=== PATIENT | female | born 1960 | race Caucasian/White ===

== ENCOUNTER → 2016-07-24 | Outpatient (CLI) | payer MEDICARE ==
--- NOTE | 2016-07-27 09:28 | MM ---
Reason for exam: screening (asymptomatic). Last mammogram was performed 1 year ago. History: Patient is postmenopausal. Benign stereotactic core biopsy of the left breast, April 14, 2002. Took estrogen for 6 months. Physical Findings: A clinical breast exam by your physician is recommended on an annual basis and results should be correlated with mammographic findings. MG Screening Mammo w CAD Bilateral CC and MLO view(s) were taken. Prior study comparison: July 23, 2015, bilateral MG screening mammo w CAD. July 20, 2014, bilateral MG screening mammo w CAD. There are scattered fibroglandular densities. Finding: There are typically benign round calcifications in both breasts. Previous mammotome biopsy in the left breast. There is no discrete abnormality. ASSESSMENT: Benign, BI-RAD 2 RECOMMENDATION: Routine screening mammogram of both breasts in 1 year.
== END | disposition home or self-care (01) ==
LOC: RADMAMWWP 14:35
PROVIDERS: ATTEND Family Medicine
DX: Z12.31 Encounter for screening mammogram for malignant neoplasm of breast (principal)

== ENCOUNTER → 2016-09-05 | Outpatient (CLI) | payer MEDICARE ==
--- NOTE | 2016-09-06 08:03 | MR ---
EXAMINATION TYPE: MR lumbar spine wo con DATE OF EXAM: 09/05/2016 1:27 PM COMPARISON: 12/02/2013 HISTORY: 55-year-old female with low back pain TECHNIQUE: Multiplanar, multisequence images of the lumbar spine were acquired. FINDINGS: Vertebral body heights are preserved. No suspicious bone marrow placement. The intervertebral discs are degenerated, desiccated, mildly moderately narrowed, and diffusely bulgi ng especially in the mid to lower lumbar spine. The overall degree of disc desiccation has progressed from 2013. Redemonstrated component of mild congenital spinal canal stenosis with AP canal dimension in the mid to lower lumbar spine of 9 mm. Facet arthropathy mid to lower lumbar spine. New grade 1 anterolisthesis at L5-S1. At T12-L1, redemonstrated small 7 mm perineural cysts on both sides. No spinal canal or neuroforamina l stenosis. At L1-L2, minimal bulging disc. No significant spinal canal or neural foraminal stenosis. At L2-L3, minimal bulging disc. No significant spinal canal or neuroforaminal stenosis. At L3-L4, is disc bulge with ligamentum flavum thickening and facet arthropathy. Changes results in c ontinued moderate spinal canal stenosis with near complete effacement of the CSF signal at this level . Mild left greater than right neuroforaminal stenosis is also stable. At L4-L5, diffuse disc bulge with ligamentum flavum thickening and facet degenerative change. Mild-to -moderate spinal canal stenosis at this level has slightly increased as have the mild bilateral neuro foraminal stenoses. At L5-S1, there is a new grade 1 anterolisthesis with continued diffuse disc bulge and facet degenera tive change. Moderate right neuroforaminal stenosis increased with similar mild left neuroforaminal s tenosis. Mild spinal canal stenosis here is similar. No prevertebral paravertebral soft tissue abnormality. IMPRESSION: 1. Moderate multilevel degenerative disc disease especially in the mid to lower lumbar spine superimp osed on mild congenital spinal canal narrowing. Additional facet arthropathy. Changes are slightly pr ogressed in the interval with new grade 1 anterolisthesis at L5-S1. 2. At L3-L4, there is continued moderate spinal canal stenosis with near complete effacement of the C SF signal at this level. Mild left greater than right neuroforaminal stenosis here is unchanged as we ll. 3. Mild to moderate spinal canal stenosis at L4-L5 is slightly increased as has the mild bilateral ne uroforaminal stenoses. 4. Mild overall spinal canal stenosis at L5-S1 is relatively similar though with increased moderate r ight neuroforaminal stenosis.
== END | disposition home or self-care (01) ==
LOC: RADMRIMAIN 12:45
PROVIDERS: ATTEND Physician Assistant
DX: M48.07 Spinal stenosis, lumbosacral region (principal); M99.73 Connective tissue and disc stenosis of intervertebral foramina of lumbar region; M51.36 Other intervertebral disc degeneration, lumbar region; M43.17 Spondylolisthesis, lumbosacral region; M46.86 Other specified inflammatory spondylopathies, lumbar region
CPT/HCPCS: 72148

== ENCOUNTER → 2017-04-29 | Outpatient (CLI) | payer MEDICARE ==
--- NOTE | 2017-04-29 16:12 | CTL ---
EXAMINATION TYPE: CT Low Dose Lung DATE OF EXAM ORDERED: 04/29/2017 HISTORY: Long-term tobacco use . Lung cancer screening CT DLP: [address] CTDI: 2.68 mGy Automated exposure control for dose reduction was used. SCREENING VISIT: Initial study COMPARISON: None TECHNIQUE: Low dose computed tomography scan was performed through the chest at 1 mm thick sections a nd reconstructed images in the coronal plane at [address] DIAGNOSTIC QUALITY: Satisfactory FINDINGS: LUNG NODULES: None. LUNGS: COPD: Severity: Mild Fibrosis: Severity: Moderate biapical posterior pleural/parenchymal scarring. Mild scarring medially right middle lobe near diaphragm. Minimal linear scarring both bases near diaphragm Lymph nodes: None. A few prominent but subcentimeter prevascular and paratracheal lymph nodes are not ed. Other findings: None BILATERAL PLEURAL SPACE: Effusion: None Calcification: None Thickening: None Pneumothorax: None HEART: Heart Size: Normal Coronary calcification: None Pericardial effusion: None OTHER FINDINGS: Upper abdomen: No significant findings seen Bony thorax: No suspicious findings seen. Supraclavicular region: No suspicious finding seen Other: There is bovine type aortic arch which is normal variant. IMPRESSION: No suspicious nodules identified. FOLLOW UP CT CHEST RECOMMENDATION: Annual low-dose lung screening CT CT LUNG RAD: Lung-Rad 1 Negative
== END | disposition home or self-care (01) ==
LOC: RADCTMAIN 14:51
PROVIDERS: ATTEND Family Medicine
DX: Z12.2 Encounter for screening for malignant neoplasm of respiratory organs (principal); Z87.891 Personal history of nicotine dependence

== ENCOUNTER → 2017-07-26 | Outpatient (CLI) | payer MEDICARE ==
--- NOTE | 2017-07-26 14:26 | US ---
EXAMINATION TYPE: US carotid duplex BILAT DATE OF EXAM: 07/26/2017 COMPARISON: NONE CLINICAL HISTORY: J44.9 COPD. Smoker x 30 years; patient denies TIA/CVA, [place]. EXAM MEASUREMENTS: RIGHT: Peak Systolic Velocity (PSV) cm/sec ----- Right CCA: 122.2 ----- Right ICA: 110.2 ----- Right ECA: 97.8 ICA/CCA ratio: 0.9 RIGHT: End Diastole cm/sec ----- Right CCA: 47.9 ----- Right ICA: 48.1 ----- Right ECA: 23.3 LEFT: Peak Systolic Velocity (PSV) cm/sec ----- Left CCA: 87.0 ----- Left ICA: 104.2 ----- Left ECA: 101.2 ICA/CCA ratio: 1.2 LEFT: End Diastole cm/sec ----- Left CCA: 28.5 ----- Left ICA: 33.7 ----- Left ECA: 16.5 VERTEBRALS (direction of flow): Right Vertebral: Antegrade Left Vertebral: Antegrade Rhythm: Arrhythmia noted on images #23 and 41. Mild intimal wall thickening is noted at bilateral carotid bifurcation, but PSV is wnl bilaterally. IMPRESSION: 1. Mild mendosa scale atheromatous plaquing of the carotid bulbs without hemodynamically significant desirae nosis of either carotid arterial system is visualized. 2. Incidentally noted cardiac arrhythmia. Correlate with EKG.
== END | disposition home or self-care (01) ==
LOC: RADUSWWP 13:39
PROVIDERS: ATTEND Family Medicine
DX: I49.9 Cardiac arrhythmia, unspecified (principal); I65.23 Occlusion and stenosis of bilateral carotid arteries; J44.9 Chronic obstructive pulmonary disease, unspecified
CPT/HCPCS: 93880

== ENCOUNTER → 2017-09-08 | Outpatient (CLI) | payer MEDICARE ==
--- NOTE | 2017-09-10 09:14 | MM ---
Reason for exam: screening (asymptomatic). Last mammogram was performed 1 year and 2 months ago. History: Patient is postmenopausal. Benign stereotactic core biopsy of the left breast, April 14, 2002. Took estrogen for 6 months. Physical Findings: A clinical breast exam by your physician is recommended on an annual basis and results should be correlated with mammographic findings. MG Screening Mammo w CAD Bilateral CC and MLO view(s) were taken. Prior study comparison: July 24, 2016, bilateral MG screening mammo w CAD. July 23, 2015, bilateral MG screening mammo w CAD. The breast tissue is heterogeneously dense. This may lower the sensitivity of mammography. Stable benign calcifications. Previous mammotome biopsy in the left breast. No significant changes when compared with prior studies. ASSESSMENT: Benign, BI-RAD 2 RECOMMENDATION: Routine screening mammogram of both breasts in 1 year.
== END | disposition home or self-care (01) ==
LOC: RADMAMWWP 15:00
PROVIDERS: ATTEND Family Medicine
DX: Z12.31 Encounter for screening mammogram for malignant neoplasm of breast (principal)
CPT/HCPCS: 77067

== ENCOUNTER → 2018-03-01 | Outpatient (CLI) | payer MEDICARE ==
--- NOTE | 2018-03-01 17:25 | CONS ---
CONSULTATION REASON FOR CONSULTATION: Hypersomnia and sleep apnea. This is a 57-year-old female patient, who is coming in for increased daytime sleepiness. The patient tells me that she is falling asleep often during the day. She is very much somnolent and sleepy and this is an ongoing problem for her. She has multiple medical problems and comorbidities. She is diabetic and she has hyperlipidemia and hypothyroidism and carotid artery stenosis and peripheral vascular disease and she also has problems with chronic migraine, peripheral neuropathy, depression and hypertension. She is on a combination of medications for now. In general, the patient carries a very poor sleep hygiene. She surfs the computer all the time and she watches TV throughout the night. She typically watches TV in the living room and she sleeps in her living room. She can fall asleep while doing computer work and while sleeping, computer is on and the TV is on with a lot of light stimulation and noise around her. She sleeps till around 1 or 2:00 am, when she wakes up either because of pain or distractions from electronics. Sometimes she is able to fall back to sleep. Other times, she has a hard time to go back to sleep. She struggles back and forth and ultimately she gets out of bed around 5:00 am in the morning. During the day, she feels drowsy and sleepy. She can easily fall asleep. However she tries not to take any naps. Wadley score is at 19. She has loud snoring. She has no witnessed apneas. No recent weight loss or weight gain. She has no nocturia, no episodes of choking or gasping for air. No evidence of restlessness in lower extremities. During the day, she has been quite somnolent and sleepy and difficulty with memory and concentration and she can fall asleep as mentioned. She does not fall asleep while driving and she has not been involved in a motor vehicle accident. She does not utilize any form of alcohol. She smokes cigarettes. No previous history of sleep apnea. No previous history of narcolepsy. No history of sleep paralysis, subluxations or cataplexy at this point. No history of any seizure activity. No history of head trauma, or traumatic brain injury. PAST MEDICAL HISTORY: Diabetes, hyperlipidemia, hypothyroidism, carotid artery disease, peripheral vascular disease, migraines, peripheral neuropathy, depression, osteoarthritis and hypertension. PAST SURGICAL HISTORY: Tubal ligation. DRUG ALLERGIES: TO DEMEROL AND NEOSPORIN. OUTPATIENT MEDICATION: Include metformin 500 mg once a day. Neurontin 300 mg twice a day. Potassium 20 mEq p.o. daily, Cymbalta 600 mg p.o. daily, Lipitor 4 mg p.o. daily, Percocet 10/325 on an as needed basis. Levothyroxine 25 mcg p.o. daily, lisinopril 10 mg p.o. daily. Lasix 20 mg p.o. daily. Cilostazol 100 mg p.o. daily, 100 mg p.o. twice a day, vitamin D and hydroxyzine. SOCIAL HISTORY: The patient is a smoker. No history of alcohol. No history of IV drugs. FAMILY HISTORY: Negative for sleep apnea. REVIEW OF SYSTEMS: 12-point review of system was done. Positive findings are mentioned above in history of present illness. PHYSICAL EXAMINATION: BP is 98/63, pulse 72, respirations 16, temperature 98.2, saturation 96% on room air. Neck size is 13 and a quarter of an inch. BMI is 25.4, Wadley score 19. Weight is 146, height is 5 feet 4 inches. General appearance: Calm, comfortable in no acute distress. Head is atraumatic, normocephalic. NECK: Supple. No JVD. No goiter or neck masses. Mallampati class IV. LUNGS: Clear to auscultation. HEART: Sounds regular rate and rhythm. Normal S1, S2. No S3, S4. No murmurs. ABDOMEN: Soft, nontender. No organomegaly. EXTREMITIES: No edema. No cyanosis or clubbing. Neurologic: Patient is alert and oriented times three. There is no focal neurological deficits. Psychiatrically she has a history of chronic anxiety and depression. IMPRESSION: 1. Hypersomnia of unclear etiology. This is most likely related to poor sleep hygiene and as mentioned in the consultation note. Other possibilities include insufficient sleep syndrome and drug-induced hypersomnia. Obstructive sleep apnea is within the differential diagnosis. Other considerations include restless leg syndrome. 2. Diabetes mellitus. 3. Hyperlipidemia. 4. Peripheral neuropathy. 5. Depression. 6. Osteoarthritis. 7. Hypertension. 8. Peripheral vascular disease and carotid artery stenosis. 9. Hypothyroidism. PLAN: The patient has multitude of reasons to become hypersomnolent sleepy. First of all, she has poor sleep hygiene. In addition, she has metabolic issues including hypothyroidism that needs to be followed up regularly to make sure she is adequately treated for this problem. She also has peripheral vascular disease and peripheral neuropathy which typically can cause periodic limb movements and sleep fragmentation nocturnal arousals. In addition, the patient has history of chronic depression typically known to cause sleep onset and sleep maintenance insomnia. Other possibilities include obstructive sleep apnea that needs to be ruled out by sleep study. Based on all these factors, sleep study will be done on this patient to rule out any sleep breathing disorder, periodic limb movements. At the same time, this would be a good opportunity to assess her sleep quality in general. We will make further recommendations regarding her sleep hygiene and this has been emphasized on today's evaluation. Medications will be kept on change. I will see the patient in the office after completing of the sleep study. MMODL / IJN: [id number] /
== END | disposition home or self-care (01) ==
LOC: SLEEP 14:57
PROVIDERS: ATTEND Internal Medicine Critical Care Medicine
DX: G47.10 Hypersomnia, unspecified (principal); R06.83 Snoring; E11.40 Type 2 diabetes mellitus with diabetic neuropathy, unspecified; E11.51 Type 2 diabetes mellitus with diabetic peripheral angiopathy without gangrene; E78.5 Hyperlipidemia, unspecified; F32.9 Major depressive disorder, single episode, unspecified; M19.90 Unspecified osteoarthritis, unspecified site; I10 Essential (primary) hypertension; I65.29 Occlusion and stenosis of unspecified carotid artery; E03.9 Hypothyroidism, unspecified; F17.210 Nicotine dependence, cigarettes, uncomplicated; G43.901 Migraine, unspecified, not intractable, with status migrainosus; Z98.51 Tubal ligation status; Z88.1 Allergy status to other antibiotic agents; Z88.5 Allergy status to narcotic agent; Z79.84 Long term (current) use of oral hypoglycemic drugs; Z79.899 Other long term (current) drug therapy; Z79.891 Long term (current) use of opiate analgesic
CPT/HCPCS: 99211

== ENCOUNTER → 2018-05-31 | Outpatient (CLI) | payer MEDICARE ==
--- NOTE | 2018-05-31 12:38 | P.PN ---
Progress Note - Text Progress Note Date: 05/31/18 This is a 57-year-old female patient was being seen in our sleep center because of excessive sleepiness. The patient came to me with concerns of sleep apnea. At the same time she was found to have poor sleep hygiene and insufficient sleep syndrome. She was also taken several drugs and drug induced hypersomnia was suspected. No clinical manifestation of narcolepsy. A polysomnogram was ordered and the patient was found to have mild DIANNE with an H&H of 8.3 worse during REM. The sleep architecture was abnormal and the patient overall presentation of stage III sleep. Sleep efficiency was very high at 95%. No significant REM representation. The patient underwent a CPAP titration and she was titrated to CPAP pressure of 11 cm of water and today she is coming in for a follow-up. She is feeling better. She is admitted less sleepy however she is not fully recovered. She is still suffering from increased tiredness and sleepiness during the day with occasional sleep attacks. The patient is not absolutely compliant with her CPAP machine. I noted that she is using the CPAP machine 19 out of the past 30 days and his CPAP use for more than 4 hours has been less than 50%. She's been averaging around 4.3 hours of CPAP use per night and the AHI while on treatment is less than 5, specifically at 2.3. She is also interested in nose mask. She has a stable weight. She is improving her sleep hygiene measure. She is trying to sleep longer hours as recommended to her. Vitals indicate a blood pressure of 100/65 with a pulse of 70 and respiration of 18 her upper scores at 17 and saturation 95% on room air temperature 97.4 and weight is 145 pounds. The patient appeared well nourished and normally developed. Vital signs as documented. Head exam is unremarkable. No scleral icterus or corneal arcus noted. Neck is without jugular venous distension, thyromegaly, or carotid bruits. Carotid upstrokes are brisk bilaterally. Lungs are clear to auscultation and percussion. Cardiac exam reveals the PMI to be normally sized and situated. Rhythm is regular. First and second heart sounds normal. No murmurs, rubs or gallops. Abdominal exam reveals normal bowel sounds, no masses , no organomegaly and no aortic enlargement. Extremities are nonedematous and both femoral and pedal pulses are normal. Impression #1 obstructive sleep apnea, mild in severity with an H&H of 8.3 worse during REM. The patient is currently on CPAP with some improvement in her chronic hypersomnia and sleepiness although she is not completely recovered 2 chronic hypersomnia , current [place] is 17. Narcolepsy is doubtful. The patient is working on her sleep hygiene measures and she is also working on extending his sleep hours 3 poor sleep hygiene measures 4 insufficient sleep syndrome 5 hypertension 6 hyperlipidemia 7 diabetes mellitus 8 peripheral neuropathy 9 depression 10 osteoarthritis 11 peripheral vascular disease 12 hypothyroidism Plan We will ask the patient to become more compliant with her CPAP unit. I switch her to a Eson small size nose mask and this should improve her comfort and tolerability. We'll need to utilize a CPAP machine more than 4 hours 70% of the nights to meet insurance guidelines the patient is aware of that. She'll be asked to improve her compliance and improve her sleep hygiene measures and see me back in follow-up in 3- 6 months for further advice. May consider stimulant at the later stage if she continues to be excessively sleepy. [place] score is still elevated at 17.
== END | disposition home or self-care (01) ==
LOC: SLEEP 11:44
PROVIDERS: ATTEND Internal Medicine Critical Care Medicine
DX: G47.33 Obstructive sleep apnea (adult) (pediatric) (principal); G47.52 REM sleep behavior disorder; I10 Essential (primary) hypertension; E78.5 Hyperlipidemia, unspecified; E11.42 Type 2 diabetes mellitus with diabetic polyneuropathy; E03.9 Hypothyroidism, unspecified; F32.9 Major depressive disorder, single episode, unspecified; M19.90 Unspecified osteoarthritis, unspecified site; E11.51 Type 2 diabetes mellitus with diabetic peripheral angiopathy without gangrene; Z99.89 Dependence on other enabling machines and devices

== ENCOUNTER → 2018-09-14 | Outpatient (CLI) | payer MEDICARE ==
--- NOTE | 2018-09-15 11:34 | MM ---
Reason for exam: screening (asymptomatic). Last mammogram was performed 1 year ago. History: Patient is postmenopausal. Benign stereotactic core biopsy of the left breast, April 14, 2002. Took estrogen for 6 months. Physical Findings: A clinical breast exam by your physician is recommended on an annual basis and results should be correlated with mammographic findings. MG Screening Mammo w CAD Bilateral CC and MLO view(s) were taken. XCCL view(s) were taken of the left breast. Prior study comparison: September 08, 2017, bilateral MG screening mammo w CAD. July 24, 2016, bilateral MG screening mammo w CAD. The breast tissue is heterogeneously dense. This may lower the sensitivity of mammography. There are benign appearing round, dystrophic calcifications bilaterally. Previous mammotome biopsy in the left breast. There is no discrete abnormality. ASSESSMENT: Benign, BI-RAD 2 RECOMMENDATION: Routine screening mammogram of both breasts in 1 year.
== END | disposition home or self-care (01) ==
LOC: RADMAMWWP 13:32
PROVIDERS: ATTEND Family Medicine
DX: Z12.31 Encounter for screening mammogram for malignant neoplasm of breast (principal)
CPT/HCPCS: 77067

== ENCOUNTER → 2019-09-15 | Outpatient (CLI) | payer MEDICARE | END | disposition home or self-care (01) | LOC: LABWHC1 07:57 | PROVIDERS: ATTEND Surgery | DX: U07.1 COVID-19 (principal) | CPT/HCPCS: 87635 ==

== ENCOUNTER → 2019-10-06 | Outpatient (CLI) | payer MEDICARE | END | disposition home or self-care (01) | LOC: LABWHC1 12:16 | PROVIDERS: ATTEND Surgery | DX: Z11.59 Encounter for screening for other viral diseases (principal) ==

== ENCOUNTER → 2019-10-10 | Outpatient (CLI) | payer MEDICARE | END | disposition home or self-care (01) | LOC: LABWHC1 13:09 | PROVIDERS: ATTEND Surgery | DX: Z11.59 Encounter for screening for other viral diseases (principal) ==

== ENCOUNTER 2019-10-13 07:43 | Day surgery (SDC) | payer MEDICARE ==
[2019-10-11 16:00] VITALS: BMI 24.7
[~2019-10-13 07:43] MED LIST: LACTATED RINGERS 1,000 ML IV SCH
[2019-10-13 08:05] VITALS: TEMP 97.1
[2019-10-13] MEDS ORDERED: LIDOCAINE 1% (10MG/ML) FOR IV START INTRADERMA ONE (08:05)
[2019-10-13 08:07] LABS: Glucose,Whole Blood 95 mg/dL (75-99)
[2019-10-13] MEDS ORDERED: PROPOFOL 10 MG/ML 20 ML VIAL IV ONE (08:09)
--- NOTE | 2019-10-13 08:09 | P.GSHP ---
History of Present Illness H&P Date: 10/13/19 Chief Complaint: Screening colonoscopy This a 5-year-old female referred from Dr. Shea Tenorio. Patient presents today for screening colonoscopy. Patient denies a significant GI Bleeds. Past Medical History Past Medical History: COPD, Deep Vein Thrombosis (DVT), Hyperlipidemia, Hypertension, Thyroid Disorder Additional Past Medical History / Comment(s): DDD History of Any Multi-Drug Resistant Organisms: None Reported Past Surgical History: Tubal Ligation Additional Past Surgical History / Comment(s): colonoscopy Past Anesthesia/Blood Transfusion Reactions: No Reported Reaction Smoking Status: Current every day smoker Medications and Allergies Home Medications Medication Instructions Recorded Confirmed Type Albuterol Nebulized [Ventolin 2.5 mg INHALATION Q6H PRN 09/15/19 10/13/19 History Nebulized] Aspirin [Adult Low Dose Aspirin EC] 81 mg PO DAILY 09/15/19 10/13/19 History Atorvastatin [Lipitor] 40 mg PO DAILY 09/15/19 10/13/19 History Cilostazol [Pletal] 100 mg PO DAILY 09/15/19 10/13/19 History DULoxetine HCL [Cymbalta] 60 mg PO QAM 09/15/19 10/13/19 History Ergocalciferol [Vitamin D2] 50,000 unit PO FR 09/15/19 10/13/19 History Ferrous Sulfate [Feosol] 325 mg PO DAILY 09/15/19 10/13/19 History Furosemide [Lasix] 20 mg PO DAILY 09/15/19 10/13/19 History Gabapentin [Neurontin] 100 mg PO QID PRN 09/15/19 10/13/19 History Levothyroxine Sodium [Synthroid] 25 mcg PO DAILY 09/15/19 10/13/19 History Lisinopril [Zestril] 5 mg PO HS 09/15/19 10/13/19 History Potassium Chloride [Klor-Con 20] 20 meq PO DAILY 09/15/19 10/13/19 History Topiramate [Topamax] 100 mg PO BID 09/15/19 10/13/19 History Umeclidinium Brm/Vilanterol Tr 1 puff INHALATION DAILY 09/15/19 10/13/19 History [Anoro Ellipta 62.5-25 Mcg INH] Vitamin B Complex 1 each PO DAILY 09/15/19 10/13/19 History busPIRone HCL 20 mg PO BID 09/15/19 10/13/19 History metFORMIN HCL [Glucophage] 500 mg PO BID 09/15/19 10/13/19 History oxyCODONE-APAP 10-325MG [Percocet 1 tab PO Q6HR PRN 09/15/19 10/13/19 History 10-325 mg] Allergies Allergy/AdvReac Type Severity Reaction Status Date / Time bacitracin Allergy Rash/Hives Verified 10/11/19 15:41 [From Neosporin ([id number])] meperidine [From Demerol] Allergy Rash/Hives Verified 10/11/19 15:41 neomycin Allergy Rash/Hives Verified 10/11/19 15:41 [From Neosporin ([id number])] polymyxin B Allergy Rash/Hives Verified 10/11/19 15:41 [From Neosporin ([id number])] Surgical - Exam Vital Signs Temp Pulse Resp BP Pulse Ox 97.1 F L 75 16 123/58 98 10/13/19 07:57 10/13/19 07:57 10/13/19 07:57 10/13/19 07:57 10/13/19 07:57 - General well developed, well nourished, no distress - Eyes PERRL - ENT normal pinna - Neck no masses - Respiratory normal expansion - Cardiovascular Rhythm: regular - Abdomen Abdomen: soft, non tender Assessment and Plan Assessment: We'll perform screening colonoscopy.
--- NOTE | 2019-10-13 08:31 | P.OP ---
Date of Procedure: 10/13/19 Preoperative Diagnosis: Screening colonoscopy Postoperative Diagnosis: Tortuous colon Procedure(s) Performed: Colonoscopy Anesthesia: MAC Surgeon: Satish Bae Pathology: none sent Condition: stable Disposition: PACU Description of Procedure: The patient's placed on the operating table in the lateral position. She received IV station. Digital rectal exam was performed which revealed no abnormalities. The flexible colonoscope was then placed throughout the colon. Several times made to to enter the cecum however due to tortuous bowel was impossible. At this point scope was withdrawn. The remainder the ascending colon, transverse colon and descending colon appeared normal. The sigmoid colon and rectum was normal. Scope was withdrawn for patient.
[2019-10-13 08:49] VITALS: BP 115/83; PULSE 80; RESP 16
== END 2019-10-13 09:06 | disposition home or self-care (01) ==
LOC: ORWHC2ENDO 07:43
PROVIDERS: ATTEND Surgery
DX: Z12.11 Encounter for screening for malignant neoplasm of colon (principal); Q43.8 Other specified congenital malformations of intestine; J44.9 Chronic obstructive pulmonary disease, unspecified; E78.5 Hyperlipidemia, unspecified; I10 Essential (primary) hypertension; E07.9 Disorder of thyroid, unspecified; E11.9 Type 2 diabetes mellitus without complications; Z86.718 Personal history of other venous thrombosis and embolism; Z98.51 Tubal ligation status; F17.200 Nicotine dependence, unspecified, uncomplicated; F41.8 Other specified anxiety disorders; Z79.84 Long term (current) use of oral hypoglycemic drugs; Z79.02 Long term (current) use of antithrombotics/antiplatelets; Z79.82 Long term (current) use of aspirin; Z79.899 Other long term (current) drug therapy; Z88.5 Allergy status to narcotic agent; Z88.8 Allergy status to other drugs, medicaments and biological substances
CPT/HCPCS: J2704; G0121

== ENCOUNTER → 2020-02-09 | Outpatient (CLI) | payer MEDICARE ==
--- NOTE | 2020-02-12 09:43 | MM ---
Reason for exam: screening (asymptomatic). Last mammogram was performed 1 year and 5 months ago. History: Patient is postmenopausal. Benign stereotactic core biopsy of the left breast, April 14, 2002. Took estrogen for 6 months. Physical Findings: A clinical breast exam by your physician is recommended on an annual basis and results should be correlated with mammographic findings. MG 3D Screening Mammo W/Cad Bilateral CC and MLO view(s) were taken. Prior study comparison: September 14, 2018, bilateral MG screening mammo w CAD. September 08, 2017, bilateral MG screening mammo w CAD. The breast tissue is heterogeneously dense. This may lower the sensitivity of mammography. Stable benign calcifications. ASSESSMENT: Benign, BI-RAD 2 RECOMMENDATION: Routine screening mammogram of both breasts in 1 year.
== END | disposition home or self-care (01) ==
LOC: RADMAMWWP 13:57
PROVIDERS: ATTEND Family Medicine
DX: Z12.31 Encounter for screening mammogram for malignant neoplasm of breast (principal)
CPT/HCPCS: 77063; 77067

== ENCOUNTER 2020-04-08 14:57 | Inpatient (IN) | payer MEDICARE ==
[2020-04-08] MEDS ORDERED: SODIUM CHLORIDE 0.9% 1,000 ML IV STA ×2 (15:50)
[2020-04-08] MEDS ORDERED: MORPHINE SULFATE 4 MG/ML SYRINGE IV STA (15:50)
--- NOTE | 2020-04-08 15:51 | ED ---
Abdominal Pain HPI - General Chief Complaint: Abdominal Pain Stated Complaint: Hernia Time Seen by Provider: 04/08/20 15:20 Source: patient, RN notes reviewed, old records reviewed Mode of arrival: ambulatory Limitations: no limitations - History of Present Illness Initial Comments: This is a 5-year-old female sent DF for evaluation reevaluation regarding abdominal pain. Patient's abdominal pain is related to bulge that she noticed for the last few days in her pelvic area. Coronary. Seen by family doctor told was hernia with pain is severe sedation a bowel movement yesterday she is able to eat and drink. Symptoms are worse when she moves or sits up MD Complaint: abdominal pain -: days(s) (4) Location: RLQ Radiation: suprapubic Migration to: RLQ Severity: moderate Severity scale (1-10): 6 Quality: sharp Consistency: constant Improves With: nothing Worsens With: nothing Associated Symptoms: denies other symptoms - Related Data Home Medications Medication Instructions Recorded Confirmed Albuterol Nebulized [Ventolin 2.5 mg INHALATION RT-Q6H PRN 09/15/19 04/08/20 Nebulized] Aspirin [Adult Low Dose Aspirin EC] 81 mg PO DAILY 09/15/19 04/08/20 Atorvastatin [Lipitor] 40 mg PO DAILY 09/15/19 04/08/20 DULoxetine HCL [Cymbalta] 60 mg PO QAM 09/15/19 04/08/20 Ergocalciferol [Vitamin D2] 50,000 unit PO FR 09/15/19 04/08/20 Ferrous Sulfate [Feosol] 325 mg PO DAILY 09/15/19 04/08/20 Furosemide [Lasix] 20 mg PO DAILY 09/15/19 04/08/20 Gabapentin [Neurontin] 100 mg PO QID 09/15/19 04/08/20 Levothyroxine Sodium [Synthroid] 25 mcg PO DAILY 09/15/19 04/08/20 Potassium Chloride [Klor-Con 20] 20 meq PO DAILY 09/15/19 04/08/20 Topiramate [Topamax] 100 mg PO BID 09/15/19 04/08/20 Umeclidinium Brm/Vilanterol Tr 1 puff INHALATION RT-DAILY 09/15/19 04/08/20 [Anoro Ellipta 62.5-25 Mcg INH] Vitamin B Complex 1 each PO DAILY 09/15/19 04/08/20 busPIRone HCL 20 mg PO BID 09/15/19 04/08/20 cilostazoL [Pletal] 100 mg PO DAILY 09/15/19 04/08/20 lisinopriL [Zestril] 5 mg PO DAILY 09/15/19 04/08/20 metFORMIN HCL [Glucophage] 500 mg PO BID 09/15/19 04/08/20 oxyCODONE-APAP 10-325MG [Percocet 1 tab PO Q6HR PRN 09/15/19 04/08/20 10-325 mg] hydrOXYzine pamoate [Vistaril] 25 mg PO QID 04/08/20 04/08/20 Allergies Allergy/AdvReac Type Severity Reaction Status Date / Time bacitracin Allergy Rash/Hives Verified 04/08/20 16:45 [From Neosporin ([id number])] meperidine [From Demerol] Allergy Rash/Hives Verified 04/08/20 16:45 neomycin Allergy Rash/Hives Verified 04/08/20 16:45 [From Neosporin ([id number])] polymyxin B Allergy Rash/Hives Verified 04/08/20 16:45 [From Neosporin ([id number])] Review of Systems ROS Statement: Those systems with pertinent positive or pertinent negative responses have been documented in the HPI. ROS Other: All systems not noted in ROS Statement are negative. Past Medical History Past Medical History: Hyperlipidemia, Hypertension Additional Past Medical History / Comment(s): chronic back pain, clotting disorder History of Any Multi-Drug Resistant Organisms: None Reported Past Surgical History: Tubal Ligation Smoking Status: Current every day smoker Past Alcohol Use History: None Reported Past Drug Use History: None Reported General Exam - General Exam Comments Initial Comments: Patient does have significant likely femoral hernia unable to reduce the ER Limitations: no limitations General appearance: alert, in no apparent distress Head exam: Present: atraumatic, normocephalic, normal inspection Eye exam: Present: normal appearance, PERRL, EOMI. Absent: scleral icterus, conjunctival injection, periorbital swelling ENT exam: Present: normal exam, mucous membranes moist Neck exam: Present: normal inspection. Absent: tenderness, meningismus, lymphadenopathy Respiratory exam: Present: normal lung sounds bilaterally. Absent: respiratory distress, wheezes, rales, rhonchi, stridor Cardiovascular Exam: Present: regular rate, normal rhythm, normal heart sounds. Absent: systolic murmur, diastolic murmur, rubs, gallop, clicks GI/Abdominal exam: Present: soft, normal bowel sounds. Absent: distended, tenderness, guarding, rebound, rigid Extremities exam: Present: normal inspection, full ROM, normal capillary refill. Absent: tenderness, pedal edema, joint swelling, calf tenderness Back exam: Present: normal inspection Neurological exam: Present: alert, oriented X3, CN II-XII intact Psychiatric exam: Present: normal affect, normal mood Skin exam: Present: warm, dry, intact, normal color. Absent: rash Course Vital Signs 04/08/20 15:01 Temperature 98.4 F Pulse Rate 88 Respiratory 18 Rate Blood Pressure 107/71 O2 Sat by Pulse 97 Oximetry - Reevaluation(s) Reevaluation #1: 04/08/20 16:38 Medical records reviewed Reevaluation #2: 04/08/20 16:38 Attempted reduction of hernia after placing ice pack on the area, unable to get complete reduction although most of the bowel did retract - Consultations Consultation #1: Spoke with Dr. Bae agrees to admit this patient Medical Decision Making - Medical Decision Making 59 female to the ER for evaluation patient presents today for evaluation regards to abdominal pain with an incarcerated inguinal hernia will admit for evaluation and treatment by Dr. Bae - Lab Data Result diagrams: 04/08/20 16:26 04/08/20 16:26 Lab Results 04/08/20 04/08/20 04/08/20 Range/Units 16:26 16:26 16:26 WBC 9.2 (3.8-10.6) k/uL RBC 4.13 (3.80-5.40) m/uL Hgb 13.0 (11.4-16.0) gm/dL Hct 39.4 (34.0-46.0) % MCV 95.4 (80.0-100.0) fL MCH 31.6 (25.0-35.0) pg MCHC 33.1 (31.0-37.0) g/dL RDW 12.6 (11.5-15.5) % Plt Count 245 (150-450) k/uL MPV 7.4 Neutrophils % 70 % Lymphocytes % 17 % Monocytes % 6 % Eosinophils % 4 % Basophils % 1 % Neutrophils # 6.5 (1.3-7.7) k/uL Lymphocytes # 1.6 (1.0-4.8) k/uL Monocytes # 0.6 (0-1.0) k/uL Eosinophils # 0.4 (0-0.7) k/uL Basophils # 0.1 (0-0.2) k/uL PT 10.0 (9.0-12.0) sec INR 1.0 (<1.2) APTT 27.2 (22.0-30.0) sec Sodium 139 (137-145) mmol/L Potassium 3.5 (3.5-5.1) mmol/L Chloride 106 (98-107) mmol/L Carbon Dioxide 27 (22-30) mmol/L Anion Gap 6 mmol/L BUN 11 (7-17) mg/dL Creatinine 0.80 (0.52-1.04) mg/dL Est GFR (CKD-EPI)AfAm >90 (>60 ml/min/1.73 sqM) Est GFR (CKD-EPI)NonAf 81 (>60 ml/min/1.73 sqM) Glucose 98 (74-99) mg/dL Plasma Lactic Acid Pastor (0.7-2.0) mmol/L Calcium 9.0 (8.4-10.2) mg/dL Total Bilirubin 0.5 (0.2-1.3) mg/dL AST 20 (14-36) U/L ALT 13 (4-34) U/L Alkaline Phosphatase 85 (38-126) U/L Total Protein 6.2 L (6.3-8.2) g/dL Albumin 3.6 (3.5-5.0) g/dL Amylase 50 (30-110) U/L Lipase 61 (23-300) U/L /30/20 Range/Units 16:26 WBC (3.8-10.6) k/uL RBC (3.80-5.40) m/uL Hgb (11.4-16.0) gm/dL Hct (34.0-46.0) % MCV (80.0-100.0) fL MCH (25.0-35.0) pg MCHC (31.0-37.0) g/dL RDW (11.5-15.5) % Plt Count (150-450) k/uL MPV Neutrophils % % Lymphocytes % % Monocytes % % Eosinophils % % Basophils % % Neutrophils # (1.3-7.7) k/uL Lymphocytes # (1.0-4.8) k/uL Monocytes # (0-1.0) k/uL Eosinophils # (0-0.7) k/uL Basophils # (0-0.2) k/uL PT (9.0-12.0) sec INR (<1.2) APTT (22.0-30.0) sec Sodium (137-145) mmol/L Potassium (3.5-5.1) mmol/L Chloride (98-107) mmol/L Carbon Dioxide (22-30) mmol/L Anion Gap mmol/L BUN (7-17) mg/dL Creatinine (0.52-1.04) mg/dL Est GFR (CKD-EPI)AfAm (>60 ml/min/1.73 sqM) Est GFR (CKD-EPI)NonAf (>60 ml/min/1.73 sqM) Glucose (74-99) mg/dL Plasma Lactic Acid Pastor 0.7 (0.7-2.0) mmol/L Calcium (8.4-10.2) mg/dL Total Bilirubin (0.2-1.3) mg/dL AST (14-36) U/L ALT (4-34) U/L Alkaline Phosphatase (38-126) U/L Total Protein (6.3-8.2) g/dL Albumin (3.5-5.0) g/dL Amylase (30-110) U/L Lipase (23-300) U/L - Radiology Data Radiology results: report reviewed (CT abdomen and pelvis positive for incarcerated inguinal hernia), image reviewed Disposition Clinical Impression: Inguinal hernia, Incarcerated inguinal hernia Disposition: ADMITTED IP TO THIS [facility] Condition: Good Is patient prescribed a controlled substance at d/c from ED?: No Referrals: Shea Tenorio DO [Primary Care Provider] - 1-2 days
[2020-04-08 16:40] LABS: Basophils # (A) 0.1 k/uL (0-0.2); Basophils % (A) 1 %; Eosinophils # (A) 0.4 k/uL (0-0.7); Eosinophils % (A) 4 %; HCT 39.4 % (34.0-46.0); Lymphocytes # (A) 1.6 k/uL (1.0-4.8); Lymphocytes % (A) 17 %; MCH 31.6 pg (25.0-35.0); MCHC 33.1 g/dL (31.0-37.0); MCV 95.4 fL (80.0-100.0); Mean Platelet Volume 7.4; Monocytes # (A) 0.6 k/uL (0-1.0); Monocytes % (A) 6 %; Neutrophils # (A) 6.5 k/uL (1.3-7.7); Neutrophils % (A) 70 %; Platelet Count 245 k/uL (150-450); RBC 4.13 m/uL (3.80-5.40); RDW 12.6 % (11.5-15.5); WBC 9.2 k/uL (3.8-10.6)
[2020-04-08 16:48] LABS: Partial Thromboplastin Time 27.2 sec (22.0-30.0)
[2020-04-08 16:50] LABS: ALT 13 U/L (4-34); AST 20 U/L (14-36); African American GFR (CKD) >90 (>60 ml/min/1.73 sqM); Albumin 3.6 g/dL (3.5-5.0); Alkaline Phosphatase 85 U/L (38-126); Amylase 50 U/L (30-110); Anion Gap 6 mmol/L; Blood Urea Nitrogen 11 mg/dL (7-17); Carbon Dioxide 27 mmol/L (22-30); Chloride 106 mmol/L (98-107); Glucose 98 mg/dL (74-99); Lipase 61 U/L (23-300); Non-African American GFR(CKD) 81 (>60 ml/min/1.73 sqM); Potassium 3.5 mmol/L (3.5-5.1); Sodium 139 mmol/L (137-145); Total Bilirubin 0.5 mg/dL (0.2-1.3); Total Protein 6.2 g/dL (6.3-8.2)
--- NOTE | 2020-04-08 17:52 | CT ---
EXAMINATION TYPE: CT abdomen pelvis w con DATE OF EXAM: 04/08/2020 COMPARISON: None HISTORY: ABDOMINAL PAIN CT DLP: 648.4 mGycm Automated exposure control for dose reduction was used. TECHNIQUE: Helical acquisition of images from the lung bases through the pelvis have been completed. CONTRAST: Performed without Oral Contrast and with IV Contrast, patient injected with 100 mL of Isovue 300. FINDINGS: The right inguinal region shows a hernia which contains fat, there is inflammatory change p resent within the inguinal hernia. Subcutaneous fat also shows inflammatory change LUNG BASES: No significant abnormality is appreciated. AORTA: No significant abnormality is appreciated. LIVER/GB: No significant abnormality is appreciated. PANCREAS: No significant abnormality is seen. SPLEEN: No significant abnormality is seen. ADRENALS: No significant abnormality is seen. KIDNEYS: No significant abnormality is seen. REPRODUCTIVE ORGANS: No significant abnormality is seen BOWEL: No significant abnormality is seen. FREE AIR: No Free Air visible. ASCITES: None visible. PELVIC ADENOPATHY: None visualized. RETROPERITONEAL ADENOPATHY: No Retroperitoneal Adenopathy visible. URINARY BLADDER: No significant abnormality is seen. OSSEOUS STRUCTURES: No significant abnormality is seen. IMPRESSION: FINDINGS OF RIGHT INGUINAL HERNIA WITH POSSIBLE OMENTAL FAT WITH FAT NECROSIS, CORRELATE FOR INCARCER ATED HERNIA
[2020-04-08] MEDS ORDERED: AMPICILLIN-SULBACTAM 3 GM in SODIUM CHLORIDE 0.9% 100 ML IVPB STA (18:07)
[2020-04-09] MEDS: MORPHINE SULFATE 4 MG/ML SYRINGE IVP PRN ×3 (00:52→18:36)
[2020-04-09] MEDS: AMPICILLIN-SULBACTAM 3 GM in SODIUM CHLORIDE 0.9% 100 ML IVPB SCH ×3 (03:02→22:05)
[2020-04-09] MEDS: busPIRone HCl 10 MG TAB PO SCH ×2 (10:46→22:13)
[2020-04-09] MEDS: LEVOTHYROXINE 25 MCG TAB PO SCH (10:46)
[2020-04-09] MEDS: GABAPENTIN 100 MG CAP PO SCH ×4 (10:46→22:13)
[2020-04-09] MEDS: TOPIRAMATE 100 MG TAB PO SCH ×2 (10:46→22:13)
[2020-04-09] MEDS: DULoxetine HCL 60 MG CAPSULE.DR PO SCH (10:46)
[2020-04-09] MEDS: ATORVASTATIN 40 MG TAB PO SCH (10:46)
--- NOTE | 2020-04-09 11:02 | P.GSHP ---
History of Present Illness H&P Date: 04/09/20 CHIEF COMPLAINT: Right inguinal pain HISTORY OF PRESENT ILLNESS: This is a 59-year-old female with a known history of hypertension, hyperlipidemia, nicotine dependence, emphysema and patient reports prior history of blockage in the left neck artery now resolved. Patient presents to emergency room with right lower abdominal pain with bulge in the right inguinal area for the last 3 days. The bulge is red, tender and inflamed. She denies any prior abdominal surgeries. She denies any heavy lifting. She had a computed tomography scan of the abdomen and pelvis showing right inguinal hernia with possible omental fat with fat necrosis, correlate for incarcerated hernia. Patient denies any fever, chills or sweats. Denies any nausea or vomiting. PAST MEDICAL HISTORY: See list. PAST SURGICAL HISTORY: See list. MEDICATIONS: See list. ALLERGIES: See list. SOCIAL HISTORY: No illicit drug use. REVIEW OF SYSTEMS: CONSTITUTIONAL: Denies fever or chills. HEENT: Denies blurred vision, vision changes, or eye pain. Denies hemoptysis CARDIOVASCULAR: Denies chest pain or pressure. RESPIRATORY: No shortness of breath. GASTROINTESTINAL: See HPI for pertinent findings HEMATOLOGIC: Denies bleeding disorders. GENITOURINARY: Denies any blood in urine or increased urinary frequency. SKIN: Denies pruitis. Denies rash. PHYSICAL EXAM: VITAL SIGNS: Reviewed GENERAL: Well-developed in no acute distress. HEENT: No sclera icterus. Extraocular movements grossly intact. Moist buccal mucosa. Head is atraumatic, normocephalic. No nasal drainage. ABDOMEN: Soft. Nondistended. Patient has tenderness and swelling with hernia bulge noted in the right inguinal area. It is painful with palpation and red. NEUROLOGIC: Alert and oriented. Cranial nerves II through XII grossly intact. LABORATORY DATA: WBC 9.2 hgb13.0 IMAGING: computed tomography scan of the abdomen and pelvis showing right inguinal hernia with possible omental fat with fat necrosis, correlate for incarcerated hernia ASSESSMENT: 1. Right inguinal hernia with possible omental fat with fat necrosis PLAN: -Patient is scheduled for right inguinal hernia repair tomorrow 04-10-[address] Catalino Moon for regular diet today -Nothing by mouth after midnight -Continue IV Unasyn -Consult medicine for medical management Physician Bleach Mixer note has been reviewed by physician. Signing provider agrees with the documented findings, assessment, and plan of care. Past Medical History Past Medical History: Hyperlipidemia, Hypertension Additional Past Medical History / Comment(s): chronic back pain, clotting disorder History of Any Multi-Drug Resistant Organisms: None Reported Past Surgical History: Tubal Ligation Past Anesthesia/Blood Transfusion Reactions: No Reported Reaction Smoking Status: Current every day smoker Past Alcohol Use History: None Reported Past Drug Use History: None Reported Medications and Allergies Home Medications Medication Instructions Recorded Confirmed Type Albuterol Nebulized [Ventolin 2.5 mg INHALATION RT-Q6H PRN 09/15/19 04/08/20 History Nebulized] Aspirin [Adult Low Dose Aspirin EC] 81 mg PO DAILY 09/15/19 04/08/20 History Atorvastatin [Lipitor] 40 mg PO DAILY 09/15/19 04/08/20 History DULoxetine HCL [Cymbalta] 60 mg PO QAM 09/15/19 04/08/20 History Ergocalciferol [Vitamin D2] 50,000 unit PO FR 09/15/19 04/08/20 History Ferrous Sulfate [Feosol] 325 mg PO DAILY 09/15/19 04/08/20 History Furosemide [Lasix] 20 mg PO DAILY 09/15/19 04/08/20 History Gabapentin [Neurontin] 100 mg PO QID 09/15/19 04/08/20 History Levothyroxine Sodium [Synthroid] 25 mcg PO DAILY 09/15/19 04/08/20 History Potassium Chloride [Klor-Con 20] 20 meq PO DAILY 09/15/19 04/08/20 History Topiramate [Topamax] 100 mg PO BID 09/15/19 04/08/20 History Umeclidinium Brm/Vilanterol Tr 1 puff INHALATION RT-DAILY 09/15/19 04/08/20 History [Anoro Ellipta 62.5-25 Mcg INH] Vitamin B Complex 1 each PO DAILY 09/15/19 04/08/20 History busPIRone HCL 20 mg PO BID 09/15/19 04/08/20 History cilostazoL [Pletal] 100 mg PO DAILY 09/15/19 04/08/20 History lisinopriL [Zestril] 5 mg PO DAILY 09/15/19 04/08/20 History metFORMIN HCL [Glucophage] 500 mg PO BID 09/15/19 04/08/20 History oxyCODONE-APAP 10-325MG [Percocet 1 tab PO Q6HR PRN 09/15/19 04/08/20 History 10-325 mg] hydrOXYzine pamoate [Vistaril] 25 mg PO QID 04/08/20 04/08/20 History Allergies Allergy/AdvReac Type Severity Reaction Status Date / Time bacitracin Allergy Rash/Hives Verified 04/08/20 16:45 [From Neosporin ([id number])] meperidine [From Demerol] Allergy Rash/Hives Verified 04/08/20 16:45 neomycin Allergy Rash/Hives Verified 04/08/20 16:45 [From Neosporin ([id number])] polymyxin B Allergy Rash/Hives Verified 04/08/20 16:45 [From Neosporin ([id number])] Surgical - Exam Vital Signs Temp Pulse Resp BP Pulse Ox 98.4 F 88 18 107/71 97 04/08/20 15:01 04/08/20 15:01 04/08/20 15:01 04/08/20 15:01 04/08/20 15:01 Results - Labs 04/08/20 16:26 04/08/20 16:26 Abnormal Lab Results - Last 24 Hours (Table) 04/08/20 Range/Units 16:26 Total Protein 6.2 L (6.3-8.2) g/dL Diabetes panel 04/08/20 Range/Units 16:26 Sodium 139 (137-145) mmol/L Potassium 3.5 (3.5-5.1) mmol/L Chloride 106 (98-107) mmol/L Carbon Dioxide 27 (22-30) mmol/L BUN 11 (7-17) mg/dL Creatinine 0.80 (0.52-1.04) mg/dL Glucose 98 (74-99) mg/dL Calcium 9.0 (8.4-10.2) mg/dL AST 20 (14-36) U/L ALT 13 (4-34) U/L Alkaline Phosphatase 85 (38-126) U/L Total Protein 6.2 L (6.3-8.2) g/dL Albumin 3.6 (3.5-5.0) g/dL Calcium panel 04/08/20 Range/Units 16:26 Calcium 9.0 (8.4-10.2) mg/dL Albumin 3.6 (3.5-5.0) g/dL Pituitary panel 04/08/20 Range/Units 16:26 Sodium 139 (137-145) mmol/L Potassium 3.5 (3.5-5.1) mmol/L Chloride 106 (98-107) mmol/L Carbon Dioxide 27 (22-30) mmol/L BUN 11 (7-17) mg/dL Creatinine 0.80 (0.52-1.04) mg/dL Glucose 98 (74-99) mg/dL Calcium 9.0 (8.4-10.2) mg/dL Adrenal panel 04/08/20 Range/Units 16:26 Sodium 139 (137-145) mmol/L Potassium 3.5 (3.5-5.1) mmol/L Chloride 106 (98-107) mmol/L Carbon Dioxide 27 (22-30) mmol/L BUN 11 (7-17) mg/dL Creatinine 0.80 (0.52-1.04) mg/dL Glucose 98 (74-99) mg/dL Calcium 9.0 (8.4-10.2) mg/dL Total Bilirubin 0.5 (0.2-1.3) mg/dL AST 20 (14-36) U/L ALT 13 (4-34) U/L Alkaline Phosphatase 85 (38-126) U/L Total Protein 6.2 L (6.3-8.2) g/dL Albumin 3.6 (3.5-5.0) g/dL
[2020-04-09] MEDS: SODIUM CHLORIDE 0.9% 1,000 ML IV SCH (18:28)
--- NOTE | 2020-04-09 22:13 | P.CONS ---
History of Present Illness - Reason for Consult Consult date: 04/09/20 medical eval - Chief Complaint abdominal pain - History of Present Illness Janice Mejia is a 59 yo F with PMH of HTN, chronic pain, hx carotid blockage now resolved who presented to the ED complaining of worsening lower abdominal/inguinal pain over the past 4-5 days. She denies nausea, vomiting, fever, chills or diarrhea. Pain does worsen after eating. She denies any previous history of abdominal surgery. She reports a R inguinal bulge that has enlarged and become red and tender. On presentation vitals and labs stable, CT with incarcerated hernia and fat necrosis. Review of Systems All systems: negative Constitutional: Reports malaise, Reports night sweats, Reports weakness, Denies chills, Denies fever Eyes: denies blurred vision, denies pain Ears, nose, mouth and throat: Denies headache, Denies sore throat Cardiovascular: Denies chest pain, Denies shortness of breath Respiratory: Denies cough Gastrointestinal: Reports abdominal pain, Reports early satiety, Reports loss of appetite, Denies diarrhea, Denies nausea, Denies vomiting Genitourinary: Denies dysuria, Denies hematuria Musculoskeletal: Denies myalgias Integumentary: Denies pruritus, Denies rash Neurological: Denies numbness, Denies weakness Psychiatric: Denies anxiety, Denies depression Endocrine: Denies fatigue, Denies weight change Past Medical History Past Medical History: Hyperlipidemia, Hypertension Additional Past Medical History / Comment(s): chronic back pain, clotting disorder History of Any Multi-Drug Resistant Organisms: None Reported Past Surgical History: Tubal Ligation Past Anesthesia/Blood Transfusion Reactions: No Reported Reaction Smoking Status: Current every day smoker Past Alcohol Use History: None Reported Past Drug Use History: None Reported Medications and Allergies Home Medications Medication Instructions Recorded Confirmed Type Albuterol Nebulized [Ventolin 2.5 mg INHALATION RT-Q6H PRN 09/15/19 04/08/20 History Nebulized] Aspirin [Adult Low Dose Aspirin EC] 81 mg PO DAILY 09/15/19 04/08/20 History Atorvastatin [Lipitor] 40 mg PO DAILY 09/15/19 04/08/20 History DULoxetine HCL [Cymbalta] 60 mg PO QAM 09/15/19 04/08/20 History Ergocalciferol [Vitamin D2] 50,000 unit PO FR 09/15/19 04/08/20 History Ferrous Sulfate [Feosol] 325 mg PO DAILY 09/15/19 04/08/20 History Furosemide [Lasix] 20 mg PO DAILY 09/15/19 04/08/20 History Gabapentin [Neurontin] 100 mg PO QID 09/15/19 04/08/20 History Levothyroxine Sodium [Synthroid] 25 mcg PO DAILY 09/15/19 04/08/20 History Potassium Chloride [Klor-Con 20] 20 meq PO DAILY 09/15/19 04/08/20 History Topiramate [Topamax] 100 mg PO BID 09/15/19 04/08/20 History Umeclidinium Brm/Vilanterol Tr 1 puff INHALATION RT-DAILY 09/15/19 04/08/20 History [Anoro Ellipta 62.5-25 Mcg INH] Vitamin B Complex 1 each PO DAILY 09/15/19 04/08/20 History busPIRone HCL 20 mg PO BID 09/15/19 04/08/20 History cilostazoL [Pletal] 100 mg PO DAILY 09/15/19 04/08/20 History lisinopriL [Zestril] 5 mg PO DAILY 09/15/19 04/08/20 History metFORMIN HCL [Glucophage] 500 mg PO BID 09/15/19 04/08/20 History oxyCODONE-APAP 10-325MG [Percocet 1 tab PO Q6HR PRN 09/15/19 04/08/20 History 10-325 mg] hydrOXYzine pamoate [Vistaril] 25 mg PO QID 04/08/20 04/08/20 History Allergies Allergy/AdvReac Type Severity Reaction Status Date / Time bacitracin Allergy Rash/Hives Verified 04/08/20 16:45 [From Neosporin ([id number])] meperidine [From Demerol] Allergy Rash/Hives Verified 04/08/20 16:45 neomycin Allergy Rash/Hives Verified 04/08/20 16:45 [From Neosporin ([id number])] polymyxin B Allergy Rash/Hives Verified 04/08/20 16:45 [From Neosporin ([id number])] Physical Exam Vitals: Vital Signs Temp Pulse Pulse Resp BP BP Pulse Ox 04/09/20 19:38 97.8 F 74 18 106/63 95 04/09/20 15:37 18 04/09/20 15:10 97.1 F L 92 18 108/71 96 04/09/20 07:41 99.0 F 69 16 92/60 94 L 04/09/20 00:20 99.7 F H 67 15 119/74 96 04/08/20 23:00 98.0 F 78 16 105/69 98 Intake and Output 04/09/20 04/09/20 04/09/20 06:59 14:59 22:59 Intake Total 240 Balance 240 Intake: Oral 240 Other: Voiding Method Toilet # Voids 1 Weight 61.235 kg General: well nourished, well developed, NAD. Vitals reviewed Eyes: PERRL, EOMI, conjunctiva normal HENT: normocephalic, mucus membranes moist Neck: supple, no JVD Lungs: normal respiratory effort, no wheezes or rales CV: Regular rate and rhythm, no murmur. Peripheral pulses 2+ Abdomen: soft, nondistended, no organomegaly. Hypoactive bowel sounds. R inguinal bulge tender to palpation Lymph: no cervical or axillary LAD Skin: warm and dry. Neuro: A&Ox3, normal mood and affect Results CBC & Chem 7: 04/08/20 16:26 04/08/20 16:26 Assessment and Plan (1) Incarcerated inguinal hernia Current Visit: Yes Status: Acute Code(s): K40.30 - UNIL INGUINAL HERNIA, W OBST, W/O GANGR, NOT SPCF RECUR SNOMED Code(s): 024927849 (2) Generalized anxiety disorder Current Visit: Yes Status: Acute Code(s): F41.1 - GENERALIZED ANXIETY DISORDER SNOMED Code(s): 64780829 (3) Chronic pain syndrome Current Visit: Yes Status: Acute Code(s): G89.4 - CHRONIC PAIN SYNDROME SNOMED Code(s): 344681213 (4) Acquired hypothyroidism Current Visit: Yes Status: Acute Code(s): E03.9 - HYPOTHYROIDISM, UNSPECIFIED SNOMED Code(s): 348723388 (5) COPD (chronic obstructive pulmonary disease) Current Visit: Yes Status: Acute Code(s): J44.9 - CHRONIC OBSTRUCTIVE PULMONARY DISEASE, UNSPECIFIED SNOMED Code(s): 27284916 (6) Carotid stenosis Current Visit: Yes Status: Acute Code(s): I65.29 - OCCLUSION AND STENOSIS OF UNSPECIFIED CAROTID ARTERY SNOMED Code(s): 57856610 Plan: 1. Incarcerated hernia. NPO. Start IV abx and management per surgery 2. Chronic pain disorder. Hold percocet. IV morphine and continue gabapentin 3. Carotid occlusion and stenosis. Hold plavix and pletal with upcoming surgery 4. T2DM. Hold metformin 5. HTN. Hold lisinopril
[2020-04-10] MEDS: MORPHINE SULFATE 4 MG/ML SYRINGE IVP PRN ×4 (00:20→20:16)
[2020-04-10] MEDS: AMPICILLIN-SULBACTAM 3 GM in SODIUM CHLORIDE 0.9% 100 ML IVPB SCH ×3 (05:24→20:19)
[2020-04-10] MEDS: LEVOTHYROXINE 25 MCG TAB PO SCH (05:24)
[2020-04-10] MEDS: SODIUM CHLORIDE 0.9% 1,000 ML IV SCH ×2 (05:25→17:50)
[2020-04-10] MEDS: ATORVASTATIN 40 MG TAB PO SCH (08:19)
[2020-04-10] MEDS: busPIRone HCl 10 MG TAB PO SCH ×2 (08:20→20:26)
[2020-04-10] MEDS: DULoxetine HCL 60 MG CAPSULE.DR PO SCH (08:20)
[2020-04-10] MEDS: GABAPENTIN 100 MG CAP PO SCH ×4 (08:20→21:45)
[2020-04-10] MEDS: TOPIRAMATE 100 MG TAB PO SCH ×2 (08:20→20:27)
[2020-04-10] MEDS ORDERED: IV FLUID CONTINUATION 1,000 ML IV ONE (13:36)
[2020-04-10] MEDS ORDERED: ONDANSETRON 4 MG/2 ML VIAL ONE (13:42)
[2020-04-10] MEDS ORDERED: ONDANSETRON 4 MG/2 ML VIAL IVP ONE (14:15)
[2020-04-10] MEDS ORDERED: HEPARIN SODIUM,PORCINE 5,000 UNIT/ML 1 ML VIAL ONE (14:29)
[2020-04-10] MEDS ORDERED: MIDAZOLAM 2 MG/2 ML VIAL ONE (14:31)
[2020-04-10] MEDS ORDERED: ROCURONIUM 10 MG/ML (10 ML VIAL) IV ONE (14:31)
[2020-04-10] MEDS ORDERED: HEPARIN SODIUM,PORCINE 5,000 UNIT/ML 1 ML VIAL SQ ONE (14:31)
[2020-04-10] MEDS ORDERED: LIDOCAINE 1% INJ 10MG/ML (20 ML MDV) ONE (14:31)
[2020-04-10] MEDS ORDERED: PROPOFOL 10 MG/ML 20 ML VIAL IV ONE (14:31)
[2020-04-10] MEDS ORDERED: fentaNYL (PF) 50 MCG/ML 2 ML AMP ONE (14:31)
[2020-04-10] MEDS ORDERED: SUCCINYLCHOLINE CHLORIDE 100 MG/5 ML SYR IV ONE (14:31)
[2020-04-10] MEDS ORDERED: NEOSTIGMINE 1 MG/ML 10 ML VIAL ONE (14:31)
[2020-04-10] MEDS ORDERED: KETAMINE 10 MG/ML 20 ML VIAL ONE (14:31)
[2020-04-10] MEDS ORDERED: KETOROLAC 15 MG/ML 1 ML VIAL ONE (14:31)
[2020-04-10] MEDS ORDERED: GLYCOPYRROLATE 0.2 MG/ML 2 ML VIAL ONE (14:31)
[2020-04-10] MEDS ORDERED: BUPIVACAIN-EPI 0.25%-1:200,000 30 ML VIAL SQ ONE ×3 (14:41→15:12)
--- NOTE | 2020-04-10 14:47 | P.PN ---
Subjective Progress Note Date: 04/10/20 Janice Mejia is a 59 yo F with PMH of HTN, chronic pain, hx carotid blockage now resolved who presented to the ED complaining of worsening lower abdominal/inguinal pain over the past 4-5 days. She denies nausea, vomiting, fever, chills or diarrhea. Pain does worsen after eating. She denies any previous history of abdominal surgery. She reports a R inguinal bulge that has enlarged and become red and tender. On presentation vitals and labs stable, CT with incarcerated hernia and fat necrosis. 04/10/2020 NPO, scheduled for surgery this morning. Maintained on IV fluid hydration and Unasyn. Denies nausea or vomiting. Pain controlled. Denies chest pain, palpitations or shortness of breath. Afebrile, normal WBC. Objective - Vital Signs Vital signs: Vital Signs Temp 98.1 F 04/10/20 13:38 Pulse 79 04/10/20 13:38 Resp 18 04/10/20 13:38 BP 114/56 04/10/20 13:38 Pulse Ox 94 L 04/10/20 13:38 Intake & Output 04/09/20 04/10/20 04/10/20 18:59 06:59 18:59 Intake Total 240 590 Balance 240 590 Weight 61.235 kg Intake: Oral 240 590 Other: # Voids 2 - Exam PHYSICAL EXAM: VITAL SIGNS: [As above] GENERAL: Alert and oriented 3, Sitting up in bed, no acute distress, agitated HEENT: Conjunctivae normal. eyes normal. Oral mucosa dry NECK: No JVD. No thyroid enlargement. CARDIOVASCULAR: S1, S2 regular. No murmur RESPIRATION: Breath sounds diminished in the bases. No rhonchi or crackles. No wheezing. ABDOMEN: soft, nondistended, no organomegaly. Hypoactive bowel sounds. R inguinal bulge tender to palpatation. LEGS: No edema. no swelling NERVOUS SYSTEM: Cranial N 2-12 grossly normal. Moves all 4 limbs. No focal deficits. Strength and sensation grossly intact. Skin: Warm and dry, no rash - Labs CBC & Chem 7: 04/08/20 16:26 04/08/20 16:26 Assessment and Plan Assessment: (1) Incarcerated inguinal hernia Current Visit: Yes Status: Acute Code(s): K40.30 - UNIL INGUINAL HERNIA, W OBST, W/O GANGR, NOT SPCF RECUR SNOMED Code(s): 305140716 (2) Generalized anxiety disorder Current Visit: Yes Status: Acute Code(s): F41.1 - GENERALIZED ANXIETY DISORDER SNOMED Code(s): 93109622 (3) Chronic pain syndrome Current Visit: Yes Status: Acute Code(s): G89.4 - CHRONIC PAIN SYNDROME SNOMED Code(s): 301303601 (4) Acquired hypothyroidism Current Visit: Yes Status: Acute Code(s): E03.9 - HYPOTHYROIDISM, UNSPECIFIED SNOMED Code(s): 429619768 (5) COPD (chronic obstructive pulmonary disease) Current Visit: Yes Status: Acute Code(s): J44.9 - CHRONIC OBSTRUCTIVE PULMONARY DISEASE, UNSPECIFIED SNOMED Code(s): 72330506 (6) Carotid stenosis Current Visit: Yes Status: Acute Code(s): I65.29 - OCCLUSION AND STENOSIS OF UNSPECIFIED CAROTID ARTERY SNOMED Code(s): 93021465 Plan: Continue on current medication regime ,monitoring and antibiotic treatment. Maintain IV fluid hydration and antibiotics. OR pending. Pain inna gement as per surgery. Close monitoring of blood sugars. The impression and plan of care has been dictated as directed. : I performed a history and examination of this patient, discussed the same with the dictator. I agree with the dictator's note ,documented as a scribe. Any additional findings or plans will be noted.
[2020-04-10] MEDS ORDERED: LACTATED RINGERS 1,000 ML IV ONE ×2 (14:51)
[2020-04-10] MEDS ORDERED: INSULIN ASPART (NovoLOG) 100 UNIT/ML VIAL SQ SCH (15:00)
[2020-04-10] MEDS ORDERED: HYDROmorphone 0.5 MG/0.5 ML SYRINGE IVP ONE ×4 (15:44→16:11)
[2020-04-10 15:53] LABS: Glucose,Whole Blood 98 mg/dL (75-99)
[2020-04-10 18:07] LABS: Glucose,Whole Blood 95 mg/dL (75-99)
[2020-04-10] MEDS: INSULIN ASPART (NovoLOG) 100 UNIT/ML VIAL SQ SCH ×2 (18:08→20:32)
[2020-04-10 20:30] LABS: Glucose,Whole Blood 134 mg/dL (75-99)
[2020-04-11] MEDS: MORPHINE SULFATE 4 MG/ML SYRINGE IVP PRN ×2 (00:40→04:03)
[2020-04-11] MEDS: SODIUM CHLORIDE 0.9% 1,000 ML IV SCH (00:42)
[2020-04-11] MEDS: AMPICILLIN-SULBACTAM 3 GM in SODIUM CHLORIDE 0.9% 100 ML IVPB SCH (04:03)
[2020-04-11] MEDS ORDERED: oxyCODONE-APAP 10-325MG 1 EACH TAB PO PRN (05:54)
[2020-04-11] MEDS: LEVOTHYROXINE 25 MCG TAB PO SCH (06:05)
[2020-04-11 07:01] LABS: Glucose,Whole Blood 102 mg/dL (75-99)
[2020-04-11] MEDS: INSULIN ASPART (NovoLOG) 100 UNIT/ML VIAL SQ SCH (07:04)
[2020-04-11 09:02] VITALS: BP 96/61; TEMP 98.4
[2020-04-11] MEDS: GABAPENTIN 100 MG CAP PO SCH (10:18)
[2020-04-11] MEDS: TOPIRAMATE 100 MG TAB PO SCH (10:18)
[2020-04-11] MEDS: ATORVASTATIN 40 MG TAB PO SCH (10:19)
[2020-04-11] MEDS: busPIRone HCl 10 MG TAB PO SCH (10:19)
[2020-04-11] MEDS: DULoxetine HCL 60 MG CAPSULE.DR PO SCH (10:19)
[2020-04-11 10:42] VITALS: PULSE 60; RESP 18
--- NOTE | 2020-04-11 10:42 | P.DS ---
Providers Date of admission: 04/08/20 18:06 Expected date of discharge: 04/11/20 Attending physician: Satish Bae Consults: 04/09/20 08:39 Consult Physician Routine Consulting Provider: Victor M Man Consult Reason/Comments: medical management Do you want consulting provider notified?: Yes Primary care physician: Shea Tenorio [facility] Course: Discharge diagnosis 1. Right inguinal incarcerated hernia status post open right inguinal hernia repair Hospital course This is a 59-year-old female with a known history of hypertension, hyperlipidemia, nicotine dependence, emphysema. Patient presents to emergency room with right lower abdominal pain with bulge in the right inguinal area for 3 days. The bulge is red, tender and inflamed. She denies any prior abdominal surgeries. She denies any heavy lifting. She had a computed tomography scan of the abdomen and pelvis showing right inguinal hernia with possible omental fat with fat necrosis, correlate for incarcerated hernia. Patient was admitted to the hospital for incarcerated inguinal hernia on the right. She is status post open right inguinal hernia repair with Dr. Bae. Patient tolerated surgery well. Pain is controlled. She is afebrile. Tolerating diet. She is ambulating without difficulty. She is stable for discharge home. Please refer to chart for any further details. Physician Cinder Crew Worker note has been reviewed by physician. Signing provider agrees with the documented findings, assessment, and plan of care. Patient Condition at Discharge: Stable Plan - Discharge Summary Discharge Rx Participant: No New Discharge Prescriptions: Continue oxyCODONE-APAP 10-325MG [Percocet 10-325 mg] 1 tab PO Q6HR PRN PRN Reason: Pain No Action Umeclidinium Brm/Vilanterol Tr [Anoro Ellipta 62.5-25 Mcg INH] 1 puff INHALATION RT-DAILY Albuterol Nebulized [Ventolin Nebulized] 2.5 mg INHALATION RT-Q6H PRN PRN Reason: COPD busPIRone HCL 20 mg PO BID Gabapentin [Neurontin] 100 mg PO QID Ferrous Sulfate [Feosol] 325 mg PO DAILY Ergocalciferol [Vitamin D2] 50,000 unit PO FR DULoxetine HCL [Cymbalta] 60 mg PO QAM cilostazoL [Pletal] 100 mg PO DAILY lisinopriL [Zestril] 5 mg PO DAILY metFORMIN HCL [Glucophage] 500 mg PO BID Topiramate [Topamax] 100 mg PO BID Levothyroxine Sodium [Synthroid] 25 mcg PO DAILY Furosemide [Lasix] 20 mg PO DAILY Atorvastatin [Lipitor] 40 mg PO DAILY Potassium Chloride [Klor-Con 20] 20 meq PO DAILY Vitamin B Complex 1 each PO DAILY Aspirin [Adult Low Dose Aspirin EC] 81 mg PO DAILY hydrOXYzine pamoate [Vistaril] 25 mg PO QID Discharge Medication List Albuterol Nebulized [Ventolin Nebulized] 2.5 mg INHALATION RT-Q6H PRN 09/15/19 [History] Aspirin [Adult Low Dose Aspirin EC] 81 mg PO DAILY 09/15/19 [History] Atorvastatin [Lipitor] 40 mg PO DAILY 09/15/19 [History] DULoxetine HCL [Cymbalta] 60 mg PO QAM 09/15/19 [History] Ergocalciferol [Vitamin D2] 50,000 unit PO FR 09/15/19 [History] Ferrous Sulfate [Feosol] 325 mg PO DAILY 09/15/19 [History] Furosemide [Lasix] 20 mg PO DAILY 09/15/19 [History] Gabapentin [Neurontin] 100 mg PO QID 09/15/19 [History] Levothyroxine Sodium [Synthroid] 25 mcg PO DAILY 09/15/19 [History] Potassium Chloride [Klor-Con 20] 20 meq PO DAILY 09/15/19 [History] Topiramate [Topamax] 100 mg PO BID 09/15/19 [History] Umeclidinium Brm/Vilanterol Tr [Anoro Ellipta 62.5-25 Mcg INH] 1 puff INHALATION RT-DAILY 09/15/19 [History] Vitamin B Complex 1 each PO DAILY 09/15/19 [History] busPIRone HCL 20 mg PO BID 09/15/19 [History] cilostazoL [Pletal] 100 mg PO DAILY 09/15/19 [History] lisinopriL [Zestril] 5 mg PO DAILY 09/15/19 [History] metFORMIN HCL [Glucophage] 500 mg PO BID 09/15/19 [History] oxyCODONE-APAP 10-325MG [Percocet 10-325 mg] 1 tab PO Q6HR PRN 09/15/19 [History] hydrOXYzine pamoate [Vistaril] 25 mg PO QID 11/30/20 [History] Follow up Appointment(s)/Referral(s): Shea Tenorio DO [Primary Care Provider] - 1-2 days Satish Bae MD [STAFF PHYSICIAN] - 1 Week Activity/Diet/Wound Care/Special Instructions: Medicine to complete med rec No driving while taking Percocet No lifting over 10 pounds You may shower. No soaking or tub baths for 2 weeks Very light activity until you are reevaluated at your follow up appointment with your surgeon Diet regular Discharge Disposition: HOME SELF-CARE
--- NOTE | 2020-04-11 17:10 | P.PN ---
Subjective Progress Note Date: 04/11/20 Janice Mejia is a 59 yo F with PMH of HTN, chronic pain, hx carotid blockage now resolved who presented to the ED complaining of worsening lower abdominal/inguinal pain over the past 4-5 days. She denies nausea, vomiting, fever, chills or diarrhea. Pain does worsen after eating. She denies any previous history of abdominal surgery. She reports a R inguinal bulge that has enlarged and become red and tender. On presentation vitals and labs stable, CT with incarcerated hernia and fat necrosis. 04/10/2020 NPO, scheduled for surgery this morning. Maintained on IV fluid hydration and Unasyn. Denies nausea or vomiting. Pain controlled. Denies chest pain, palpitations or shortness of breath. Afebrile, normal WBC. 04/11/2020 postop day #1, tolerated procedure well. Good diet intake with no nausea vomiting or diarrhea. Passing flatus. Pain controlled. Denies chest pain, palpitations or shortness of breath. Denies lightheadedness, dizziness or focal deficits. Eager for discharge. Borderline hypotension, home med regimen of antihypertensives remain on hold. Afebrile. Objective - Vital Signs Vital signs: Vital Signs Temp 98.4 F 04/11/20 08:40 Pulse 60 04/11/20 10:41 Resp 18 04/11/20 10:41 BP 96/61 04/11/20 08:40 Pulse Ox 97 04/11/20 10:41 Intake & Output 04/10/20 04/11/20 04/11/20 18:59 06:59 18:59 Intake Total 1750 540 Output Total 5 725 500 Balance 1745 -185 -500 Weight 61.235 kg Intake: IV 1600 Oral 150 540 Output: Urine 725 500 Estimated Blood Loss 5 Other: # Voids 1 1 - Exam PHYSICAL EXAM: VITAL SIGNS: [As above] GENERAL: Alert and oriented 3, Sitting up in bed, no acute distress HEENT: Conjunctivae normal. eyes normal. Oral mucosa dry NECK: No JVD. No thyroid enlargement. CARDIOVASCULAR: S1, S2 regular. No murmur RESPIRATION: Breath sounds diminished in the bases. No rhonchi or crackles. No wheezing. ABDOMEN: soft, nondistended, status post surgery, positive bowel sounds LEGS: No edema. no swelling NERVOUS SYSTEM: Cranial N 2-12 grossly normal. Moves all 4 limbs. No focal deficits. Strength and sensation grossly intact. Skin: Warm and dry, no rash - Labs CBC & Chem 7: 04/08/20 16:26 04/08/20 16:26 Labs: Abnormal Lab Results - Last 24 Hours (Table) 04/10/20 04/11/20 Range/Units 20:29 06:59 POC Glucose (mg/dL) 134 H 102 H (75-99) mg/dL Assessment and Plan Assessment: (1) Incarcerated inguinal hernia status post open right inguinal hernia repair Current Visit: Yes Status: Acute Code(s): K40.30 - UNIL INGUINAL HERNIA, W OBST, W/O GANGR, NOT SPCF RECUR SNOMED Code(s): 682998508 (2) Generalized anxiety disorder Current Visit: Yes Status: Acute Code(s): F41.1 - GENERALIZED ANXIETY DISORDER SNOMED Code(s): 79696050 (3) Chronic pain syndrome Current Visit: Yes Status: Acute Code(s): G89.4 - CHRONIC PAIN SYNDROME SNOMED Code(s): 397482108 (4) Acquired hypothyroidism Current Visit: Yes Status: Acute Code(s): E03.9 - HYPOTHYROIDISM, UNSPECIFIED SNOMED Code(s): 688109835 (5) COPD (chronic obstructive pulmonary disease) Current Visit: Yes Status: Acute Code(s): J44.9 - CHRONIC OBSTRUCTIVE PULMONARY DISEASE, UNSPECIFIED SNOMED Code(s): 66681954 (6) Carotid stenosis Current Visit: Yes Status: Acute Code(s): I65.29 - OCCLUSION AND STENOSIS OF UNSPECIFIED CAROTID ARTERY SNOMED Code(s): 75418580 Plan: Continue on current medication regime ,monitoring and symptomatic treatment. Discharge planning as per primary. Continue holding antihypertensives, Lasix at discharge-reevaluate outpatient at follow-up visit with PCP. Continue with aggressive pulmonary toileting outpatient with dialysis as previously advised. Pain management as per primary. The impression and plan of care has been dictated as directed. : I performed a history and examination of this patient, discussed the same with the dictator. I agree with the dictator's note ,documented as a scribe. Any additional findings or plans will be noted.
--- NOTE | 2020-05-17 13:22 | P.OP ---
Date of Procedure: 05/17/20 Preoperative Diagnosis: Right inguinal hernia Postoperative Diagnosis: Incarcerated right inguinal hernia Procedure(s) Performed: (Incarcerated right inguinal hernia Anesthesia: MICHELLE Surgeon: Satish Bae Estimated Blood Loss (ml): 10 Pathology: other (Hernia sac/omentum) Condition: stable Disposition: PACU Description of Procedure: DESCRIPTION OF PROCEDURE: The patient was placed in the supine position after receiving adequate anesthesia. Patients groin was prepped and draped in the usual sterile fashion. A standard hernia incision was made and the subcutaneous tissues were divided with electrocautery. The fascia of the external oblique was exposed. A radha the fascia was made with #15 blade. The fascia was then opened with pair of Metzenbaum scissors. A Weitlaner retractor was placed in the wound and the hernia sac was dissected free from the inguinal canal. Hernia sac was opened and there was incarcerated omentum. This was transected and sent to pathology with the hernia sac. A Prolene mushroom plug was then placed into the inguinal canal. This was secured with 2-0 Prolene suture. The fascia external oblique was then closed and attached to the on the edge of the inguinal ligament. Rowena's fascia closed with 2-0 Vicryl suture. Skin was closed mary. Patient top she will was sent to recovery room stable condition.
== END 2020-04-11 11:57 | disposition home or self-care (01) | DRG 351 ==
LOC: EC 14:57 → 4SSUR 18:06 → 6PED 04-09 15:01
PROVIDERS: ADMIT Surgery; ATTEND Surgery
PROC: 0YU50JZ Supplement Right Inguinal Region with Synthetic Substitute, Open Approach (ICD-10-PCS; principal; 2020-04-10 13:20)
DX: K40.30 Unilateral inguinal hernia, with obstruction, without gangrene, not specified as recurrent (principal); D68.9 Coagulation defect, unspecified; J43.9 Emphysema, unspecified; I95.9 Hypotension, unspecified; E03.9 Hypothyroidism, unspecified; E78.5 Hyperlipidemia, unspecified; F41.1 Generalized anxiety disorder; I10 Essential (primary) hypertension; I65.22 Occlusion and stenosis of left carotid artery; G89.4 Chronic pain syndrome; M54.9 Dorsalgia, unspecified; F17.210 Nicotine dependence, cigarettes, uncomplicated; Z71.6 Tobacco abuse counseling; Z79.82 Long term (current) use of aspirin; Z79.02 Long term (current) use of antithrombotics/antiplatelets; Z79.84 Long term (current) use of oral hypoglycemic drugs; Z79.890 Hormone replacement therapy; Z79.899 Other long term (current) drug therapy; Z98.51 Tubal ligation status; Z88.3 Allergy status to other anti-infective agents; Z88.5 Allergy status to narcotic agent
CPT/HCPCS: 36415; 74177; 80053; 82150; 83605; 83690; 85025; 85610; 85730; 88302; 96361; 96365; 96375; 99285

== ENCOUNTER → 2020-05-27 | Outpatient (CLI) | payer MEDICARE ==
--- NOTE | 2020-05-28 16:42 | CTL ---
EXAMINATION TYPE: CT Low Dose Lung DATE OF EXAM ORDERED: 05/27/2020 HISTORY: Personal history of nicotine dependence. Lung cancer screening CT DLP: 59.[address] CTDI: 1.7 mGy Automated exposure control for dose reduction was used. SCREENING VISIT: Follow-up COMPARISON: 04/29/2017 TECHNIQUE: Low dose computed tomography scan was performed through the chest at 1 mm thick sections a nd reconstructed images in the coronal plane at [address] DIAGNOSTIC QUALITY: Satisfactory FINDINGS: There appears be some bilaterally scarring present. LUNG NODULES: Present, detailed below: 1. 0.8 cm with irregular borders, series 4 image 50. 2. 0.5 cm nodule posterior right apex, series 4 image 50. 3. 0.5 cm nodule or vascular malformation within the mid lingula. Series 4 image 114. 4. 0.5 cm spiculated nodule periphery of the left lung base. Series 4 image 242. LUNGS: COPD: Severity: Mild Fibrosis: Severity: None Lymph nodes: None Other findings: None RIGHT PLEURAL SPACE: Effusion: None Calcification: None Thickening: Yes, lateral right apex, example image series 4 image 65. Pneumothorax: None LEFT PLEURAL SPACE: Effusion: None Calcification: None Thickening: None Pneumothorax: None HEART: Heart Size: Normal Coronary calcification: None Pericardial effusion: None OTHER FINDINGS: Upper abdomen: Normal Bony thorax: Normal Supraclavicular region: Normal Other: Ascending thoracic aorta at the level the main pulmonary artery is 3.1 cm. The main pulmonary artery at the bifurcation is 2.3 cm. IMPRESSION: 1. Suspicious findings lung apices and left lower lobe. 2. Pleural thickening right lateral apex CT LUNG RAD AND CT CHEST RECOMMENDATION: 4 Recommendations: PET/CT S Modifier (other clinically significant findings): Pleural thickening
== END | disposition home or self-care (01) ==
LOC: RADCTMAIN 16:03
PROVIDERS: ATTEND Family Medicine
DX: Z12.2 Encounter for screening for malignant neoplasm of respiratory organs (principal); J92.9 Pleural plaque without asbestos; F17.210 Nicotine dependence, cigarettes, uncomplicated
CPT/HCPCS: 71271

== ENCOUNTER → 2020-06-22 | Outpatient (CLI) | payer MEDICARE ==
--- NOTE | 2020-06-28 08:45 | PE ---
EXAMINATION TYPE: PET CT fusion skull to thigh DATE OF EXAM: 06/22/2020 COMPARISON: Low-dose CT chest 05/27/2020 Prior PET/CT: None HISTORY: Solitary pulmonary nodule, personal history of nicotine dependence TECHNIQUE: Following the intravenous administration of 11.43 mCi of F-18 FDG, whole body images are performed from the skull base to the midthigh. Images are reviewed on the computer in the coronal, a xial, and sagittal planes. Reconstructed rotating images are created on independent workstation and reviewed on the computer. A localization and attenuation correction CT is performed in conjunction with the PET scan. DLP: 308.35 mGycm SCAN: Initial Blood glucose: 98 mg/dL Average Mediastinum SUV: 1.51 Average Liver SUV: 2.23 FINDINGS: NECK: No abnormal uptake THORAX: No abnormal uptake. In the region of the suspected nodule C uptake measures 0.65 SUV most lik carie benign. Additional suspected scarring at the apices are likewise has no abnormal uptake. ABDOMEN: No abnormal uptake PELVIS: No abnormal uptake OSSEOUS STRUCTURES: No abnormal uptake LOCALIZATION CT: Bilateral lung apex thickening present. The nodularity in the posterior right apex i s less evident on the current exam. COMPARISON: Findings appear more compatible for scarring on the current localization CT the prior exa m IMPRESSION: 1. No suspicious uptake within the lung apices to suggest neoplasm. Monitoring with CT chest is recom mended.
== END | disposition home or self-care (01) ==
LOC: RADPETMAIN 10:01
PROVIDERS: ATTEND Family Medicine
DX: R91.1 Solitary pulmonary nodule (principal)
CPT/HCPCS: 78815; A9552

== ENCOUNTER → 2021-04-04 | Outpatient (CLI) | payer MEDICARE ==
--- NOTE | 2021-04-08 10:16 | MM ---
Reason for exam: screening (asymptomatic). Last mammogram was performed 1 year and 2 months ago. History: Patient is postmenopausal. Benign stereotactic core biopsy of the left breast, April 14, 2002. Took hormonal contraceptives for 11 years beginning at age 14. Took estrogen for 6 months. Physical Findings: A clinical breast exam by your physician is recommended on an annual basis and results should be correlated with mammographic findings. MG 3D Screening Mammo W/Cad Bilateral CC and MLO view(s) were taken. Prior study comparison: February 09, 2020, bilateral MG 3d screening mammo w/cad. September 14, 2018, bilateral MG screening mammo w CAD. There are scattered fibroglandular densities. Previous mammotome biopsy in the left breast. No significant changes when compared with prior studies. ASSESSMENT: Benign, BI-RAD 2 RECOMMENDATION: Routine screening mammogram of both breasts in 1 year.
== END | disposition home or self-care (01) ==
LOC: RADMAMWWP 13:00
PROVIDERS: ATTEND Family Medicine
DX: Z12.31 Encounter for screening mammogram for malignant neoplasm of breast (principal); Z78.0 Asymptomatic menopausal state
CPT/HCPCS: 77063; 77067

== ENCOUNTER → 2021-12-06 | Outpatient (CLI) | payer MEDICARE ==
[2021-12-06 17:10] LABS: Basophils # (A) 0.07 X 10*3/uL (0.00-0.10); Eosinophils # (A) 0.46 X 10*3/uL (0.04-0.35); Eosinophils % (A) 6.6 %; HGB 12.8 g/dL (12.0-15.0); Immature Grans, Automated 0.3 %; Lymphocytes # (A) 1.57 X 10*3/uL (0.90-5.00); Lymphocytes % (A) 22.5 %; MCH 30.3 pg (27.0-32.0); MCHC 31.2 g/dL (32.0-37.0); MCV 97.2 fL (80.0-97.0); Mean Platelet Volume 10.3 fL (9.5-12.2); Monocytes # (A) 0.53 X 10*3/uL (0.20-1.00); Monocytes % (A) 7.6 %; NRBC Per 100 WBC 0 /100 WBCS (0.0-0.0); Neutrophils # (A) 4.33 X 10*3/uL (1.80-7.70); Platelet Count 253 X 10*3/uL (140-440); RBC 4.22 X 10*6/uL (4.10-5.20); RDW 14.4 % (11.5-14.5); WBC 6.98 X 10*3/uL (4.50-10.00)
[2021-12-06 17:17] LABS: African American GFR (CKD) 79.4 (60.0-200.0); Anion Gap 10.8 mmol/L (10.00-18.00); Blood Urea Nitrogen 10.6 mg/dL (9.0-27.0); Carbon Dioxide 27.2 mmol/L (20.0-27.5); Non-African American GFR(CKD) 68.5 (60.0-200.0); Potassium 3.4 mmol/L (3.5-5.5)
== END | disposition home or self-care (01) ==
LOC: LABPAT 11:26
PROVIDERS: ATTEND Obstetrics & Gynecology
DX: Z01.812 Encounter for preprocedural laboratory examination (principal); N81.11 Cystocele, midline
CPT/HCPCS: 80051; 82565; 84520; 85025; 87086

== ENCOUNTER 2021-12-16 07:01 | Observation (INO) | payer MEDICARE ==
[2021-12-12 10:46] VITALS: BMI 23.0
[~2021-12-16 07:01] MED LIST changes: +DEXAMETHASONE SOD PHOSPHATE 4 MG/ML 1 ML VIAL IV ONE; +HYDROmorphone 0.5 MG/0.5 ML SYRINGE IVP PRN; +LIDOCAINE 1% (10MG/ML) FOR IV START INTRADERMA PRN; +ONDANSETRON 4 MG/2 ML VIAL IVP ONE
[2021-12-16 07:48] LABS: Glucose,Whole Blood 112 mg/dL (70-110)
[2021-12-16] MEDS ORDERED: MIDAZOLAM 2 MG/2 ML VIAL ONE (08:55)
[2021-12-16] MEDS ORDERED: LIDOCAINE 4% LTA KIT (4 ML) TOPICAL ONE (08:55)
[2021-12-16] MEDS ORDERED: HYDROmorphone (PF) 1 MG/ML ONE (08:55)
[2021-12-16] MEDS ORDERED: KETOROLAC 15 MG/ML 1 ML VIAL ONE (08:55)
[2021-12-16] MEDS ORDERED: SUCCINYLCHOLINE CHLORIDE 200 MG/10 ML VIAL IV ONE (08:55)
[2021-12-16] MEDS ORDERED: fentaNYL (PF) 50 MCG/ML 2 ML AMP ONE (08:55)
[2021-12-16] MEDS ORDERED: LIDOCAINE 2% INJ 20 MG/ML (2 ML VIAL) ONE (08:55)
[2021-12-16] MEDS ORDERED: PROPOFOL 10 MG/ML 20 ML VIAL IV ONE (08:55)
[2021-12-16] MEDS ORDERED: PHENYLEPHRINE-0.9% NACL SYG 1,000 MCG/10 ML SYRINGE ONE (08:55)
[2021-12-16] MEDS ORDERED: VASOPRESSIN 20 UNIT in SODIUM CHLORIDE 0.9% 60 ML SQ ONE (09:00)
[2021-12-16] MEDS ORDERED: VASOPRESSIN 20 UNIT/ML 1 ML VIAL IM ONE (09:19)
[2021-12-16] MEDS ORDERED: ONDANSETRON 4 MG/2 ML VIAL IVP PRN (10:11)
[2021-12-16] MEDS ORDERED: Acetaminophen-Codeine 300-30mg TAB PO PRN (10:11)
[2021-12-16] MEDS ORDERED: IBUPROFEN 600 MG TAB PO PRN (10:11)
[2021-12-16] MEDS ORDERED: SIMETHICONE 80 MG CHEWABLE PO PRN (10:11)
[2021-12-16] MEDS ORDERED: diphenhydrAMINE 50 MG/ML 1 ML VIAL IVP PRN (10:11)
[2021-12-16] MEDS ORDERED: METOCLOPRAMIDE 5 MG/ML 2 ML VIAL IVP PRN (10:11)
--- NOTE | 2021-12-16 10:21 | P.OP ---
Date of Procedure: 12/16/21 Preoperative Diagnosis: #1. Symptomatic pelvic organ prolapse #2. Grade 3 cystocele #3. Grade 3 uterine prolapse Postoperative Diagnosis: Same Procedure(s) Performed: #1. Vaginal hysterectomy #2. Anterior colporrhaphy Anesthesia: MICHELLE Surgeon: Jeramie Stephens Lithopress Operator #1: Paulette Avila Estimated Blood Loss (ml): 50 IV fluids (ml): 600 Urine output (ml): 400 Pathology: other (Uterus) Condition: stable Disposition: PACU Operative Findings: Under anesthesia, the findings were as noted in the office with a grade 3 cystocele and grade 2+ to 3 cervical prolapse. There was a very small grade 1-2 rectocele present which was left in place as it was not symptomatic. Intraoperatively, the ovaries were small and atrophic to both inspection and palpation. Description of Procedure: The patient was prepped and draped in usual fashion after general endotracheal anesthesia was administered by the anesthesiologist. A weighted speculum was placed and the anterior lip of the cervix grasped with double-tooth tenaculum. The cervicovaginal mucosa was infused with diluted vasopressin solution and then incised circumferentially with a scalpel. Blunt and sharp dissection utilized to sweep the mucosa further distally. Posteriorly, the cul-de-sac was identified and opened sharply with the Ward scissors allowing placement of a stitch of 2-0 Vicryl for later use. The short weighted speculum was traded for the long weighted speculum. Using curved [place] clamps, serial bites were taken from the uterosacral ligament on each side up and through the cardinal ligaments on each side. Approximately 3-4 bites were taken bilaterally. Each was clamped, cut, and suture-ligated with a transfixion stitch of 0 Vicryl. The anterior open peritoneum was identified by inverting the uterus and it was opened sharply allowing isolation of the utero-ovarian pedicle on each side. A curved [place] clamp was placed across each allowing the uterus and cervix to separate from the patient and sent for pathological diagnoses. The utero-ovarian pedicles were suture-ligated with a transfixion stitch of 0 Vicryl followed by a free tie of 0 Vicryl. Careful inspection demonstrated excellent hemostasis. The ovaries were fairly high but appeared and felt the benign and atrophic in nature. The long weighted speculum was replaced with the short weighted speculum and a sponge stick utilized to push the bowel from the field. The previously placed stitch of 2-0 Vicryl was utilized to close the parietal peritoneum in a pursestring fashion. The uterosacral ligaments were then passed through the contralateral ligament and vaginal mucosa with 0 Vicryl in a modified Coleman's culdoplasty and firmly tied down. The intervening open posterior vaginal mucosa was closed with interrupted [id number] stitch of 0 Vicryl. One similar stitch was placed anteriorly. The margins of the remaining open anterior vaginal mucosa were grasped with Allis clamps and the vesicovaginal mucosa was infused along the midline with diluted vasopressin solution. It was then undermined in the midline with the Metzenbaum scissors and divided with Allis clamps placed along the margins evenly. The mucosa was then sharply and bluntly dissected from the underlying tissues. After adequate the dissection had taken place, the bladder was catheterized with clear urine noted. Serial Simin plication stitches were placed using 2-0 PDS from the apex of the repair to the site of the hysterectomy. Each was firmly tied down. The intervening redundant mucosa was trimmed with Metzenbaum scissors and discarded. The vaginal mucosa was then closed with a running locking stitch of 2-0 Vicryl from the urethral apex to the site of the vaginal instructed me. There was no significant ongoing bleeding of any kind. Clear urine was noted at the end of the case as well. The vagina was then packed with one-inch iodophor gauze covered with K-Y jelly has the patient has an ALLERGY to bacitracin. Estimated blood loss for the case was approximately 50 mL or less. There were no complications. All sponge, instrument, and needle counts were correct. The patient tolerated the procedure well and proceeded to the recovery room in stable condition.
[2021-12-16] MEDS: LACTATED RINGERS 1,000 ML IV SCH ×2 (13:02→21:31)
[2021-12-16] MEDS: KETOROLAC 15 MG/ML 1 ML VIAL IVP PRN (16:29)
[2021-12-16] MEDS ORDERED: MORPHINE SULFATE IR 15 MG TABLET PO PRN (19:58)
[2021-12-16] MEDS: SENNOSIDES-DOCUSATE SODIUM 1 EACH TAB PO SCH (21:33)
[2021-12-17] MEDS: KETOROLAC 15 MG/ML 1 ML VIAL IVP PRN ×2 (04:50→11:50)
[2021-12-17 07:18] LABS: Basophils % (A) 0 %; Eosinophils # (A) 0.1 k/uL (0-0.7); Eosinophils % (A) 1 %; HCT 38.9 % (34.0-46.0); HGB 12.6 gm/dL (11.4-16.0); Lymphocytes # (A) 0.8 k/uL (1.0-4.8); Lymphocytes % (A) 5 %; MCH 30.9 pg (25.0-35.0); MCHC 32.5 g/dL (31.0-37.0); MCV 95.2 fL (80.0-100.0); Mean Platelet Volume 7.6; Monocytes # (A) 0.5 k/uL (0-1.0); Monocytes % (A) 3 %; Neutrophils # (A) 13.6 k/uL (1.3-7.7); Neutrophils % (A) 90 %; Platelet Count 206 k/uL (150-450); RBC 4.08 m/uL (3.80-5.40); WBC 15.1 k/uL (3.8-10.6)
[2021-12-17] MEDS: SENNOSIDES-DOCUSATE SODIUM 1 EACH TAB PO SCH (07:58)
[2021-12-17] MEDS: Acetaminophen-Codeine 300-30mg TAB PO PRN ×2 (08:01→15:35)
--- NOTE | 2021-12-17 08:48 | P.DS ---
Providers Date of admission: 12/17/21 07:39 Expected date of discharge: 12/17/21 Attending physician: Jeramie Stephens Primary care physician: Victor M Man MD - Discharge Diagnosis(es) (1) Cystocele Current Visit: Yes Status: Acute (2) Uterine prolapse Current Visit: Yes Status: Acute Hospital Course: the patient is a 61-year-old 4 para 20-2 who presented to the office with complaints of vaginal bulging. Examination demonstrated grade 3 cystocele with grade 2+ to 3 uterine prolapse. She additionally complained of some urinary complaints and incontinence and was referred to urology for evaluation who noted that she did not have urethral hypermobility and would not benefit from a sling procedure. As a result, she returned to my office for definitive treatment of the prolapse. She was taken the operating room where she underwent vaginal hysterectomy with anterior colporrhaphy and uncomplicated fashion. Her postoperative course was unremarkable with vital signs remaining stable and her temperature was afebrile throughout. She was deemed stable for discharge on po stoperative day #1 pending the outcome of a voiding trial. Her Brown catheter has been removed this morning but she has not yet voided nor had a postvoid residual checked. Assuming these are acceptable, she'll be discharged home to follow-up in the office in 2 weeks for recheck in 6 weeks routinely. Discharge instructions included calling for any significantly increased fever, bleeding, pain, GI complaints, urinary complaints, or anything else that concerned her. She was additionally instructed to have nothing in the vagina for at least 6 weeks time and to do no heavy lifting over the same period of time. She was last instructed to do no driving until off of all pain medications or 2 weeks' time, whichever came first. She understood her instructions and agrees follow up as noted above. Discharge medications included only her normal home medications.discharge hemoglobin and hematocrit were 12.6 and 38.9 respectively. Procedures: #1. Vaginal hysterectomy #2. Anterior colporrhaphy Patient Condition at Discharge: Stable Plan - Discharge Summary Discharge Rx Participant: Yes New Discharge Prescriptions: No Action Albuterol Nebulized [Ventolin Nebulized] 2.5 mg INHALATION Q6H PRN PRN Reason: COPD busPIRone HCL 20 mg PO BID Gabapentin [Neurontin] 100 mg PO TID Ferrous Sulfate [Iron (65 MG Elemental)] 325 mg PO DAILY Ergocalciferol [Vitamin D2 (DRISDOL)] 50,000 unit PO FR DULoxetine HCL [Cymbalta] 60 mg PO QAM cilostazoL [Pletal] 100 mg PO DAILY Topiramate [Topamax] 100 mg PO BID Levothyroxine Sodium [Synthroid] 25 mcg PO QAM Vitamin B Complex 1 each PO DAILY Aspirin [Adult Low Dose Aspirin EC] 81 mg PO DAILY hydrOXYzine pamoate [Vistaril] 25 mg PO QID PRN PRN Reason: Migraine Headache Morphine Sulfate 15 mg PO QID Diclofenac Sodium [Voltaren] 50 mg PO DAILY Furosemide [Lasix] 20 mg PO DAILY Discharge Medication List Albuterol Nebulized [Ventolin Nebulized] 2.5 mg INHALATION Q6H PRN 09/15/19 [History] Aspirin [Adult Low Dose Aspirin EC] 81 mg PO DAILY 09/15/19 [History] DULoxetine HCL [Cymbalta] 60 mg PO QAM 09/15/19 [History] Ergocalciferol [Vitamin D2 (DRISDOL)] 50,000 unit PO FR 09/15/19 [History] Ferrous Sulfate [Iron (65 MG Elemental)] 325 mg PO DAILY 09/15/19 [History] Gabapentin [Neurontin] 100 mg PO TID 09/15/19 [History] Levothyroxine Sodium [Synthroid] 25 mcg PO QAM 09/15/19 [History] Topiramate [Topamax] 100 mg PO BID 09/15/19 [History] Vitamin B Complex 1 each PO DAILY 09/15/19 [History] busPIRone HCL 20 mg PO BID 09/15/19 [History] cilostazoL [Pletal] 100 mg PO DAILY 09/15/19 [History] hydrOXYzine pamoate [Vistaril] 25 mg PO QID PRN 04/08/20 [History] Diclofenac Sodium [Voltaren] 50 mg PO DAILY 12/12/21 [History] Furosemide [Lasix] 20 mg PO DAILY 12/12/21 [History] Morphine Sulfate 15 mg PO QID 12/12/21 [History] Follow up Appointment(s)/Referral(s): Jeramie Stephens MD [STAFF PHYSICIAN] - 2 Weeks Discharge Disposition: HOME SELF-CARE
[2021-12-17] MEDS: LACTATED RINGERS 1,000 ML IV SCH ×2 (08:50→11:33)
[2021-12-17] MEDS ORDERED: ACETAMINOPHEN TAB 325 MG TAB PO PRN (10:12)
[2021-12-17 15:53] VITALS: BP 111/51; PULSE 63; RESP 18; TEMP 99.9
== END 2021-12-17 16:58 | disposition home or self-care (01) ==
LOC: OR 07:01 → 4FBP 10:03 → OR 12-17 07:39 → 4FBP 12-17 07:39
PROVIDERS: ADMIT Obstetrics & Gynecology; ATTEND Obstetrics & Gynecology
DX: N81.3 Complete uterovaginal prolapse (principal); N72 Inflammatory disease of cervix uteri; N87.9 Dysplasia of cervix uteri, unspecified; N88.8 Other specified noninflammatory disorders of cervix uteri; R23.4 Changes in skin texture; N73.6 Female pelvic peritoneal adhesions (postinfective); N84.0 Polyp of corpus uteri; D25.9 Leiomyoma of uterus, unspecified
CPT/HCPCS: 96374; 86900; 86901; 84132; 85025; 86850; 88307; 58260; 57240; G0378; J2250; J0330; J1100; J0690; J2405; J3010; J1170; J1885 ×2; J2370; J2704; J2001; 88305

== ENCOUNTER → 2022-04-17 | Outpatient (CLI) | payer MEDICARE ==
--- NOTE | 2022-04-20 08:18 | MM ---
Reason for Exam: Screening (asymptomatic). Last mammogram was performed 1 year(s) and 1 month(s) ago. Patient History: Menarche at age 11. First Full-Term at age 17. Postmenopausal. Estrogen for 6 months. Hormonal Contraceptives, from age 14 until age 20. 04/14/2002, Benign Stereotactic Core Biopsy on the left side. Risk Values: Denisse 5 year model risk: 1.3%. NCI Lifetime model risk: 5.9%. Prior Study Comparison: 09/14/2018 Bilateral Screening Mammogram, [facility]. 02/09/2020 Bilateral Screening Mammogram, [facility]. 04/04/2021 Bilateral Screening Mammogram, [facility]. Tissue Density: The breast tissue is heterogeneously dense. This may lower the sensitivity of mammography. Findings: Analyzed By CAD. There is no suspicious group of microcalcifications or new suspicious mass in either breast. Overall Assessment: Benign, BI-RAD 2 Management: Screening Mammogram of both breasts in 1 year. A clinical breast exam by your physician is recommended on an annual basis and results should be correlated with mammographic findings. Electronically signed and approved by: kIe Tidwell M.D. Radiologis
== END | disposition home or self-care (01) ==
LOC: RADMAMWWP 14:40
PROVIDERS: ATTEND Family Medicine
DX: Z12.31 Encounter for screening mammogram for malignant neoplasm of breast (principal); Z78.0 Asymptomatic menopausal state
CPT/HCPCS: 77063; 77067

== ENCOUNTER → 2022-10-26 | Outpatient (CLI) | payer MEDICARE ==
--- NOTE | 2022-10-26 13:09 | CT ---
EXAMINATION TYPE: CT chest wo con DATE OF EXAM: 10/26/2022 COMPARISON: CT chest 05/27/[address] 06/22/2020. HISTORY: Solitary pulmonary nodules. CT DLP: [address] of the chest was performed with lung and mediastinal window settings submitted. The la ck of contrast limits evaluation of the vascular, mediastinal and parenchymal structures including th e upper abdomen. LUNGS: Again noted is biapical scarring unchanged from prior study. No suspicious pulmonary nodule or mass is present. The lungs are clear and free of infiltrate. No atelectasis. No pulmonary nodule or mass is detected. No pleural effusion. No CT evidence of interstitial lung disease. MEDIASTINUM/JAIR: Thoracic aorta is of normal caliber with limited evaluation given lack of contrast . The heart is not enlarged. No evidence for mediastinal mass. No lymph nodes greater than 1cm. UPPER ABDOMEN: No significant abnormality is seen. Nonobstructing calculus in the left kidney at its upper pole. OTHER: No significant other abnormality. IMPRESSION: 1. Again noted is biapical scarring unchanged from prior study. No suspicious pulmonary nodule or ma ss is present.
== END | disposition home or self-care (01) ==
LOC: RADCTMAIN 12:31
PROVIDERS: ATTEND Family Medicine
DX: N20.0 Calculus of kidney (principal); J98.4 Other disorders of lung; R91.8 Other nonspecific abnormal finding of lung field
CPT/HCPCS: 71250

== ENCOUNTER 2022-10-30 14:15 | Observation (INO) | payer MEDICARE ==
--- NOTE | 2022-10-30 14:50 | ED ---
General Adult HPI - General Chief complaint: Neuro Symptoms/Deficit Stated complaint: Sent over from [facility] stroke Time Seen by Provider: 10/30/22 14:34 Source: patient, RN notes reviewed Mode of arrival: wheelchair Limitations: no limitations - History of Present Illness Initial comments: Patient is a pleasant 62-year-old female presenting to the emergency department with concerns with left leg weakness. Patient did go to her doctor's office prior to arrival and was advised come to the emergency department. A schulte woke up with symptoms 2 days ago. Symptoms have been persistent since that time. No headache. No other areas of weakness. No loss of sensation. No history of similar symptoms recently. Symptoms of been persistent. - Related Data Home Medications Medication Instructions Recorded Confirmed Aspirin [Adult Low Dose Aspirin EC] 81 mg PO DAILY 09/15/19 10/30/22 DULoxetine HCL [Cymbalta] 60 mg PO QAM 09/15/19 10/30/22 Ferrous Sulfate [Iron (65 MG 325 mg PO DAILY 09/15/19 10/30/22 Elemental)] Gabapentin [Neurontin] 100 mg PO TID 09/15/19 10/30/22 Levothyroxine Sodium [Synthroid] 25 mcg PO QAM 09/15/19 10/30/22 Topiramate [Topamax] 100 mg PO BID 09/15/19 10/30/22 Vitamin B Complex 1 cap PO DAILY 09/15/19 10/30/22 busPIRone HCL 20 mg PO BID 09/15/19 10/30/22 cilostazoL [Pletal] 100 mg PO BID 09/15/19 10/30/22 Diclofenac Sodium [Voltaren] 50 mg PO DAILY 12/12/21 10/30/22 Furosemide [Lasix] 20 mg PO DAILY 12/12/21 10/30/22 Morphine Sulfate 15 mg PO QID 12/12/21 10/30/22 ARIPiprazole [Abilify] 5 mg PO DAILY 10/30/22 10/30/22 Atorvastatin Calcium [Lipitor] 80 mg PO HS 10/30/22 10/30/22 Cholecalciferol (Vitamin D3) 1,250 mcg PO FR@1800 10/30/22 10/30/22 [Vitamin D3] Donepezil [Aricept] 5 mg PO HS 10/30/22 10/30/22 Montelukast [Singulair] 10 mg PO HS 10/30/22 10/30/22 Potassium Chloride [Klor-Con M20] 20 meq PO DAILY 10/30/22 10/30/22 Umeclidinium Brm/Vilanterol Tr 1 puff INHALATION RT-DAILY 10/30/22 10/30/22 [Anoro Ellipta 62.5-25 Mcg INH] Allergies Allergy/AdvReac Type Severity Reaction Status Date / Time bacitracin Allergy Rash/Hives Verified 10/30/22 16:32 [From Neosporin ([id number])] meperidine [From Demerol] Allergy Rash/Hives Verified 10/30/22 16:32 neomycin Allergy Rash/Hives Verified 10/30/22 16:32 [From Neosporin ([id number])] polymyxin B Allergy Rash/Hives Verified 10/30/22 16:32 [From Neosporin ([id number])] Review of Systems ROS Statement: Those systems with pertinent positive or pertinent negative responses have been documented in the HPI. ROS Other: All systems not noted in ROS Statement are negative. Constitutional: Denies: fever Eyes: Denies: eye pain ENT: Denies: ear pain Respiratory: Denies: cough Cardiovascular: Denies: chest pain Endocrine: Denies: fatigue Gastrointestinal: Denies: abdominal pain Genitourinary: Denies: dysuria Skin: Denies: rash Neurological: Reports: as per HPI, weakness. Denies: headache, numbness, paresthesias Past Medical History Past Medical History: Diabetes Mellitus, Hyperlipidemia, Hypertension Additional Past Medical History / Comment(s): chronic back pain, clotting disorder History of Any Multi-Drug Resistant Organisms: None Reported Past Surgical History: Tubal Ligation Past Anesthesia/Blood Transfusion Reactions: No Reported Reaction Past Psychological History: Depression Smoking Status: Current every day smoker Past Alcohol Use History: None Reported Past Drug Use History: None Reported - Past Family History Mother Family Medical History: No Reported History General Exam Limitations: no limitations General appearance: alert, in no apparent distress Head exam: Present: atraumatic, normocephalic Eye exam: Present: normal appearance, PERRL, EOMI ENT exam: Present: normal oropharynx Neck exam: Present: normal inspection Respiratory exam: Present: rhonchi Cardiovascular Exam: Present: regular rate, normal rhythm GI/Abdominal exam: Present: soft. Absent: tenderness Extremities exam: Present: normal inspection Neurological exam: Present: alert, oriented X3, CN II-XII intact Expanded Neurological exam: Present: protecting the airway Patient oriented to: Present: person, place, time Speech: Present: fluid speech Cranial nerves: EOM's Intact: Normal Sensory exam: Upper Extremity Light Touch: Normal, Lower Extremity Light Touch: Normal Motor strength exam: RUE: 5, LUE: 5, RLE: 5, LLE: 4 Eye Response: (4) open spontaneously Motor Response: (6) obeys commands Verbal Response: (5) oriented Psychiatric exam: Present: normal affect, normal mood Skin exam: Present: other (Tobacco stained fingers on the left) Course Vital Signs 10/30/22 14:41 Temperature 98.3 F Pulse Rate 101 H Respiratory 16 Rate Blood Pressure 104/57 O2 Sat by Pulse 101 H Oximetry EKG Findings - EKG Results: EKG: interpreted by CARLOS, sinus rhythm, normal axis, normal QRS, normal ST/T Medical Decision Making - Medical Decision Making Was pt. sent in by a medical professional or institution ([facility], [employer], urgent care, hospital, or assisted...) When possible be specific @ -Patient was sent over by her doctor's office Did you speak to anyone other than the patient for history (EMS, parent, family, police, friend...)? What history was obtained from this source @ -No Did you review nursing and triage notes (agree or disagree)? Why? @ -I reviewed and agree with nursing and triage notes Were old charts reviewed (outside hosp., previous admission, EMS record, old EKG, old radiological studies, urgent care reports/EKG's, assisted records)? Report findings @ -No old charts were reviewed Differential Diagnosis (chest pain, altered mental status, abdominal pain women, abdominal pain men, vaginal bleeding, weakness, fever, dyspnea, syncope, headache, dizziness, GI bleed, back pain, seizure, CVA, palpatations, mental health)? @ -Differential Weakness: Hypoglycemia, shock, sepsis, hyponatremia, anemia, infection, AK, ETOH, adverse medicine reaction, overdose, stroke, this is not meant to be an all-inclusive list. EKG interpreted by me (3pts min.). @ -As above X-rays interpreted by me (1pt min.). @ -Chest x-ray shows no acute process CT interpreted by me (1pt min.). @ -Report reviewed U/S interpreted by me (1pt. min.). @ -None done What testing was considered but not performed or refused? (CT, X-rays, U/S, labs)? Why? @ -None What meds were considered but not given or refused? Why? @ -None Did you discuss the management of the patient with other professionals (professionals i.e. DrMelany, PA, [employer], lab, RT, psych nurse, social sciences chair, diesel engine mechanic apprentice, teacher, environmental officer, case management director)? Give summary @ -Case was discussed with Dr. deras, who will admit covering for Dr. Hickey Was smoking cessation discussed for >3mins.? @ -No Was critical care preformed (if so, how long)? @ -No Were there social determinants of health that impacted care today? How? (Homelessness, low income, unemployed, alcoholism, drug addiction, transportation, low edu. Level, literacy, decrease access to med. care, half-way, rehab)? @ -No Was there de-escalation of care discussed even if they declined (Discuss DNR or withdrawal of care, Hospice)? DNR status @ -No What co-morbidities impacted this encounter? (DM, HTN, Smoking, COPD, CAD, Cancer, CVA, ARF, Chemo, Hep., AIDS, mental health diagnosis, sleep apnea, morbid obesity)? @ -None Was patient admitted / discharged? Hospital course, mention meds given and route, prescriptions, significant lab abnormalities, going to OR and other pertinent info. @ -Patient reevaluated and unchanged. Patient is updated on results and plan. Patient will be admitted with further neurology evaluation and treatment Undiagnosed new problem with uncertain prognosis? @ -No Drug Therapy requiring intensive monitoring for toxicity (Heparin, Nitro, Insulin, Cardizem)? @ -No Were any procedures done? @ -No Diagnosis/symptom? @ -CVA Acute, or Chronic, or Acute on Chronic? @ -Acute Uncomplicated (without systemic symptoms) or Complicated (systemic symptoms)? @ -default Side effects of treatment? @ -No Exacerbation, Progression, or Severe Exacerbation? @ -No Poses a threat to life or bodily function? How? (Chest pain, USA, AK, pneumonia, PE, COPD, DKA, ARF, appy, cholecystitis, CVA, Diverticulitis, Homicidal, Suicidal, threat to staff... and all critical care pts) @ -Risk for worsening CVA with threat to function and life - Lab Data Result diagrams: 10/30/22 15:04 10/30/22 15:04 Lab Results 10/30/22 10/30/22 10/30/22 Range/Units 15:04 15:04 15:04 WBC 12.6 H (3.8-10.6) k/uL RBC 4.54 (3.80-5.40) m/uL Hgb 14.4 (11.4-16.0) gm/dL Hct 44.4 (34.0-46.0) % MCV 97.8 (80.0-100.0) fL MCH 31.6 (25.0-35.0) pg MCHC 32.3 (31.0-37.0) g/dL RDW 12.4 (11.5-15.5) % Plt Count 222 (150-450) k/uL MPV 7.7 Neutrophils % 76 % Lymphocytes % 12 % Monocytes % 7 % Eosinophils % 4 % Basophils % 0 % Neutrophils # 9.5 H (1.3-7.7) k/uL Lymphocytes # 1.5 (1.0-4.8) k/uL Monocytes # 0.8 (0-1.0) k/uL Eosinophils # 0.6 (0-0.7) k/uL Basophils # 0.0 (0-0.2) k/uL PT 10.4 (9.0-12.0) sec INR 1.0 (<1.2) APTT 26.0 (22.0-30.0) sec Sodium 138 (137-145) mmol/L Potassium 4.9 (3.5-5.1) mmol/L Chloride 103 (98-107) mmol/L Carbon Dioxide 29 (22-30) mmol/L Anion Gap 6 mmol/L BUN 12 (7-17) mg/dL Creatinine 1.20 H (0.52-1.04) mg/dL Est GFR (CKD-EPI)AfAm 56 (>60 ml/min/1.73 sqM) Est GFR (CKD-EPI)NonAf 48 (>60 ml/min/1.73 sqM) Glucose 102 H (74-99) mg/dL Calcium 9.3 (8.4-10.2) mg/dL Total Bilirubin 1.4 H (0.2-1.3) mg/dL AST 63 H (14-36) U/L ALT 26 (4-34) U/L Alkaline Phosphatase 75 (38-126) U/L Creatine Kinase 247 H (30-135) U/L Total Protein 7.0 (6.3-8.2) g/dL Albumin 4.0 (3.5-5.0) g/dL Disposition Clinical Impression: Cerebrovascular accident (CVA) Disposition: ADMITTED IP TO THIS HOSP Is patient prescribed a controlled substance at d/c from ED?: No Referrals: Victor M Man MD [Primary Care Provider] - 1-2 days Time of Disposition: 16:46
[2022-10-30 15:22] LABS: Basophils % (A) 0 %; Eosinophils # (A) 0.6 k/uL (0-0.7); Eosinophils % (A) 4 %; HCT 44.4 % (34.0-46.0); HGB 14.4 gm/dL (11.4-16.0); Lymphocytes # (A) 1.5 k/uL (1.0-4.8); Lymphocytes % (A) 12 %; MCH 31.6 pg (25.0-35.0); MCHC 32.3 g/dL (31.0-37.0); MCV 97.8 fL (80.0-100.0); Mean Platelet Volume 7.7; Monocytes # (A) 0.8 k/uL (0-1.0); Monocytes % (A) 7 %; Neutrophils # (A) 9.5 k/uL (1.3-7.7); Neutrophils % (A) 76 %; Platelet Count 222 k/uL (150-450); RBC 4.54 m/uL (3.80-5.40); RDW 12.4 % (11.5-15.5); WBC 12.6 k/uL (3.8-10.6)
[2022-10-30 15:44] LABS: Prothrombin Time 10.4 sec (9.0-12.0)
[2022-10-30 15:48] LABS: ALT 26 U/L (4-34); AST 63 U/L (14-36); African American GFR (CKD) 56 (>60 ml/min/1.73 sqM); Alkaline Phosphatase 75 U/L (38-126); Anion Gap 6 mmol/L; Blood Urea Nitrogen 12 mg/dL (7-17); Calcium 9.3 mg/dL (8.4-10.2); Carbon Dioxide 29 mmol/L (22-30); Chloride 103 mmol/L (98-107); Creatine Kinase 247 U/L (30-135); Glucose 102 mg/dL (74-99); Non-African American GFR(CKD) 48 (>60 ml/min/1.73 sqM); Potassium 4.9 mmol/L (3.5-5.1); Sodium 138 mmol/L (137-145); Total Bilirubin 1.4 mg/dL (0.2-1.3)
--- NOTE | 2022-10-30 16:12 | XR ---
EXAMINATION TYPE: XR chest 2V DATE OF EXAM: 10/30/2022 COMPARISON: None HISTORY: 62-year-old female confusion, altered mental status TECHNIQUE: AP and lateral views FINDINGS: Heart normal size. Aorta and pulmonary vasculature within normal limits. Mild right apical pleural-pa renchymal scarring. Mild hyperinflation. No consolidation or pleural effusion. IMPRESSION: COPD. No acute process seen.
--- NOTE | 2022-10-30 16:15 | CT ---
EXAMINATION TYPE: CT brain wo con DATE OF EXAM: 10/30/2022 COMPARISON: None HISTORY: 62-year-old female with neurologic deficit, acute, stroke suspected, left leg numbness x2 da ys TECHNIQUE: Examination was done in axial plane without intravenous contrast. Coronal and sagittal r econstructions performed. CT DLP: 1098.4 mGycm Automated exposure control for dose reduction was used. FINDINGS: There is no evidence of acute intracranial hemorrhage, acute ischemic changes, mass, mass-effect, or extra-axial fluid collection. There is no effacement of cerebral sulci or basal subarachnoid cister ns. There is no hydrocephalus. There is no midline shift. Meyers-white matter distinction is preserv ed. Minimal 2 mm of cerebellar tonsillar ectopia. Moderate to severe mucosal thickening right ethmoid air cells and right frontal sinus. Mild to modera te right maxillary sinus. Mastoid air cells are well pneumatized. Orbits and globes are intact. IMPRESSION: No acute intracranial abnormality seen. Moderate to severe chronic right ethmoid and right frontal si nus disease.
[2022-10-30] MEDS ORDERED: ASPIRIN 325 MG TAB PO STA (16:47)
[2022-10-30] MEDS: SODIUM CHLORIDE 0.9% 1,000 ML IV SCH (17:28)
[2022-10-30] MEDS ORDERED: CHOLECALCIFEROL 125 MCG (5000 IU) TABLET PO SCH (18:00)
--- NOTE | 2022-10-30 18:10 | US ---
EXAMINATION TYPE: US carotid duplex BILAT DATE OF EXAM: 10/30/2022 COMPARISON: NONE CLINICAL INDICATION: Female, 62 years old with history of Stenosis; stroke TECHNIQUE: Carotid duplex ultrasound examination. Indirect Doppler criteria was utilized. FINDINGS: EXAM MEASUREMENTS: RIGHT: Peak Systolic Velocity (PSV) cm/sec ----- Right CCA: 107 ----- Right ICA: 120 ----- Right ECA: 109 ICA/CCA ratio: 1.12 RIGHT: End Diastole cm/sec ----- Right CCA: 28.6 ----- Right ICA: 31.2 ----- Right ECA: 14.9 LEFT: Peak Systolic Velocity (PSV) cm/sec ----- Left CCA: 125 ----- Left ICA: 100 ----- Left ECA: 115 ICA/CCA ratio: 0.80 LEFT: End Diastole cm/sec ----- Left CCA: 23.0 ----- Left ICA: 29.3 ----- Left ECA: 20.5 VERTEBRALS (direction of flow): Right Vertebral: Antegrade Left Vertebral: Antegrade Rhythm: Normal ED TECH NOTES: Mild plaque bilateral bifurcations. No evidence of significant stenosis IMPRESSION: Less than 50% stenosis of the bilateral carotid bifurcations. Criteria for Assigning % of Stenosis / Diameter reduction (Estimation based on the indirect measurements of the internal carotid artery velocities (ICA PSV). 1. Normal (no stenosis)=ICA PSV < 125 cm/s: ratio < 2.0: ICA EDV<40 cm/s. 2. Less than 50% stenosis=ICA PSV < 125 cm/s: ratio < 2.0: ICA EDV<40 cm/s. 3. 50 to 69% stenosis=ICA PSV of 125 to 230 cm/s: ration 2.0 ? 4.0: ICA EDV 40-100 cm/s. 4. Greater than 70% stenosis to near occlusion= ICA PSV > 230 cm/s: ratio > 4.0: ICA EDV > 100 cm/s. 5. Near occlusion= ICA PSV velocities may be low or undetectable: variable ratio and ICA EDV. 6. Total occlusion=unable to detect flow.
[2022-10-30] MEDS: MORPHINE SULFATE IR 15 MG TABLET PO SCH (18:45)
[2022-10-30] MEDS: GABAPENTIN 100 MG CAP PO SCH ×2 (18:45→22:10)
[2022-10-30] MEDS: busPIRone HCl 10 MG TAB PO SCH (18:48)
[2022-10-30] MEDS ORDERED: DONEPEZIL 5 MG TAB PO SCH (21:00)
[2022-10-30] MEDS ORDERED: busPIRone HCl 10 MG TAB PO SCH (21:00)
[2022-10-30] MEDS ORDERED: MONTELUKAST 10 MG TAB PO SCH (21:00)
[2022-10-30] MEDS ORDERED: ATORVASTATIN 40 MG TAB PO SCH (21:00)
[2022-10-30] MEDS ORDERED: cilostazoL 100 MG TAB PO SCH (21:00)
[2022-10-30] MEDS ORDERED: HEPARIN SODIUM,PORCINE/PF 5,000 UNIT/0.5 ML SYRINGE SQ SCH (21:00)
[2022-10-30] MEDS ORDERED: FAMOTIDINE 20 MG/2 ML VIAL IV SCH (21:00)
[2022-10-30] MEDS: TOPIRAMATE 100 MG TAB PO SCH (22:10)
[2022-10-31] MEDS: MORPHINE SULFATE IR 15 MG TABLET PO SCH ×2 (00:01→11:16)
[2022-10-31] MEDS: GABAPENTIN 100 MG CAP PO SCH ×2 (00:01→10:19)
[2022-10-31] MEDS: SODIUM CHLORIDE 0.9% 1,000 ML IV SCH (06:14)
[2022-10-31] MEDS ORDERED: LEVOTHYROXINE 25 MCG TAB PO SCH (06:30)
[2022-10-31] MEDS ORDERED: ALPRAZolam 0.5 MG TAB PO PRN (08:11)
--- NOTE | 2022-10-31 08:12 | P.HPIM ---
History of Present Illness This is a pleasant 62 years old female with past medical history of Diabetes Mellitus, Hyperlipidemia, Hypertension Presents because of left leg Weakness few days duration without specification associated with some numbness With no improvement in her left leg weakness she decided to come to the hospital but she denies any headache dizziness, no slurred speech, no blurred vision or double vision. She denies any chest pain dyspnea or coughing. No GI or urinary symptoms She smokes 2 packs per day and she was counseled to quit, she states eventually she'll quit but she agrees to the nicotine patch currently Vitals are stable she has unremarkable labs including CBC, INR, BMP and liver enzymes except for mildly elevated creatinine 1.2 Chest x-ray: No acute process CT of the brain: No acute process Carotid Doppler stenosis less than 50% bilaterally Patient continued on home dose of aspirin 81 mg and admitted with a neuro consult Review of Systems Review of systems CONSTITUTIONAL: No fever, no malaise, no fatigue. HEENT: No recent visual problems or hearing problems. Denied any sore throat. CARDIOVASCULAR: No orthopnea, PND, no palpitations, no syncope. PULMONARY: No shortness of breath, no cough, no hemoptysis. GASTROINTESTINAL: No diarrhea, no nausea, no vomiting, no abdominal pain. Normoactive bowel sounds. NEUROLOGICAL: No headaches, no dizziness. HEMATOLOGICAL: Denies any bleeding or petechiae. GENITOURINARY: Denies any burning micturition, frequency, or urgency. MUSCULOSKELETAL/RHEUMATOLOGICAL: Denies any joint pain, swelling, or any muscle pain. ENDOCRINE: Denies any polyuria or polydipsia. Past Medical History Past Medical History: Diabetes Mellitus, Hyperlipidemia, Hypertension Additional Past Medical History / Comment(s): chronic back pain, clotting disorder History of Any Multi-Drug Resistant Organisms: None Reported Past Surgical History: Tubal Ligation Past Anesthesia/Blood Transfusion Reactions: No Reported Reaction Past Psychological History: Depression Smoking Status: Current every day smoker Past Alcohol Use History: None Reported Additional Past Alcohol Use History / Comment(s): Has been smoking for 46 yrs, (quit a few times for 6 months or less), 1 1/2 ppd. Past Drug Use History: None Reported - Past Family History Mother Family Medical History: No Reported History Medications and Allergies Home Medications Medication Instructions Recorded Confirmed Type Aspirin [Adult Low Dose Aspirin EC] 81 mg PO DAILY 09/15/19 10/30/22 History DULoxetine HCL [Cymbalta] 60 mg PO QAM 09/15/19 10/30/22 History Ferrous Sulfate [Iron (65 MG 325 mg PO DAILY 09/15/19 10/30/22 History Elemental)] Gabapentin [Neurontin] 100 mg PO TID 09/15/19 10/30/22 History Levothyroxine Sodium [Synthroid] 25 mcg PO QAM 09/15/19 10/30/22 History Topiramate [Topamax] 100 mg PO BID 09/15/19 10/30/22 History Vitamin B Complex 1 cap PO DAILY 09/15/19 10/30/22 History busPIRone HCL 20 mg PO BID 09/15/19 10/30/22 History cilostazoL [Pletal] 100 mg PO BID 09/15/19 10/30/22 History Diclofenac Sodium [Voltaren] 50 mg PO DAILY 12/12/21 10/30/22 History Furosemide [Lasix] 20 mg PO DAILY 12/12/21 10/30/22 History Morphine Sulfate 15 mg PO QID 12/12/21 10/30/22 History ARIPiprazole [Abilify] 5 mg PO DAILY 10/30/22 10/30/22 History Atorvastatin Calcium [Lipitor] 80 mg PO HS 10/30/22 10/30/22 History Cholecalciferol (Vitamin D3) 1,250 mcg PO FR@1800 10/30/22 10/30/22 History [Vitamin D3] Donepezil [Aricept] 5 mg PO HS 10/30/22 10/30/22 History Montelukast [Singulair] 10 mg PO HS 10/30/22 10/30/22 History Potassium Chloride [Klor-Con M20] 20 meq PO DAILY 10/30/22 10/30/22 History Umeclidinium Brm/Vilanterol Tr 1 puff INHALATION RT-DAILY 10/30/22 10/30/22 History [Anoro Ellipta 62.5-25 Mcg INH] Allergies Allergy/AdvReac Type Severity Reaction Status Date / Time bacitracin Allergy Rash/Hives Verified 10/30/22 16:32 [From Neosporin ([id number])] meperidine [From Demerol] Allergy Rash/Hives Verified 10/30/22 16:32 neomycin Allergy Rash/Hives Verified 10/30/22 16:32 [From Neosporin ([id number])] polymyxin B Allergy Rash/Hives Verified 10/30/22 16:32 [From Neosporin ([id number])] Physical Exam Vitals: Vital Signs Temp Pulse Pulse Resp BP BP Pulse Ox 10/31/22 01:41 97.7 F 88 18 120/64 94 L 10/30/22 21:14 97.7 F 70 18 132/81 96 10/30/22 17:48 81 18 118/79 93 L 10/30/22 17:13 74 18 114/78 94 L 10/30/22 17:05 86 18 114/78 93 L 10/30/22 14:41 98.3 F 101 H 16 104/57 101 H Intake and Output 10/30/22 10/30/22 10/31/22 14:59 22:59 06:59 Other: Weight 59.421 kg 59.421 kg GENERAL: The patient is alert and oriented x3, not in any acute distress. Well developed, well nourished. HEENT: Pupils are round and equally reacting to light. EOMI. No scleral icterus. No conjunctival pallor. Normocephalic, atraumatic. No pharyngeal erythema. No thyromegaly. CARDIOVASCULAR: S1 and S2 present. No murmurs, rubs, or gallops. PULMONARY: Chest is clear to auscultation, no wheezing , no crackles. ABDOMEN: Soft, nontender, nondistended, normoactive bowel sounds. No palpable organomegaly. MUSCULOSKELETAL: No joint swelling or deformity. EXTREMITIES: No cyanosis, clubbing, or pedal edema. -NEUROLOGICAL: Gross neurological examination did not reveal any focal deficits. Left leg mildly weak , Patient still able to raise it above bit. Extremities: Motor 5/5 and sensation is intact SKIN: No rashes. no petechiae. Results CBC & Chem 7: 10/30/22 15:04 10/30/22 15:04 Labs: Abnormal Lab Results - Last 24 Hours (Table) 10/30/22 10/30/22 Range/Units 15:04 15:04 WBC 12.6 H (3.8-10.6) k/uL Neutrophils # 9.5 H (1.3-7.7) k/uL Creatinine 1.20 H (0.52-1.04) mg/dL Glucose 102 H (74-99) mg/dL Total Bilirubin 1.4 H (0.2-1.3) mg/dL AST 63 H (14-36) U/L Creatine Kinase 247 H (30-135) U/L Assessment and Plan Assessment: Acute stroke with left leg weakness Hypertension Hyperlipidemia Diabetes mellitus Plan: Continue with aspirin Neurology consult Follow-up MRI of the brain Follow-up echocardiogram Nicotine patch Labs and medication were reviewed.. Continue same treatment. Continue with symptomatic treatment. Resume home medication. Monitor labs and vitals. DVT and GI prophylaxis. Further recommendations as per clinical course of the patient DVT prophylaxis: Subcutaneous heparin GI Prophylaxis: Pepcid PT/OT: Pending Prognosis is guarded
[2022-10-31] MEDS ORDERED: ARIPiprazole 5 MG TAB PO SCH (09:00)
[2022-10-31] MEDS ORDERED: NON FORMULARY DRUG (Vitamin B Complex [Vitamin B Complex] 1 EACH Capsule) PO SCH (09:00)
[2022-10-31] MEDS ORDERED: FERROUS SULFATE 325 MG TAB PO SCH (09:00)
[2022-10-31] MEDS ORDERED: ASPIRIN 325 MG TAB PO SCH (09:00)
[2022-10-31] MEDS ORDERED: FUROSEMIDE 20 MG TAB PO SCH (09:00)
[2022-10-31] MEDS ORDERED: ETODOLAC 200 MG CAPSULE PO SCH (09:00)
[2022-10-31] MEDS ORDERED: NICOTINE 21MG/24HR PATCH TRANSDERM SCH (09:00)
[2022-10-31] MEDS ORDERED: ASPIRIN 81 MG PO SCH (09:00)
[2022-10-31] MEDS ORDERED: POTASSIUM CHLORIDE ER 20 MEQ TAB.ER PO SCH (09:00)
[2022-10-31 10:04] VITALS: TEMP 98.6
[2022-10-31] MEDS: TOPIRAMATE 100 MG TAB PO SCH (10:19)
[2022-10-31] MEDS: busPIRone HCl 10 MG TAB PO SCH (10:19)
[2022-10-31] MEDS: DULoxetine HCL 60 MG CAPSULE.DR PO SCH (11:17)
[2022-10-31 11:48] LABS: Basophils # (A) 0.08 X 10*3/uL (0.00-0.10); Basophils % (A) 0.8 %; Eosinophils # (A) 0.82 X 10*3/uL (0.04-0.35); HCT 40.7 % (37.2-46.3); HGB 12.9 d/dL (12.0-15.0); Lymphocytes # (A) 1.77 X 10*3/uL (0.90-5.00); Lymphocytes % (A) 17.2 %; MCH 31.6 pg (27.0-32.0); MCHC 31.7 d/dL (32.0-37.0); MCV 99.8 FL (80.0-97.0); Mean Platelet Volume 10.5 FL (9.5-12.2); Monocytes # (A) 1.03 X 10*3/uL (0.20-1.00); NRBC Per 100 WBC 0 X 10*3/uL (0.00-0.01); Neutrophils # (A) 6.55 X 10*3/uL (1.80-7.70); Neutrophils % (A) 63.8 %; Platelet Count 237 X 10*3/uL (140-440); RBC 4.08 X 10*6/uL (4.10-5.20); RDW 12.8 % (11.5-14.5); WBC 10.27 X 10*3/uL (4.50-10.00)
--- NOTE | 2022-10-31 12:17 | P.CNNES ---
History of Present Illness Consult date: 10/31/22 Requesting physician: Abdelrahman Shabazz Reason for Consult: cva History of Present Illness: This is a 62-year-old woman with history of prediabetes and according to the patient it's controlled diet, tobacco use who presents because of the left lower gentleman E weakness. Patient stated that her symptoms began about one to 2 d ays ago. Before presented to our facility and happened all of a sudden. Patient denies any history of stroke or TIA in the past. She states she is on aspirin 81 mg daily. She denies of any neck pain. Denies of any difficulty getting her words out as slurring the speech or difficulty swallowing. Denies of any numbness. Upon asking the patient she has any lower back pain and she denies that. Later she states that she wants her pain medication and upon asking her why she needs pain medication she stated that she has chronic lower back but has not progressed. Some other workup during his hospital visit consisted of: Hemoglobin A1c: 5.5 CK: 247 CT of the head is reported as no acute intracranial abnormality seen. Moderate to severe chronic right ethmoid and right frontal sinus disease. I personally reviewed the CT and the there is no acute or subacute ischemia there is no bleed there is no mass effect. Carotid duplex is reported as less than 50% stenosis bilateral carotid bifurca tion. MRI Brain is completed and pending result. I personally reviewed and no acute or subacute stroke. Review of Systems The 10 point system is reviewed and the pertinent positive and negative per HPI. Past Medical History Past Medical History: Diabetes Mellitus, Hyperlipidemia, Hypertension Additional Past Medical History / Comment(s): chronic back pain, clotting disorder History of Any Multi-Drug Resistant Organisms: None Reported Past Surgical History: Tubal Ligation Past Anesthesia/Blood Transfusion Reactions: No Reported Reaction Past Psychological History: Depression Smoking Status: Current every day smoker Past Alcohol Use History: None Reported Additional Past Alcohol Use History / Comment(s): Has been smoking for 46 yrs, (quit a few times for 6 months or less), 1 1/2 ppd. Past Drug Use History: None Reported - Past Family History Mother Family Medical History: No Reported History Medications and Allergies Home Medications Medication Instructions Recorded Confirmed Type Aspirin [Adult Low Dose Aspirin EC] 81 mg PO DAILY 09/15/19 10/30/22 History DULoxetine HCL [Cymbalta] 60 mg PO QAM 09/15/19 10/30/22 History Ferrous Sulfate [Iron (65 MG 325 mg PO DAILY 09/15/19 10/30/22 History Elemental)] Gabapentin [Neurontin] 100 mg PO TID 09/15/19 10/30/22 History Levothyroxine Sodium [Synthroid] 25 mcg PO QAM 09/15/19 10/30/22 History Topiramate [Topamax] 100 mg PO BID 09/15/19 10/30/22 History Vitamin B Complex 1 cap PO DAILY 09/15/19 10/30/22 History busPIRone HCL 20 mg PO BID 09/15/19 10/30/22 History cilostazoL [Pletal] 100 mg PO BID 09/15/19 10/30/22 History Diclofenac Sodium [Voltaren] 50 mg PO DAILY 12/12/21 10/30/22 History Furosemide [Lasix] 20 mg PO DAILY 12/12/21 10/30/22 History Morphine Sulfate 15 mg PO QID 12/12/21 10/30/22 History ARIPiprazole [Abilify] 5 mg PO DAILY 10/30/22 10/30/22 History Atorvastatin Calcium [Lipitor] 80 mg PO HS 10/30/22 10/30/22 History Cholecalciferol (Vitamin D3) 1,250 mcg PO FR@1800 10/30/22 10/30/22 History [Vitamin D3] Donepezil [Aricept] 5 mg PO HS 10/30/22 10/30/22 History Montelukast [Singulair] 10 mg PO HS 10/30/22 10/30/22 History Potassium Chloride [Klor-Con M20] 20 meq PO DAILY 10/30/22 10/30/22 History Umeclidinium Brm/Vilanterol Tr 1 puff INHALATION RT-DAILY 10/30/22 10/30/22 History [Anoro Ellipta 62.5-25 Mcg INH] Allergies Allergy/AdvReac Type Severity Reaction Status Date / Time bacitracin Allergy Rash/Hives Verified 10/30/22 16:32 [From Neosporin ([id number])] meperidine [From Demerol] Allergy Rash/Hives Verified 10/30/22 16:32 neomycin Allergy Rash/Hives Verified 06/23/23 16:32 [From Neosporin ([id number])] polymyxin B Allergy Rash/Hives Verified 10/30/22 16:32 [From Neosporin ([id number])] Physical Examination - Vital Signs Vital Signs: Vital Signs Temp Pulse Pulse Resp BP BP Pulse Ox 10/31/22 11:19 73 15 120/64 94 L 10/31/22 08:22 98 10/31/22 08:00 98.6 F 66 18 120/83 94 L 10/31/22 01:41 97.7 F 88 18 120/64 94 L 10/30/22 21:14 97.7 F 70 18 132/81 96 10/30/22 17:48 81 18 118/79 93 L 10/30/22 17:13 74 18 114/78 94 L 10/30/22 17:05 86 18 114/78 93 L 10/30/22 14:41 98.3 F 101 H 16 104/57 101 H Intake and Output 10/30/22 10/31/22 10/31/22 22:59 06:59 14:59 Intake Total 1000 Balance 1000 Intake: Intake, IV Titration 500 Amount Sodium Chloride 0.9% 1, 500 000 ml @ 100 mls/hr IV . Q10H [facility] Rx#:[id number] Oral 500 Other: # Voids 1 Weight 59.421 kg GENERAL: The patient is lying in bed and is not in acute distress. NEUROLOGICAL: Higher mental function: The patient is awake, alert, oriented to self, place and time. Patient is following commands. No aphasia and no neglect. Cranial nerves: The pupils are round, equal and reactive to light and accommodation. Visual enamorado are full to confrontation throughout. Extraocular movement is intact no nystagmus is noted. Facial sensation is normal to touch throughout. The facial strength is normal throughout. Hearing is normal bilaterally to hand rub. Tongue is midline and moved [id number] without any difficulty. No dysarthria is noted. Shoulder shrug is normal bilaterally. Motor: The strength is left lower extremity is left knee extension/flexion 4+, left ankle plantar flexion is 4 while dorsiflexion is 0. Otherwise 5 over 5 throughout. Normal tone and bulk. Cerebellum: Normal finger to nose bilaterally. Sensation: Sensation is normal to touch throughout. Reflexes (right/left): 2+. Ankles are 1+. Plantars are downgoing bilaterally. Results - Laboratory Findings CBC and BMP: 10/31/22 05:12 10/30/22 15:04 Abnormal Lab Findings: Abnormal Labs 10/30/22 10/30/22 10/31/22 15:04 15:04 05:12 WBC 12.6 H 10.27 H RBC 4.08 L MCV 99.8 H MCHC 31.7 L Neutrophils # 9.5 H Monocytes # 1.03 H Eosinophils # 0.82 H Creatinine 1.20 H Glucose 102 H Total Bilirubin 1.4 H AST 63 H Creatine Kinase 247 H Assessment and Plan Assessment: This is a 62-year-old woman with chronic lower back pain who presents to ED because of left lower extremity weakness for past 1-2 days prior to presenting to our facility. Acute left lower extremity weakness Probably due to her back issues. Her MRI brain is completed and I personally reviewed images and no acute or subacute stroke but pending official report Chronic low back pain Pre-DM and controlled with diet Tobacco use (2 packs per days for years) Plan: I will obtain MRI L-spine. If does have significant changes on MRI then will consult Orthopedic surgery team. Pending official MRI Brain report. She is on ASA 81mg daily and I started her on Lipitor 40mg daily. If negative for stroke will stop Lipitor abut if needed will defer use to Primary team. TSH, Lipid panel and 2D echo is ordered and pending. Continue neuro checks Cardiac monitoring. PT, OT are consulted. Will defer the rest of medical management to primary team. For DVT prophylaxis: On subq heparin 5000U every 12 hours. The plan is discussed with patient, primary attending and her nurse. Thank you for the consultation. Time with Patient: Greater than 30
[2022-10-31 12:33] LABS: BUN/Creat Ratio 8.38 Ratio (12.00-20.00); Blood Urea Nitrogen 10.9 mg/dL (9.0-27.0); Calcium 8.8 mg/dL (8.7-10.3); Carbon Dioxide 26.4 mmol/L (21.6-31.8); Chloride 106 mmol/L (96-109); Glucose 102 mg/dL (70-110); LDL Cholesterol,Calculated 35.2 mg/dL (0.0-131.0); Potassium 3.6 mmol/L (3.5-5.5); Sodium 143 mmol/L (135-145); VLDL Calculation 16.04 mg/dL (5.00-40.00)
--- NOTE | 2022-10-31 13:01 | MR ---
EXAMINATION TYPE: MR brain wo/w con DATE OF EXAM: 10/31/2022 12:08 PM COMPARISON: NONE HISTORY: Left leg weakness. CVA. CONTRAST: Patient received 6 mL intravenous Gadavist gadolinium contrast. Multiplanar and multispin-echo imaging of the brain was performed . Pre and post contrast enhanced i mages are obtained. The ventricles, basal cisterns and sulci overlying the cerebral convexities are mildly enlarged. There is evidence of mild periventricular white matter ischemic demyelination. Remote deep white matter insults are also noted. No acute edema is seen on diffusion weighted imaging. There is no evidence for midline shift or mass effect. Acute intracranial hemorrhage or extra-axial collection is not evident. No enhancing lesions are seen. The mastoid air cells are well-aerated. Mild chronic paranasal sinusitis. IMPRESSION: Age-related atrophic and chronic small vessel ischemic change. No acute intracranial process at this time. No enhancing lesions are seen.
[2022-10-31 15:44] VITALS: BP 100/63; PULSE 63; RESP 16
--- NOTE | 2022-11-01 12:56 | CA ---
Transthoracic Echo Report Name: Janice Mejia Age: 62 Gender: F : 1960 Exam Date: 10/31/2022 13:40 Exam Location: [facility] [facility] Ht (in): 63 Wt (lb): 131 Ordering Physician: Abdelrahman Shabazz DO Attending/Referring Phys: Primary Special Education Teacher Tara Nolasco RDCS Procedure CPT: Indications: Thrombus Cardiac Hx: Technical Quality: Fair Contrast 1: Total Dose (mL): Contrast 2: Total Dose (mL): MEASUREMENTS (Male / Female) Normal Values 2D ECHO LV Diastolic Diameter PLAX 4.4 cm 4.2 - 5.9 / 3.9 - 5.3 cm LV Systolic Diameter PLAX 2.9 cm IVS Diastolic Thickness 1.0 cm 0.6 - 1.0 / 0.6 - 0.9 cm LVPW Diastolic Thickness 0.8 cm 0.6 - 1.0 / 0.6 - 0.9 cm LV Relative Wall Thickness 0.4 RV Internal Dim ED PLAX 3.0 cm LA Volume 44.3 cm??? 18 - 58 / 22 - 52 cm??? M-MODE Aortic Root Diameter MM 2.8 cm LA Systolic Diameter MM 2.5 cm LA Ao Ratio MM 0.9 AV Cusp Separation MM 1.6 cm DOPPLER AV Peak Velocity 195.3 cm/s AV Peak Gradient 15.3 mmHg AV Mean Velocity 124.0 cm/s AV Mean Gradient 7.4 mmHg AV Velocity Time Integral 37.8 cm LVOT Peak Velocity 136.5 cm/s LVOT Peak Gradient 7.4 mmHg LVOT Velocity Time Integral 31.5 cm MV Area PHT 3.8 cm??? Mitral E Point Velocity 69.5 cm/s Mitral A Point Velocity 83.1 cm/s Mitral E to A Ratio 0.8 MV Deceleration Time 197.5 ms MV E' Velocity 7.0 cm/s Mitral E to MV E' Ratio 10.0 TR Peak Velocity 244.3 cm/s TR Peak Gradient 23.9 mmHg Right Ventricular Systolic Press 26.5 mmHg FINDINGS Left Ventricle Mildly increased left ventricular wall thickness. Normal left ventricular systolic function with no obvious regional wall motion abnormalities. Left ventricular cavity size normal. Left ventricular ejection fraction is estimated at 55 %. Right Ventricle Normal right ventricular size and function. Right ventricular systolic pressure within normal limits. Right Atrium Normal right atrial size. Left Atrium Normal left atrial size. No evidence for an atrial septal defect. Mitral Valve Structurally normal mitral valve. Mild mitral annular calcification. Trace mitral regurgitation. Aortic Valve Trileaflet aortic valve. No aortic valve stenosis or regurgitation. Tricuspid Valve Structurally normal tricuspid valve. Mild tricuspid regurgitation. Pulmonic Valve Trace pulmonic regurgitation. Pericardium No pericardial effusion. Aorta Normal size aortic root and proximal ascending aorta. CONCLUSIONS Normal LV size and systolic function Previewed by: Dr. Papo Vásquez MD (Electronically Signed) Final Date: 01 November 2022 12:56
== END 2022-10-31 16:13 | disposition left against medical advice (07) ==
LOC: EC 14:15 → 4SSUR 16:47 → INTOOBSV 16:47 → 3SCARD 10-31 12:29 → UNDODISIN 10-31 16:13
PROVIDERS: ADMIT Internal Medicine; ATTEND Internal Medicine
DX: I63.9 Cerebral infarction, unspecified (principal); G83.14 Monoplegia of lower limb affecting left nondominant side; I10 Essential (primary) hypertension; E78.5 Hyperlipidemia, unspecified; E11.9 Type 2 diabetes mellitus without complications; G89.29 Other chronic pain; M54.50 Low back pain, unspecified; D68.9 Coagulation defect, unspecified; F17.210 Nicotine dependence, cigarettes, uncomplicated; Z71.6 Tobacco abuse counseling; F32.A Depression, unspecified; Z79.82 Long term (current) use of aspirin; Z79.02 Long term (current) use of antithrombotics/antiplatelets; Z79.1 Long term (current) use of non-steroidal anti-inflammatories (NSAID); Z79.890 Hormone replacement therapy; Z88.5 Allergy status to narcotic agent; Z88.1 Allergy status to other antibiotic agents; Z98.51 Tubal ligation status
CPT/HCPCS: 96372; 96374; 99285; 36415; 94760; 93005; 93306; 80061; 80053; 80048; 84443; 82550; 85025 ×2; 85610; 85730; 83036; 71046; 93880; 70450; 70553; G0378 ×3; S4990; A9585; J1644

== ENCOUNTER → 2022-11-19 | Outpatient (CLI) | payer MEDICARE ==
--- NOTE | 2022-11-19 21:14 | MR ---
EXAMINATION TYPE: MR lumbar spine wo/w con DATE OF EXAM: 11/19/2022 COMPARISON: None HISTORY: Low back pain, into both legs CONTRAST: 6 mL intravenous Gadavist. TECHNIQUE: Multiplanar, multisequence images of the lumbar spine were acquired. FINDINGS: L5-S1: There is a grade 1 spondylolisthesis of L5 after S1. Disc desiccation is present. Disc uncover ing has mild anterior thecal sac impression. No AP spinal canal stenosis is present. Marked Facet hyp ertrophy has posterior lateral thecal sac impression, greater impression from the left. Severe bilate ral foraminal stenosis is present. L4-L5: There is a large central disc herniation with moderate anterior thecal sac compression. Facet hypertrophy and ligamentum flavum laxity is present contributing to spinal canal stenosis. Moderate r ight and severe left foraminal stenosis is present. Endplate changes are present. L3-L4: Broad-based disc bulge or central disc herniation is present with moderate anterior thecal sac impression. This may be greater into the left paracentral region. Mild spinal canal narrowing may be present. Facet hypertrophy and ligamentum flavum laxity is present with posterior lateral thecal sac compression, greater on the right. Moderate to severe right and moderate left foraminal stenosis is present. L2-L3: Right paracentral disc herniation is present with mild anterior thecal sac compression. No AP spinal canal stenosis is present. Mild to moderate bilateral foraminal narrowing is present. L1-L2: No significant disc bulge or disc herniation. No spinal canal stenosis. No foraminal stenosi s. Disc hydration level appears normal T12-L1: No significant disc bulge or disc herniation. No spinal canal stenosis. No foraminal stenos is. No abnormal enhancement. IMPRESSION: 1. Spinal canal stenosis L4-5 and to a lesser degree L3-4. 2. Large central broad disc herniation L4-5. 3. Grade 1 spondylolisthesis with disc uncovering L5-S1. 4. Right paracentral small disc herniation at L2-3 without spinal canal stenosis. 5. Multilevel severe foraminal stenosis within the mid and lower cervical spine
== END | disposition home or self-care (01) ==
LOC: RADMRIMAIN 15:55
PROVIDERS: ATTEND Family Medicine
DX: M51.16 Intervertebral disc disorders with radiculopathy, lumbar region (principal); M48.02 Spinal stenosis, cervical region; M48.061 Spinal stenosis, lumbar region without neurogenic claudication; R29.898 Other symptoms and signs involving the musculoskeletal system; M43.17 Spondylolisthesis, lumbosacral region
CPT/HCPCS: 72158; A9585

== ENCOUNTER → 2022-12-17 | Outpatient (CLI) | payer MEDICARE | LOC: PNWHC3 13:06 | PROVIDERS: ATTEND Anesthesiology | DX: Z53.9 Procedure and treatment not carried out, unspecified reason (principal) ==

== ENCOUNTER 2022-12-25 15:26 | Observation (INO) | payer MEDICARE ==
--- NOTE | 2022-12-25 16:54 | ED ---
General Adult HPI - General Source: patient Mode of arrival: ambulatory Limitations: no limitations - History of Present Illness Onset/Timin -: days(s) Severity scale (1-10): 0 Consistency: constant Improves with: none Worsens with: none Associated Symptoms: denies other symptoms Treatments Prior to Arrival: none <Taurus Venegas - Last Filed: 12/25/22 16:52> - General Source: RN notes reviewed, old records reviewed <Cornelio Zafar - Last Filed: 12/27/22 17:52> - General Chief complaint: Neuro Symptoms/Deficit Stated complaint: Weakness-return visit Time Seen by Provider: 12/25/22 16:24 - History of Present Illness Initial comments: This patient is a 62-year-old woman who presents to have evaluation for which she is calling spasms, that have been going on for 2 days. She states that her body gives jerks, and that she doesn't seem to be able to control them. She is denying pain. She has not had loss of consciousness. She states that they seem to be affecting her entire body, not worse in any one limb. She has not had associated fever or chills, cough, chest pain, dyspnea, abdominal pain or other symptoms. (Taurus Venegas) 62 female of recent hospital evaluation coming with muscle spasms body spasms tremor type symptoms and issues. No headache chest pain shortness with abdominal pain no fevers (Cornelio Zafar) - Related Data Home Medications Medication Instructions Recorded Confirmed Aspirin [Adult Low Dose Aspirin EC] 81 mg PO DAILY 09/15/19 12/25/22 Ferrous Sulfate [Iron (65 MG 325 mg PO DAILY 09/15/19 12/25/22 Elemental)] Gabapentin [Neurontin] 100 mg PO TID 09/15/19 12/25/22 Levothyroxine Sodium [Synthroid] 25 mcg PO DAILY 09/15/19 12/25/22 Topiramate [Topamax] 100 mg PO BID 09/15/19 12/25/22 Vitamin B Complex 1 cap PO DAILY 09/15/19 12/25/22 busPIRone HCL 20 mg PO BID 09/15/19 12/25/22 cilostazoL [Pletal] 100 mg PO BID 09/15/19 12/25/22 Diclofenac Sodium [Voltaren] 50 mg PO DAILY 12/12/21 12/25/22 Furosemide [Lasix] 20 mg PO DAILY 12/12/21 12/25/22 Morphine Sulfate 15 mg PO QID 12/12/21 12/25/22 Atorvastatin Calcium [Lipitor] 80 mg PO HS 10/30/22 12/25/22 Cholecalciferol (Vitamin D3) 1,250 mcg PO FR@1800 10/30/22 12/25/22 [Vitamin D3] Donepezil [Aricept] 5 mg PO HS 10/30/22 12/25/22 Montelukast [Singulair] 10 mg PO HS 10/30/22 12/25/22 Potassium Chloride [Klor-Con M20] 20 meq PO DAILY 10/30/22 12/25/22 Umeclidinium Brm/Vilanterol Tr 1 puff INHALATION RT-DAILY 10/30/22 12/25/22 [Anoro Ellipta 62.5-25 Mcg INH] Cetirizine HCl 10 mg PO DAILY 12/22/22 12/25/22 Previous Rx's Medication Instructions Recorded DULoxetine HCL [Cymbalta] 60 mg PO BID 30 Days #60 cap 12/27/22 Allergies Allergy/AdvReac Type Severity Reaction Status Date / Time bacitracin Allergy Rash/Hives Verified 12/25/22 18:02 [From Neosporin ([id number])] meperidine [From Demerol] Allergy Rash/Hives Verified 12/25/22 18:02 neomycin Allergy Rash/Hives Verified 12/25/22 18:02 [From Neosporin ([id number])] polymyxin B Allergy Rash/Hives Verified 12/25/22 18:02 [From Neosporin ([id number])] Review of Systems ROS Other: All systems not noted in ROS Statement are negative. Constitutional: Denies: fever, chills Respiratory: Denies: cough, dyspnea Cardiovascular: Denies: chest pain, palpitations Gastrointestinal: Denies: abdominal pain, nausea, vomiting, diarrhea Genitourinary: Denies: dysuria, hematuria Musculoskeletal: Denies: back pain Skin: Denies: rash Neurological: Denies: headache, weakness, numbness <Taurus Venegas - Last Filed: 12/25/22 16:52> ROS Other: All systems not noted in ROS Statement are negative. <Cornelio Zafar - Last Filed: 12/27/22 17:52> ROS Statement: Those systems with pertinent positive or pertinent negative responses have been documented in the HPI. Past Medical History Past Medical History: Hyperlipidemia, Hypertension Additional Past Medical History / Comment(s): chronic back pain, clotting disorder History of Any Multi-Drug Resistant Organisms: None Reported Past Surgical History: Tubal Ligation Additional Past Surgical History / Comment(s): Partial Hysterectomy Past Anesthesia/Blood Transfusion Reactions: No Reported Reaction Past Psychological History: Depression Smoking Status: Current every day smoker Past Alcohol Use History: None Reported Past Drug Use History: None Reported - Past Family History Mother Family Medical History: No Reported History <Taurus Venegas - Last Filed: 12/25/22 16:52> General Exam Limitations: no limitations General appearance: alert, in no apparent distress Head exam: Present: atraumatic, normocephalic Eye exam: Present: normal appearance. Absent: scleral icterus, conjunctival injection Neck exam: Present: normal inspection Respiratory exam: Present: wheezes. Absent: normal lung sounds bilaterally, respiratory distress, rales, rhonchi, stridor, accessory muscle use Cardiovascular Exam: Present: regular rate, normal rhythm, normal heart sounds. Absent: systolic murmur, diastolic murmur, rubs, gallop GI/Abdominal exam: Present: soft. Absent: distended, tenderness, guarding, rebound, rigid, mass Extremities exam: Present: normal inspection, normal capillary refill. Absent: pedal edema, calf tenderness Back exam: Present: normal inspection. Absent: CVA tenderness (R), CVA tenderness (L) Neurological exam: Present: alert Skin exam: Present: warm, dry, intact, normal color. Absent: rash <DanicaminnieTaurus - Last Filed: 12/25/22 16:52> Limitations: no limitations General appearance: alert, in no apparent distress, anxious, lethargic Head exam: Present: atraumatic, normocephalic, normal inspection Eye exam: Present: normal appearance, PERRL, EOMI. Absent: scleral icterus, conjunctival injection, periorbital swelling ENT exam: Present: normal exam, mucous membranes moist Neck exam: Present: normal inspection. Absent: tenderness, meningismus, lymphadenopathy Respiratory exam: Present: normal lung sounds bilaterally. Absent: respiratory distress, wheezes, rales, rhonchi, stridor Cardiovascular Exam: Present: regular rate, normal rhythm, normal heart sounds. Absent: systolic murmur, diastolic murmur, rubs, gallop, clicks GI/Abdominal exam: Present: soft, normal bowel sounds. Absent: distended, tenderness, guarding, rebound, rigid Extremities exam: Present: normal inspection, full ROM, normal capillary refill. Absent: tenderness, pedal edema, joint swelling, calf tenderness Back exam: Present: normal inspection Neurological exam: Present: alert, oriented X3, CN II-XII intact Psychiatric exam: Present: normal affect, normal mood Skin exam: Present: warm, dry, intact, normal color. Absent: rash <Cornelio Zafar - Last Filed: 12/27/22 17:52> Course <Cornelio Zafar - Last Filed: 12/27/22 17:52> Vital Signs 12/25/22 12/25/22 12/25/22 16:18 18:20 18:34 Temperature 98.1 F Pulse Rate 68 88 90 Respiratory 18 Rate Blood Pressure 108/62 O2 Sat by Pulse 96 Oximetry 12/25/22 12/25/22 12/25/22 21:00 21:12 21:15 Temperature Pulse Rate 66 Respiratory 18 Rate Blood Pressure 116/81 O2 Sat by Pulse 95 88 L 93 L Oximetry 12/25/22 22:45 Temperature Pulse Rate 78 Respiratory 16 Rate Blood Pressure 103/53 O2 Sat by Pulse 95 Oximetry - Reevaluation(s) Reevaluation #1: 12/25/22 20:46 Medical records reviewed (Cornelio Zafar) Reevaluation #2: 12/25/22 20:46 Patient's able to ambulate no active tremor (Cornelio Zafar) Reevaluation #3: 12/25/22 20:46 Patient informed of results and questions answered (Cornelio Zafar) Reevaluation #4: 12/25/22 20:47 Was pt. sent in by a medical professional or institution (, PA, SWITCH CLEANER, urgent care, hospital, or prison...) When possible be specific @ -no Did you speak to anyone other than the patient for history (EMS, parent, family, police, friend...)? What history was obtained from this source @ -no Did you review nursing and triage notes (agree or disagree)? Why? @ -agree Are old charts reviewed (outside hosp., previous admission, EMS record, old EKG, old radiological studies, urgent care reports/EKG's, prison records)? Report findings @ -yes Differential Diagnosis (chest pain, altered mental status, abdominal pain women, abdominal pain men, vaginal bleeding, weakness, fever, dyspnea, syncope, headache, dizziness, GI bleed, back pain, seizure, CVA, palpatations, mental health, musculoskeletal)? @ -prior EKG interpreted by me (3pts min.). @ -yes X-rays interpreted by me (1pt min.). @ -yes CT interpreted by me (1pt min.). @ -yes U/S interpreted by me (1pt. min.). @ -no What testing was considered but not performed or refused? (CT, X-rays, U/S, labs)? Why? @ -none What meds were considered but not given or refused? Why? @ -none Did you discuss the management of the patient with other professionals (professionals i.e. , PA, SWITCH CLEANER, lab, RT, psych nurse, high school social studies tutor, junior software developer, teacher, anti air warfare operations officer, caser in)? Give summary @ -no Was smoking cessation discussed for >3mins.? @ -no Was critical care preformed (if so, how long)? @ -no Were there social determinants of health that impacted care today? How? (Homelessness, low income, unemployed, alcoholism, drug addiction, transportation, low edu. Level, literacy, decrease access to med. care, long term, rehab)? @ -none Was there de-escalation of care discussed even if they declined (Discuss DNR or withdrawal of care, Hospice)? DNR status @ -no What co-morbidities impacted this encounter? (DM, HTN, Smoking, COPD, CAD, Cancer, CVA, ARF, Chemo, Hep., AIDS, mental health diagnosis, sleep apnea, morbid obesity)? @ -none Was patient admitted / discharged? Hospital course, mention meds given and route, prescriptions, significant lab abnormalities, going to OR and other pertinent info. @ - 62 female of weakness and tremors. Symptoms are improving here in the ER patient feels unchanged, significant shaking drinking any purposeful movement. Underlying opinion patient does appear to be overmedicated. Patient does not fill comfortable with discharge with frequent falls Admitted Undiagnosed new problem with uncertain prognosis? @ -no Drug Therapy requiring intensive monitoring for toxicity (Heparin, Nitro, Insulin, Cardizem)? @ -no Were any procedures done? @ -no Diagnosis/symptom? @ -Tremors, shaking, involuntary movement, falls Acute, or Chronic, or Acute on Chronic? @ -Acute Uncomplicated (without systemic symptoms) or Complicated (systemic symptoms)? @ -Complicated Side effects of treatment? @ -no Exacerbation, Progression, or Severe Exacerbation? @ -exacerbation Poses a threat to life or bodily function? How? (Chest pain, USA, MD, pneumonia, PE, COPD, DKA, ARF, appy, cholecystitis, CVA, Diverticulitis, Homicidal, Suicidal, threat to staff... and all critical care pts) @ -no (Cornelio Zafar) Medical Decision Making - Lab Data Result diagrams: 12/27/22 08:35 12/27/22 08:35 - Radiology Data Radiology results: pending (CT brain), report reviewed (CT brain and chest x-ray are negative for acute disease), image reviewed <Cornelio Zafar - Last Filed: 12/27/22 17:52> - Medical Decision Making 62 female of weakness and tremors. Symptoms are improving here in the ER patient feels unchanged, significant shaking and denying that there is any purposeful movement. Underlying opinion patient does appear to be overmedicated. Patient does not fill comfortable with discharge with frequent falls (Cornelio Zafar) - Lab Data Lab Results 12/25/22 12/25/22 12/25/22 Range/Units 17:07 17:07 17:56 WBC 14.6 H (3.8-10.6) k/uL RBC 3.93 (3.80-5.40) m/uL Hgb 12.4 (11.4-16.0) gm/dL Hct 38.8 (34.0-46.0) % MCV 98.7 (80.0-100.0) fL MCH 31.7 (25.0-35.0) pg MCHC 32.1 (31.0-37.0) g/dL RDW 12.6 (11.5-15.5) % Plt Count 168 (150-450) k/uL MPV 7.9 Neutrophils % 78 % Lymphocytes % 14 % Monocytes % 6 % Eosinophils % 2 % Basophils % 0 % Neutrophils # 11.3 H (1.3-7.7) k/uL Lymphocytes # 2.0 (1.0-4.8) k/uL Monocytes # 0.8 (0-1.0) k/uL Eosinophils # 0.2 (0-0.7) k/uL Basophils # 0.0 (0-0.2) k/uL Hypochromasia Slight VBG pH 7.28 L (7.31-7.41) VBG pCO2 56 H (37-51) mmHg VBG HCO3 26 (24-28) mmol/L Sodium (137-145) mmol/L Potassium (3.5-5.1) mmol/L Chloride (98-107) mmol/L Carbon Dioxide (22-30) mmol/L Anion Gap mmol/L BUN (7-17) mg/dL Creatinine (0.52-1.04) mg/dL Est GFR (CKD-EPI)AfAm (>60 ml/min/1.73 sqM) Est GFR (CKD-EPI)NonAf (>60 ml/min/1.73 sqM) Glucose (74-99) mg/dL Plasma Lactic Acid Pastor 0.9 (0.7-2.0) mmol/L Calcium (8.4-10.2) mg/dL Phosphorus (2.5-4.5) mg/dL Magnesium (1.6-2.3) mg/dL Total Bilirubin (0.2-1.3) mg/dL AST (14-36) U/L ALT (4-34) U/L Alkaline Phosphatase (38-126) U/L Ammonia 15 (<30) umol/L Troponin I (0.000-0.034) ng/mL Total Protein (6.3-8.2) g/dL Albumin (3.5-5.0) g/dL TSH (0.465-4.680) mIU/L Salicylates mg/dL Acetaminophen ug/mL Serum Alcohol mg/dL 12/25/22 12/25/22 12/25/22 Range/Units 17:56 17:56 21:45 WBC (3.8-10.6) k/uL RBC (3.80-5.40) m/uL Hgb (11.4-16.0) gm/dL Hct (34.0-46.0) % MCV (80.0-100.0) fL MCH (25.0-35.0) pg MCHC (31.0-37.0) g/dL RDW (11.5-15.5) % Plt Count (150-450) k/uL MPV Neutrophils % % Lymphocytes % % Monocytes % % Eosinophils % % Basophils % % Neutrophils # (1.3-7.7) k/uL Lymphocytes # (1.0-4.8) k/uL Monocytes # (0-1.0) k/uL Eosinophils # (0-0.7) k/uL Basophils # (0-0.2) k/uL Hypochromasia VBG pH (7.31-7.41) VBG pCO2 (37-51) mmHg VBG HCO3 (24-28) mmol/L Sodium 140 (137-145) mmol/L Potassium 4.9 (3.5-5.1) mmol/L Chloride 107 (98-107) mmol/L Carbon Dioxide 26 (22-30) mmol/L Anion Gap 7 mmol/L BUN 21 H (7-17) mg/dL Creatinine 2.06 H (0.52-1.04) mg/dL Est GFR (CKD-EPI)AfAm 29 (>60 ml/min/1.73 sqM) Est GFR (CKD-EPI)NonAf 25 (>60 ml/min/1.73 sqM) Glucose 88 (74-99) mg/dL Plasma Lactic Acid Pastor (0.7-2.0) mmol/L Calcium 9.1 (8.4-10.2) mg/dL Phosphorus 3.2 (2.5-4.5) mg/dL Magnesium 1.9 1.9 (1.6-2.3) mg/dL Total Bilirubin 0.8 (0.2-1.3) mg/dL AST 24 (14-36) U/L ALT 24 (4-34) U/L Alkaline Phosphatase 86 (38-126) U/L Ammonia (<30) umol/L Troponin I <0.012 (0.000-0.034) ng/mL Total Protein 6.1 L (6.3-8.2) g/dL Albumin 3.7 (3.5-5.0) g/dL TSH 1.020 (0.465-4.680) mIU/L Salicylates <1.0 mg/dL Acetaminophen <10.0 ug/mL Serum Alcohol <10 mg/dL Disposition <Taurus Venegas - Last Filed: 12/25/22 16:52> Is patient prescribed a controlled substance at d/c from ED?: No Time of Disposition: 21:35 <Cornelio Zafar - Last Filed: 12/27/22 17:52> Clinical Impression: Weakness, GARY (acute kidney injury), Overdose, Tremor Disposition: ADMITTED IP TO THIS HOSP Condition: Fair
--- NOTE | 2022-12-25 17:41 | CT ---
EXAMINATION TYPE: CT brain wo con CT DLP: 1092.6 mGycm, Automated exposure control for dose reduction was used. DATE OF EXAM: 12/25/2022 5:14 PM COMPARISON: 10/30/2022. CLINICAL INDICATION:Female, 62 years old with history of altered mental status, ams TECHNIQUE: Brain: Axial CT images of the brain were obtained with coronal and sagittal reformats created and rev iewed. Contrast used: None. Oral contrast used: None. FINDINGS: Brain: Extra-axial spaces: No abnormal extra-axial fluid collections. Ventricular system: Within normal limits Cerebral parenchyma: No acute intraparenchymal hemorrhage or mass effect. The mendosa-white junction is well differentiated. Cerebellum: Unremarkable. Mass effect: No evidence of midline shift. Intracranial vasculature: unremarkable Soft tissues: Normal. Calvarium/osseous structures: No depressed skull fracture. Paranasal sinuses and mastoid air cells: Mild scattered paranasal sinus disease. Visualized orbits: Orbital contents are intact. IMPRESSION: No acute intracranial process.
[2022-12-25 17:42] LABS: Basophils % (A) 0 %; Eosinophils # (A) 0.2 k/uL (0-0.7); Eosinophils % (A) 2 %; HCT 38.8 % (34.0-46.0); HGB 12.4 gm/dL (11.4-16.0); Hypochromasia Slight; Lymphocytes % (A) 14 %; MCH 31.7 pg (25.0-35.0); MCHC 32.1 g/dL (31.0-37.0); MCV 98.7 fL (80.0-100.0); Mean Platelet Volume 7.9; Monocytes # (A) 0.8 k/uL (0-1.0); Monocytes % (A) 6 %; Neutrophils # (A) 11.3 k/uL (1.3-7.7); Neutrophils % (A) 78 %; Platelet Count 168 k/uL (150-450); RBC 3.93 m/uL (3.80-5.40); RDW 12.6 % (11.5-15.5); WBC 14.6 k/uL (3.8-10.6)
[2022-12-25 17:43] LABS: VBG PH 7.28 (7.31-7.41)
[2022-12-25] MEDS ORDERED: ALBUTEROL NEBULIZED 2.5 MG/3 ML INHALATION STA (18:11)
[2022-12-25 18:30] LABS: ALT 24 U/L (4-34); AST 24 U/L (14-36); African American GFR (CKD) 29 (>60 ml/min/1.73 sqM); Albumin 3.7 g/dL (3.5-5.0); Alkaline Phosphatase 86 U/L (38-126); Anion Gap 7 mmol/L; Blood Urea Nitrogen 21 mg/dL (7-17); Calcium 9.1 mg/dL (8.4-10.2); Carbon Dioxide 26 mmol/L (22-30); Chloride 107 mmol/L (98-107); Glucose 88 mg/dL (74-99); Magnesium 1.9 mg/dL (1.6-2.3); Non-African American GFR(CKD) 25 (>60 ml/min/1.73 sqM); Sodium 140 mmol/L (137-145); Total Bilirubin 0.8 mg/dL (0.2-1.3); Total Protein 6.1 g/dL (6.3-8.2)
[2022-12-25 18:39] LABS: Potassium 4.9 mmol/L (3.5-5.1)
--- NOTE | 2022-12-25 19:43 | XR ---
EXAMINATION TYPE: XR chest 1V portable DATE OF EXAM: 12/25/2022 7:36 PM COMPARISON: Chest radiographs from 12/22/2022 TECHNIQUE: XR chest 1V portable Frontal view of the chest. CLINICAL INDICATION:Female, 62 years old with history of weak; FINDINGS: Lungs/Pleura: Prominent interstitial lung markings are seen scattered throughout the lungs. No eviden ce of focal consolidation, pneumothorax or pleural effusion. Pulmonary vascularity: Unremarkable. Heart/mediastinum: Cardiomediastinal silhouette is unremarkable. Musculoskeletal: No acute osseous pathology. IMPRESSION: Interstitial interstitial changes correlate with serum BNP for congestive heart failure and pulmonary edema.
[2022-12-25 19:53] LABS: Lactic Acid, Venous 0.9 mmol/L (0.7-2.0)
[2022-12-25] MEDS ORDERED: SODIUM CHLORIDE 0.9% 1,000 ML IV STA (21:12)
[2022-12-25] MEDS ORDERED: ONDANSETRON 4 MG/2 ML VIAL IVP PRN (21:45)
[2022-12-25] MEDS ORDERED: MORPHINE SULFATE 4 MG/ML SYRINGE IV PRN (21:45)
[2022-12-25] MEDS ORDERED: NALOXONE 0.4 MG/ML 1 ML VIAL IV PRN (21:45)
[2022-12-25] MEDS: SODIUM CHLORIDE 0.9% 1,000 ML IV SCH (21:48)
[2022-12-25 22:22] LABS: Acetaminophen <10.0 ug/mL; Alcohol <10 mg/dL; Magnesium 1.9 mg/dL (1.6-2.3); Phosphorus 3.2 mg/dL (2.5-4.5); Salicylate <1.0 mg/dL
--- NOTE | 2022-12-25 23:26 | CT ---
EXAMINATION TYPE: CT brain wo con CT DLP: 1099.4 mGycm, Automated exposure control for dose reduction was used. DATE OF EXAM: 12/25/2022 10:09 PM COMPARISON: 12/25/2022. CLINICAL INDICATION:Female, 62 years old with history of weak, ams TECHNIQUE: Brain: Axial CT images of the brain were obtained with coronal and sagittal reformats created and rev iewed. Contrast used: None. Oral contrast used: None. FINDINGS: Brain: Extra-axial spaces: No abnormal extra-axial fluid collections. Ventricular system: Within normal limits Cerebral parenchyma: No acute intraparenchymal hemorrhage or mass effect. The mendosa-white junction is well differentiated. Cerebellum: Unremarkable. Mass effect: No evidence of midline shift. Intracranial vasculature: Atherosclerotic calcifications of the intracranial vessels. Soft tissues: Normal. Calvarium/osseous structures: No depressed skull fracture. Paranasal sinuses and mastoid air cells: Mild scattered paranasal sinus disease. Visualized orbits: Orbital contents are intact. IMPRESSION: No acute intracranial process.
[2022-12-25 23:48] LABS: Glucose,Whole Blood 112 mg/dL (70-110)
[2022-12-26] MEDS ORDERED: diphenhydrAMINE 50 MG/ML 1 ML VIAL IVP PRN (00:30)
[2022-12-26 00:31] LABS: Appearance,Urine Cloudy (Clear); Bacteria,Urine Occasional /hpf; Bilirubin,Urine Negative (Negative); Blood,Urine Negative (Negative); Color,Urine Yellow; Glucose,Urine (UA) Negative (Negative); Hyaline Casts,Urine 6 /lpf (0-2); Ketones,Urine Negative (Negative); Leukocyte Esterase,Urine Trace (Negative); Mucus,Urine Rare /hpf; Nitrite,Urine Positive (Negative); PH, Urine 5.5 (5.0-8.0); Protein,Urine Negative (Negative); RBC,Urine 2 /hpf (0-5); Specific Gravity,Urine 1.011 (1.001-1.035); Squamous Epithelial Cell,Urine <1 /hpf (0-4); Urobilinogen,Urine <2.0 mg/dL (<2.0); WBC,Urine 8 /hpf (0-5)
[2022-12-26] MEDS ORDERED: diphenhydrAMINE 50 MG/ML 1 ML VIAL IVP STA (00:34)
[2022-12-26 00:39] LABS: Amphetamine Screen,Urine Not Detected (NotDetected); Barbiturate Screen,Urine Not Detected (NotDetected); Benzodiazepines Screen,Urine Not Detected (NotDetected); Cocaine Screen,Urine Not Detected (NotDetected); Methadone Screen, Urine Not Detected (NotDetected); Opiate Screen,Urine Detected (NotDetected); Oxycodone Screen, Urine Not Detected (NotDetected); Phencyclidine Screen,Urine Not Detected (NotDetected); Tricyclic Antidepressant,Urine Not Detected (NotDetected); Urn Cannabinoid Scrn Detected (NotDetected)
[2022-12-26] MEDS ORDERED: MORPHINE SULFATE IR 15 MG TABLET PO ONE (00:44)
[2022-12-26] MEDS: SODIUM CHLORIDE 0.9% 1,000 ML IV SCH ×3 (05:34→20:22)
[2022-12-26 06:22] LABS: Basophils % (A) 0 %; Eosinophils # (A) 0.3 k/uL (0-0.7); Eosinophils % (A) 4 %; HCT 32.4 % (34.0-46.0); HGB 10.5 gm/dL (11.4-16.0); Hypochromasia Slight; Lymphocytes # (A) 1.7 k/uL (1.0-4.8); Lymphocytes % (A) 20 %; MCH 32.2 pg (25.0-35.0); MCHC 32.5 g/dL (31.0-37.0); MCV 99.3 fL (80.0-100.0); Mean Platelet Volume 8.1; Monocytes # (A) 0.6 k/uL (0-1.0); Monocytes % (A) 7 %; Neutrophils # (A) 5.9 k/uL (1.3-7.7); Neutrophils % (A) 68 %; Platelet Count 154 k/uL (150-450); RBC 3.26 m/uL (3.80-5.40); RDW 12.5 % (11.5-15.5); WBC 8.6 k/uL (3.8-10.6)
[2022-12-26 06:31] LABS: ALT 26 U/L (4-34); AST 26 U/L (14-36); African American GFR (CKD) 32 (>60 ml/min/1.73 sqM); Albumin 2.9 g/dL (3.5-5.0); Alcohol <10 mg/dL; Alkaline Phosphatase 91 U/L (38-126); Anion Gap 6 mmol/L; Blood Urea Nitrogen 22 mg/dL (7-17); Calcium 8.1 mg/dL (8.4-10.2); Carbon Dioxide 23 mmol/L (22-30); Chloride 111 mmol/L (98-107); Glucose 94 mg/dL (74-99); Magnesium 1.7 mg/dL (1.6-2.3); Non-African American GFR(CKD) 28 (>60 ml/min/1.73 sqM); Phosphorus 3.6 mg/dL (2.5-4.5); Potassium 4.1 mmol/L (3.5-5.1); Sodium 140 mmol/L (137-145); Total Bilirubin 0.6 mg/dL (0.2-1.3); Total Protein 5.2 g/dL (6.3-8.2)
[2022-12-26] MEDS ORDERED: PANTOPRAZOLE 40 MG/10 ML VIAL IV SCH (09:00)
[2022-12-26] MEDS ORDERED: MORPHINE SULFATE 2 MG/ML SYRINGE IV PRN (10:52)
[2022-12-26] MEDS ORDERED: ARIPiprazole 10 MG TAB PO SCH (11:00)
[2022-12-26] MEDS ORDERED: DULoxetine HCL 60 MG CAPSULE.DR PO SCH (11:00)
[2022-12-26] MEDS: ASPIRIN 81 MG PO SCH (11:22)
[2022-12-26] MEDS: GABAPENTIN 100 MG CAP PO SCH ×3 (11:22→22:20)
[2022-12-26] MEDS: LORATADINE 10 MG TAB PO SCH (11:22)
[2022-12-26] MEDS: FERROUS SULFATE 325 MG TAB PO SCH (11:22)
[2022-12-26] MEDS: LEVOTHYROXINE 25 MCG TAB PO SCH (11:28)
[2022-12-26] MEDS ORDERED: MORPHINE SULFATE 4 MG/ML SYRINGE IV PRN (11:39)
[2022-12-26] MEDS: cilostazoL 100 MG TAB PO SCH ×2 (11:53→20:21)
[2022-12-26] MEDS: IPRATROPIUM 0.5 MG/2.5 ML NEBU INHALATION SCH ×3 (12:32→21:06)
--- NOTE | 2022-12-26 13:49 | P.HPIM ---
History of Present Illness H&P Date: 12/26/22 Chief Complaint: Generalized weakness * 62-year-old lady with past medical history significant for hypertension, hyperlipidemia, chronic back pain, presented to the emergency department with complaints of generalized weakness and generalized body aches * Patient was recently admitted in early summer with low back pain and had workup done with neurology including MRI brain which was negative * At the time of presentation patient had a CT head done which was negative * Workup obtained including CBC which showed leukocytosis white cell count of 14.6. Urinalysis showed bacteriuria however patient asymptomatic * He should resuscitated with IV fluids with improvement in white count cell count * Workup including serum ammonia levels which is within normal limits. TSH within normal limits * Admitted to medical floor with consultation from psychiatry and neurology REVIEW OF SYSTEMS: CONSTITUTIONAL: Positive for generalized weakness, muscle tremors, back pain HEENT: No recent visual problems or hearing problems. Denied any sore throat. CARDIOVASCULAR: No chest pain, orthopnea, PND, no palpitations, no syncope. PULMONARY: No shortness of breath, no cough, no hemoptysis. GASTROINTESTINAL: No diarrhea, no nausea, no vomiting, no abdominal pain. NEUROLOGICAL: No headaches, no weakness, no numbness. HEMATOLOGICAL: Denies any bleeding or petechiae. GENITOURINARY: Denies any burning micturition, frequency, or urgency. MUSCULOSKELETAL/RHEUMATOLOGICAL: Denies any joint pain, swelling, or any muscle pain. ENDOCRINE: Denies any polyuria or polydipsia. The rest of the 14-point review of systems is negative. PHYSICAL EXAMINATION: GENERAL: The patient is alert and oriented x3, not in any acute distress. Well developed, well nourished. HEENT: Pupils are round and equally reacting to light. EOMI. No scleral icterus. No conjunctival pallor. Normocephalic, atraumatic. No pharyngeal erythema. No thyromegaly. CARDIOVASCULAR: S1 and S2 present. No murmurs, rubs, or gallops. PULMONARY: Chest is clear to auscultation, no wheezing or crackles. ABDOMEN: Soft, nontender, nondistended, normoactive bowel sounds. No palpable organomegaly. MUSCULOSKELETAL: No joint swelling or deformity. EXTREMITIES: No cyanosis, clubbing, or pedal edema. NEUROLOGICAL: Gross neurological examination did not reveal any focal deficits. SKIN: No rashes. Past Medical History Past Medical History: Deep Vein Thrombosis (DVT), Hyperlipidemia, Hypertension, Pneumonia Additional Past Medical History / Comment(s): chronic back pain, clotting disorder History of Any Multi-Drug Resistant Organisms: None Reported Past Surgical History: Tubal Ligation Additional Past Surgical History / Comment(s): Partial Hysterectomy Past Anesthesia/Blood Transfusion Reactions: No Reported Reaction Past Psychological History: Anxiety, Depression Smoking Status: Current every day smoker Past Alcohol Use History: None Reported Additional Past Alcohol Use History / Comment(s): Has been smoking for 46 yrs, (quit a few times for 6 months or less), 1 1/2 ppd. Past Drug Use History: None Reported - Past Family History Mother Family Medical History: No Reported History Medications and Allergies Home Medications Medication Instructions Recorded Confirmed Type Aspirin [Adult Low Dose Aspirin EC] 81 mg PO DAILY 09/15/19 12/25/22 History DULoxetine HCL [Cymbalta] 60 mg PO DAILY 09/15/19 12/25/22 History Ferrous Sulfate [Iron (65 MG 325 mg PO DAILY 09/15/19 12/25/22 History Elemental)] Gabapentin [Neurontin] 100 mg PO TID 09/15/19 12/25/22 History Levothyroxine Sodium [Synthroid] 25 mcg PO DAILY 09/15/19 12/25/22 History Topiramate [Topamax] 100 mg PO BID 09/15/19 12/25/22 History Vitamin B Complex 1 cap PO DAILY 09/15/19 12/25/22 History busPIRone HCL 20 mg PO BID 09/15/19 12/25/22 History cilostazoL [Pletal] 100 mg PO BID 09/15/19 12/25/22 History Diclofenac Sodium [Voltaren] 50 mg PO DAILY 12/12/21 12/25/22 History Furosemide [Lasix] 20 mg PO DAILY 12/12/21 12/25/22 History Morphine Sulfate 15 mg PO QID 12/12/21 12/25/22 History Atorvastatin Calcium [Lipitor] 80 mg PO HS 10/30/22 12/25/22 History Cholecalciferol (Vitamin D3) 1,250 mcg PO FR@1800 10/30/22 12/25/22 History [Vitamin D3] Donepezil [Aricept] 5 mg PO HS 10/30/22 12/25/22 History Montelukast [Singulair] 10 mg PO HS 10/30/22 12/25/22 History Potassium Chloride [Klor-Con M20] 20 meq PO DAILY 10/30/22 12/25/22 History Umeclidinium Brm/Vilanterol Tr 1 puff INHALATION RT-DAILY 10/30/22 12/25/22 Hi story [Anoro Ellipta 62.5-25 Mcg INH] ARIPiprazole [Abilify] 10 mg PO DAILY 12/22/22 12/25/22 History Cetirizine HCl 10 mg PO DAILY 12/22/22 12/25/22 History Allergies Allergy/AdvReac Type Severity Reaction Status Date / Time bacitracin Allergy Rash/Hives Verified 12/25/22 18:02 [From Neosporin ([id number])] meperidine [From Demerol] Allergy Rash/Hives Verified 12/25/22 18:02 neomycin Allergy Rash/Hives Verified 12/25/22 18:02 [From Neosporin ([id number])] polymyxin B Allergy Rash/Hives Verified 12/25/22 18:02 [From Neosporin ([id number])] Physical Exam Vitals: Vital Signs Temp Pulse Pulse Resp BP BP Pulse Ox 12/26/22 12:41 82 12/26/22 12:34 86 12/26/22 08:56 96 12/26/22 07:00 98.1 F 76 16 149/81 96 12/26/22 03:54 98.0 F 80 16 106/64 97 12/25/22 23:15 98.1 F 70 16 129/69 100 12/25/22 22:45 78 16 103/53 95 12/25/22 21:15 93 L 12/25/22 21:12 88 L 12/25/22 21:00 66 18 116/81 95 12/25/22 18:34 90 12/25/22 18:20 88 12/25/22 16:18 98.1 F 68 18 108/62 96 Intake and Output 12/25/22 12/26/22 12/26/22 22:59 06:59 14:59 Output Total 600 Balance -600 Output: Urine 600 Other: # Voids 2 Weight 60.781 kg 60.781 kg Results CBC & Chem 7: 12/26/22 06:01 12/26/22 06:01 Labs: Abnormal Lab Results - Last 24 Hours (Table) 12/25/22 12/25/22 12/25/22 Range/Units 17:07 17:07 17:56 WBC 14.6 H (3.8-10.6) k/uL RBC (3.80-5.40) m/uL Hgb (11.4-16.0) gm/dL Hct (34.0-46.0) % Neutrophils # 11.3 H (1.3-7.7) k/uL VBG pH 7.28 L (7.31-7.41) VBG pCO2 56 H (37-51) mmHg Chloride (98-107) mmol/L BUN 21 H (7-17) mg/dL Creatinine 2.06 H (0.52-1.04) mg/dL POC Glucose (mg/dL) (70-110) mg/dL Calcium (8.4-10.2) mg/dL Total Protein 6.1 L (6.3-8.2) g/dL Albumin (3.5-5.0) g/dL Urine Appearance (Clear) Urine Nitrite (Negative) Ur Leukocyte Esterase (Negative) Urine WBC (0-5) /hpf Urine Bacteria (None) /hpf Hyaline Casts (0-2) /lpf Urine Mucus (None) /hpf Urine Opiates Screen (NotDetected) U Marijuana (THC) Screen (NotDetected) 12/25/22 12/25/22 12/25/22 Range/Units 23:43 23:43 23:46 WBC (3.8-10.6) k/uL RBC (3.80-5.40) m/uL Hgb (11.4-16.0) gm/dL Hct (34.0-46.0) % Neutrophils # (1.3-7.7) k/uL VBG pH (7.31-7.41) VBG pCO2 (37-51) mmHg Chloride (98-107) mmol/L BUN (7-17) mg/dL Creatinine (0.52-1.04) mg/dL POC Glucose (mg/dL) 112 H (70-110) mg/dL Calcium (8.4-10.2) mg/dL Total Protein (6.3-8.2) g/dL Albumin (3.5-5.0) g/dL Urine Appearance Cloudy H (Clear) Urine Nitrite Positive H (Negative) Ur Leukocyte Esterase Trace H (Negative) Urine WBC 8 H (0-5) /hpf Urine Bacteria Occasional H (None) /hpf Hyaline Casts 6 H (0-2) /lpf Urine Mucus Rare H (None) /hpf Urine Opiates Screen Detected H (NotDetected) U Marijuana (THC) Screen Detected H (NotDetected) 12/26/22 12/26/22 Range/Units 06:01 06:01 WBC (3.8-10.6) k/uL RBC 3.26 L (3.80-5.40) m/uL Hgb 10.5 L (11.4-16.0) gm/dL Hct 32.4 L (34.0-46.0) % Neutrophils # (1.3-7.7) k/uL VBG pH (7.31-7.41) VBG pCO2 (37-51) mmHg Chloride 111 H (98-107) mmol/L BUN 22 H (7-17) mg/dL Creatinine 1.89 H (0.52-1.04) mg/dL POC Glucose (mg/dL) (70-110) mg/dL Calcium 8.1 L (8.4-10.2) mg/dL Total Protein 5.2 L (6.3-8.2) g/dL Albumin 2.9 L (3.5-5.0) g/dL Urine Appearance (Clear) Urine Nitrite (Negative) Ur Leukocyte Esterase (Negative) Urine WBC (0-5) /hpf Urine Bacteria (None) /hpf Hyaline Casts (0-2) /lpf Urine Mucus (None) /hpf Urine Opiates Screen (NotDetected) U Marijuana (THC) Screen (NotDetected) Thrombosis Risk Factor Assmnt - Choose All That Apply Other Risk Factors: Yes Each Risk Factor Represents 2 Points: Age 61-74 years Each Risk Factor Represents 3 Points: History of DVT/PE Thrombosis Risk Factor Assessment Total Risk Factor Score: 5 Thrombosis Risk Factor Assessment Level: High Risk Assessment and Plan Assessment: Assessment and plan * Generalized debility with chronic low back pain and tremors * Generalized anxiety * Hypothyroid * Hypertension * Chronic pain syndrome * History of COPD * In regards to generalized tremors, unlikely seizure. Requested neurology to evaluate. CT had negative recently had an MRI brain done which was negative for acute stroke * Patient has significant anxiety appreciate psychiatry input * Patient noted to have leukocytosis likely reactive, continue patient on IV fluids * Continue SCDs for DVT prophylaxis * History of chronic pain continue patient on MSIR, as needed morphine ordered for breakthrough pain monitor for oversedation * Continue patient on SCDs for DVT prophylaxis * CODE STATUS full code Time with Patient: Greater than 30
[2022-12-26] MEDS: MORPHINE SULFATE IR 15 MG TABLET PO SCH ×3 (13:59→22:20)
--- NOTE | 2022-12-26 14:24 | P.CN ---
Psychiatric Consult - . Consult date: 12/26/22 Consult:: 12/26/22 14:16 This is a psychiatric assessment on Mag Mejia who is a 62-year-old female and was currently hospitalized for further neurological workup Patient gives a past medical history significant for hypertension, hyperlipidem ia, chronic back pain, presented to the emergency department with complaints of generalized weakness and generalized body aches Patient was recently admitted in early summer with low back pain and had workup done with neurology including MRI brain which was negative At the time of presentation patient had a CT head done which was negative The patient currently reports that she has frequent jerking movements as well as she has been falling more often especially in the last few days Patient also reports that she was also started on Abilify 10 mg daily because of some ongoing issues with depression and to augment the antidepressant effect Patient states that she has chronic history of depression where she has been taking Buspirone 20 mg 3 times a day and Cymbalta 60 mg daily She states that she has issues in life since a young age and that she prefers not to talk about it Patient was also given an opportunity to talk about it and her was not around and still prefer not to do so at this time Patient states that she does not see a therapist or a psychiatrist and that her medications are being managed by her PCP She is open to having more outpatient counseling and supportive care She says that they added the Abilify 2 months ago and has noticed that she's been having more problems with her ambulation also in the recent past She also reports that she's been having some jerking hand movements which are new Past history personal and social history: Patient denies seeing any psychiatrist in the past or being hospitalized for any psychiatric [place] issues She denies any history of psychiatric hospitalization She denies any alcohol or substance use Mental status examination: General Appearance: Patient appears to be older than stated age is alert, directable, and attempts to cooperate. Hygiene appears to be fair Behavior: Calm, cooperative time became tearful Speech: Patient's speech is fluent and nonpressured. Mood/Affect: Patient reports their mood is "ok", affect is congruent and constricted. Suicidality/Homicidality: Patient denies having any homicidal ideation intent or plan. Denies any suicidal ideations intent or plan Perceptions: Patient denies any visual hallucinations and denies any auditory hallucinations Though content/process: Reports delusions of , vague, concrete. Memory and concentration: AOX3, grossly intact for the purposes of this session Judgment and insight: Fair Diagnostic impression: Major depressive disorder chronic recurrent in treatment pervasive persistent depressive disorder/dysthymia Rule out involuntary movement disorder related to Abilify? Plan: The patient presents with a new onset jerking involuntary movements as well as difficulty with ambulation which may be related to the antipsychotic medication Abilify that she was started few months ago Patient also has chronic issues with depression although she is not suicidal or homicidal and could benefit from outpatient counseling and supportive care as well as referral to a psychiatrist for medication management and further treatment Would recommend discontinuing Abilify at this time The Cymbalta could be further increased to 60 mg twice a day Continue supportive care Thank you very much for a kind referral and please feel free to contact me if any further questions Artie Lee M.D. 12/26/2022
[2022-12-26] MEDS: busPIRone HCl 10 MG TAB PO SCH (20:21)
[2022-12-26] MEDS: TOPIRAMATE 100 MG TAB PO SCH (20:21)
[2022-12-26] MEDS: DULoxetine HCL 60 MG CAPSULE.DR PO SCH (20:21)
[2022-12-26] MEDS ORDERED: ATORVASTATIN 80 MG TAB PO SCH (21:00)
[2022-12-26] MEDS ORDERED: DONEPEZIL 5 MG TAB PO SCH (21:00)
[2022-12-26] MEDS ORDERED: MONTELUKAST 10 MG TAB PO SCH (21:00)
[2022-12-27] MEDS: SODIUM CHLORIDE 0.9% 1,000 ML IV SCH (04:04)
[2022-12-27] MEDS: LEVOTHYROXINE 25 MCG TAB PO SCH (05:59)
[2022-12-27 07:50] VITALS: BP 122/70; RESP 18; TEMP 97.6
[2022-12-27] MEDS ORDERED: FORMOTEROL FUMARATE 20 MCG/2 ML NEBU INHALATION SCH (08:00)
[2022-12-27] MEDS: FERROUS SULFATE 325 MG TAB PO SCH (08:38)
[2022-12-27] MEDS: DULoxetine HCL 60 MG CAPSULE.DR PO SCH (08:38)
[2022-12-27] MEDS: MORPHINE SULFATE IR 15 MG TABLET PO SCH ×2 (08:38→13:00)
[2022-12-27] MEDS: ASPIRIN 81 MG PO SCH (08:38)
[2022-12-27] MEDS: cilostazoL 100 MG TAB PO SCH (08:38)
[2022-12-27] MEDS: GABAPENTIN 100 MG CAP PO SCH (08:39)
[2022-12-27] MEDS: TOPIRAMATE 100 MG TAB PO SCH (08:39)
[2022-12-27] MEDS: LORATADINE 10 MG TAB PO SCH (08:39)
[2022-12-27] MEDS: busPIRone HCl 10 MG TAB PO SCH (08:39)
[2022-12-27] MEDS: IPRATROPIUM 0.5 MG/2.5 ML NEBU INHALATION SCH ×2 (08:47→11:52)
[2022-12-27] MEDS ORDERED: PANTOPRAZOLE 40 MG TABLET PO SCH (09:00)
[2022-12-27 09:08] LABS: HCT 34.1 % (34.0-46.0); HGB 10.8 gm/dL (11.4-16.0); Hypochromasia Slight; MCH 31.8 pg (25.0-35.0); MCHC 31.7 g/dL (31.0-37.0); MCV 100.5 fL (80.0-100.0); Mean Platelet Volume 8.3; Platelet Count 177 k/uL (150-450); RDW 12.7 % (11.5-15.5); WBC 9.6 k/uL (3.8-10.6)
--- NOTE | 2022-12-27 09:22 | P.CNNES ---
History of Present Illness Consult date: 12/26/22 Requesting physician: Cornelio Zafar Reason for Consult: Dizziness History of Present Illness: Patient is a 62-year-old female came to the hospital yesterday at 3:26 PM for muscle spasms. Patient states that for the last 3 days, she has been having whole body spasms, pointing to the legs in the arms. Patient states her symptoms started on 12/22/2022 when she presented initially to the ER with spasms. She was sleeping and then she woke up throwing up, and her body started having spasms as she hollered at her son for help. Patient's son called patient's , who helped her get up, couldn't go to the bathroom by herself therefore she was brought to the hospital. Patient says that she was not able to walk by herself. She was kept in the hospital for about 1-1/2 days her spasms improved and she was was able to walk with her cane therefore she was sent home. Patient says that she was relatively fine for a day, but then the spasms happen again and she couldn't get to the bathroom without falling. Patient says it involves the arms and legs. She never passed out. No seizures. She does not lose control of urine, no tongue bite. Patient states that since she came to the hospital, the Abilify was stopped and the spasms have resolved. Patient states that Abilify was started about 6 months ago at 5 mg and the dose was increased to 10 mg a day 2 months ago and she believes it was a side effect of Abilify. She denies any history of seizures. Vital signs on arrival blood pressure 108/62, pulse is 68, temperature 98.1. Patient's white cells were 14.6, hemoglobin 12.4, platelets are normal. VBG with pH of 7.28, pCO2 56 and bicarb 26. Electrolytes are normal, BUN 21, creatinine 2.06. Hepatic panel is normal. UA showed positive nitrite, trace leukocyte esterase, a WBC and occasional bacteria. Urine drug screen positive for opiates, marijuana. Blood alcohol level negative. CT head revealed no acute intracranial process. I personally reviewed CT head, agree with the findings. Very mild congestion of some of the ethmoid air cells. External auditory canals are clear. Patient was seen by Dr. Cole on 10/31/2022 for for left leg weakness, felt to be related to low back issues. Her MRI of the brain was negative for any acute stroke. Patient does have chronic back pain. Patient also is prediabetic and also smoker. Patient had an MRI of the lumbar spine, which revealed spinal canal stenosis L4 5 and to lesser degree L3-L4. Large central broad disc herniation at L4-L5. Grade 1 spondylolisthesis with disc uncovering at L5-S1. Right paracentral small disc herniation at L2-3 without spinal canal stenosis. Multilevel severe foraminal stenosis within the mid and lower cervical spine. I personally reviewed MRI of the brain and lumbar spines and agree with the fi ndings. Patient has smoked 1 pack per day for 30 years, denies any alcohol, marijuana use. Denies diabetes or hypertension. Patient has long-standing history of migraines for which she is on Topamax. Review of Systems Constitutional: Denies chills, Denies fever Eyes: denies blurred vision, denies diplopia, denies pain Ears: deny: decreased hearing, ear discharge Ears, nose, mouth and throat: Reports headache (Migraines), Denies sore throat Cardiovascular: Denies chest pain, Denies shortness of breath Respiratory: Denies cough, Denies excessive sputum Gastrointestinal: Denies abdominal pain, Denies diarrhea, Denies nausea, Denies vomiting Genitourinary: Denies dysuria, Denies hematuria, Denies stress incontinence Musculoskeletal: Reports low back pain, Denies myalgias, Denies neck pain Integumentary: Denies pruritus, Denies rash Neurological: Reports as per HPI Psychiatric: Reports depression, Denies anxiety Endocrine: Reports fatigue, Denies weight change Hematologic/Lymphatic: Reports easy bleeding, Reports easy bruising Past Medical History Past Medical History: Deep Vein Thrombosis (DVT), Hyperlipidemia, Hypertension, Pneumonia Additional Past Medical History / Comment(s): chronic back pain, clotting disorder History of Any Multi-Drug Resistant Organisms: None Reported Past Surgical History: Tubal Ligation Additional Past Surgical History / Comment(s): Partial Hysterectomy Past Anesthesia/Blood Transfusion Reactions: No Reported Reaction Past Psychological History: Anxiety, Depression Smoking Status: Current every day smoker Past Alcohol Use History: None Reported Additional Past Alcohol Use History / Comment(s): Has been smoking for 46 yrs, (quit a few times for 6 months or less), 1 1/2 ppd. Past Drug Use History: None Reported - Past Family History Mother Family Medical History: No Reported History Medications and Allergies Home Medications Medication Instructions Recorded Confirmed Type Aspirin [Adult Low Dose Aspirin EC] 81 mg PO DAILY 09/15/19 12/25/22 History DULoxetine HCL [Cymbalta] 60 mg PO DAILY 09/15/19 12/25/22 History Ferrous Sulfate [Iron (65 MG 325 mg PO DAILY 09/15/19 12/25/22 History Elemental)] Gabapentin [Neurontin] 100 mg PO TID 09/15/19 12/25/22 History Levothyroxine Sodium [Synthroid] 25 mcg PO DAILY 09/15/19 12/25/22 History Topiramate [Topamax] 100 mg PO BID 09/15/19 12/25/22 History Vitamin B Complex 1 cap PO DAILY 09/15/19 12/25/22 History busPIRone HCL 20 mg PO BID 09/15/19 12/25/22 History cilostazoL [Pletal] 100 mg PO BID 09/15/19 12/25/22 History Diclofenac Sodium [Voltaren] 50 mg PO DAILY 12/12/21 12/25/22 History Furosemide [Lasix] 20 mg PO DAILY 12/12/21 12/25/22 History Morphine Sulfate 15 mg PO QID 12/12/21 12/25/22 History Atorvastatin Calcium [Lipitor] 80 mg PO HS 10/30/22 12/25/22 History Cholecalciferol (Vitamin D3) 1,250 mcg PO FR@1800 10/30/22 12/25/22 History [Vitamin D3] Donepezil [Aricept] 5 mg PO HS 10/30/22 12/25/22 History Montelukast [Singulair] 10 mg PO HS 10/30/22 12/25/22 History Potassium Chloride [Klor-Con M20] 20 meq PO DAILY 10/30/22 12/25/22 History Umeclidinium Brm/Vilanterol Tr 1 puff INHALATION RT-DAILY 10/30/22 12/25/22 History [Anoro Ellipta 62.5-25 Mcg INH] ARIPiprazole [Abilify] 10 mg PO DAILY 12/22/22 12/25/22 History Cetirizine HCl 10 mg PO DAILY 12/22/22 12/25/22 History Allergies Allergy/AdvReac Type Severity Reaction Status Date / Time bacitracin Allergy Rash/Hives Verified 12/25/22 18:02 [From Neosporin ([id number])] meperidine [From Demerol] Allergy Rash/Hives Verified 12/25/22 18:02 neomycin Allergy Rash/Hives Verified 12/25/22 18:02 [From Neosporin ([id number])] polymyxin B Allergy Rash/Hives Verified 12/25/22 18:02 [From Neosporin ([id number])] Physical Examination - Vital Signs Vital Signs: Vital Signs Temp Pulse Pulse Resp BP BP Pulse Ox 12/26/22 08:56 96 12/26/22 07:00 98.1 F 76 16 149/81 96 12/26/22 03:54 98.0 F 80 16 106/64 97 12/25/22 23:15 98.1 F 70 16 129/69 100 12/25/22 22:45 78 16 103/53 95 12/25/22 21:15 93 L 12/25/22 21:12 88 L 12/25/22 21:00 66 18 116/81 95 12/25/22 18:34 90 12/25/22 18:20 88 12/25/22 16:18 98.1 F 68 18 108/62 96 Intake and Output 12/25/22 12/26/22 12/26/22 22:59 06:59 14:59 Output Total 600 Balance -600 Output: Urine 600 Other: # Voids 2 Weight 60.781 kg 60.781 kg Patient is an elderly female, in no acute distress. Patient is alert awake oriented to time place and person. Speech and language functions are normal. Patient can name and repeat very well. No aphasia or dysarthria. Attention, concentration and fund of knowledge is adequate. On cranial nerve examination, pupils are equal, round and reacting to light, visual enamorado are full on confrontation, with no neglect on double simultaneous stimulation. Extraocular muscles are intact with no nystagmus. Face is symmetric, tongue protrudes to the midline. Palatal elevation and sensation normal, hearing and shoulder shrug normal, facial sensation normal. On muscle strength testing, there is no pronator drift and the strength is normal in arms distally and proximally. In the lower extremities (right/left) hip flexion 4/4, ankle dorsiflexion 5/2, plantarflexion 5/5. Patient has a left foot drop related to lumbar radiculopathy. Deep tendon reflexes are symmetric 1 in the upper extremities at biceps and brachioradialis, trace at the knees, trace at the right ankle 0 left. Plantars are flat. Sensory to touch is decreased in the left leg as compared to the right related to her lumbar radiculopathy. Sensations are equal in the arms and facial region. Cerebellar function showed no ataxia for [id number] testing. No dysdiadochokinesia. No ataxia for [id number] testing on either side. Tone and bulk of muscles normal. Gait deferred.. On general examination, there is no carotid bruit or murmur, S1-S2 audible. Chest is clear on consultation. Abdomen is soft nontender. No organomegaly, bowel sounds present. Peripheral pulses are present. No edema. Patient has multiple bruises particularly in her arms. Results - Laboratory Findings CBC and BMP: 12/26/22 06:01 12/26/22 06:01 Abnormal Lab Findings: Abnormal Labs 12/25/22 12/25/22 12/25/22 17:07 17:07 17:56 WBC 14.6 H RBC Hgb Hct Neutrophils # 11.3 H VBG pH 7.28 L VBG pCO2 56 H Chloride BUN 21 H Creatinine 2.06 H POC Glucose (mg/dL) Calcium Total Protein 6.1 L Albumin Urine Appearance Urine Nitrite Ur Leukocyte Esterase Urine WBC Urine Bacteria Hyaline Casts Urine Mucus Urine Opiates Screen U Marijuana (THC) Screen 12/25/22 12/25/22 12/25/22 23:43 23:43 23:46 WBC RBC Hgb Hct Neutrophils # VBG pH VBG pCO2 Chloride BUN Creatinine POC Glucose (mg/dL) 112 H Calcium Total Protein Albumin Urine Appearance Cloudy H Urine Nitrite Positive H Ur Leukocyte Esterase Trace H Urine WBC 8 H Urine Bacteria Occasional H Hyaline Casts 6 H Urine Mucus Rare H Urine Opiates Screen Detected H U Marijuana (THC) Screen Detected H 12/26/22 12/26/22 06:01 06:01 WBC RBC 3.26 L Hgb 10.5 L Hct 32.4 L Neutrophils # VBG pH VBG pCO2 Chloride 111 H BUN 22 H Creatinine 1.89 H POC Glucose (mg/dL) Calcium 8.1 L Total Protein 5.2 L Albumin 2.9 L Urine Appearance Urine Nitrite Ur Leukocyte Esterase Urine WBC Urine Bacteria Hyaline Casts Urine Mucus Urine Opiates Screen U Marijuana (THC) Screen Assessment and Plan Assessment: * Recurrent spasms, which patient believes was side effect of Abilify. Since stopping Abilify, these spasms have resolved. * Hypertension * Hyperlipidemia * History of migraine headaches, on Topamax. * Chronic tobacco use * Chronic back pain, with lumbar spinal stenosis, lumbar radiculopathy and left foot drop. Plan: * Patient's spasms have resolved since the Abilify has been discontinued. She will stay off Abilify. * Patient was counseled about tobacco cessation. * Patient has history of lumbar spinal stenosis, lumbar radiculopathy with left foot drop. Patient has declined lumbar surgery. * TSH normal 1.020. Hemoglobin A1c 5.5. * Check B12, folate. * Neurologically no other workup indicated. Neurologically clear. * Thank you for the consult.
[2022-12-27 10:23] LABS: African American GFR (CKD) 35 (>60 ml/min/1.73 sqM); Anion Gap 5 mmol/L; Blood Urea Nitrogen 20 mg/dL (7-17); Calcium 7.7 mg/dL (8.4-10.2); Carbon Dioxide 23 mmol/L (22-30); Chloride 112 mmol/L (98-107); Glucose 97 mg/dL (74-99); Non-African American GFR(CKD) 31 (>60 ml/min/1.73 sqM); Potassium 3.5 mmol/L (3.5-5.1); Sodium 140 mmol/L (137-145)
[2022-12-27 12:01] VITALS: PULSE 78
--- NOTE | 2022-12-27 12:07 | P.DS ---
Providers Date of admission: 12/25/22 21:47 Expected date of discharge: 12/27/22 Attending physician: Augustine Vinson Consults: 12/25/22 21:45 Consult Physician Routine Consulting Provider: Alexx Cole Consult Reason/Comments: dizziness Do you want consulting provider notified?: Yes 12/25/22 22:02 Consult Physician Routine Consulting Provider: Artie Lee Consult Reason/Comments: psych Do you want consulting provider notified?: Yes Primary care physician: Victor M Man MD Hospital Course: 62-year-old lady with past medical history significant for hypertension, hyperlipidemia, chronic back pain, presented to the emergency department with complaints of generalized weakness and generalized body aches * Patient was recently admitted in early summer with low back pain and had workup done with neurology including MRI brain which was negative * At the time of presentation patient had a CT head done which was negative * Workup obtained including CBC which showed leukocytosis white cell count of 14.6. Urinalysis showed bacteriuria however patient asymptomatic * He should resuscitated with IV fluids with improvement in white count cell count * Workup including serum ammonia levels which is within normal limits. TSH within normal limits * Admitted to medical floor with consultation from psychiatry and neurology * Patient was admitted and monitored, she did not have spasms * Urinalysis was reviewed patient denied of any urinary symptoms consistent with urinary tract infection * Patient was resuscitated with fluid and did fairly well. Discharged home in stable condition after discussion with neurology and psychiatry * Abilify discontinued PHYSICAL EXAMINATION: GENERAL: The patient is alert and oriented x3, not in any acute distress. Well developed, well nourished. HEENT: Pupils are round and equally reacting to light. EOMI. No scleral icterus. No conjunctival pallor. Normocephalic, atraumatic. No pharyngeal erythema. No thyromegaly. CARDIOVASCULAR: S1 and S2 present. No murmurs, rubs, or gallops. PULMONARY: Chest is clear to auscultation, no wheezing or crackles. ABDOMEN: Soft, nontender, nondistended, normoactive bowel sounds. No palpable organomegaly. MUSCULOSKELETAL: No joint swelling or deformity. EXTREMITIES: No cyanosis, clubbing, or pedal edema. NEUROLOGICAL: Gross neurological examination did not reveal any focal deficits. SKIN: No rashes. Assessment and plan * Generalized debility with chronic low back pain and tremors * Generalized anxiety * Hypothyroid * Hypertension * Chronic pain syndrome * History of COPD * In regards to generalized tremors, unlikely seizure. CT had negative recently had an MRI brain done which was negative for acute stroke. Abilify discontinued * Patient has significant anxiety appreciate psychiatry input, dose of Cymbalta increase * Patient noted to have leukocytosis likely reactive, continue patient on IV fluids. Denies urinary symptoms Patient Condition at Discharge: Fair Plan - Discharge Summary Discharge Rx Participant: No New Discharge Prescriptions: New DULoxetine HCL [Cymbalta] 60 mg PO BID 30 Days #60 cap Continue busPIRone HCL 20 mg PO BID Gabapentin [Neurontin] 100 mg PO TID Ferrous Sulfate [Iron (65 MG Elemental)] 325 mg PO DAILY cilostazoL [Pletal] 100 mg PO BID Topiramate [Topamax] 100 mg PO BID Levothyroxine Sodium [Synthroid] 25 mcg PO DAILY Vitamin B Complex 1 cap PO DAILY Aspirin [Adult Low Dose Aspirin EC] 81 mg PO DAILY Morphine Sulfate 15 mg PO QID Cetirizine HCl 10 mg PO DAILY Diclofenac Sodium [Voltaren] 50 mg PO DAILY Furosemide [Lasix] 20 mg PO DAILY Atorvastatin Calcium [Lipitor] 80 mg PO HS Cholecalciferol (Vitamin D3) [Vitamin D3] 1,250 mcg PO FR@1800 Donepezil [Aricept] 5 mg PO HS Montelukast [Singulair] 10 mg PO HS Potassium Chloride [Klor-Con M20] 20 meq PO DAILY Umeclidinium Brm/Vilanterol Tr [Anoro Ellipta 62.5-25 Mcg INH] 1 puff INHALATION RT-DAILY Discontinued DULoxetine HCL [Cymbalta] 60 mg PO DAILY ARIPiprazole [Abilify] 10 mg PO DAILY Discharge Medication List Aspirin [Adult Low Dose Aspirin EC] 81 mg PO DAILY 09/15/19 [History] Ferrous Sulfate [Iron (65 MG Elemental)] 325 mg PO DAILY 09/15/19 [History] Gabapentin [Neurontin] 100 mg PO TID 09/15/19 [History] Levothyroxine Sodium [Synthroid] 25 mcg PO DAILY 09/15/19 [History] Topiramate [Topamax] 100 mg PO BID 09/15/19 [History] Vitamin B Complex 1 cap PO DAILY 09/15/19 [History] busPIRone HCL 20 mg PO BID 09/15/19 [History] cilostazoL [Pletal] 100 mg PO BID 09/15/19 [History] Diclofenac Sodium [Voltaren] 50 mg PO DAILY 12/12/21 [History] Furosemide [Lasix] 20 mg PO DAILY 12/12/21 [History] Morphine Sulfate 15 mg PO QID 12/12/21 [History] Atorvastatin Calcium [Lipitor] 80 mg PO HS 10/30/22 [History] Cholecalciferol (Vitamin D3) [Vitamin D3] 1,250 mcg PO FR@1800 10/30/22 [History] Donepezil [Aricept] 5 mg PO HS 10/30/22 [History] Montelukast [Singulair] 10 mg PO HS 10/30/22 [History] Potassium Chloride [Klor-Con M20] 20 meq PO DAILY 10/30/22 [History] Umeclidinium Brm/Vilanterol Tr [Anoro Ellipta 62.5-25 Mcg INH] 1 puff INHALATION RT-DAILY 10/30/22 [History] Cetirizine HCl 10 mg PO DAILY 12/22/22 [History] DULoxetine HCL [Cymbalta] 60 mg PO BID 30 Days #60 cap 12/27/22 [Rx] Follow up Appointment(s)/Referral(s): iVctor M Man MD [Primary Care Provider] - 1-2 days Patient Instructions/Handouts: Weakness (ED) Discharge Disposition: HOME SELF-CARE
--- NOTE | 2022-12-28 10:49 | P.PN ---
Subjective Progress Note Date: 12/27/22 Patient was seen for a follow-up. All symptoms have resolved. No further spasms, or tremors. Patient wants to go home. Objective - Vital Signs Vital signs: Vital Signs Temp 97.6 F 12/27/22 07:14 Pulse 78 12/27/22 12:00 Resp 18 12/27/22 07:14 BP 122/70 12/27/22 07:14 Pulse Ox 92 L 12/27/22 07:14 FiO2 Intake & Output 12/26/22 12/27/22 12/27/22 18:59 06:59 18:59 Intake Total 118 Balance 118 Intake: Oral 118 Other: # Voids 2 3 # Bowel Movements 0 - Exam Mentation normal. No tremors. - Labs CBC & Chem 7: 12/27/22 08:35 12/27/22 08:35 Labs: Abnormal Lab Results - Last 24 Hours (Table) 12/27/22 12/27/22 Range/Units 08:35 08:35 RBC 3.40 L (3.80-5.40) m/uL Hgb 10.8 L (11.4-16.0) gm/dL MCV 100.5 H (80.0-100.0) fL Chloride 112 H (98-107) mmol/L BUN 20 H (7-17) mg/dL Creatinine 1.75 H (0.52-1.04) mg/dL Calcium 7.7 L (8.4-10.2) mg/dL Assessment and Plan Assessment: * Recurrent spasms, which patient believes was side effect of Abilify. Since stopping Abilify, these spasms have resolved. * Abnormal UA * Renal insufficiency * Hypertension * Hyperlipidemia * History of migraine headaches, on Topamax. * Chronic tobacco use * Chronic back pain, with lumbar spinal stenosis, lumbar radiculopathy and left foot drop. Plan: * Patient's spasms have resolved since the Abilify has been discontinued. She will stay off Abilify. * Patient was counseled about tobacco cessation. * Patient has abnormal UA, will defer to IM. * Patient's renal functions are improving. Patient was informed, that when the renal functions worsens, opiates can build up in the body producing tremor/jerking. She should limit amount of opiates, and stay well hydrated. * Patient has history of lumbar spinal stenosis, lumbar radiculopathy with left foot drop. Patient has declined lumbar surgery. * TSH normal 1.020. Hemoglobin A1c 5.5. * B12 722, folate 34.80, both normal. * Neurologically no other workup indicated. Neurologically clear for discharge.
[2023-01-01] MEDS ORDERED: CHOLECALCIFEROL 25 MCG (1000 IU) TABLET PO SCH (18:00)
== END 2022-12-27 13:07 | disposition home or self-care (01) ==
LOC: EC 15:26 → 6NMEDSUR 21:47
PROVIDERS: ADMIT Hospitalist; ATTEND Hospitalist
DX: R53.1 Weakness (principal); R53.81 Other malaise; R25.1 Tremor, unspecified; R42 Dizziness and giddiness; I10 Essential (primary) hypertension; E78.5 Hyperlipidemia, unspecified; M54.9 Dorsalgia, unspecified; G89.4 Chronic pain syndrome; M54.59 Other low back pain; D72.829 Elevated white blood cell count, unspecified; R82.71 Bacteriuria; F41.1 Generalized anxiety disorder; E03.9 Hypothyroidism, unspecified; J44.9 Chronic obstructive pulmonary disease, unspecified; F32.A Depression, unspecified; F17.210 Nicotine dependence, cigarettes, uncomplicated; M51.16 Intervertebral disc disorders with radiculopathy, lumbar region; M21.372 Foot drop, left foot; N28.9 Disorder of kidney and ureter, unspecified; G43.909 Migraine, unspecified, not intractable, without status migrainosus; R73.03 Prediabetes; M48.061 Spinal stenosis, lumbar region without neurogenic claudication; M43.10 Spondylolisthesis, site unspecified; Z87.01 Personal history of pneumonia (recurrent); Z86.718 Personal history of other venous thrombosis and embolism; Z79.82 Long term (current) use of aspirin; Z79.899 Other long term (current) drug therapy; Z79.890 Hormone replacement therapy; Z79.02 Long term (current) use of antithrombotics/antiplatelets; Z88.1 Allergy status to other antibiotic agents; Z88.5 Allergy status to narcotic agent; Z86.711 Personal history of pulmonary embolism
CPT/HCPCS: 96361 ×3; 96374; 99285; 36415; 94640 ×4; 94760; 80053 ×2; 80048; 84443; 82607; 82140; 82746; 82803; 83605; 83735 ×2; 84100 ×2; 84484; 85025 ×2; 85027; 81001; 80306; 80143; 80179; 71045; 70450; G0378 ×3; G0480; J2270; 80320

== ENCOUNTER → 2023-05-26 | Outpatient (CLI) | payer MEDICARE ==
--- NOTE | 2023-05-28 13:04 | MM ---
Reason for Exam: Screening (asymptomatic). Last mammogram was performed 1 year(s) and 1 month(s) ago. Patient History: Menarche at age 11. First Full-Term at age 17. Postmenopausal. Estrogen for 6 months. Hormonal Contraceptives, from age 14 until age 20. 04/14/2002, Benign Stereotactic Core Biopsy on the left side. Risk Values: Denisse 5 year model risk: 1.3%. NCI Lifetime model risk: 5.7%. Prior Study Comparison: 02/09/2020 Bilateral Screening Mammogram, [facility]. 04/04/2021 Bilateral Screening Mammogram, [facility]. 04/17/2022 Bilateral MG 3D screening mammo w/cad, [facility]. Tissue Density: There are scattered fibroglandular densities. Findings: Analyzed By CAD. No dominant mass or architectural distortion. There are small group of new calcifications within the lower inner left breast. Recommend spot magnification view. Benign calcifications noted. Overall Assessment: Incomplete: need additional imaging evaluation, BI-RAD 0 Management: Special View Mammogram of the left breast. . Patient should continue monthly self-breast exams. A clinical breast exam by your physician is recommended on an annual basis. This exam should not preclude additional follow-up of suspicious palpable abnormalities. Note on Denisse scores and lifetime risk: 1. A Denisse score greater than 3% is considered moderate risk. If this is the case, consider specialist referral to assess eligibility for a risk reducing agent. 2. If overall lifetime risk for the development of breast cancer is 20% or higher, the patient may qualify for future screening with alternating mammogram and breast MRI. Electronically signed and approved by: Trav Rodriguez M.D. Radiologis
== END | disposition home or self-care (01) ==
LOC: RADMAMWWP 14:33
PROVIDERS: ATTEND Family Medicine
DX: Z12.31 Encounter for screening mammogram for malignant neoplasm of breast (principal); Z78.0 Asymptomatic menopausal state
CPT/HCPCS: 77063; 77067

== ENCOUNTER → 2023-06-02 | Outpatient (CLI) | payer MEDICARE ==
--- NOTE | 2023-06-02 14:16 | MM ---
Reason for Exam: Additional evaluation requested from abnormal screening. Last screening mammogram was performed less than 1 month ago. Patient History: Menarche at age 11. First Full-Term at age 17. Postmenopausal. Estrogen for 6 months. Hormonal Contraceptives, from age 14 until age 20. 04/14/2002, Benign Stereotactic Core Biopsy on the left side. Risk Values: Denisse 5 year model risk: 1.3%. NCI Lifetime model risk: 5.7%. Prior Study Comparison: 04/04/2021 Bilateral Screening Mammogram, [facility]. 04/17/2022 Bilateral MG 3D screening mammo w/cad, [facility]. 05/26/2023 Bilateral MG 3D screening mammo w/cad, [facility]. Tissue Density: Left: There are scattered fibroglandular densities. Findings: Analyzed By CAD. The faint calcifications located at the 7:00 position middle depth suspected to represent early oil cyst calcification on magnification views. 6 month follow-up to reassess. Other benign oil cysts are also noted. Overall Assessment: Probably benign, BI-RAD 3 Management: Diagnostic Mammogram of the left breast in 6 months. . Results were given to the patient verbally at the time of exam. Patient should continue monthly self-breast exams. A clinical breast exam by your physician is recommended on an annual basis. This exam should not preclude additional follow-up of suspicious palpable abnormalities. Note on Denisse scores and lifetime risk: 1. A Denisse score greater than 3% is considered moderate risk. If this is the case, consider specialist referral to assess eligibility for a risk reducing agent. 2. If overall lifetime risk for the development of breast cancer is 20% or higher, the patient may qualify for future screening with alternating mammogram and breast MRI. Electronically signed and approved by: Courtney Sofia M.D. Radiologist
== END | disposition home or self-care (01) ==
LOC: RADMAMWWP 13:44
PROVIDERS: ATTEND Family Medicine
DX: R92.8 Other abnormal and inconclusive findings on diagnostic imaging of breast (principal); Z78.0 Asymptomatic menopausal state
CPT/HCPCS: 77065; G0279; 77061

== ENCOUNTER 2023-09-11 20:35 | Emergency (ER) | payer MEDICARE ==
[2023-09-11 20:50] VITALS: TEMP 97.7
--- NOTE | 2023-09-11 22:01 | ED ---
Chest Pain HPI - General Chief Complaint: Chest Pain Stated Complaint: Chest pain Time Seen by Provider: 09/11/23 21:41 Source: patient Mode of arrival: ambulatory Limitations: no limitations - History of Present Illness Initial Comments: This patient is a 63-year-old woman who arrives to have evaluation for chest pains that have been going on 3 days now. The patient states she first noticed this while she was at rest. The pains occur in the left chest. They are intermittent lasting about 10 seconds at a time and occurring about 4-6 times per hour. She has not discovered anything that will provoke or relieve the pains. She states she does occasionally have cough that seems to correlate with the pain. Otherwise no associated symptoms. No fever or chills. No sputum. MD Complaint: chest pain Onset/Timin -: days(s) Onset: during rest Pain Location: left chest Pain Radiation: none Severity: moderate Quality: sharp Consistency: intermittent Improves With: nothing Worsens With: nothing Other Symptoms: cough Treatments Prior to Arrival: none - Related Data Home Medications Medication Instructions Recorded Confirmed Aspirin [Adult Low Dose Aspirin EC] 81 mg PO DAILY 09/15/19 12/25/22 Ferrous Sulfate [Iron (65 MG 325 mg PO DAILY 09/15/19 12/25/22 Elemental)] Gabapentin [Neurontin] 100 mg PO TID 09/15/19 12/25/22 Levothyroxine Sodium [Synthroid] 25 mcg PO DAILY 09/15/19 12/25/22 Topiramate [Topamax] 100 mg PO BID 09/15/19 12/25/22 Vitamin B Complex 1 cap PO DAILY 09/15/19 12/25/22 busPIRone HCL 20 mg PO BID 09/15/19 12/25/22 cilostazoL [Pletal] 100 mg PO BID 09/15/19 12/25/22 Diclofenac Sodium [Voltaren] 50 mg PO DAILY 12/12/21 12/25/22 Furosemide [Lasix] 20 mg PO DAILY 12/12/21 12/25/22 Morphine Sulfate 15 mg PO QID 12/12/21 12/25/22 Atorvastatin Calcium [Lipitor] 80 mg PO HS 10/30/22 12/25/22 Cholecalciferol (Vitamin D3) 1,250 mcg PO FR@1800 10/30/22 12/25/22 [Vitamin D3 (1250 Mcg = 50,000 Iu)] Donepezil [Aricept] 5 mg PO HS 10/30/22 12/25/22 Montelukast [Singulair] 10 mg PO HS 10/30/22 12/25/22 Potassium Chloride [Klor-Con M20] 20 meq PO DAILY 10/30/22 12/25/22 Umeclidinium Brm/Vilanterol Tr 1 puff INHALATION RT-DAILY 10/30/22 12/25/22 [Anoro Ellipta 62.5-25 Mcg INH] Cetirizine HCl 10 mg PO DAILY 12/22/22 12/25/22 Previous Rx's Medication Instructions Recorded DULoxetine HCL [Cymbalta] 60 mg PO BID 30 Days #60 cap 12/27/22 Allergies Allergy/AdvReac Type Severity Reaction Status Date / Time bacitracin Allergy Rash/Hives Verified 09/11/23 20:38 [From Neosporin ([id number])] meperidine [From Demerol] Allergy Rash/Hives Verified 09/11/23 20:38 neomycin Allergy Rash/Hives Verified 09/11/23 20:38 [From Neosporin ([id number])] polymyxin B Allergy Rash/Hives Verified 09/11/23 20:38 [From Neosporin ([id number])] Review of Systems ROS Statement: Those systems with pertinent positive or pertinent negative responses have been documented in the HPI. ROS Other: All systems not noted in ROS Statement are negative. Constitutional: Denies: fever, chills Respiratory: Reports: cough. Denies: dyspnea, wheezes Cardiovascular: Reports: chest pain. Denies: palpitations, orthopnea, edema, syncope Gastrointestinal: Denies: abdominal pain, nausea, vomiting Genitourinary: Denies: dysuria, hematuria Musculoskeletal: Denies: back pain Skin: Denies: rash Neurological: Denies: headache, weakness, numbness EKG Findings - EKG Results: EKG: interpreted by CARLOS, sinus rhythm (With sinus arrhythmia rate 86 bpm), normal axis - Blocks, [place], Hypertrophy, ST Abn: AV and intraventricular conduction: right bundle branch block (fixed/intermittent, complete/incomplete) (Incomplete) Repolarization changes or abnormalities: nonspecific abnormality, ST segment, and/or T wave Past Medical History Past Medical History: Deep Vein Thrombosis (DVT), Hyperlipidemia, Hypertension, Pneumonia Additional Past Medical History / Comment(s): chronic back pain, clotting disorder History of Any Multi-Drug Resistant Organisms: None Reported Past Surgical History: Tubal Ligation Additional Past Surgical History / Comment(s): Partial Hysterectomy Past Anesthesia/Blood Transfusion Reactions: No Reported Reaction Past Psychological History: Anxiety, Depression Smoking Status: Current every day smoker Past Alcohol Use History: None Reported Past Drug Use History: None Reported - Past Family History Mother Family Medical History: No Reported History General Exam Limitations: no limitations General appearance: alert, in no apparent distress, cachectic Head exam: Present: atraumatic, normocephalic Eye exam: Present: normal appearance. Absent: scleral icterus, conjunctival injection ENT exam: Present: normal oropharynx Neck exam: Present: normal inspection Respiratory exam: Present: normal lung sounds bilaterally. Absent: respiratory distress, wheezes, rales, rhonchi, stridor, chest wall tenderness, accessory muscle use Cardiovascular Exam: Present: regular rate, normal rhythm, normal heart sounds. Absent: systolic murmur, diastolic murmur, rubs, gallop GI/Abdominal exam: Present: soft. Absent: distended, tenderness, guarding, rebound, rigid, mass Extremities exam: Present: normal inspection, normal capillary refill. Absent: pedal edema, calf tenderness Back exam: Present: normal inspection. Absent: CVA tenderness (R), CVA tenderness (L) Neurological exam: Present: alert, oriented X3, CN II-XII intact. Absent: motor sensory deficit Skin exam: Present: warm, dry, intact, normal color. Absent: rash Course Vital Signs 09/11/23 09/11/23 09/11/23 20:37 22:31 22:32 Temperature 97.7 F Pulse Rate 99 75 Pulse Rate [ 71 Telephone Recorder ] Respiratory 18 16 Rate Blood Pressure 125/68 109/66 O2 Sat by Pulse 95 95 Oximetry 09/11/23 09/12/23 09/12/23 23:49 01:12 01:28 Temperature Pulse Rate 71 77 76 Pulse Rate [ Telephone Recorder ] Respiratory 16 16 16 Rate Blood Pressure 115/79 111/62 123/78 O2 Sat by Pulse 98 97 95 Oximetry Chest Pain [facility] - MDM The patient had chest x-ray that I interpreted as negative for acute infiltrate, pneumothorax, congestive heart failure Was pt. sent in by a medical professional or institution (, ALISA, INTELLIGENCE ANALYST, urgent care, hospital, or jail...) When possible be specific @ -[No] Did you speak to anyone other than the patient for history (EMS, parent, family, police, friend...)? What history was obtained from this source @ -[No] Did you review nursing and triage notes (agree or disagree)? Why? @ -[I reviewed and agree with nursing and triage notes] Were old charts reviewed (outside hosp., previous admission, EMS record, old EKG, old radiological studies, urgent care reports/EKG's, jail records)? Report findings @ -[No old charts were reviewed] Differential Diagnosis (chest pain, altered mental status, abdominal pain women, abdominal pain men, vaginal bleeding, weakness, fever, dyspnea, syncope, headache, dizziness, GI bleed, back pain, seizure, CVA, palpatations, mental health, musculoskeletal)? @ -[Differential Chest Pain: Stable Angina, Unstable Angina, STEMI, NSTEMI Aortic Dissection, Pneumothorax, Musculoskeletal, Esophageal Spasm GERD, Cholecystitis, Pancreatitis, Zoster, this is not meant to be an all-inclusive list. EKG interpreted by me (3pts min.). @ -[I interpreted as above] X-rays interpreted by me (1pt min.). @ -[I interpreted as above CT interpreted by me (1pt min.). @ -[None done] U/S interpreted by me (1pt. min.). @ -[None done] What testing was considered but not performed or refused? (CT, X-rays, U/S, labs)? Why? @ -[None] What meds were considered but not given or refused? Why? @ -[None] Did you discuss the management of the patient with other professionals (professionals i.e. , ALISA, INTELLIGENCE ANALYST, lab, RT, psych nurse, social service manager, watch and clock maker and repairer, teacher, commissioned police officer, case worker)? Give summary @ -[No] Was smoking cessation discussed for >3mins.? @ -[No] Was critical care preformed (if so, how long)? @ -[No] Were there social determinants of health that impacted care today? How? (Homelessness, low income, unemployed, alcoholism, drug addiction, transportation, low edu. Level, literacy, decrease access to med. care, mcc, rehab)? @ -[No] Was there de-escalation of care discussed even if they declined (Discuss DNR or withdrawal of care, Hospice)? DNR status @ -[No] What co-morbidities impacted this encounter? (DM, HTN, Smoking, COPD, CAD, Cancer, CVA, ARF, Chemo, Hep., AIDS, mental health diagnosis, sleep apnea, morbid obesity)? @ -[None] Was patient admitted / discharged? Hospital course, mention meds given and route, prescriptions, significant lab abnormalities, going to OR and other pertinent info. @ -[Patient is a 63-year-old woman with atypical chest pain. The workup here is unremarkable. We discussed appropriate follow-up as well as return parameters. Undiagnosed new problem with uncertain prognosis? @ -[No] Drug Therapy requiring intensive monitoring for toxicity (Heparin, Nitro, Insulin, Cardizem)? @ -[No] Were any procedures done? @ -[No] Diagnosis/symptom? @ -[Acute atypical chest pain Acute, or Chronic, or Acute on Chronic? @ -Acute Uncomplicated (without systemic symptoms) or Complicated (systemic symptoms)? @ -Uncomplicated Side effects of treatment? @ -[No] Exacerbation, Progression, or Severe Exacerbation? @ -[No] Poses a threat to life or bodily function? How? (Chest pain, [place], [place], pneumonia, PE, COPD, DKA, ARF, appy, cholecystitis, CVA, Diverticulitis, Homicidal, Suicidal, threat to staff... and all critical care pts) @ -[No] Disposition Clinical Impression: Chest pain Disposition: HOME SELF-CARE Condition: Good Instructions (If sedation given, give patient instructions): Chest Pain (ED) Is patient prescribed a controlled substance at d/c from ED?: No Referrals: Shea Tenorio DO [Primary Care Provider] - 1-2 days
[2023-09-11 22:52] VITALS: RESP 16
[2023-09-11 23:17] LABS: Basophils # (A) 0.1 k/uL (0-0.2); Basophils % (A) 1 %; Eosinophils # (A) 0.3 k/uL (0-0.7); Eosinophils % (A) 2 %; HCT 42.8 % (34.0-46.0); HGB 13.4 gm/dL (11.4-16.0); Lymphocytes # (A) 1.8 k/uL (1.0-4.8); Lymphocytes % (A) 14 %; MCH 31.4 pg (25.0-35.0); MCHC 31.4 g/dL (31.0-37.0); MCV 100.1 fL (80.0-100.0); Mean Platelet Volume 7.9; Monocytes # (A) 0.6 k/uL (0-1.0); Monocytes % (A) 4 %; Neutrophils # (A) 10.4 k/uL (1.3-7.7); Neutrophils % (A) 78 %; Platelet Count 280 k/uL (150-450); RBC 4.28 m/uL (3.80-5.40); RDW 12.9 % (11.5-15.5); WBC 13.2 k/uL (3.8-10.6)
[2023-09-11 23:33] LABS: ALT 9 U/L (4-34); AST 18 U/L (14-36); African American GFR (CKD) 74 (>60 ml/min/1.73 sqM); Albumin 3.7 g/dL (3.5-5.0); Alkaline Phosphatase 81 U/L (38-126); Anion Gap 7 mmol/L; Blood Urea Nitrogen 9 mg/dL (7-17); Calcium 9.3 mg/dL (8.4-10.2); Carbon Dioxide 25 mmol/L (22-30); Chloride 107 mmol/L (98-107); Glucose 101 mg/dL (74-99); INR 1.1 (<1.2); Magnesium 1.6 mg/dL (1.6-2.3); Non-African American GFR(CKD) 64 (>60 ml/min/1.73 sqM); Partial Thromboplastin Time 27.3 sec (22.0-30.0); Potassium 3.4 mmol/L (3.5-5.1); Prothrombin Time 11.8 sec (10.0-12.5); Sodium 139 mmol/L (137-145); Total Bilirubin 0.4 mg/dL (0.2-1.3); Total Protein 6.2 g/dL (6.3-8.2)
--- NOTE | 2023-09-12 00:04 | XR ---
EXAM: XR Chest, 2 Views CLINICAL HISTORY: ITS.REASON XR Reason: Chest Pain TECHNIQUE: Frontal and lateral views of the chest. COMPARISON: No relevant prior studies available. FINDINGS: Lungs: Flattening of the diaphragms. Emphysema. Hyperinflation. COPD. No consolidation. Pleural space: Unremarkable. No pneumothorax. Heart: Cardiomegaly. Mediastinum: Unremarkable. Normal mediastinal contour. Bones/joints: Unremarkable. No acute fracture. IMPRESSION: COPD. No pneumonia.
[2023-09-12 01:58] VITALS: BP 123/78; PULSE 76
== END 2023-09-12 01:29 | disposition home or self-care (01) ==
LOC: EC 20:35
DX: I45.10 Unspecified right bundle-branch block (principal); F17.200 Nicotine dependence, unspecified, uncomplicated; Z88.8 Allergy status to other drugs, medicaments and biological substances; Z88.5 Allergy status to narcotic agent
CPT/HCPCS: 36415; 71046; 80053; 83735; 84484; 85025; 85610; 85730; 93005; 99285

== ENCOUNTER → 2023-09-17 | Outpatient (CLI) | payer MEDICARE ==
--- NOTE | 2023-09-17 15:32 | NM ---
EXAMINATION TYPE: NM hepatobiliary w EF DATE OF EXAM: 09/17/2023 COMPARISON: NONE CLINICAL INDICATION: Female, 63 years old with history of R10.11 RUQ PAIN; TECHNIQUE: After the intravenous administration of 5.1 mCi Tc 99m Mebrofenin hepatobiliary scintigrap hy is performed. Immediate images post injection. FINDINGS: There is satisfactory initial accumulation of tracer by the liver. The gallbladder is visualized wit hin 18 minutes. The small bowel activity is noted within 14 minutes. At one hour 8 ounces of oral e nsure plus is given to mimic CCK and gallbladder ejection fraction is calculated at 91 %, elevated ab ove the expected range IMPRESSION: 1. No scintigraphic evidence for acute/chronic cholecystitis or biliary dyskinesia. 2. Elevated gallbladder ejection fraction which may be seen in the setting of gallbladder hyperkinesi s.
== END | disposition home or self-care (01) ==
LOC: RADNMMAIN 12:49
PROVIDERS: ATTEND Family Medicine
DX: R10.11 Right upper quadrant pain (principal)
CPT/HCPCS: 78226; A9537

== ENCOUNTER → 2023-12-03 | Outpatient (CLI) | payer MEDICARE ==
--- NOTE | 2024-01-04 12:04 | MM ---
Reason for Exam: Follow-up at short interval from prior study. Last screening mammogram was performed 6 month(s) ago. Patient History: Menarche at age 11. First Full-Term at age 17. Postmenopausal. Estrogen for 6 months. Hormonal Contraceptives, from age 14 until age 20. 04/14/2002, Benign Stereotactic Core Biopsy on the left side. Risk Values: Denisse 5 year model risk: 1.4%. NCI Lifetime model risk: 5.6%. Prior Study Comparison: 04/17/2022 Bilateral MG 3D screening mammo w/cad, [facility]. 05/26/2023 Bilateral MG 3D screening mammo w/cad, [facility]. 06/02/2023 Left MG 3D work up w/cad , [facility]. Tissue Density: Left: There are scattered areas of fibroglandular density. Findings: Analyzed By CAD. Microclip marker is present. No evidence for suspicious cluster of microcalcifications. No mass or distortion seen. Overall Assessment: Benign, BI-RAD 2 Management: Screening Mammogram of both breasts in 6 months. Results were given to the patient verbally at the time of exam. Patient should continue monthly self-breast exams. A clinical breast exam by your physician is recommended on an annual basis. This exam should not preclude additional follow-up of suspicious palpable abnormalities. Please note this dictation was completed during downtime. Note on Denisse scores and lifetime risk: 1. A Denisse score greater than 3% is considered moderate risk. If this is the case, consider specialist referral to assess eligibility for a risk reducing agent. 2. If overall lifetime risk for the development of breast cancer is 20% or higher, the patient may qualify for future screening with alternating mammogram and breast MRI. Electronically signed and approved by: Ike Tidwell M.D. Radiologis
== END | disposition home or self-care (01) ==
LOC: RADMAMWWP 10:33
PROVIDERS: ATTEND Family Medicine
DX: R92.323 Mammographic fibroglandular density, bilateral breasts (principal); R92.8 Other abnormal and inconclusive findings on diagnostic imaging of breast; Z78.0 Asymptomatic menopausal state
CPT/HCPCS: 77065; G0279; 77061

== ENCOUNTER 2024-02-28 15:04 | Inpatient (IN) | payer MEDICARE ==
[2024-02-28 15:34] LABS: Glucose,Whole Blood 118 mg/dL (70-110)
[2024-02-28] MEDS: NALOXONE 0.4 MG/ML 1 ML VIAL IVP STA (15:39)
[2024-02-28] MEDS: ONDANSETRON 4 MG/2 ML VIAL IVP STA ×2 (15:46→16:43)
--- NOTE | 2024-02-28 16:04 | ED ---
Altered Mental Status HPI - General Chief Complaint: Altered Mental Status Stated Complaint: Fall/Head/AMS Time Seen by Provider: 02/28/24 15:21 Source: patient Mode of arrival: ambulatory Limitations: no limitations - History of Present Illness Initial Comments: Patient is a 63 y/o female with PMH COPD, chronic pain on morphine 15 mg TID here for AMS. Hx provided by patient's . States patient was last seen normal at 11PM last night. He woke up to their son knocking on the bathroom door at 8 AM this morning where patient was using the bathroom. They heard a thud. Patient's used a screwdriver to get into the bathroom and found patient shakily standing at the bathroom sink. Patient appeared confused and patient's asked if she hit her head, and she said that she did. He palpated her scalpe and was unable to find any signs of injury. Patient was too weak to walk back to the couch so the patient has not carried her to the couch. Patient fell asleep and throughout the day today has been sleeping intermittently. She has h ad intermittent slurred speech. Patient's told the patient that he was taken her to the emergency department and she sat up and stated "No Hospital!", however due to patient's persistent confusion pt's brought her in. Denies patient having history prior CVA or heart attacks. States she does not take blood thinners. Patient did initially state to triage tech that she took 3 tablets of her home morphine this morning however then denied taking morphine today to me. Patient oriented to self only not time or place. Unable to provide further history. Of note, states patient has had one similar episode to this where she had a medication changed that caused confusion however states confusion was not this bad. No recent medication changes. - Related Data Home Medications Medication Instructions Recorded Confirmed Aspirin [Adult Low Dose Aspirin EC] 81 mg PO DAILY 09/15/19 02/28/24 Gabapentin [Neurontin] 100 mg PO TID 09/15/19 02/28/24 Levothyroxine Sodium [Synthroid] 25 mcg PO DAILY 09/15/19 02/28/24 Topiramate [Topamax] 100 mg PO BID 09/15/19 02/28/24 busPIRone HCL 10 mg PO QID 09/15/19 02/28/24 cilostazoL [Pletal] 100 mg PO BID 09/15/19 02/28/24 Furosemide [Lasix] 20 mg PO DAILY 12/12/21 02/28/24 Morphine Sulfate 15 mg PO TID PRN 12/12/21 02/28/24 Atorvastatin Calcium [Lipitor] 80 mg PO W/SUPPER 10/30/22 02/28/24 Cholecalciferol (Vitamin D3) 1,250 mcg PO Q7D 10/30/22 02/28/24 [Vitamin D3 (1250 Mcg = 50,000 Iu)] Donepezil [Aricept] 5 mg PO DAILY 10/30/22 02/28/24 Montelukast [Singulair] 10 mg PO HS 10/30/22 02/28/24 Potassium Chloride [Klor-Con M20] 20 meq PO DAILY 10/30/22 02/28/24 Umeclidinium Brm/Vilanterol Tr 1 puff INHALATION RT-DAILY 10/30/22 02/28/24 [Anoro Ellipta 62.5-25 Mcg INH] Cetirizine HCl 10 mg PO DAILY 12/22/22 02/28/24 Albuterol Nebulized [Ventolin 2.5 mg INHALATION RT-TID 02/28/24 02/28/24 Nebulized] Alendronate Sodium [Fosamax] 70 mg PO Q7D 02/28/24 02/28/24 Cholestyramine (with Sugar) 4 gm PO Q12H PRN 02/28/24 02/28/24 [Cholestyramine Packet] Diclofenac Potassium [Cataflam] 50 mg PO DAILY 02/28/24 02/28/24 Promethazine HCl 12.5 mg PO BID PRN 02/28/24 02/28/24 QUEtiapine [SEROquel] 50 mg PO HS 02/28/24 02/28/24 Venlafaxine HCl [Effexor XR] 150 mg PO DAILY 02/28/24 02/28/24 hydrOXYzine pamoate [Vistaril] 25 mg PO QID 02/28/24 02/28/24 Allergies Allergy/AdvReac Type Severity Reaction Status Date / Time bacitracin Allergy Rash/Hives Verified 02/28/24 16:29 [From Neosporin ([id number])] meperidine [From Demerol] Allergy Rash/Hives Verified 02/28/24 16:29 neomycin Allergy Rash/Hives Verified 02/28/24 16:29 [From Neosporin ([id number])] polymyxin B Allergy Rash/Hives Verified 02/28/24 16:29 [From Neosporin ([id number])] Review of Systems ROS Statement: Those systems with pertinent positive or pertinent negative responses have been documented in the HPI. Limitations: ROS unobtainable due to patients medical condition Past Medical History Past Medical History: Deep Vein Thrombosis (DVT), Hyperlipidemia, Hypertension, Pneumonia Additional Past Medical History / Comment(s): chronic back pain, clotting disorder History of Any Multi-Drug Resistant Organisms: None Reported Past Surgical History: Tubal Ligation Additional Past Surgical History / Comment(s): Partial Hysterectomy Past Anesthesia/Blood Transfusion Reactions: No Reported Reaction Past Psychological History: Anxiety, Depression Smoking Status: Current every day smoker Past Alcohol Use History: None Reported Past Drug Use History: None Reported - Past Family History Mother Family Medical History: No Reported History General Exam - General Exam Comments Initial Comments: PE: CONSTITUTIONAL:In mild distress, ill appearing, somnolent, responsive to sternal rub SKIN: Warm, dry, no jaundice, hives or petechiae EYES: Pupils are equally round, pinpoint, No nystagmus, clear conjunctiva, non- icteric sclera HENT: Normocephalic, atraumatic, moist mucus membranes, oropharynx clear without exudates NECK: , Full range of motion, normal appearance PULMONARY: Clear to auscultation without wheezes, rhonchi, or rales, normal excursion, no accessory muscle use and no stridor CARDIOVASCULAR: Regular rate, rhythm, normal S1 and S2. No appreciated murmurs, rubs or gallops. Strong radial pulses with intact distal perfusion. No lower extremity edema GASTROINTESTINAL: Soft, active bowel sounds throughout, non-tender, non- distended, no palpable masses, no rebound or guarding. No hepatosplenomegaly MUSCULOSKELETAL: Extremities have no gross deformity, no edema, redness, or swelling. No calf swelling NEUROLOGIC:_a/o x 1, GCS 11, opens eyes to pain, confused verbal response, localized to pain, confused mentation, somnolent, slurred speech, no facial droop, does not follow commands, unable to assess strength/sensation due to patient's AMS PSYCHIATRIC: Unable to assess Limitations: no limitations Course Vital Signs 02/28/24 02/28/24 02/28/24 15:06 15:39 16:45 Temperature 98.4 F Pulse Rate 78 75 Pulse Rate [ Process Analyst ] Respiratory 16 12 15 Rate Blood Pressure 136/78 101/35 Blood Pressure [Left Arm] O2 Sat by Pulse 89 L 100 Oximetry Fraction of Inspired Oxygen (FIO2) 02/28/24 02/28/24 02/28/24 16:50 16:54 17:15 Temperature Pulse Rate 81 84 Pulse Rate [ Process Analyst ] Respiratory 14 Rate Blood Pressure 91/42 105/52 Blood Pressure [Left Arm] O2 Sat by Pulse 100 100 Oximetry Fraction of 100 Inspired Oxygen (FIO2) 02/28/24 02/28/24 02/28/24 17:20 17:24 17:25 Temperature Pulse Rate 78 112 H 102 H Pulse Rate [ Process Analyst ] Respiratory 16 18 Rate Blood Pressure 92/53 100/49 123/67 Blood Pressure [Left Arm] O2 Sat by Pulse 100 100 100 Oximetry Fraction of 100 Inspired Oxygen (FIO2) 02/28/24 02/28/24 02/28/24 17:30 17:40 17:50 Temperature Pulse Rate 99 91 80 Pulse Rate [ Process Analyst ] Respiratory Rate Blood Pressure 123/67 155/82 146/75 Blood Pressure [Left Arm] O2 Sat by Pulse 100 100 100 Oximetry Fraction of Inspired Oxygen (FIO2) 02/28/24 02/28/24 02/28/24 18:00 18:10 18:20 Temperature Pulse Rate 75 89 73 Pulse Rate [ Process Analyst ] Respiratory Rate Blood Pressure 145/66 149/68 141/70 Blood Pressure [Left Arm] O2 Sat by Pulse 100 100 100 Oximetry Fraction of Inspired Oxygen (FIO2) 02/28/24 02/28/24 02/28/24 18:27 18:30 18:33 Temperature 99.9 F H Pulse Rate 74 Pulse Rate [ 80 Process Analyst ] Respiratory 20 Rate Blood Pressure 130/75 Blood Pressure 144/66 [Left Arm] O2 Sat by Pulse 100 100 Oximetry Fraction of 50 50 Inspired Oxygen (FIO2) 02/28/24 18:40 Temperature Pulse Rate Pulse Rate [ Process Analyst ] Respiratory Rate Blood Pressure 145/66 Blood Pressure [Left Arm] O2 Sat by Pulse 99 Oximetry Fraction of Inspired Oxygen (FIO2) Procedures - Intubation Sedative: Etomidate Paralytic: Rocuronium Laryngoscope: Danis Size: 3 ET Tube Size: 7.5 ET Tube Uncuffed: No Tube Secured Depth (cm): 23 Tube Secured Location: lips Tube Placement Confirmation: visualized tube passing through cords, equal breath sounds bilaterally, no breath sounds over epigastrium, confirmation by capnometry Patient Tolerated Procedure: well Intubation Complications: none Medical Decision Making - Medical Decision Making Was pt. sent in by a medical professional or institution (, PA, SHOE SINGER, urgent care, hospital, or custodial...) When possible be specific @ -No Did you speak to anyone other than the patient for history (EMS, parent, family, police, friend...)? What history was obtained from this source @ Spoke with patient's who assisted in providing hx Did you review nursing and triage notes (agree or disagree)? Why? @ Reviewed nursing and triage notes, states that patient said "they said I fell" patient denied falling to them, could barely stay awake and triage note injury from fall, denied drug or alcohol use stating she just used "her normal pills" and has morphine at home Were old charts reviewed (outside hosp., previous admission, EMS record, old EKG, old radiological studies, urgent care reports/EKG's, custodial records)? Report findings @ -Medical records reviewed Differential Diagnosis (chest pain, altered mental status, abdominal pain women, abdominal pain men, vaginal bleeding, weakness, fever, dyspnea, syncope, headache, dizziness, GI bleed, back pain, seizure, CVA, palpatations, mental health, musculoskeletal)? Differential diagnose remains broad over top considerations include hypoglycemia, hypercapnia, EtOH, overdose, DKA, CVA, trauma, myxedema coma, infection, psychosis, hepatic encephalopathy this is not meant to be an all-i nclusive list EKG interpreted by me (3pts min.). @Sinus rhythm, rate 76 bpm, MO interval 141 ms, QRS duration 101 ms, QT/QTc 404/434 ms, normal axis, no ST elevations or depressions, no arrhythmia X-rays interpreted by me (1pt min.). @ -Chest x-ray shows no cardiomegaly or consolidations, no pneumothorax, ET tube appears appropriately placed with tip of ET tube 4 cm above the maciej CT interpreted by me (1pt min.). @I see no evidence of hemorrhage on CT brain, no large vessel occlusion on CTA U/S interpreted by me (1pt. min.). @ -None done What testing was considered but not performed or refused? (CT, X-rays, U/S, labs)? Why? @ -None What meds were considered but not given or refused? Why? @ -Considered fentanyl infusion for sedation however patient just given Narcan so this unlikely to be effective Did you discuss the management of the patient with other professionals (professionals i.e. DrMelany, PA, SHOE SINGER, lab, RT, psych nurse, dialysis social worker, novelty twister operator, teacher, desk officer, director case)? Give summary @Patient discussed with critical care, Dr. Zuluaga, recs sedation on propofol, will consult for ICU care. Discussed case with Dr. Andrea, neurointerventionalist supervisor [employer] for stroke alert, rec'd CT/CTA. LKN 11:00 PM last night so not tNK candidate. Will follow with CTA. Did receive call back from Dr. Andrea, states possible distal small vessel occlusion on CTA, however unclear 2/2 patient positioning, rec's brilinta 90 mg, ASA 325 mg today, 81 daily after, lipitor. Was smoking cessation discussed for >3mins.? @ -No Was critical care preformed (if so, how long)? @ Yes 75 minutes Were there social determinants of health that impacted care today? How? (Homelessness, low income, unemployed, alcoholism, drug addiction, transportation, low edu. Level, literacy, decrease access to med. care, custodial, rehab)? @ -No Was there de-escalation of care discussed even if they declined (Discuss DNR or withdrawal of care, Hospice)? @ -No What co-morbidities impacted this encounter? (DM, HTN, Smoking, COPD, CAD, Cancer, CVA, ARF, Chemo, Hep., AIDS, mental health diagnosis, sleep apnea, morb id obesity)? @ -COPD, chronic pain Was patient admitted / discharged? Hospital course, mention meds given and route, prescriptions, significant lab abnormalities, going to OR and other pertinent info. @ -Hospital course admission to ICU- Patient is a 63-year-old female history of COPD, chronic pain on oral morphine presenting today for altered mental status. Last known normal 11:00 PM last nig ht. Patient states that he woke up to their son banging on the door of the bathroom where the patient was using the toilet. They then heard a noise and used a screwdriver to open the bathroom door. Patient was standing at the bathroom sink shakily. She did states she hit her head. Her palpated her scalp and did not find any signs of trauma. He carried her to the couch because she was too weak to walk and she went to sleep. Throughout the day today she has had intermittent slurred speech and persistent confusion. He told her she was taking him he was taking her to the hospital and she got set up and said " no hospital". She continued to be confused therefor patient's brought her to the ED. On my assessment patient is somnolent, pinpoint pupils, awakens to sternal rub. No signs of head trauma. GCS 11. BG 118. Patient not following commands. Differential diagnosis remained broad however top considerations included accident opioid overdose vs hypercaneic encephalopathy. Out of concern for morphine overdose, 0.4 of Narcan was given. Patient did become more alert but began having episodes of emesis, diarrhea, sneezing and yawning consistent with opiate withdrawal, however remained altered AO x1, and began becoming agitated. She was noted to be leaning off to the left side of the bed and was able to lean forward to bring her emesis basis towards her. Zofran given. She began crying and stating "I did something wrong didn't I". She continued to remain altered. She had no facial droop and she was able to intermittently follow commands, moves all 4 extremities though left upper extremity was held in extension, though not rigid, no seizure like activity noted. With episodes of emesis and leaning to side of bed and AMS, there was concern for possible intracranial hemorrhage vs CVA so stroke alert was called. Patient taken to CT, required Ativan to tolerate CT due to agitation. Patient given 1 mg, CT brain was able to be obtained but not CTA. Additional 1 mg Ativan was given. ABG was obtained and showed pH 7.185, CO2 61.9. On my reassessment patient again became somnolent, I did consider re-adminsitering additional narcan however given patient's initial response to narcan with agitation and emesis and elevated CO2 with likely need for biPAP, I did not think additional narcan would be beneficial at this point. I am concerned that she would not be able to tolerate BiPAP with current mental status/ somnolence and hypercarbia present contributing to her presentation. I discussed with patient's plan for intubation. He is agreeable plan. Discussed case with Dr. Andrea, who reviewed patient's CTA he states that there is potentially a distal occlusion on CTA however due to patient's positioning it is unclear. Recommends 90mg of Brilinta twice daily, full dose aspirin today and then 81 mg daily as well as Lipitor. Patient intubated without complication. I reviewed chest x-ray ET tube appears appropriate position. Patient did briefly require Levophed prior to intubation due to MAP between 60 and 65 despite 2 L IV fluid. Patient on 0.02 Levophed postintubation. Labs reviewed, Tylenol level and blood alcohol level less than 10, CBC shows mild leukocytosis white blood cell 11.8, remaining grossly within normal limits. Abnormal values not concerning for acute pathology related to presenting complaint. Alerted by RN the MAP is 101 with 0.01 Levophed running. Will turn off Levophed. Patient has [address] in bilateral antecubital fossas. Patient currently sedated on propofol. Plan for admission to ICU. Discussed with Dr. Zuluaga who kindly accept patient for admission. Discussed case with Dr. Man, hospitalist, who kindly accepted patient for admission. Neurology consult placed. Patient admitted in stable but guarded condition. Of note CTA ultimately would read as no large vessel intracranial arterial occlusion, significant stenosis or aneurysmal changes. CT brain showed no acute bleeds or mass effect. Undiagnosed new problem with uncertain prognosis? @ -Yes Drug Therapy requiring intensive monitoring for toxicity (Heparin, Nitro, Insulin, Cardizem)? @ -No Were any procedures done? @ -Intubation Diagnosis/symptom? @ -Acute encephalopathy, hypercapnic encephalopathy, CVA Acute, or Chronic, or Acute on Chronic? @ -Acute Uncomplicated (without systemic symptoms) or Complicated (systemic symptoms)? @ Complicated Side effects of treatment? @ -No Exacerbation, Progression, or Severe Exacerbation? @ -No Poses a threat to life or bodily function? How? (Chest pain, [place], VA, pneumonia, PE, COPD, DKA, ARF, appy, cholecystitis, CVA, Diverticulitis, Homicidal, Kay icidal, threat to staff... and all critical care pts) @ -Yes - Lab Data Result diagrams: 02/28/24 15:58 02/28/24 15:58 Lab Results 02/28/24 02/28/24 02/28/24 Range/Units 15:32 15:58 15:58 WBC 11.8 H (3.8-10.6) k/uL RBC 4.45 (3.80-5.40) m/uL Hgb 14.1 (11.4-16.0) gm/dL Hct 44.6 (34.0-46.0) % MCV 100.2 H (80.0-100.0) fL MCH 31.8 (25.0-35.0) pg MCHC 31.7 (31.0-37.0) g/dL RDW 12.5 (11.5-15.5) % Plt Count 256 (150-450) k/uL MPV 7.4 Neutrophils % 83 % Lymphocytes % 11 % Monocytes % 4 % Eosinophils % 0 % Basophils % 0 % Neutrophils # 9.7 H (1.3-7.7) k/uL Lymphocytes # 1.3 (1.0-4.8) k/uL Monocytes # 0.5 (0-1.0) k/uL Eosinophils # 0.0 (0-0.7) k/uL Basophils # 0.0 (0-0.2) k/uL Hypochromasia Moderate PT 11.2 (10.0-12.5) sec INR 1.0 (<1.2) APTT 25.6 (22.0-30.0) sec Sample Site ABG pH (7.35-7.45) ABG pCO2 (35-45) mmHg ABG pO2 (83-108) mmHg ABG HCO3 (21-25) mmol/L ABG Total CO2 (19-24) mmol/L ABG O2 Saturation (94-97) % ABG Base Excess mmol/L Saúl Test Hemoglobin (11.4-16.0) gm/dL FiO2 % Sodium (137-145) mmol/L Potassium (3.5-5.1) mmol/L Chloride (98-107) mmol/L Carbon Dioxide (22-30) mmol/L Anion Gap mmol/L BUN (7-17) mg/dL Creatinine (0.52-1.04) mg/dL Est GFR (CKD-EPI)AfAm (>60 ml/min/1.73 sqM) Est GFR (CKD-EPI)NonAf (>60 ml/min/1.73 sqM) Glucose (74-99) mg/dL POC Glucose (mg/dL) 118 H (70-110) mg/dL POC Glu Animal Science Instructor ID Radha Price Calcium (8.4-10.2) mg/dL Total Bilirubin (0.2-1.3) mg/dL AST (14-36) U/L ALT (4-34) U/L Alkaline Phosphatase (38-126) U/L Ammonia (<30) umol/L Troponin I (0.000-0.034) ng/mL Total Protein (6.3-8.2) g/dL Albumin (3.5-5.0) g/dL Urine Color Urine Appearance (Clear) Urine pH (5.0-8.0) Ur Specific [place] (1.001-1.035) Urine Protein (Negative) Urine Glucose (UA) (Negative) Urine Ketones (Negative) Urine Blood (Negative) Urine Nitrite (Negative) Urine Bilirubin (Negative) Urine Urobilinogen (<2.0) mg/dL Ur Leukocyte Esterase (Negative) Urine Opiates Screen (NotDetected) Ur Oxycodone Screen (NotDetected) Urine Methadone Screen (NotDetected) Acetaminophen ug/mL Ur Barbiturates Screen (NotDetected) U Tricyclic Antidepress (NotDetected) Ur Phencyclidine Scrn (NotDetected) Ur Amphetamines Screen (NotDetected) U Methamphetamines Scrn (NotDetected) U Benzodiazepines Scrn (NotDetected) Urine Cocaine Screen (NotDetected) U Marijuana (THC) Screen (NotDetected) Serum Alcohol mg/dL 02/28/24 02/28/24 02/28/24 Range/Units 15:58 15:58 16:30 WBC (3.8-10.6) k/uL RBC (3.80-5.40) m/uL Hgb (11.4-16.0) gm/dL Hct (34.0-46.0) % MCV (80.0-100.0) fL MCH (25.0-35.0) pg MCHC (31.0-37.0) g/dL RDW (11.5-15.5) % Plt Count (150-450) k/uL MPV Neutrophils % % Lymphocytes % % Monocytes % % Eosinophils % % Basophils % % Neutrophils # (1.3-7.7) k/uL Lymphocytes # (1.0-4.8) k/uL Monocytes # (0-1.0) k/uL Eosinophils # (0-0.7) k/uL Basophils # (0-0.2) k/uL Hypochromasia PT (10.0-12.5) sec INR (<1.2) APTT (22.0-30.0) sec Sample Site ABG pH (7.35-7.45) ABG pCO2 (35-45) mmHg ABG pO2 (83-108) mmHg ABG HCO3 (21-25) mmol/L ABG Total CO2 (19-24) mmol/L ABG O2 Saturation (94-97) % ABG Base Excess mmol/L Saúl Test Hemoglobin (11.4-16.0) gm/dL FiO2 % Sodium 141 (137-145) mmol/L Potassium 4.5 (3.5-5.1) mmol/L Chloride 110 H (98-107) mmol/L Carbon Dioxide 21 L (22-30) mmol/L Anion Gap 10 mmol/L BUN 27 H (7-17) mg/dL Creatinine 2.49 H (0.52-1.04) mg/dL Est GFR (CKD-EPI)AfAm 23 (>60 ml/min/1.73 sqM) Est GFR (CKD-EPI)NonAf 20 (>60 ml/min/1.73 sqM) Glucose 111 H (74-99) mg/dL POC Glucose (mg/dL) (70-110) mg/dL POC Glu Animal Science Instructor ID Calcium 9.8 (8.4-10.2) mg/dL Total Bilirubin 0.4 (0.2-1.3) mg/dL AST 32 (14-36) U/L ALT 15 (4-34) U/L Alkaline Phosphatase 97 (38-126) U/L Ammonia <9 (<30) umol/L Troponin I <0.012 (0.000-0.034) ng/mL Total Protein 6.5 (6.3-8.2) g/dL Albumin 3.9 (3.5-5.0) g/dL Urine Color Urine Appearance (Clear) Urine pH (5.0-8.0) Ur Specific [place] (1.001-1.035) Urine Protein (Negative) Urine Glucose (UA) (Negative) Urine Ketones (Negative) Urine Blood (Negative) Urine Nitrite (Negative) Urine Bilirubin (Negative) Urine Urobilinogen (<2.0) mg/dL Ur Leukocyte Esterase (Negative) Urine Opiates Screen (NotDetected) Ur Oxycodone Screen (NotDetected) Urine Methadone Screen (NotDetected) Acetaminophen <10.0 ug/mL Ur Barbiturates Screen (NotDetected) U Tricyclic Antidepress (NotDetected) Ur Phencyclidine Scrn (NotDetected) Ur Amphetamines Screen (NotDetected) U Methamphetamines Scrn (NotDetected) U Benzodiazepines Scrn (NotDetected) Urine Cocaine Screen (NotDetected) U Marijuana (THC) Screen (NotDetected) Serum Alcohol <10 mg/dL 02/28/24 02/28/24 02/28/24 Range/Units 16:33 17:44 17:44 WBC (3.8-10.6) k/uL RBC (3.80-5.40) m/uL Hgb (11.4-16.0) gm/dL Hct (34.0-46.0) % MCV (80.0-100.0) fL MCH (25.0-35.0) pg MCHC (31.0-37.0) g/dL RDW (11.5-15.5) % Plt Count (150-450) k/uL MPV Neutrophils % % Lymphocytes % % Monocytes % % Eosinophils % % Basophils % % Neutrophils # (1.3-7.7) k/uL Lymphocytes # (1.0-4.8) k/uL Monocytes # (0-1.0) k/uL Eosinophils # (0-0.7) k/uL Basophils # (0-0.2) k/uL Hypochromasia PT (10.0-12.5) sec INR (<1.2) APTT (22.0-30.0) sec Sample Site RBRACH ABG pH 7.19 L* (7.35-7.45) ABG pCO2 62 H (35-45) mmHg ABG pO2 124 H (83-108) mmHg ABG HCO3 23 (21-25) mmol/L ABG Total CO2 25 H (19-24) mmol/L ABG O2 Saturation 98.5 H (94-97) % ABG Base Excess -5.6 mmol/L Saúl Test Yes Hemoglobin 11.7 (11.4-16.0) gm/dL FiO2 44 % Sodium (137-145) mmol/L Potassium (3.5-5.1) mmol/L Chloride (98-107) mmol/L Carbon Dioxide (22-30) mmol/L Anion Gap mmol/L BUN (7-17) mg/dL Creatinine (0.52-1.04) mg/dL Est GFR (CKD-EPI)AfAm (>60 ml/min/1.73 sqM) Est GFR (CKD-EPI)NonAf (>60 ml/min/1.73 sqM) Glucose (74-99) mg/dL POC Glucose (mg/dL) (70-110) mg/dL POC Glu Animal Science Instructor ID Calcium (8.4-10.2) mg/dL Total Bilirubin (0.2-1.3) mg/dL AST (14-36) U/L ALT (4-34) U/L Alkaline Phosphatase (38-126) U/L Ammonia (<30) umol/L Troponin I (0.000-0.034) ng/mL Total Protein (6.3-8.2) g/dL Albumin (3.5-5.0) g/dL Urine Color Colorless Urine Appearance Clear (Clear) Urine pH 5.5 (5.0-8.0) Ur Specific [place] 1.021 (1.001-1.035) Urine Protein Negative (Negative) Urine Glucose (UA) Negative (Negative) Urine Ketones Negative (Negative) Urine Blood Negative (Negative) Urine Nitrite Negative (Negative) Urine Bilirubin Negative (Negative) Urine Urobilinogen <2.0 (<2.0) mg/dL Ur Leukocyte Esterase Negative (Negative) Urine Opiates Screen Detected H (NotDetected) Ur Oxycodone Screen Not Detected (NotDetected) Urine Methadone Screen Not Detected (NotDetected) Acetaminophen ug/mL Ur Barbiturates Screen Not Detected (NotDetected) U Tricyclic Antidepress Not Detected (NotDetected) Ur Phencyclidine Scrn Not Detected (NotDetected) Ur Amphetamines Screen Not Detected (NotDetected) U Methamphetamines Scrn Not Detected (NotDetected) U Benzodiazepines Scrn Not Detected (NotDetected) Urine Cocaine Screen Not Detected (NotDetected) U Marijuana (THC) Screen Not Detected (NotDetected) Serum Alcohol mg/dL 02/28/24 Range/Units 18:14 WBC (3.8-10.6) k/uL RBC (3.80-5.40) m/uL Hgb (11.4-16.0) gm/dL Hct (34.0-46.0) % MCV (80.0-100.0) fL MCH (25.0-35.0) pg MCHC (31.0-37.0) g/dL RDW (11.5-15.5) % Plt Count (150-450) k/uL MPV Neutrophils % % Lymphocytes % % Monocytes % % Eosinophils % % Basophils % % Neutrophils # (1.3-7.7) k/uL Lymphocytes # (1.0-4.8) k/uL Monocytes # (0-1.0) k/uL Eosinophils # (0-0.7) k/uL Basophils # (0-0.2) k/uL Hypochromasia PT (10.0-12.5) sec INR (<1.2) APTT (22.0-30.0) sec Sample Site RBRACH ABG pH 7.18 L* (7.35-7.45) ABG pCO2 52 H (35-45) mmHg ABG pO2 >420 H (83-108) mmHg ABG HCO3 19 L (21-25) mmol/L ABG Total CO2 21 (19-24) mmol/L ABG O2 Saturation 99.9 H (94-97) % ABG Base Excess -9.2 mmol/L Saúl Test Yes Hemoglobin 13.0 (11.4-16.0) gm/dL FiO2 100 % Sodium (137-145) mmol/L Potassium (3.5-5.1) mmol/L Chloride (98-107) mmol/L Carbon Dioxide (22-30) mmol/L Anion Gap mmol/L BUN (7-17) mg/dL Creatinine (0.52-1.04) mg/dL Est GFR (CKD-EPI)AfAm (>60 ml/min/1.73 sqM) Est GFR (CKD-EPI)NonAf (>60 ml/min/1.73 sqM) Glucose (74-99) mg/dL POC Glucose (mg/dL) (70-110) mg/dL POC Glu Animal Science Instructor ID Calcium (8.4-10.2) mg/dL Total Bilirubin (0.2-1.3) mg/dL AST (14-36) U/L ALT (4-34) U/L Alkaline Phosphatase (38-126) U/L Ammonia (<30) umol/L Troponin I (0.000-0.034) ng/mL Total Protein (6.3-8.2) g/dL Albumin (3.5-5.0) g/dL Urine Color Urine Appearance (Clear) Urine pH (5.0-8.0) Ur Specific [place] (1.001-1.035) Urine Protein (Negative) Urine Glucose (UA) (Negative) Urine Ketones (Negative) Urine Blood (Negative) Urine Nitrite (Negative) Urine Bilirubin (Negative) Urine Urobilinogen (<2.0) mg/dL Ur Leukocyte Esterase (Negative) Urine Opiates Screen (NotDetected) Ur Oxycodone Screen (NotDetected) Urine Methadone Screen (NotDetected) Acetaminophen ug/mL Ur Barbiturates Screen (NotDetected) U Tricyclic Antidepress (NotDetected) Ur Phencyclidine Scrn (NotDetected) Ur Amphetamines Screen (NotDetected) U Methamphetamines Scrn (NotDetected) U Benzodiazepines Scrn (NotDetected) Urine Cocaine Screen (NotDetected) U Marijuana (THC) Screen (NotDetected) Serum Alcohol mg/dL Disposition Clinical Impression: Acute encephalopathy, Hypercarbia Disposition: ADMITTED IP TO THIS [facility] Condition: Stable
[2024-02-28 16:07] LABS: Basophils % (A) 0 %; Eosinophils % (A) 0 %; HCT 44.6 % (34.0-46.0); HGB 14.1 gm/dL (11.4-16.0); Hypochromasia Moderate; Lymphocytes # (A) 1.3 k/uL (1.0-4.8); Lymphocytes % (A) 11 %; MCH 31.8 pg (25.0-35.0); MCHC 31.7 g/dL (31.0-37.0); MCV 100.2 fL (80.0-100.0); Mean Platelet Volume 7.4; Monocytes # (A) 0.5 k/uL (0-1.0); Monocytes % (A) 4 %; Neutrophils # (A) 9.7 k/uL (1.3-7.7); Neutrophils % (A) 83 %; Platelet Count 256 k/uL (150-450); RBC 4.45 m/uL (3.80-5.40); RDW 12.5 % (11.5-15.5); WBC 11.8 k/uL (3.8-10.6)
[2024-02-28 16:17] LABS: Partial Thromboplastin Time 25.6 sec (22.0-30.0); Prothrombin Time 11.2 sec (10.0-12.5)
[2024-02-28 16:23] LABS: ALT 15 U/L (4-34); AST 32 U/L (14-36); African American GFR (CKD) 23 (>60 ml/min/1.73 sqM); Albumin 3.9 g/dL (3.5-5.0); Alkaline Phosphatase 97 U/L (38-126); Anion Gap 10 mmol/L; Blood Urea Nitrogen 27 mg/dL (7-17); Calcium 9.8 mg/dL (8.4-10.2); Carbon Dioxide 21 mmol/L (22-30); Chloride 110 mmol/L (98-107); Glucose 111 mg/dL (74-99); Non-African American GFR(CKD) 20 (>60 ml/min/1.73 sqM); Potassium 4.5 mmol/L (3.5-5.1); Sodium 141 mmol/L (137-145); Total Bilirubin 0.4 mg/dL (0.2-1.3); Total Protein 6.5 g/dL (6.3-8.2)
[2024-02-28] MEDS: LORazepam 2 MG/ML INJ IV STA ×3 (16:35→16:41)
[2024-02-28 16:37] LABS: ABG Base Excess -5.6 mmol/L; ABG HCO3 23 mmol/L (21-25); ABG Oxygen Saturation 98.5 % (94-97); ABG PCO2 62 mmHg (35-45); ABG PO2 124 mmHg (83-108); ABG TCO2 25 mmol/L (19-24); Allen Test Performed? Yes
[2024-02-28] MEDS: SODIUM CHLORIDE 0.9% 1,000 ML IV STA (16:37)
--- NOTE | 2024-02-28 16:38 | CT ---
EXAMINATION TYPE: CT brain wo con DATE OF EXAM: 02/28/2024 COMPARISON: 12/25/2022 HISTORY: AMS code stroke CT DLP: 1100.6 mGycm Automated exposure control for dose reduction was used. Findings: The ventricles, basal cisterns and sulci over convexities are within normal limits and there is no ma ss effect or shift of the midline structures. No abnormal density is seen throughout the brain parenc hyma. There is no mass effect or shift of midline structures. There is no acute intra or extra-axial hemorrhage. The posterior fossa including the brainstem, fourth ventricle and cerebellopontine angles appear nichol sly normal. The intraorbital contents appear normal symmetric Visualized paranasal sinuses and mastoid air cells are well aerated. Calvarium is intact. IMPRESSION: No acute bleed or mass effect. No significant abnormality [facility], , 02/28/2024 4:36 PM
[2024-02-28 16:43] LABS: ABG PH 7.19 (7.35-7.45)
[2024-02-28 16:59] LABS: Acetaminophen <10.0 ug/mL; Alcohol <10 mg/dL
[2024-02-28] MEDS: NOREPINEPHRINE 8 MG in SODIUM CHLORIDE 0.9% 250 ML IV SCH (17:19)
[2024-02-28] MEDS: ROCURONIUM 10 MG/ML (5 ML VIAL) IV STA (17:20)
[2024-02-28] MEDS: ETOMIDATE 2 MG/ML 10 ML VIAL IVP STA (17:21)
[2024-02-28] MEDS: SODIUM CHLORIDE 0.9% 2,000 ML IV ONE (17:21)
--- NOTE | 2024-02-28 17:54 | CT ---
EXAMINATION TYPE: CT angio head neck DATE OF EXAM: 02/28/2024 COMPARISON: CT brain same day HISTORY: 63-year-old female logic deficit, acute, stroke suspected cva TECHNIQUE: Contiguous axial scanning of the head and neck performed with IV Contrast, patient injecte d with 65 mL of Isovue 370. Coronal/sagittal reconstructions performed. 3-D reconstructions generated on a dedicated workstation. CT DLP: 308.1 mGycm Automated exposure control for dose reduction was used. FINDINGS: Neck: Biapical pleural-parenchymal scarring with minimal emphysematous change. Bovine configuration to the aortic arch. Vertebral arteries are codominant and patent throughout the course. The bilateral common and bilateral internal carotid arteries are widely patent without significant ac tive sclerotic narrowing. NASCET criteria was utilized. Head: The vertebral and basilar arteries are patent. There is persistent origin left posterior cerebr al artery. Otherwise, posterior circulation remains patent. Dural venous sinuses are patent. The bilateral internal carotid arteries and remainder of the anterior circulation is patent. IMPRESSION: 1. NECK: WIDELY PATENT VERTEBRAL AND CAROTID ARTERIES OF THE NECK. 2. HEAD: ANATOMIC VARIATION WITH PERSISTENT ORIGIN LEFT DRILLER'S OFFSIDER. NO LARGE VESSEL INTRACRANIAL ARTER IAL OCCLUSION, SIGNIFICANT STENOSIS, OR ANEURYSMAL CHANGE IS SEEN. [facility], , 02/28/2024 5:52 PM
[2024-02-28 18:00] LABS: Appearance,Urine Clear (Clear); Bilirubin,Urine Negative (Negative); Blood,Urine Negative (Negative); Color,Urine Colorless; Glucose,Urine (UA) Negative (Negative); Ketones,Urine Negative (Negative); Leukocyte Esterase,Urine Negative (Negative); Nitrite,Urine Negative (Negative); PH, Urine 5.5 (5.0-8.0); Protein,Urine Negative (Negative); Specific Gravity,Urine 1.021 (1.001-1.035); Urobilinogen,Urine <2.0 mg/dL (<2.0)
[2024-02-28 18:09] LABS: Amphetamine Screen,Urine Not Detected (NotDetected); Barbiturate Screen,Urine Not Detected (NotDetected); Benzodiazepines Screen,Urine Not Detected (NotDetected); Cocaine Screen,Urine Not Detected (NotDetected); Methadone Screen, Urine Not Detected (NotDetected); Opiate Screen,Urine Detected (NotDetected); Oxycodone Screen, Urine Not Detected (NotDetected); Phencyclidine Screen,Urine Not Detected (NotDetected); Tricyclic Antidepressant,Urine Not Detected (NotDetected); Urn Cannabinoid Scrn Not Detected (NotDetected)
[2024-02-28] MEDS ORDERED: ARTIFICIAL TEARS OINTMENT 3.5 GM TUBE BOTH EYES PRN (18:14)
[2024-02-28] MEDS ORDERED: Phosphorus Replacement Protoco 1 EACH MISC MISCELLANE PRN (18:14)
[2024-02-28] MEDS ORDERED: NALOXONE 0.4 MG/ML 1 ML VIAL IV PRN (18:14)
[2024-02-28] MEDS ORDERED: Magnesium Replacement Protocol 1 EACH MISC MISCELLANE PRN (18:14)
[2024-02-28] MEDS ORDERED: Potassium Replacement Protocol 1 EACH MISC MISCELLANE PRN (18:14)
[2024-02-28] MEDS ORDERED: bisacodyL 10 MG SUPP RECTAL PRN (18:14)
[2024-02-28] MEDS ORDERED: NA PHOS,M-B/NA PHOS,DI-BA 133 ML ENEMA RECTAL PRN (18:14)
[2024-02-28] MEDS ORDERED: IPRATROPIUM-ALBUTEROL 3 ML NEB INHALATION PRN (18:14)
[2024-02-28 18:17] LABS: ABG Base Excess -9.2 mmol/L; ABG HCO3 19 mmol/L (21-25); ABG Oxygen Saturation 99.9 % (94-97); ABG PCO2 52 mmHg (35-45); ABG TCO2 21 mmol/L (19-24); Allen Test Performed? Yes
[2024-02-28] MEDS: ASPIRIN 325 MG TAB PO STA (18:19)
[2024-02-28] MEDS: TICAGRELOR 90 MG TAB PO SCH (18:19)
[2024-02-28] MEDS: ATORVASTATIN 80 MG TAB PO STA (18:19)
[2024-02-28] MEDS: SODIUM CHLORIDE 0.9% 1,000 ML IV SCH (18:21)
--- NOTE | 2024-02-28 18:24 | XR ---
EXAMINATION TYPE: XR chest 1V portable DATE OF EXAM: 02/28/2024 Comparison: 09/11/2023 Clinical History: 63-year-old female Tube placement Findings: The heart is upper limits of normal in size. ET and NG tubes satisfactory. Hyperinflation. Diffuse in terstitial and patchy opacities. Impression: 1. COPD. Superimposed interstitial densities could reflect mild interstitial pulmonary edema or atypi alyson pneumonias. 2. Satisfactory ET and NG tubes. [facility], , 02/28/2024 6:22 PM
[2024-02-28 18:32] LABS: ABG PH 7.18 (7.35-7.45); ABG PO2 >420 mmHg (83-108)
[2024-02-28] MEDS: ALBUTEROL NEBULIZED 2.5 MG/3 ML INHALATION SCH (20:32)
[2024-02-28 20:46] LABS: T4, Free (Free Thyroxine) 1.96 ng/dL (0.78-2.19)
[2024-02-28] MEDS: CHLORHEXIDINE GLUCONATE 15 ML CUP MUCOUS MEM SCH (23:49)
[2024-02-28] MEDS: QUEtiapine 50 MG TAB PO SCH (23:49)
[2024-02-28] MEDS: busPIRone HCl 10 MG TAB PO SCH (23:49)
[2024-02-28] MEDS: GABAPENTIN 100 MG CAP PO SCH (23:49)
[2024-02-28] MEDS: TOPIRAMATE 100 MG TAB PO SCH (23:49)
[2024-02-29] MEDS ORDERED: PIPERACILLIN-TAZOBACTAM 2.25 GM in SODIUM CHLORIDE 0.9% 100 ML IVPB SCH
--- NOTE | 2024-02-29 00:24 | P.PCN ---
Date of Procedure: 02/29/24 Preoperative Diagnosis: Acute hypoxemic and hypercapnic respiratory failure Postoperative Diagnosis: Acute hypoxemic and hypercapnic respiratory failure Procedure(s) Performed: Insertion of a left radial arterial line Indications for Procedure: Hemodynamic monitoring and frequent blood draws Description of Procedure: Informed consent was obtained, and a procedural timeout was performed . The patient was placed in supine position. The left radial region was prepared in a sterile fashion, and a sterile drape was applied. The left radial artery was palpated, easily cannulated, and a guidewire was placed. A Cook catheter was inserted over the guidewire, and the guidewire was removed. There was good arterial blood flow, good arterial waveform, and no complications. The line was secured with using a 3-0 silk suture.
[2024-02-29] MEDS: PIPERACILLIN-TAZOBACTAM 3.375 GM in SODIUM CHLORIDE 0.9% 100 ML IVPB SCH ×2 (00:38→09:29)
[2024-02-29] MEDS: IPRATROPIUM-ALBUTEROL 3 ML NEB INHALATION SCH (00:44)
[2024-02-29 00:53] LABS: ABG Base Excess -8.1 mmol/L; ABG HCO3 20 mmol/L (21-25); ABG Oxygen Saturation 98.7 % (94-97); ABG PCO2 51 mmHg (35-45); ABG PO2 129 mmHg (83-108); ABG TCO2 22 mmol/L (19-24); Allen Test Performed? Yes
[2024-02-29] MEDS: methylPREDNISolone SOD SUCCI 125 MG/2 ML VIAL IV SCH (01:02)
[2024-02-29 01:04] LABS: Glucose,Whole Blood 55 mg/dL (70-110)
[2024-02-29 01:05] LABS: Glucose,Whole Blood 106 mg/dL (70-110)
--- NOTE | 2024-02-29 02:48 | P.CNPUL ---
History of Present Illness Consult date: 02/29/24 Requesting physician: Naomi Romeo Reason for consult: other (ICU management; respiratory failure) Chief complaint: Altered mental status History of present illness: Patient is a 63-year-old white female with past medical history significant for COPD, chronic ongoing tobacco dependence, hypertension, hyperlipidemia, hypothyroidism, and chronic lower back pain. Her primary care provider is Dr. Man. Her pain specialist is Dr. Duckworth. Patient has chronic lower back pain maintained on PO morphine TID. She present to the emergency department yesterday afternoon altered and obtunded. Unable to provide information for HPI. This information was obtained from and ER note. Apparently, there was some noise in the bathroom early in the morning yesterday. Patient was found standing at the sink, shaky, and confused. She may have had some slurred speech. Noted to be progressively more lethargic and confused throughout the day. Last known well 11 PM the night prior. On presentation to the emergency department, code stroke was initiated. No fibrinolytics were given, as the risk were felt to outweigh the benefits. Patient was started on Brilinta twice daily. Neurologist was consulted.. While being worked up, patient became unresponsive. There was concern for possible morphine overdose. A dose of Narcan x 2 were given. Subsequently, patient had episode of nausea and vomiting. ABG was consistent with severe hypercapnic respiratory failure. ABG done on 100% FiO2; PaO2 greater than 420, pCO2 52, pH of 7.18. Patient was intubated by the ER provider for airway protection. Brain CT without contrast did not show any acute bleed or mass effect. No significant abnormality. Brain CT angio showed widely patent carotid and vertebral arteries of the neck. Anatomic variation with persistent origin left PRIVACY ANALYST. No large vessel intracranial arterial occlusion or significant stenosis or aneurysm. On my evaluation, patient is intubated and has been transferred to the intensive care unit. She is synchronous on mechanical ventilator, sedated on propofol at 25 mcg/kg/min. Current ventilator settings include assist-control, respiratory rate 20, tidal volume 360, FiO2 50%, PEEP of 5. Peak pressures are 22. Postintubation chest x-ray shows endotracheal tube and orogastric tube in appropriate positions. COPD like changes with hyperinflation. Superimposed interstitial densities could reflect mild interstitial pulmonary edema or is atypical pneumonias, greatest on the right lower lobe. I did speak to the patient's , patient was reportedly feeling well prior to this event. Denies any sick contacts. Denies any fevers at home. Denies any cough. She does smoke approximately 1 pack/day. She is a heavy smoker. She does have history of COPD. CBC: WBC count 11.8, hemoglobin 14.1, hematocrit 44.6, platelets 256. CMP: Sodium 141, potassium 4.5, chloride 110, serum bicarb 21, BUN 27, creatinine 2.49, glucose 111. Lactic 2. Troponin less than 0.012. EKG: Sinus rhythm, rate 76 bpm, no obvious acute ischemic changes. Urine toxicology screen positive for opiates. Serum alcohol less than 10. Urinalysis unremarkable for infection. Normal saline currently infusing at 75 mg/h. Not on any vasopressors at the moment. She did have a low-grade temperature in the emergency department of 99.9 F. Negative for influenza, RSV, COVID. I will cover the patient with antibiotics for possible aspiration. Review of Systems ROS unobtainable: due to mental status Past Medical History Past Medical History: Deep Vein Thrombosis (DVT), Hyperlipidemia, Hypertension, Pneumonia Additional Past Medical History / Comment(s): chronic back pain, clotting disorder History of Any Multi-Drug Resistant Organisms: None Reported Past Surgical History: Tubal Ligation Additional Past Surgical History / Comment(s): Partial Hysterectomy Past Anesthesia/Blood Transfusion Reactions: No Reported Reaction Past Psychological History: Anxiety, Depression Smoking Status: Current every day smoker Past Alcohol Use History: None Reported Past Drug Use History: None Reported - Past Family History Mother Family Medical History: No Reported History Medications and Allergies Home Medications Medication Instructions Recorded Confirmed Type Aspirin [Adult Low Dose Aspirin EC] 81 mg PO DAILY 09/15/19 02/28/24 History Gabapentin [Neurontin] 100 mg PO TID 09/15/19 02/28/24 History Levothyroxine Sodium [Synthroid] 25 mcg PO DAILY 09/15/19 02/28/24 History Topiramate [Topamax] 100 mg PO BID 09/15/19 02/28/24 History busPIRone HCL 10 mg PO QID 09/15/19 02/28/24 History cilostazoL [Pletal] 100 mg PO BID 09/15/19 02/28/24 History Furosemide [Lasix] 20 mg PO DAILY 12/12/21 02/28/24 History Morphine Sulfate 15 mg PO TID PRN 12/12/21 02/28/24 History Atorvastatin Calcium [Lipitor] 80 mg PO W/SUPPER 10/30/22 02/28/24 History Cholecalciferol (Vitamin D3) 1,250 mcg PO Q7D 10/30/22 02/28/24 History [Vitamin D3 (1250 Mcg = 50,000 Iu)] Donepezil [Aricept] 5 mg PO DAILY 10/30/22 02/28/24 History Montelukast [Singulair] 10 mg PO HS 10/30/22 02/28/24 History Potassium Chloride [Klor-Con M20] 20 meq PO DAILY 10/30/22 02/28/24 History Umeclidinium Brm/Vilanterol Tr 1 puff INHALATION RT-DAILY 10/30/22 02/28/24 History [Anoro Ellipta 62.5-25 Mcg INH] Cetirizine HCl 10 mg PO DAILY 12/22/22 02/28/24 History Albuterol Nebulized [Ventolin 2.5 mg INHALATION RT-TID 02/28/24 02/28/24 History Nebulized] Alendronate Sodium [Fosamax] 70 mg PO Q7D 02/28/24 02/28/24 History Cholestyramine (with Sugar) 4 gm PO Q12H PRN 02/28/24 02/28/24 History [Cholestyramine Packet] Diclofenac Potassium [Cataflam] 50 mg PO DAILY 02/28/24 02/28/24 History Promethazine HCl 12.5 mg PO BID PRN 02/28/24 02/28/24 History QUEtiapine [SEROquel] 50 mg PO HS 02/28/24 02/28/24 History Venlafaxine HCl [Effexor XR] 150 mg PO DAILY 02/28/24 02/28/24 History hydrOXYzine pamoate [Vistaril] 25 mg PO QID 02/28/24 02/28/24 History Allergies Allergy/AdvReac Type Severity Reaction Status Date / Time bacitracin Allergy Rash/Hives Verified 02/28/24 16:29 [From Neosporin ([id number])] meperidine [From Demerol] Allergy Rash/Hives Verified 02/28/24 16:29 neomycin Allergy Rash/Hives Verified 02/28/24 16:29 [From Neosporin ([id number])] polymyxin B Allergy Rash/Hives Verified 02/28/24 16:29 [From Neosporin ([id number])] Physical Exam Vitals: Vital Signs Temp Pulse Pulse Resp BP BP Pulse Ox 02/28/24 22:30 79 20 126/47 100 02/28/24 22:00 76 20 127/57 100 02/28/24 21:30 71 20 142/71 99 02/28/24 21:00 99 F 68 20 142/71 100 02/28/24 20:56 73 02/28/24 20:53 02/28/24 20:32 73 02/28/24 20:31 65 20 144/66 100 02/28/24 20:00 02/28/24 18:40 145/66 99 02/28/24 18:33 02/28/24 18:30 74 130/75 100 02/28/24 18:27 99.9 F H 80 20 144/66 100 02/28/24 18:20 73 141/70 100 02/28/24 18:10 89 149/68 100 02/28/24 18:00 75 145/66 100 02/28/24 17:50 80 146/75 100 02/28/24 17:40 91 155/82 100 02/28/24 17:30 99 123/67 100 02/28/24 17:25 102 H 18 123/67 100 02/28/24 17:24 112 H 16 100/49 100 02/28/24 17:20 78 92/53 100 02/28/24 17:15 84 105/52 100 02/28/24 16:54 02/28/24 16:50 81 14 91/42 100 02/28/24 16:45 75 15 101/35 100 02/28/24 15:39 12 02/28/24 15:06 98.4 F 78 16 136/78 89 L FiO2 02/28/24 22:30 02/28/24 22:00 02/28/24 21:30 02/28/24 21:00 50 02/28/24 20:56 02/28/24 20:53 50 02/28/24 20:32 02/28/24 20:31 10/21/24 20:00 50 02/28/24 18:40 02/28/24 18:33 50 02/28/24 18:30 02/28/24 18:27 50 02/28/24 18:20 02/28/24 18:10 02/28/24 18:00 02/28/24 17:50 02/28/24 17:40 02/28/24 17:30 02/28/24 17:25 100 02/28/24 17:24 02/28/24 17:20 02/28/24 17:15 02/28/24 16:54 100 02/28/24 16:50 02/28/24 16:45 02/28/24 15:39 02/28/24 15:06 Intake and Output 02/28/24 02/28/24 02/29/24 14:59 22:59 06:59 Intake Total 3328.410 Output Total 760 Balance 2568.410 Intake: IV 300 Sodium Chloride 0.9% 1, 300 000 ml @ 75 mls/hr IV . [id number] AMISH Rx#:[id number] Intake, IV Titration 3028.410 Amount Norepinephrine 8 mg In 2.005 Sodium Chloride 0.9% 250 ml @ 0.03 MCG/KG/MIN 4. 055 mls/hr IV .Q24H AMISH Rx#:[id number] Sodium Chloride 0.9% 1, 1000 000 ml @ 999 mls/hr IV . Q1H1M STA Rx#:[id number] Sodium Chloride 0.9% 2, 2000 000 ml @ 999 mls/hr IV . Q2H1M ONE Rx#:[id number] propofoL 1,000 mg In 26.405 Empty Bag 1 bag @ 15 MCG/ KG/MIN 6.287 mls/hr IV . [id number] AMISH Rx#:[id number] Output: Urine 760 Other: Voiding Method Indwelling Catheter Weight 69.853 kg GENERAL EXAM: Patient currently sedated on propofol, withdraws to pain in all 4 extremities, otherwise unresponsive. Synchronous with current ventilator settings. HEAD: Normocephalic and atraumatic EYES: Normal reaction of pupils, equal size. NOSE: Clear with pink turbinates. THROAT: No erythema or exudates. NECK: No masses, no JVD. CHEST: No chest wall deformity. LUNGS: Equal air entry with no crackles, wheeze, rhonchi or dullness. Intubated to mechanical ventilator. Peak pressure 22. CVS: S1 and S2 normal with no audible murmur, regular rhythm. No extra heart sounds ABDOMEN: No hepatosplenomegaly, active bowel sounds, no guarding or rigidity. SPINE: No scoliosis or deformity SKIN: No rashes CENTRAL NERVOUS SYSTEM: No focal deficits, tone is normal in all 4 extremities. EXTREMITIES: There is no peripheral edema, clubbing, or cyanosis. Peripheral pulses are intact. Results - Laboratory Findings CBC and BMP: 02/28/24 15:58 02/28/24 15:58 ABG ABG pH 7.18 (7.35-7.45) L* 02/28/24 18:14 ABG pCO2 52 mmHg (35-45) H 02/28/24 18:14 ABG pO2 >420 mmHg (83-108) H 02/28/24 18:14 ABG O2 Saturation 99.9 % (94-97) H 02/28/24 18:14 PT/INR, D-dimer PT 11.2 sec (10.0-12.5) 02/28/24 15:58 INR 1.0 (<1.2) 02/28/24 15:58 Abnormal lab findings: Abnormal Labs 02/28/24 02/28/24 02/28/24 15:32 15:58 15:58 WBC 11.8 H MCV 100.2 H Neutrophils # 9.7 H ABG pH ABG pCO2 ABG pO2 ABG HCO3 ABG Total CO2 ABG O2 Saturation Chloride 110 H Carbon Dioxide 21 L BUN 27 H Creatinine 2.49 H Glucose 111 H POC Glucose (mg/dL) 118 H TSH Urine Opiates Screen 02/28/24 02/28/24 02/28/24 16:33 17:44 18:14 WBC MCV Neutrophils # ABG pH 7.19 L* 7.18 L* ABG pCO2 62 H 52 H ABG pO2 124 H >420 H ABG HCO3 19 L ABG Total CO2 25 H ABG O2 Saturation 98.5 H 99.9 H Chloride Carbon Dioxide BUN Creatinine Glucose POC Glucose (mg/dL) TSH Urine Opiates Screen Detected H 02/28/24 18:20 WBC MCV Neutrophils # ABG pH ABG pCO2 ABG pO2 ABG HCO3 ABG Total CO2 ABG O2 Saturation Chloride Carbon Dioxide BUN Creatinine Glucose POC Glucose (mg/dL) TSH 0.133 L Urine Opiates Screen - Diagnostic Findings Chest x-ray: image reviewed Assessment and Plan Assessment: Acute hypoxemic and hypercapnic respiratory failure, intubated to the mechanical ventilator, Postintubation chest x-ray shows endotracheal tube and orogastric tube in appropriate positions. COPD like changes with hyperinflation. Superimposed interstitial densities could reflect mild interstitial pulmonary edema or is atypical pneumonias, greater right lower lobe Acute COPD exacerbation Hypercapnic encephalopathy, secondary to above Altered mental status Code stroke, evaluated by neuro-interventionalist, last known well at 11 PM the night prior. Reportedly, felt risks outweigh benefits for tPA. Patient was started on Brilinta twice daily. Neurologist was consulted. CVA felt to be less likely. Acute leukocytosis Acute on chronic kidney disease Chronic obstructive pulmonary disease Chronic ongoing tobacco dependence History of hypertension History of hyperlipidemia History of hypothyroidism Chronic lumbar back pain, Lumbar MRI done 2022 showing spinal canal stenosis of L3-L5. Also a large central body disc herniation of L4-L5. Chronic pain, currently takes morphine 15 mg strength tablets 3 times a day. History of anxiety/depression Plan: Patient's medications, labs, imaging reviewed Patient remains intubated to the mechanical ventilator with current settings Endotracheal and orogastric tubes in satisfactory positions Repeat ABG Cover the patient with Zosyn. Questionable aspiration in the emergency department Appropriate cultures are pending Cepheid 4 Plex negative for influenza, RSV, COVID. Start patient on combination of bronchodilators [id number], budesonide and elation, formoterol inhalation, and IV Solu-Medrol. Prognosis is guarded. Will continue to follow patient while in the intensive care unit I have personally seen and examined the patient, performed the documentation and the assessment and plan as written. Number of minutes spent on the visit:20 Time with Patient: Greater than 30
[2024-02-29] MEDS: MORPHINE SULFATE 2 MG/ML SYRINGE IV PRN (02:54)
[2024-02-29] MEDS: FUROSEMIDE 10 MG/ML 2 ML VIAL IV SCH (03:04)
[2024-02-29] MEDS: ACETAMINOPHEN SUPPOSITORY 650 MG SUPP RECTAL PRN (04:39)
[2024-02-29 05:05] LABS: Basophils % (A) 0 %; Eosinophils % (A) 0 %; HCT 41.3 % (34.0-46.0); HGB 13.5 gm/dL (11.4-16.0); Lymphocytes # (A) 0.6 k/uL (1.0-4.8); Lymphocytes % (A) 2 %; MCH 32.5 pg (25.0-35.0); MCHC 32.7 g/dL (31.0-37.0); MCV 99.4 fL (80.0-100.0); Mean Platelet Volume 8.1; Monocytes # (A) 0.3 k/uL (0-1.0); Monocytes % (A) 1 %; Neutrophils # (A) 22.3 k/uL (1.3-7.7); Neutrophils % (A) 96 %; Platelet Count 228 k/uL (150-450); RBC 4.15 m/uL (3.80-5.40); WBC 23.3 k/uL (3.8-10.6)
[2024-02-29 05:31] LABS: African American GFR (CKD) 28 (>60 ml/min/1.73 sqM); Anion Gap 10 mmol/L; Blood Urea Nitrogen 23 mg/dL (7-17); Calcium 8.7 mg/dL (8.4-10.2); Carbon Dioxide 21 mmol/L (22-30); Chloride 114 mmol/L (98-107); Glucose 147 mg/dL (74-99); Magnesium 1.5 mg/dL (1.6-2.3); Non-African American GFR(CKD) 24 (>60 ml/min/1.73 sqM); Potassium 3.8 mmol/L (3.5-5.1); Sodium 145 mmol/L (137-145)
[2024-02-29 05:53] LABS: ABG Base Excess -5.9 mmol/L; ABG HCO3 21 mmol/L (21-25); ABG PCO2 46 mmHg (35-45); ABG PH 7.27 (7.35-7.45); ABG PO2 134 mmHg (83-108); ABG TCO2 23 mmol/L (19-24); Allen Test Performed? Yes
[2024-02-29 06:23] LABS: Glucose,Whole Blood 131 mg/dL (70-110)
[2024-02-29] MEDS: MAGNESIUM SULFATE-D5W PMX 1 GM in DEXTROSE/WATER 1 100ML.BAG IVPB SCH (06:43)
[2024-02-29] MEDS: LEVOTHYROXINE 25 MCG TAB PO SCH (06:43)
--- NOTE | 2024-02-29 07:49 | XR ---
EXAMINATION TYPE: XR chest 1V DATE OF EXAM: 02/29/2024 COMPARISON: 02/28/2024 HISTORY: SOB, Follow Up FINDINGS: Indwelling tubes and catheters are unchanged. Endotracheal tube is 1.5 cm from the maciej. Hyperinflation with scattered infiltrates redemonstrated with slight improvement suggested. Stable appearance of the cardio-mediastinal structures at this time. IMPRESSION: 1. Hyperinflation with scattered infiltrates redemonstrated with slight improvement suggested. [facility], , 02/29/2024 7:47 AM
[2024-02-29] MEDS: FORMOTEROL FUMARATE 20 MCG/2 ML NEBU INHALATION SCH (08:30)
[2024-02-29] MEDS: BUDESONIDE 1 MG/2 ML NEBU INHALATION SCH (08:30)
[2024-02-29] MEDS: IPRATROPIUM 0.5 MG/2.5 ML NEBU INHALATION SCH (08:30)
[2024-02-29] MEDS ORDERED: ENOXAPARIN 40 MG/0.4 ML SYRINGE SQ SCH (09:00)
[2024-02-29] MEDS ORDERED: FUROSEMIDE 20 MG TAB PO SCH (09:00)
[2024-02-29] MEDS: PANTOPRAZOLE 40 MG/10 ML VIAL IV SCH (09:23)
[2024-02-29] MEDS: VENLAFAXINE HCL ER 150 MG CAP PO SCH (09:29)
[2024-02-29] MEDS: ASPIRIN 81 MG PO SCH (09:31)
[2024-02-29] MEDS: ENOXAPARIN 30 MG/0.3 ML SYRINGE SQ SCH (10:13)
[2024-02-29] MEDS: DEXMEDETOMIDINE/0.9% NACL(PMX) 400 MCG in EMPTY BAG 1 BAG IV SCH (10:40)
[2024-02-29] MEDS: DONEPEZIL 5 MG TAB PO SCH (10:47)
[2024-02-29 11:36] LABS: ABG Base Excess -5.5 mmol/L; ABG HCO3 20 mmol/L (21-25); ABG Oxygen Saturation 98.5 % (94-97); ABG PCO2 39 mmHg (35-45); ABG PH 7.32 (7.35-7.45); ABG PO2 108 mmHg (83-108); ABG TCO2 21 mmol/L (19-24); Allen Test Performed? Yes
[2024-02-29 11:42] LABS: Glucose,Whole Blood 191 mg/dL (70-110)
[2024-02-29] MEDS ORDERED: VANCOMYCIN IV PER PHARMACY 1 EACH MISC MISCELLANE PRN (12:09)
[2024-02-29] MEDS: VANCOMYCIN 1,250 MG in SODIUM CHLORIDE 0.9% 250 ML IVPB ONE (13:03)
[2024-02-29 13:25] LABS: Glucose,Whole Blood 178 mg/dL (70-110)
[2024-02-29] MEDS: ACYCLOVIR SODIUM 700 MG in SODIUM CHLORIDE 0.9% 100 ML IVPB SCH (13:44)
[2024-02-29] MEDS ORDERED: DEXTROSE 50% SYRINGE 50 ML IVP PRN ×2 (13:48)
[2024-02-29] MEDS: SODIUM CHLORIDE 0.9% 1,000 ML IV ONE (14:33)
[2024-02-29] MEDS: POTASSIUM BICARBONATE/CIT AC 20 MEQ TABLET.EFF NG-TUBE SCH (14:41)
--- NOTE | 2024-02-29 15:07 | P.CNNES ---
History of Present Illness Consult date: 02/29/24 Requesting physician: Frnacis Ramires Reason for Consult: ams History of Present Illness: At this 63-year-old woman with history of chronic back pain on morphine who presented to the emergency department on 02/28/2024 because of altered mental status and patient was obtunded. History is obtained from medical record. It seems there is some noise in the bathroom early in the morning yesterday and patient was found standing on the sink shaky and confused. She was having some slurred speech. She was noted to be progressively more lethargic confused throughout the day and last normal normal state was 11 PM the night before coming to our facility. Seems that the patient follows up with Dr. Duckworth, her pain specialist. While in the ED a code stroke was initiated CT of the head was unremarkable for any acute process. CT angiography was negative for any large vessel occlusion. And no IV thrombolytic since the risk felt to outweigh the benefit. The ED the patient was given Brilinta 90 mg. Seems while being worked up the patient became unresponsive and there was concern for possible morphine overdose. A dose of Narcan x 2 was given. Subsequently the patient was nauseous and vomiting. ABG was consistent with severe hypercapnic respiratory failure. Patient is intubated on a ventilator. She is on IV Precedex. Some of the workup during this hospital visit consisted of: Temperature on presentation was 98.4 and the Tmax was 102.1 Fahrenheit. Initial presentation white blood cell is 11.8 and repeat it was 23.3 thousand. Creatinine is 2.49. Initial serum glucose is 111. TSH is 0.133 Free T4 is 1.96. Ammonia level is less than 9. Sodium is 149, calcium is 9.8. AST ALT is within normal limits CT of the head is reported as no acute bleed or mass effect. No significant abnormality. Patient reviewed the CT and I agree there is no acute or subacute stroke. CT angiography of the neck is reported as widely patent vertebral and carotid artery of the neck. CT angiography of the head is reported as anatomic variation with persistent origin left [employer]. No large vessel intracranial arterial occlusion, significant stenosis or aneurysm changes seen. The ED the patient was given Ativan. Review of Systems Limited. Past Medical History Past Medical History: Deep Vein Thrombosis (DVT), Hyperlipidemia, Hypertension, Pneumonia Additional Past Medical History / Comment(s): chronic back pain, clotting disor yoan History of Any Multi-Drug Resistant Organisms: None Reported Past Surgical History: Tubal Ligation Additional Past Surgical History / Comment(s): Partial Hysterectomy Past Anesthesia/Blood Transfusion Reactions: No Reported Reaction Past Psychological History: Anxiety, Depression Smoking Status: Current every day smoker Past Alcohol Use History: None Reported Past Drug Use History: None Reported - Past Family History Mother Family Medical History: No Reported History Medications and Allergies Home Medications Medication Instructions Recorded Confirmed Type Aspirin [Adult Low Dose Aspirin EC] 81 mg PO DAILY 09/15/19 02/28/24 History Gabapentin [Neurontin] 100 mg PO TID 09/15/19 02/28/24 History Levothyroxine Sodium [Synthroid] 25 mcg PO DAILY 09/15/19 02/28/24 History Topiramate [Topamax] 100 mg PO BID 09/15/19 02/28/24 History busPIRone HCL 10 mg PO QID 09/15/19 02/28/24 History cilostazoL [Pletal] 100 mg PO BID 09/15/19 02/28/24 History Furosemide [Lasix] 20 mg PO DAILY 12/12/21 02/28/24 History Morphine Sulfate 15 mg PO TID PRN 12/12/21 02/28/24 History Atorvastatin Calcium [Lipitor] 80 mg PO W/SUPPER 10/30/22 02/28/24 History Cholecalciferol (Vitamin D3) 1,250 mcg PO Q7D 10/30/22 02/28/24 History [Vitamin D3 (1250 Mcg = 50,000 Iu)] Donepezil [Aricept] 5 mg PO DAILY 10/30/22 02/28/24 History Montelukast [Singulair] 10 mg PO HS 10/30/22 02/28/24 History Potassium Chloride [Klor-Con M20] 20 meq PO DAILY 10/30/22 02/28/24 History Umeclidinium Brm/Vilanterol Tr 1 puff INHALATION RT-DAILY 10/30/22 02/28/24 History [Anoro Ellipta 62.5-25 Mcg INH] Cetirizine HCl 10 mg PO DAILY 12/22/22 02/28/24 History Albuterol Nebulized [Ventolin 2.5 mg INHALATION RT-TID 02/28/24 02/28/24 History Nebulized] Alendronate Sodium [Fosamax] 70 mg PO Q7D 02/28/24 02/28/24 History Cholestyramine (with Sugar) 4 gm PO Q12H PRN 02/28/24 02/28/24 History [Cholestyramine Packet] Diclofenac Potassium [Cataflam] 50 mg PO DAILY 02/28/24 02/28/24 History Promethazine HCl 12.5 mg PO BID PRN 02/28/24 02/28/24 History QUEtiapine [SEROquel] 50 mg PO HS 02/28/24 02/28/24 History Venlafaxine HCl [Effexor XR] 150 mg PO DAILY 02/28/24 02/28/24 History hydrOXYzine pamoate [Vistaril] 25 mg PO QID 02/28/24 02/28/24 History Allergies Allergy/AdvReac Type Severity Reaction Status Date / Time bacitracin Allergy Rash/Hives Verified 02/28/24 16:29 [From Neosporin ([id number])] meperidine [From Demerol] Allergy Rash/Hives Verified 02/28/24 16:29 neomycin Allergy Rash/Hives Verified 02/28/24 16:29 [From Neosporin ([id number])] polymyxin B Allergy Rash/Hives Verified 02/28/24 16:29 [From Neosporin ([id number])] Physical Examination - Vital Signs Vital Signs: Vital Signs Temp Pulse Pulse Resp BP BP Pulse Ox 02/29/24 14:00 76 24 105/66 99 02/29/24 13:30 84 24 105/66 98 02/29/24 13:00 99.0 F 87 24 104/64 99 02/29/24 12:30 92 24 128/84 99 02/29/24 12:16 98 02/29/24 12:03 02/29/24 12:00 89 19 139/80 99 02/29/24 11:30 93 19 139/80 99 02/29/24 11:06 02/29/24 11:00 89 24 99 02/29/24 10:30 97 26 H 99 02/29/24 10:00 93 26 H 99 02/29/24 09:53 02/29/24 09:30 90 20 135/73 99 02/29/24 09:06 92 02/29/24 09:00 84 21 120/69 99 02/29/24 08:54 92 02/29/24 08:52 92 02/29/24 08:37 02/29/24 08:31 85 02/29/24 08:30 91 24 120/69 98 02/29/24 08:00 100.3 F H 90 25 H 99 02/29/24 07:30 98 24 100 02/29/24 07:00 93 26 H 99 02/29/24 06:30 101.5 F H 94 24 99 02/29/24 06:00 88 24 140/74 100 02/29/24 05:55 02/29/24 05:30 97 24 140/74 100 02/29/24 05:00 95 24 146/76 100 02/29/24 04:30 96 24 100 02/29/24 04:00 102.1 F H 88 24 135/73 100 02/29/24 03:58 88 02/29/24 03:48 87 02/29/24 03:30 83 24 100 02/29/24 03:00 84 24 154/80 100 02/29/24 02:30 81 24 128/62 100 02/29/24 02:00 85 24 100 02/29/24 01:30 83 24 99 02/29/24 01:00 84 24 127/58 100 02/29/24 00:56 86 02/29/24 00:44 86 02/29/24 00:43 02/29/24 00:30 100.1 F H 87 20 125/50 98 02/29/24 00:00 81 20 123/55 100 02/28/24 23:30 81 20 100 02/28/24 23:00 89 19 128/59 100 02/28/24 22:30 79 20 126/47 100 02/28/24 22:00 76 20 127/57 100 02/28/24 21:30 71 20 142/71 99 02/28/24 21:00 99 F 68 20 142/71 100 02/28/24 20:56 73 02/28/24 20:53 02/28/24 20:32 73 02/28/24 20:31 65 20 144/66 100 02/28/24 20:00 02/28/24 18:40 145/66 99 02/28/24 18:33 02/28/24 18:30 74 130/75 100 02/28/24 18:27 99.9 F H 80 20 144/66 100 02/28/24 18:20 73 141/70 100 02/28/24 18:10 89 149/68 100 02/28/24 18:00 75 145/66 100 02/28/24 17:50 80 146/75 100 02/28/24 17:40 91 155/82 100 02/28/24 17:30 99 123/67 100 02/28/24 17:25 102 H 18 123/67 100 02/28/24 17:24 112 H 16 100/49 100 02/28/24 17:20 78 92/53 100 02/28/24 17:15 84 105/52 100 02/28/24 16:54 02/28/24 16:50 81 14 91/42 100 02/28/24 16:45 75 15 101/35 100 02/28/24 15:39 12 02/28/24 15:06 98.4 F 78 16 136/78 89 L FiO2 02/29/24 14:00 02/29/24 13:30 02/29/24 13:00 02/29/24 12:30 35 02/29/24 12:16 02/29/24 12:03 35 02/29/24 12:00 02/29/24 11:30 02/29/24 11:06 35 02/29/24 11:00 02/29/24 10:30 02/29/24 10:00 35 02/29/24 09:53 35 02/29/24 09:30 02/29/24 09:06 02/29/24 09:00 02/29/24 08:54 02/29/24 08:52 02/29/24 08:37 40 02/29/24 08:31 02/29/24 08:30 02/29/24 08:00 40 02/29/24 07:30 02/29/24 07:00 02/29/24 06:30 02/29/24 06:00 02/29/24 05:55 40 02/29/24 05:30 02/29/24 05:00 02/29/24 04:30 02/29/24 04:00 50 02/29/24 03:58 02/29/24 03:48 50 02/29/24 03:30 02/29/24 03:00 02/29/24 02:30 02/29/24 02:00 02/29/24 01:30 02/29/24 01:00 02/29/24 00:56 02/29/24 00:44 02/29/24 00:43 50 02/29/24 00:30 02/29/24 00:00 50 02/28/24 23:30 02/28/24 23:00 02/28/24 22:30 02/28/24 22:00 02/28/24 21:30 02/28/24 21:00 50 02/28/24 20:56 02/28/24 20:53 50 02/28/24 20:32 02/28/24 20:31 02/28/24 20:00 50 02/28/24 18:40 02/28/24 18:33 50 02/28/24 18:30 02/28/24 18:27 50 02/28/24 18:20 02/28/24 18:10 02/28/24 18:00 02/28/24 17:50 02/28/24 17:40 02/28/24 17:30 02/28/24 17:25 100 02/28/24 17:24 02/28/24 17:20 02/28/24 17:15 02/28/24 16:54 100 02/28/24 16:50 02/28/24 16:45 02/28/24 15:39 02/28/24 15:06 Intake and Output 02/28/24 02/29/24 02/29/24 22:59 06:59 14:59 Intake Total 3328.410 878.454 888.318 Output Total 760 1265 640 Balance 2568.410 -386.546 248.318 Intake: IV 300 821 771 Magnesium Sulfate-D5w Pmx 100 100 1 gm In Dextrose/Water 1 100ml.bag @ 100 mls/hr IVPB Q1H [facility] Rx#: [id number] Piperacillin-Tazobactam 3 100 75 .375 gm In Sodium Chloride 0.9% 100 ml @ 25 mls/hr IVPB Q12H [facility] Rx# :[id number] Pressure Bag 21 21 Sodium Chloride 0.9% 1, 300 600 525 000 ml @ 75 mls/hr IV . [id number] [facility] Rx#:[id number] cefTRIAXone 2 gm In 50 Sodium Chloride 0.9% 50 ml @ 100 mls/hr IVPB Q12HR [facility] Rx#:[id number] Intake, IV Titration 3028.410 57.454 117.318 Amount Acyclovir Sodium 700 mg 100 In Sodium Chloride 0.9% 100 ml @ 100 mls/hr IVPB Q8HR@0400,1200,2000 [facility] Rx#:[id number] Dexmedetomidine/0.9% NaCl 14.873 (Pmx) 400 mcg In Empty Bag 1 bag @ 0.2 MCG/KG/HR 3.493 mls/hr IV .Q24H [facility] Rx#:[id number] Norepinephrine 8 mg In 2.005 Sodium Chloride 0.9% 250 ml @ 0.03 MCG/KG/MIN 4. 055 mls/hr IV .Q24H [facility] Rx#:[id number] Sodium Chloride 0.9% 1, 1000 000 ml @ 999 mls/hr IV . Q1H1M [facility] Rx#:[id number] Sodium Chloride 0.9% 2, 2000 000 ml @ 999 mls/hr IV . Q2H1M [facility] Rx#:[id number] propofoL 1,000 mg In 26.405 57.454 Empty Bag 1 bag @ 15 MCG/ KG/MIN 6.287 mls/hr IV . [id number] [facility] Rx#:[id number] propofoL 1,000 mg In 2.445 Empty Bag 1 bag @ 15 MCG/ KG/MIN 6.287 mls/hr IV . [id number] [facility] Rx#:[id number] Output: Urine 760 1265 640 Other: Voiding Method Indwelling Catheter Indwelling Catheter Weight 69.853 kg ABP, PAP, CO, CI - Last 8 Hours Arterial Blood Pressure 95/44 Arterial Blood Pressure 123/54 Arterial Blood Pressure 147/63 Arterial Blood Pressure 145/62 Arterial Blood Pressure 155/63 Arterial Blood Pressure 167/68 Arterial Blood Pressure 148/65 Arterial Blood Pressure 119/53 Arterial Blood Pressure 135/59 Arterial Blood Pressure 132/52 Arterial Blood Pressure 149/59 Arterial Blood Pressure 126/50 General: Lying in bed and does not appear in acute distress. Lung: Is intubated on a ventilator. Neuro: Limited. Is on IV Precedex. The patient is severely encephalopathic. Pupils are 1-2mm, round bilaterally and hard to appreciate pupillary reflex. Primary gaze is midline. Is breathing over the vent. Has very weak cough. Motor: Hard to assess. Has bilateral leg jerks that is intermittent. Plantars: Mute bilaterally. Results - Laboratory Findings CBC and BMP: 02/29/24 04:45 02/29/24 04:45 Abnormal Lab Findings: Abnormal Labs 02/28/24 02/28/24 02/28/24 15:32 15:58 15:58 WBC 11.8 H MCV 100.2 H Neutrophils # 9.7 H Lymphocytes # ABG pH ABG pCO2 ABG pO2 ABG HCO3 ABG Total CO2 ABG O2 Saturation Chloride 110 H Carbon Dioxide 21 L BUN 27 H Creatinine 2.49 H Glucose 111 H POC Glucose (mg/dL) 118 H Magnesium TSH Urine Opiates Screen 02/28/24 02/28/24 02/28/24 16:33 17:44 18:14 WBC MCV Neutrophils # Lymphocytes # ABG pH 7.19 L* 7.18 L* ABG pCO2 62 H 52 H ABG pO2 124 H >420 H ABG HCO3 19 L ABG Total CO2 25 H ABG O2 Saturation 98.5 H 99.9 H Chloride Carbon Dioxide BUN Creatinine Glucose POC Glucose (mg/dL) Magnesium TSH Urine Opiates Screen Detected H 02/28/24 02/29/24 02/29/24 18:20 00:51 01:01 WBC MCV Neutrophils # Lymphocytes # ABG pH 7.20 L ABG pCO2 51 H ABG pO2 129 H ABG HCO3 20 L ABG Total CO2 ABG O2 Saturation 98.7 H Chloride Carbon Dioxide BUN Creatinine Glucose POC Glucose (mg/dL) 55 L Magnesium TSH 0.133 L Urine Opiates Screen 02/29/24 02/29/24 02/29/24 04:45 04:45 05:50 WBC 23.3 H MCV Neutrophils # 22.3 H Lymphocytes # 0.6 L ABG pH 7.27 L ABG pCO2 46 H ABG pO2 134 H ABG HCO3 ABG Total CO2 ABG O2 Saturation 99.0 H Chloride 114 H Carbon Dioxide 21 L BUN 23 H Creatinine 2.11 H Glucose 147 H POC Glucose (mg/dL) Magnesium 1.5 L TSH Urine Opiates Screen 02/29/24 02/29/2424 06:21 11:31 11:40 WBC MCV Neutrophils # Lymphocytes # ABG pH 7.32 L ABG pCO2 ABG pO2 ABG HCO3 20 L ABG Total CO2 ABG O2 Saturation 98.5 H Chloride Carbon Dioxide BUN Creatinine Glucose POC Glucose (mg/dL) 131 H 191 H Magnesium TSH Urine Opiates Screen 02/29/24 13:14 WBC MCV Neutrophils # Lymphocytes # ABG pH ABG pCO2 ABG pO2 ABG HCO3 ABG Total CO2 ABG O2 Saturation Chloride Carbon Dioxide BUN Creatinine Glucose POC Glucose (mg/dL) 178 H Magnesium TSH Urine Opiates Screen Assessment and Plan Assessment: This is a 63-year-old woman with a history of chronic low back pain, on morphine who presented emergency department because of altered mental status. It seems that. There is some noise in the bathroom the day prior to present to the hospital and the patient was found standing on the sink shaky and confused. She also had some slurred speech speech. She was very lethargic and confused throughout the day prior to present to the hospital. A code stroke was activated in the ED and no IV thrombolytic was given. While being worked up patient became unresponsive and there is a concern of morphine overdose. She had elevated leukocytosis as well as fever. Acute encephalopathy of unknown etiology. On examination has leg jerks that is intermittent. Rule out seizure and underlying aspiration pneumonia. This does not seem like a stroke or TIA. Leukocytosis with fever aspiration pneumonia Respiratory distress and patient is intubated on the ventilator Chronic kidney insufficiency Chronic low back pain and the patient is on morphine Chronic history of COPD Hypertension Hyperlipidemia Hypothyroidism Plan: I ordered a routine EEG I empirically started the patient on Keppra 500 mg twice a day In the ED the patient was given Brilinta on 02/28/2024 for concern for stroke. Will avoid any Brilinta or anticoagulation for lumbar puncture. Will have to hold lumbar puncture for 5 days to pursue with lumbar puncture per anesthesiologist. Empirically started the patient on acyclovir, vancomycin, ceftriaxone for possible meningeal encephalitis which I feel is unlikely but I think probable aspiration pneumonia. I consulted ID Ordered vitamin B12 Patient is on aspirin 81 mg daily. Patient is on Lipitor 80 mg nightly. Will defer the rest of the medical management to primary and other specialist Plan discussed with the ICU attending and his nurse. Thank you for the consultation Time with Patient: Greater than 30
[2024-02-29] MEDS: levETIRAcetam IV 500 MG/5 ML VIAL IVP SCH (15:51)
[2024-02-29] MEDS: NOREPINEPHRINE 4 MG in SODIUM CHLORIDE 0.9% 250 ML IV SCH (16:10)
[2024-02-29 17:27] LABS: Glucose,Whole Blood 156 mg/dL (70-110)
[2024-02-29] MEDS: ATORVASTATIN 80 MG TAB PO SCH (18:17)
[2024-02-29] MEDS: INSULIN ASPART (NovoLOG) 100 UNIT/ML VIAL SQ SCH (18:17)
--- NOTE | 2024-02-29 21:31 | P.CONS ---
History of Present Illness - Reason for Consult Consult date: 02/29/24 Mental status changes, elevated WBC Requesting physician: Alexx Cole - Chief Complaint Mental status changes and fever x 1 day - History of Present Illness Patient is a 63-year-old female past medical history significant for COPD chronic and ongoing tobacco use hypertension hyperlipidemia hypothyroidism chronic back pain and this patient was currently on p.o. morphine 3 times daily by her pain specialist patient has been brought into the hospital yesterday for evaluation of weakness confusion apparently initially found yesterday morning by the in the bathroom standing at the sink shaky and confused and subsequently slept most of the day however as the patient was getting more lethargic and confused has been brought the patient to the ER for further evaluation there was initial concern for possible stroke and the patient was started on Brilinta initial CT was negative for any bleed or mass defect patient also received Narcan x 2 concerning for possible morphine opiate overdose subsequently patient did have episodes of vomiting worsening respiratory distress ended up getting intubated patient on presentation to the hospital was afebrile subsequently she spiked a fever of 102.1 degrees following hide at 4 AM and when the fever of 101.5 at 6:30 AM patient did have a white count of 11.8 on admission with left shift subsequent white count is up to 23.3 she did have elevated BUN and creatinine liver enzymes are normal procalcitonin was normal urine has been negative urine dressing was positive for opiates influenza RSV COVID testing was negative chest x-ray did not show any evidence of consolidation patient was initially treated with vancomycin and Zosyn subsequently antibiotic has been adjusted to vancomycin Rocephin and acyclovir concerning for possible [employer] infection and infectious was consulted for further management most information has been obtained from review the chart talking nursing staff as the patient is currently intubated on the vent no family at the bedside unfortunately LP could not be done as the patient has received Brilinta. Review of Systems Positive points has been mentioned in HPI complete review could not be obtained because patient intubated on the vent Past Medical History Past Medical History: Deep Vein Thrombosis (DVT), Hyperlipidemia, Hypertension, Pneumonia Additional Past Medical History / Comment(s): chronic back pain, clotting disorder History of Any Multi-Drug Resistant Organisms: None Reported Past Surgical History: Tubal Ligation Additional Past Surgical History / Comment(s): Partial Hysterectomy Past Anesthesia/Blood Transfusion Reactions: No Reported Reaction Past Psychological History: Anxiety, Depression Smoking Status: Current every day smoker Past Alcohol Use History: None Reported Past Drug Use History: None Reported - Past Family History Mother Family Medical History: No Reported History Medications and Allergies Home Medications Medication Instructions Recorded Confirmed Type Aspirin [Adult Low Dose Aspirin EC] 81 mg PO DAILY 09/15/19 02/28/24 History Gabapentin [Neurontin] 100 mg PO TID 09/15/19 02/28/24 History Levothyroxine Sodium [Synthroid] 25 mcg PO DAILY 09/15/19 02/28/24 History Topiramate [Topamax] 100 mg PO BID 09/15/19 02/28/24 History busPIRone HCL 10 mg PO QID 09/15/19 02/28/24 History cilostazoL [Pletal] 100 mg PO BID 09/15/19 02/28/24 History Furosemide [Lasix] 20 mg PO DAILY 12/12/21 02/28/24 History Morphine Sulfate 15 mg PO TID PRN 12/12/21 02/28/24 History Atorvastatin Calcium [Lipitor] 80 mg PO W/SUPPER 10/30/22 02/28/24 History Cholecalciferol (Vitamin D3) 1,250 mcg PO Q7D 10/30/22 02/28/24 History [Vitamin D3 (1250 Mcg = 50,000 Iu)] Donepezil [Aricept] 5 mg PO DAILY 10/30/22 02/28/24 History Montelukast [Singulair] 10 mg PO HS 10/30/22 02/28/24 History Potassium Chloride [Klor-Con M20] 20 meq PO DAILY 10/30/22 02/28/24 History Umeclidinium Brm/Vilanterol Tr 1 puff INHALATION RT-DAILY 10/30/22 02/28/24 History [Anoro Ellipta 62.5-25 Mcg INH] Cetirizine HCl 10 mg PO DAILY 12/22/22 02/28/24 History Albuterol Nebulized [Ventolin 2.5 mg INHALATION RT-TID 02/28/24 02/28/24 History Nebulized] Alendronate Sodium [Fosamax] 70 mg PO Q7D 02/28/24 02/28/24 History Cholestyramine (with Sugar) 4 gm PO Q12H PRN 02/28/24 02/28/24 History [Cholestyramine Packet] Diclofenac Potassium [Cataflam] 50 mg PO DAILY 02/28/24 02/28/24 History Promethazine HCl 12.5 mg PO BID PRN 02/28/24 02/28/24 History QUEtiapine [SEROquel] 50 mg PO HS 02/28/24 02/28/24 History Venlafaxine HCl [Effexor XR] 150 mg PO DAILY 02/28/24 02/28/24 History hydrOXYzine pamoate [Vistaril] 25 mg PO QID 02/28/24 02/28/24 History Allergies Allergy/AdvReac Type Severity Reaction Status Date / Time bacitracin Allergy Rash/Hives Verified 02/28/24 16:29 [From Neosporin (cpy-dox-cloba)] meperidine [From Demerol] Allergy Rash/Hives Verified 02/28/24 16:29 neomycin Allergy Rash/Hives Verified 02/28/24 16:29 [From Neosporin ([id number]-zroji)] polymyxin B Allergy Rash/Hives Verified 02/28/24 16:29 [From Neosporin (bam-pss-euhug)] Physical Exam Vitals: Vital Signs Temp Pulse Pulse Resp BP BP Pulse Ox 02/29/24 11:06 02/29/24 11:00 89 24 99 02/29/24 10:30 97 26 H 99 02/29/24 10:00 93 26 H 99 02/29/24 09:53 02/29/24 09:30 90 20 135/73 99 02/29/24 09:06 92 02/29/24 09:00 84 21 120/69 99 02/29/24 08:54 92 02/29/24 08:52 92 02/29/24 08:37 02/29/24 08:31 85 02/29/24 08:30 91 24 120/69 98 02/29/24 08:00 100.3 F H 90 25 H 99 02/29/24 07:30 98 24 100 02/29/24 07:00 93 26 H 99 02/29/24 06:30 101.5 F H 94 24 99 02/29/24 06:00 88 24 140/74 100 02/29/24 05:55 10/22/24 05:30 97 24 140/74 100 02/29/24 05:00 95 24 146/76 100 02/29/24 04:30 96 24 100 02/29/24 04:00 102.1 F H 88 24 135/73 100 02/29/24 03:58 88 02/29/24 03:48 87 02/29/24 03:30 83 24 100 02/29/24 03:00 84 24 154/80 100 02/29/24 02:30 81 24 128/62 100 02/29/24 02:00 85 24 100 02/29/24 01:30 83 24 99 02/29/24 01:00 84 24 127/58 100 02/29/24 00:56 86 02/29/24 00:44 86 02/29/24 00:43 02/29/24 00:30 100.1 F H 87 20 125/50 98 02/29/24 00:00 81 20 123/55 100 02/28/24 23:30 81 20 100 02/28/24 23:00 89 19 128/59 100 02/28/24 22:30 79 20 126/47 100 02/28/24 22:00 76 20 127/57 100 02/28/24 21:30 71 20 142/71 99 02/28/24 21:00 99 F 68 20 142/71 100 02/28/24 20:56 73 02/28/24 20:53 02/28/24 20:32 73 02/28/24 20:31 65 20 144/66 100 02/28/24 20:00 02/28/24 18:40 145/66 99 02/28/24 18:33 02/28/24 18:30 74 130/75 100 02/28/24 18:27 99.9 F H 80 20 144/66 100 02/28/24 18:20 73 141/70 100 02/28/24 18:10 89 149/68 100 02/28/24 18:00 75 145/66 100 02/28/24 17:50 80 146/75 100 02/28/24 17:40 91 155/82 100 02/28/24 17:30 99 123/67 100 02/28/24 17:25 102 H 18 123/67 100 02/28/24 17:24 112 H 16 100/49 100 02/28/24 17:20 78 92/53 100 02/28/24 17:15 84 105/52 100 02/28/24 16:54 02/28/24 16:50 81 14 91/42 100 02/28/24 16:45 75 15 101/35 100 02/28/24 15:39 12 02/28/24 15:06 98.4 F 78 16 136/78 89 L FiO2 02/29/24 11:06 35 02/29/24 11:00 02/29/24 10:30 02/29/24 10:00 35 02/29/24 09:53 35 02/29/24 09:30 02/29/24 09:06 02/29/24 09:00 02/29/24 08:54 02/29/24 08:52 02/29/24 08:37 40 02/29/24 08:31 02/29/24 08:30 02/29/24 08:00 40 02/29/24 07:30 02/29/24 07:00 02/29/24 06:30 02/29/24 06:00 02/29/24 05:55 40 02/29/24 05:30 02/29/24 05:00 02/29/24 04:30 02/29/24 04:00 50 02/29/24 03:58 02/29/24 03:48 50 02/29/24 03:30 02/29/24 03:00 02/29/24 02:30 02/29/24 02:00 02/29/24 01:30 02/29/24 01:00 02/29/24 00:56 02/29/24 00:44 02/29/24 00:43 50 02/29/24 00:30 02/29/24 00:00 50 02/28/24 23:30 02/28/24 23:00 02/28/24 22:30 02/28/24 22:00 02/28/24 21:30 02/28/24 21:00 50 02/28/24 20:56 02/28/24 20:53 50 02/28/24 20:32 02/28/24 20:31 02/28/24 20:00 50 02/28/24 18:40 02/28/24 18:33 50 02/28/24 18:30 02/28/24 18:27 50 02/28/24 18:20 02/28/24 18:10 02/28/24 18:00 02/28/24 17:50 02/28/24 17:40 02/28/24 17:30 02/28/24 17:25 100 02/28/24 17:24 02/28/24 17:20 02/28/24 17:15 02/28/24 16:54 100 02/28/24 16:50 02/28/24 16:45 02/28/24 15:39 02/28/24 15:06 Intake and Output 02/28/24 02/29/24 02/29/24 22:59 06:59 14:59 Intake Total 3328.410 878.454 464.445 Output Total 760 1265 450 Balance 2568.410 -386.546 14.445 Intake: IV 300 821 462 Magnesium Sulfate-D5w Pmx 100 100 1 gm In Dextrose/Water 1 100ml.bag @ 100 mls/hr IVPB Q1H [facility] Rx#: [id number] Piperacillin-Tazobactam 3 100 50 .375 gm In Sodium Chloride 0.9% 100 ml @ 25 mls/hr IVPB Q12H [facility] Rx# :[id number] Pressure Bag 21 12 Sodium Chloride 0.9% 1, 300 600 300 000 ml @ 75 mls/hr IV . [id number] [facility] Rx#:[id number] Intake, IV Titration 3028.410 57.454 2.445 Amount Norepinephrine 8 mg In 2.005 Sodium Chloride 0.9% 250 ml @ 0.03 MCG/KG/MIN 4. 055 mls/hr IV .Q24H [facility] Rx#:[id number] Sodium Chloride 0.9% 1, 1000 000 ml @ 999 mls/hr IV . Q1H1M [facility] Rx#:[id number] Sodium Chloride 0.9% 2, 2000 000 ml @ 999 mls/hr IV . Q2H1M [facility] Rx#:[id number] propofoL 1,000 mg In 26.405 57.454 Empty Bag 1 bag @ 15 MCG/ KG/MIN 6.287 mls/hr IV . [id number] [facility] Rx#:[id number] propofoL 1,000 mg In 2.445 Empty Bag 1 bag @ 15 MCG/ KG/MIN 6.287 mls/hr IV . [id number] [facility] Rx#:[id number] Output: Urine 760 1265 450 Other: Voiding Method Indwelling Catheter Indwelling Catheter Weight 69.853 kg ABP, PAP, CO, CI - Last 8 Hours Arterial Blood Pressure 155/63 Arterial Blood Pressure 167/68 Arterial Blood Pressure 148/65 Arterial Blood Pressure 119/53 Arterial Blood Pressure 135/59 Arterial Blood Pressure 132/52 Arterial Blood Pressure 149/59 Arterial Blood Pressure 126/50 Arterial Blood Pressure 125/49 Arterial Blood Pressure 159/61 Arterial Blood Pressure 128/55 Arterial Blood Pressure 147/61 Arterial Blood Pressure 162/68 Arterial Blood Pressure 160/68 GENERAL DESCRIPTION: Elderly female intubated on the vent HEENT: Shows Pallor , no scleral icterus. Oral mucous membrane is dry. NECK: Trachea central, no thyromegaly. LUNGS: Unlabored breathing. Decreased breath sounds at the base HEART: S1, S2, regular rate and rhythm. No loud murmur ABDOMEN: Soft, no tenderness , guarding or rigidity, no organomegaly EXTREMITIES: No edema of feet. SKIN: No rash, no masses palpable. NEUROLOGICAL: The patient is sedated on the vent Results CBC & Chem 7: 02/29/24 04:45 02/29/24 04:45 Labs: Abnormal Lab Results - Last 24 Hours (Table) 02/28/24 02/28/24 02/28/24 Range/Units 15:32 15:58 15:58 WBC 11.8 H (3.8-10.6) k/uL MCV 100.2 H (80.0-100.0) fL Neutrophils # 9.7 H (1.3-7.7) k/uL Lymphocytes # (1.0-4.8) k/uL ABG pH (7.35-7.45) ABG pCO2 (35-45) mmHg ABG pO2 (83-108) mmHg ABG HCO3 (21-25) mmol/L ABG Total CO2 (19-24) mmol/L ABG O2 Saturation (94-97) % Chloride 110 H (98-107) mmol/L Carbon Dioxide 21 L (22-30) mmol/L BUN 27 H (7-17) mg/dL Creatinine 2.49 H (0.52-1.04) mg/dL Glucose 111 H (74-99) mg/dL POC Glucose (mg/dL) 118 H (70-110) mg/dL Magnesium (1.6-2.3) mg/dL TSH (0.465-4.680) mIU/L Urine Opiates Screen (NotDetected) 02/28/24 02/28/24 02/28/24 Range/Units 16:33 17:44 18:14 WBC (3.8-10.6) k/uL MCV (80.0-100.0) fL Neutrophils # (1.3-7.7) k/uL Lymphocytes # (1.0-4.8) k/uL ABG pH 7.19 L* 7.18 L* (7.35-7.45) ABG pCO2 62 H 52 H (35-45) mmHg ABG pO2 124 H >420 H (83-108) mmHg ABG HCO3 19 L (21-25) mmol/L ABG Total CO2 25 H (19-24) mmol/L ABG O2 Saturation 98.5 H 99.9 H (94-97) % Chloride (98-107) mmol/L Carbon Dioxide (22-30) mmol/L BUN (7-17) mg/dL Creatinine (0.52-1.04) mg/dL Glucose (74-99) mg/dL POC Glucose (mg/dL) (70-110) mg/dL Magnesium (1.6-2.3) mg/dL TSH (0.465-4.680) mIU/L Urine Opiates Screen Detected H (NotDetected) 02/28/24 02/29/24 02/29/24 Range/Units 18:20 00:51 01:01 WBC (3.8-10.6) k/uL MCV (80.0-100.0) fL Neutrophils # (1.3-7.7) k/uL Lymphocytes # (1.0-4.8) k/uL ABG pH 7.20 L (7.35-7.45) ABG pCO2 51 H (35-45) mmHg ABG pO2 129 H (83-108) mmHg ABG HCO3 20 L (21-25) mmol/L ABG Total CO2 (19-24) mmol/L ABG O2 Saturation 98.7 H (94-97) % Chloride (98-107) mmol/L Carbon Dioxide (22-30) mmol/L BUN (7-17) mg/dL Creatinine (0.52-1.04) mg/dL Glucose (74-99) mg/dL POC Glucose (mg/dL) 55 L (70-110) mg/dL Magnesium (1.6-2.3) mg/dL TSH 0.133 L (0.465-4.680) mIU/L Urine Opiates Screen (NotDetected) 02/29/24 02/29/24 02/29/24 Range/Units 04:45 04:45 05:50 WBC 23.3 H (3.8-10.6) k/uL MCV (80.0-100.0) fL Neutrophils # 22.3 H (1.3-7.7) k/uL Lymphocytes # 0.6 L (1.0-4.8) k/uL ABG pH 7.27 L (7.35-7.45) ABG pCO2 46 H (35-45) mmHg ABG pO2 134 H (83-108) mmHg ABG HCO3 (21-25) mmol/L ABG Total CO2 (19-24) mmol/L ABG O2 Saturation 99.0 H (94-97) % Chloride 114 H (98-107) mmol/L Carbon Dioxide 21 L (22-30) mmol/L BUN 23 H (7-17) mg/dL Creatinine 2.11 H (0.52-1.04) mg/dL Glucose 147 H (74-99) mg/dL POC Glucose (mg/dL) (70-110) mg/dL Magnesium 1.5 L (1.6-2.3) mg/dL TSH (0.465-4.680) mIU/L Urine Opiates Screen (NotDetected) 02/29/24 Range/Units 06:21 WBC (3.8-10.6) k/uL MCV (80.0-100.0) fL Neutrophils # (1.3-7.7) k/uL Lymphocytes # (1.0-4.8) k/uL ABG pH (7.35-7.45) ABG pCO2 (35-45) mmHg ABG pO2 (83-108) mmHg ABG HCO3 (21-25) mmol/L ABG Total CO2 (19-24) mmol/L ABG O2 Saturation (94-97) % Chloride (98-107) mmol/L Carbon Dioxide (22-30) mmol/L BUN (7-17) mg/dL Creatinine (0.52-1.04) mg/dL Glucose (74-99) mg/dL POC Glucose (mg/dL) 131 H (70-110) mg/dL Magnesium (1.6-2.3) mg/dL TSH (0.465-4.680) mIU/L Urine Opiates Screen (NotDetected) Microbiology - Last 24 Hours (Table) 02/28/24 20:52 Gram Stain - Preliminary Sputum Assessment and Plan (1) Sepsis Current Visit: Yes Status: Acute Code(s): A41.9 - SEPSIS, UNSPECIFIED ORGANISM SNOMED Code(s): 16609278 Plan: 1patient with sepsis in this patient who did have fever tachycardia elevated white count in this patient with significant mental status changes with concern for possible [employer] infection meningitis versus encephalitis as currently no other obvious focus chest x-ray with no evidence of any consolidation her abdomen was soft on clinical examination urine was negative and evidence of any cellulitis or joint swelling 2we will wait for the LP to be completed 3check HSV serology 4patient is broadly covered with the vancomycin Rocephin and acyclovir however kidney function need to monitor closely with this combination We will follow on clinical condition and cultures to further adjust medication if needed Thank you for this consultation we will follow the patient along with you Dictation was produced using [email or web address] dictation software. please excuse any grammatical, word or spelling errors. Time with Patient: Greater than 30
--- NOTE | 2024-02-29 22:26 | EEG ---
ELECTROENCEPHALOGRAM REPORT CLINICAL HISTORY: This is a 63-year-old woman with altered mental status. The EEG is obtained to evaluate for seizure epileptiform discharges. RELEVANT MEDICATIONS: 1. IV Precedex. 2. Topamax. EEG TYPE: This is a routine 21-channel EEG with video using the 10/20 electrode placement system. DESCRIPTION: The patient is intubated on a ventilator. The background consists of [id number] voltage of 7 to 7.5 hertz activity alternating with diffuse nonrhythmic delta/theta activity. There is no physiological stage 2 sleep architecture. There is no focal slowing. There is anteroposterior lag with triphasic morphology over bilateral hemisphere. Interictal and ictal is, there appears to be sharply controlled activity over the right parietal region. No clear epileptiform discharge, or seizure. ACTIVATION PROCEDURE: Photic stimulation did not evoke a posterior driving response. There is no abnormality during the photic stimulation. Hyperventilation is not performed. CLINICAL INTERPRETATION: This is an abnormal routine EEG. The background slowing is suggestive of moderate encephalopathy. There is a sharply controlled activity over the right parietal region which can increase cortical irritability. No clear discharges or seizure on the EEG. The triphasic wave is likely due to toxic metabolic derangement. Clinical correlation is recommended. MMODL / IJN: [id number] / [id number]
[2024-03-01 00:23] LABS: Glucose,Whole Blood 158 mg/dL (70-110)
[2024-03-01 05:17] LABS: Glucose,Whole Blood 162 mg/dL (70-110)
[2024-03-01 05:25] LABS: Basophils % (A) 0 %; Eosinophils % (A) 0 %; HCT 36.8 % (34.0-46.0); Lymphocytes # (A) 0.6 k/uL (1.0-4.8); Lymphocytes % (A) 4 %; MCH 31.6 pg (25.0-35.0); MCHC 32.7 g/dL (31.0-37.0); MCV 96.7 fL (80.0-100.0); Mean Platelet Volume 8.2; Monocytes # (A) 0.3 k/uL (0-1.0); Monocytes % (A) 2 %; Neutrophils # (A) 15.6 k/uL (1.3-7.7); Neutrophils % (A) 94 %; Platelet Count 227 k/uL (150-450); RDW 13.1 % (11.5-15.5); WBC 16.6 k/uL (3.8-10.6)
[2024-03-01 05:32] LABS: ABG Base Excess -5.8 mmol/L; ABG HCO3 19 mmol/L (21-25); ABG PCO2 37 mmHg (35-45); ABG PH 7.33 (7.35-7.45); ABG PO2 103 mmHg (83-108); ABG TCO2 21 mmol/L (19-24)
[2024-03-01 05:37] LABS: African American GFR (CKD) 39 (>60 ml/min/1.73 sqM); Anion Gap 6 mmol/L; Blood Urea Nitrogen 26 mg/dL (7-17); Calcium 8.1 mg/dL (8.4-10.2); Carbon Dioxide 19 mmol/L (22-30); Chloride 120 mmol/L (98-107); Glucose 154 mg/dL (74-99); Non-African American GFR(CKD) 34 (>60 ml/min/1.73 sqM); Potassium 3.4 mmol/L (3.5-5.1); Sodium 145 mmol/L (137-145)
[2024-03-01 06:02] LABS: Allen Test Performed? no
[2024-03-01] MEDS ORDERED: Potassium Replacement Protocol 1 EACH MISC MISCELLANE PRN (06:07)
[2024-03-01] MEDS: hydrALAZINE HCL 20 MG/ML 1 ML VIAL IVP PRN (06:23)
[2024-03-01] MEDS: POTASSIUM BICARBONATE/CIT AC 20 MEQ TABLET.EFF NG-TUBE SCH (06:25)
[2024-03-01] MEDS: fentaNYL (PF) 50 MCG/ML 2 ML AMP IVP PRN (06:35)
--- NOTE | 2024-03-01 08:02 | XR ---
EXAMINATION TYPE: XR chest 1V portable DATE OF EXAM: 03/01/2024 COMPARISON: 02/29/2024 HISTORY: SOB, Follow Up FINDINGS: Indwelling tubes and catheters are unchanged. Patchy infiltrate left medial lung base. COPD with pulmonary vascular congestion. Stable appearance of the cardio-mediastinal structures at this time. Pleural effusion unchanged. IMPRESSION: 1. Stable portable chest. Clinical correlation and follow up until resolution is recommended. [facility], , 03/01/2024 8:00 AM
[2024-03-01] MEDS: ACETAMINOPHEN TAB 325 MG TAB PO PRN (08:32)
--- NOTE | 2024-03-01 08:47 | P.HPIM ---
History of Present Illness H&P Date: 02/29/24 Janice Mejia is a 63-year-old white female with past medical history significant for COPD, chronic ongoing tobacco dependence, hypertension, hyperlipidemia, hypothyroidism, and chronic lower back pain maintained on PO morphine TID. She presented to the emergency department yesterday afternoon altered and obtunded. Pt intubated and sedated and history obtained via chart review. Patient was found standing at the sink in her bathroom yesterday, shaky, and confused. She may have had some slurred speech. Noted to be progressively more lethargic and confused throughout the day. On presentation to the emergency department, code stroke was initiated. No fibrinolytics were given, as the risk were felt to outweigh the benefits. Patient was started on Brilinta twice daily. Neurologist was consulted. While being worked up, patient became unresponsive. There was concern for possible morphine overdose. A dose of Narcan x 2 were given. Subsequently, patient had episode of nausea and vomiting. ABG was consistent with severe hypercapnic respiratory failure. ABG done on 100% FiO2; PaO2 greater than 420, pCO2 52, pH of 7.18. Patient was intubated by the ER provider for airway protection. Brain CT without contrast did not show any acute bleed or mass effect. Pt currently in the ICU sedated on propofol at 25 mcg/kg/min. Current ventilator settings respiratory rate 20, tidal volume 360, FiO2 50%, PEEP of 5. Peak pressures are 22. Postintubation chest x-ray shows endotracheal tube and orogastric tube in appropriate positions. WBC count 11.8, hemoglobin 14.1, hematocrit 44.6, platelets 256. Sodium 141, potassium 4.5, chloride 110, serum bicarb 21, BUN 27, creatinine 2.49, glucose 111. Lactic 2. Troponin less than 0.012. EKG: Sinus rhythm, rate 76 bpm, no obvious acute ischemic changes. Urine toxicology screen positive for opiates. Serum alcohol less than 10. Urinalysis unremarkable for infection. Normal saline currently infusing at 75 mg/h. Review of Systems ROS unobtainable: due to endotracheal tube Past Medical History Past Medical History: Deep Vein Thrombosis (DVT), Hyperlipidemia, Hypertension, Pneumonia Additional Past Medical History / Comment(s): chronic back pain, clotting disorder History of Any Multi-Drug Resistant Organisms: None Reported Past Surgical History: Tubal Ligation Additional Past Surgical History / Comment(s): Partial Hysterectomy Past Anesthesia/Blood Transfusion Reactions: No Reported Reaction Past Psychological History: Anxiety, Depression Smoking Status: Current every day smoker Past Alcohol Use History: None Reported Past Drug Use History: None Reported - Past Family History Mother Family Medical History: No Reported History Medications and Allergies Home Medications Medication Instructions Recorded Confirmed Type Aspirin [Adult Low Dose Aspirin EC] 81 mg PO DAILY 09/15/19 02/28/24 History Gabapentin [Neurontin] 100 mg PO TID 09/15/19 02/28/24 History Levothyroxine Sodium [Synthroid] 25 mcg PO DAILY 09/15/19 02/28/24 History Topiramate [Topamax] 100 mg PO BID 09/15/19 02/28/24 History busPIRone HCL 10 mg PO QID 09/15/19 02/28/24 History cilostazoL [Pletal] 100 mg PO BID 09/15/19 02/28/24 History Furosemide [Lasix] 20 mg PO DAILY 12/12/21 02/28/24 History Morphine Sulfate 15 mg PO TID PRN 12/12/21 02/28/24 History Atorvastatin Calcium [Lipitor] 80 mg PO W/SUPPER 10/30/22 02/28/24 History Cholecalciferol (Vitamin D3) 1,250 mcg PO Q7D 10/30/22 02/28/24 History [Vitamin D3 (1250 Mcg = 50,000 Iu)] Donepezil [Aricept] 5 mg PO DAILY 10/30/22 02/28/24 History Montelukast [Singulair] 10 mg PO HS 10/30/22 02/28/24 History Potassium Chloride [Klor-Con M20] 20 meq PO DAILY 10/30/22 02/28/24 History Umeclidinium Brm/Vilanterol Tr 1 puff INHALATION RT-DAILY 10/30/22 02/28/24 H istory [Anoro Ellipta 62.5-25 Mcg INH] Cetirizine HCl 10 mg PO DAILY 12/22/22 02/28/24 History Albuterol Nebulized [Ventolin 2.5 mg INHALATION RT-TID 02/28/24 02/28/24 History Nebulized] Alendronate Sodium [Fosamax] 70 mg PO Q7D 02/28/24 02/28/24 History Cholestyramine (with Sugar) 4 gm PO Q12H PRN 02/28/24 02/28/24 History [Cholestyramine Packet] Diclofenac Potassium [Cataflam] 50 mg PO DAILY 02/28/24 02/28/24 History Promethazine HCl 12.5 mg PO BID PRN 02/28/24 02/28/24 History QUEtiapine [SEROquel] 50 mg PO HS 02/28/24 02/28/24 History Venlafaxine HCl [Effexor XR] 150 mg PO DAILY 02/28/24 02/28/24 History hydrOXYzine pamoate [Vistaril] 25 mg PO QID 02/28/24 02/28/24 History Allergies Allergy/AdvReac Type Severity Reaction Status Date / Time bacitracin Allergy Rash/Hives Verified 02/28/24 16:29 [From Neosporin ([id number])] meperidine [From Demerol] Allergy Rash/Hives Verified 02/28/24 16:29 neomycin Allergy Rash/Hives Verified 02/28/24 16:29 [From Neosporin ([id number])] polymyxin B Allergy Rash/Hives Verified 02/28/24 16:29 [From Neosporin ([id number])] Physical Exam Vitals: Vital Signs Temp Pulse Resp BP Pulse Ox FiO2 03/01/24 07:45 102.6 F H 99 24 144/87 100 03/01/24 07:00 105 H 27 H 141/81 100 03/01/24 06:00 75 24 99 03/01/24 05:00 87 24 100 03/01/24 04:00 99.6 F 81 33 H 99 35 03/01/24 03:36 99 03/01/24 03:19 96 35 03/01/24 03:00 96 24 137/88 99 03/01/24 02:00 82 24 99 03/01/24 01:00 96 24 99 03/01/24 00:30 94 24 99 03/01/24 00:15 80 24 100 03/01/24 00:00 98.4 F 81 24 99 35 02/29/24 23:45 86 24 98 02/29/24 23:43 94 02/29/24 23:30 89 24 99 02/29/24 23:15 94 24 98 35 02/29/24 23:14 90 02/29/24 23:11 93 24 98 02/29/24 23:00 108 H 24 98 02/29/24 22:45 86 24 99 02/29/24 22:30 87 24 100 02/29/24 22:15 79 24 100 02/29/24 22:00 85 24 99 02/29/24 21:45 84 24 99 02/29/24 21:30 82 24 99 02/29/24 21:15 79 24 98 02/29/24 21:00 96 24 99 02/29/24 20:45 91 24 100 02/29/24 20:30 66 24 98 02/29/24 20:29 67 02/29/24 20:21 66 02/29/24 20:18 64 02/29/24 20:15 62 24 99 02/29/24 20:14 63 35 02/29/24 20:00 98.5 F 68 24 98 35 02/29/24 19:45 67 24 98 02/29/24 19:30 71 24 98 02/29/24 19:15 64 24 98 02/29/24 19:00 73 24 122/71 98 02/29/24 18:35 51 L 24 114/71 99 02/29/24 18:20 67 24 119/71 99 02/29/24 18:15 68 24 119/71 99 02/29/24 18:10 64 24 119/71 99 02/29/24 18:00 68 24 110/69 99 02/29/24 17:45 65 24 98 02/29/24 17:30 69 24 99 02/29/24 17:15 68 24 111/67 99 02/29/24 17:00 73 24 110/69 99 02/29/24 16:30 68 24 101/62 99 02/29/24 16:06 73 02/29/24 16:00 75 24 91/55 98 35 02/29/24 15:44 35 02/29/24 15:36 71 02/29/24 15:30 99.0 F 74 24 101/65 98 35 02/29/24 15:00 73 24 97/61 100 02/29/24 14:30 77 24 95/60 98 02/29/24 14:00 76 24 105/66 99 02/29/24 13:30 84 24 105/66 98 35 02/29/24 13:00 99.0 F 87 24 104/64 99 02/29/24 12:30 92 24 128/84 99 35 02/29/24 12:28 96 02/29/24 12:16 98 02/29/24 12:03 35 02/29/24 12:00 89 19 139/80 99 35 02/29/24 11:30 93 19 139/80 99 02/29/24 11:06 35 02/29/24 11:00 89 24 99 02/29/24 10:30 97 26 H 99 02/29/24 10:00 93 26 H 99 35 02/29/24 09:53 35 02/29/24 09:30 90 20 135/73 99 02/29/24 09:06 92 02/29/24 09:00 84 21 120/69 99 02/29/24 08:54 92 02/29/24 08:52 92 Intake and Output 02/29/24 03/01/24 03/01/24 22:59 06:59 14:59 Intake Total 3132.140 1029.778 386 Output Total 405 437 140 Balance 2727.140 592.778 246 Intake: IV 774 649 156 Acyclovir Sodium 700 mg 100 100 In Sodium Chloride 0.9% 100 ml @ 100 mls/hr IVPB Q8HR@0400,1200,2000 [facility] Rx#:[id number] Pressure Bag 24 24 6 Sodium Chloride 0.9% 1, 600 525 150 000 ml @ 75 mls/hr IV . [id number] [facility] Rx#:[id number] cefTRIAXone 2 gm In 50 Sodium Chloride 0.9% 50 ml @ 100 mls/hr IVPB Q12HR [facility] Rx#:[id number] Intake, IV Titration 2259.140 180.778 Amount Acyclovir Sodium 700 mg 200 In Sodium Chloride 0.9% 100 ml @ 100 mls/hr IVPB Q8HR@0400,1200,2000 [facility] Rx#:[id number] Dexmedetomidine/0.9% NaCl 15.719 (Pmx) 400 mcg In Empty Bag 1 bag @ 0.2 MCG/KG/HR 3.493 mls/hr IV .Q24H [facility] Rx#:[id number] Norepinephrine 4 mg In 24.351 33.668 Sodium Chloride 0.9% 250 ml @ 0.03 MCG/KG/MIN 7. 984 mls/hr IV .Q24H [facility] Rx#:[id number] Sodium Chloride 0.9% 1, 2000 000 ml @ 999 mls/hr IV . Q1H1M [facility] Rx#:[id number] propofoL 1,000 mg In 19.070 147.110 Empty Bag 1 bag @ 15 MCG/ KG/MIN 6.287 mls/hr IV . [id number] [facility] Rx#:[id number] Oral 150 Tube Feeding 69 140 50 Other 30 60 30 Output: Urine 405 437 140 Other: Voiding Method Indwelling Catheter Indwelling Catheter Weight 59.9 kg ABP, PAP, CO, CI - Last 8 Hours Arterial Blood Pressure 170/62 Arterial Blood Pressure 173/66 Arterial Blood Pressure 164/64 Arterial Blood Pressure 166/66 Arterial Blood Pressure 153/65 Arterial Blood Pressure 155/63 Arterial Blood Pressure 168/70 Gen: elderly female appears older than age, intubated and sedated HEENT: ET tube in place Neck: no JVD CV: RRR, no murmur Lungs: Wheezing, no rales Abd: soft, nontender Neuro: sedated Skin: warm and dry Results CBC & Chem 7: 03/01/24 05:13 03/01/24 05:13 Labs: Abnormal Lab Results - Last 24 Hours (Table) 02/29/24 02/29/24 02/29/24 Range/Units 04:45 11:31 11:40 WBC (3.8-10.6) k/uL Neutrophils # (1.3-7.7) k/uL Lymphocytes # (1.0-4.8) k/uL ABG pH 7.32 L (7.35-7.45) ABG HCO3 20 L (21-25) mmol/L ABG O2 Saturation 98.5 H (94-97) % Potassium (3.5-5.1) mmol/L Chloride (98-107) mmol/L Carbon Dioxide (22-30) mmol/L BUN (7-17) mg/dL Creatinine (0.52-1.04) mg/dL Glucose (74-99) mg/dL POC Glucose (mg/dL) 191 H (70-110) mg/dL Calcium (8.4-10.2) mg/dL Vitamin B12 3103.0 H (200.0-944.0) pg/mL 02/29/24 02/29/24 03/01/24 Range/Units 13:14 17:25 00:21 WBC (3.8-10.6) k/uL Neutrophils # (1.3-7.7) k/uL Lymphocytes # (1.0-4.8) k/uL ABG pH (7.35-7.45) ABG HCO3 (21-25) mmol/L ABG O2 Saturation (94-97) % Potassium (3.5-5.1) mmol/L Chloride (98-107) mmol/L Carbon Dioxide (22-30) mmol/L BUN (7-17) mg/dL Creatinine (0.52-1.04) mg/dL Glucose (74-99) mg/dL POC Glucose (mg/dL) 178 H 156 H 158 H (70-110) mg/dL Calcium (8.4-10.2) mg/dL Vitamin B12 (200.0-944.0) pg/mL 03/01/24 03/01/24 03/01/24 Range/Units 05:13 05:13 05:16 WBC 16.6 H (3.8-10.6) k/uL Neutrophils # 15.6 H (1.3-7.7) k/uL Lymphocytes # 0.6 L (1.0-4.8) k/uL ABG pH (7.35-7.45) ABG HCO3 (21-25) mmol/L ABG O2 Saturation (94-97) % Potassium 3.4 L (3.5-5.1) mmol/L Chloride 120 H (98-107) mmol/L Carbon Dioxide 19 L (22-30) mmol/L BUN 26 H (7-17) mg/dL Creatinine 1.61 H (0.52-1.04) mg/dL Glucose 154 H (74-99) mg/dL POC Glucose (mg/dL) 162 H (70-110) mg/dL Calcium 8.1 L (8.4-10.2) mg/dL Vitamin B12 (200.0-944.0) pg/mL 03/01/24 Range/Units 05:28 WBC (3.8-10.6) k/uL Neutrophils # (1.3-7.7) k/uL Lymphocytes # (1.0-4.8) k/uL ABG pH 7.33 L (7.35-7.45) ABG HCO3 19 L (21-25) mmol/L ABG O2 Saturation 98.0 H (94-97) % Potassium (3.5-5.1) mmol/L Chloride (98-107) mmol/L Carbon Dioxide (22-30) mmol/L BUN (7-17) mg/dL Creatinine (0.52-1.04) mg/dL Glucose (74-99) mg/dL POC Glucose (mg/dL) (70-110) mg/dL Calcium (8.4-10.2) mg/dL Vitamin B12 (200.0-944.0) pg/mL Microbiology - Last 24 Hours (Table) 02/28/24 20:52 Gram Stain - Preliminary Sputum Thrombosis Risk Factor Assmnt - Choose All That Apply Any of the Below Risk Factors Present?: Yes Each Factor Represents 1 point: Abnormal pulmonary function (COPD) Each Risk Factor Represents 2 Points: Age 61-74 years Each Risk Factor Represents 3 Points: History of DVT/PE Thrombosis Risk Factor Assessment Total Risk Factor Score: 6 Thrombosis Risk Factor Assessment Level: High Risk Assessment and Plan Plan: Acute respiratory failure with hypercapnia COPD with exacerbation Acute toxic and metabolic encephalopathy Opiate dependance with overdose GARY with ATN CKD stage 3a Continue with current ICU care, pulmonology, ID and Neurology following. Attempt to wean ventillator. IV fluids and empiric abx
[2024-03-01] MEDS: VANCOMYCIN 1,250 MG in SODIUM CHLORIDE 0.9% 250 ML IVPB ONE (10:10)
[2024-03-01] MEDS: CLEVIDIPINE BUTYRATE 25 MG in EMPTY BAG 1 BAG IV SCH (10:32)
[2024-03-01 12:27] LABS: Glucose,Whole Blood 127 mg/dL (70-110)
--- NOTE | 2024-03-01 13:51 | P.PN ---
Subjective Progress Note Date: 03/01/24 Principal diagnosis: Acute hypoxic and hypercapnic respiratory failure requiring intubation mechanical ventilation with acute COPD exacerbation and sepsis. Patient is a 63-year-old female past medical history significant for COPD chronic and ongoing tobacco use hypertension hyperlipidemia hypothyroidism chronic back pain and this patient was currently on p.o. morphine 3 times daily by her pain specialist patient has been brought into the hospital yesterday for evaluation of weakness confusion apparently initially found yesterday morning by the in the bathroom standing at the sink shaky and confused and subsequently slept most of the day however as the patient was getting more lethargic and confused has been brought the patient to the ER for further e valuation there was initial concern for possible stroke and the patient was started on Brilinta initial CT was negative for any bleed or mass defect patient also received Narcan x 2 concerning for possible morphine opiate overdose subsequently patient did have episodes of vomiting worsening respiratory distress ended up getting intubated patient on presentation to the hospital was afebrile subsequently she spiked a fever of 102.1 degrees following hide at 4 AM and when the fever of 101.5 at 6:30 AM patient did have a white count of 11.8 on admission with left shift subsequent white count is up to 23.3 she did have elevated BUN and creatinine liver enzymes are normal procalcitonin was normal urine has been negative urine dressing was positive for opiates influenza RSV COVID testing was negative chest x-ray did not show any evidence of consolidation patient was initially treated with vancomycin and Zosyn subsequently antibiotic has been adjusted to vancomycin Rocephin and acyclovir concerning for possible [employer]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 Patient seen today on 03/01/2024, remains in the ICU, intubated and mechanically ventilated. Patient is on assist-control mode of mechanical ventilation, rate 24 tidal volume 400 FiO2 35% PEEP of 5 ABG showed a pO2 of 103 pCO2 37 pH of 7.33 patient spiked a temp as high as 102.6 yesterday, she remains on antibiotics in the form of vancomycin, Rocephin, she is also on acyclovir. Sheila ent is not requiring any pressors, her IV fluids at 75 cc/h. On propofol at 30 mcg/kg/min. Urine output is about 50 cc/h. Had an episode of vomiting earlier today in spite of having and orogastric tube, she may have developed a bit of aspiration, hence no more feeding and oral gastric tube is now on low intermittent suction. Blood pressure seems to be quite high today, patient seems to be agitated, restless, I believe the blood pressure will go down with higher dose of sedation/propofol chest x-ray showed patchy infiltrate left lung base, and COPD findings. WBC count is 16.6 hemoglobin is 12 sodium is 145 potassium 3.4 chloride 120, BUN is 26 creatinine 1.61, improved compared to admission. Sputum cultures and blood cultures are pending urology is considering lumbar puncture but it is not possible since the patient received Brilinta on admission Objective - Vital Signs Vital signs: Vital Signs Temp 100.5 F H 03/01/24 12:30 Pulse 116 H 03/01/24 13:04 Resp 29 H 03/01/24 13:00 BP 133/77 03/01/24 10:00 Pulse Ox 99 03/01/24 13:00 FiO2 35 03/01/24 12:45 Intake & Output 02/29/24 03/01/24 03/01/24 18:59 06:59 18:59 Intake Total 3445.037 3286.459 1554.903 Output Total 815 667 615 Balance 2630.037 938.199 534.903 Weight 69.853 kg 59.9 kg Intake: IV 1083 1111 596 Acyclovir Sodium 700 mg 200 In Sodium Chloride 0.9% 100 ml @ 100 mls/hr IVPB Q8HR@0400,1200,2000 [facility] Rx#:[id number] Magnesium Sulfate-D5w Pmx 100 1 gm In Dextrose/Water 1 100ml.bag @ 100 mls/hr IVPB Q1H [facility] Rx#: [id number] Piperacillin-Tazobactam 3 75 .375 gm In Sodium Chloride 0.9% 100 ml @ 25 mls/hr IVPB Q12H [facility] Rx# :[id number] Pressure Bag 33 36 21 Sodium Chloride 0.9% 1, 825 825 525 000 ml @ 75 mls/hr IV . [id number] [facility] Rx#:[id number] cefTRIAXone 2 gm In 50 50 50 Sodium Chloride 0.9% 50 ml @ 100 mls/hr IVPB Q12HR [facility] Rx#:[id number] Intake, IV Titration 2333.037 224.199 293.903 Amount Acyclovir Sodium 700 mg 300 In Sodium Chloride 0.9% 100 ml @ 100 mls/hr IVPB Q8HR@0400,1200,2000 [facility] Rx#:[id number] Clevidipine Butyrate 25 1.467 mg In Empty Bag 1 bag @ 1 MG/HR 2 mls/hr IV .Q24H [facility] Rx#:[id number] Dexmedetomidine/0.9% NaCl 30.592 (Pmx) 400 mcg In Empty Bag 1 bag @ 0.2 MCG/KG/HR 3.493 mls/hr IV .Q24H [facility] Rx#:[id number] Norepinephrine 4 mg In 58.019 Sodium Chloride 0.9% 250 ml @ 0.03 MCG/KG/MIN 7. 984 mls/hr IV .Q24H [facility] Rx#:[id number] Sodium Chloride 0.9% 1, 2000 000 ml @ 999 mls/hr IV . Q1H1M [facility] Rx#:[id number] Vancomycin 1,250 mg In 250 Sodium Chloride 0.9% 250 ml @ 125 mls/hr IVPB [facility]CE [facility] Rx#:[id number] propofoL 1,000 mg In 2.445 166.180 42.436 Empty Bag 1 bag @ 15 MCG/ KG/MIN 6.287 mls/hr IV . [id number] [facility] Rx#:[id number] Oral 150 Tube Feeding 29 180 80 Other 90 30 Output: Urine 815 667 615 Other: Voiding Method Indwelling Catheter Indwelling Catheter ABP, PAP, CO, CI - Last Documented Arterial Blood Pressure 150/65 - Exam GENERAL DESCRIPTION: Elderly female intubated on the vent HEENT: Shows Pallor , no scleral icterus. Oral mucous membrane is dry. Endotracheal tube and orogastric tube are intact NECK: Trachea central, no thyromegaly. LUNGS: Unlabored breathing. Decreased breath sounds at the bases HEART: S1, S2, regular rate and rhythm. No loud murmur ABDOMEN: Soft, no tenderness , guarding or rigidity, no organomegaly EXTREMITIES: No edema of feet. SKIN: No rash, no masses palpable. NEUROLOGICAL: Could not assess, patient is sedated but on lower dose of propofol does not seem to be comprehensive, does not follow any instructions, seems to be restless and agitated. Psychiatric: Could not assess - Labs CBC & Chem 7: 03/01/24 05:13 03/01/24 05:13 Labs: Abnormal Lab Results - Last 24 Hours (Table) 02/29/24 02/29/24 03/01/24 Range/Units 04:45 17:25 00:21 WBC (3.8-10.6) k/uL Neutrophils # (1.3-7.7) k/uL Lymphocytes # (1.0-4.8) k/uL ABG pH (7.35-7.45) ABG HCO3 (21-25) mmol/L ABG O2 Saturation (94-97) % Potassium (3.5-5.1) mmol/L Chloride (98-107) mmol/L Carbon Dioxide (22-30) mmol/L BUN (7-17) mg/dL Creatinine (0.52-1.04) mg/dL Glucose (74-99) mg/dL POC Glucose (mg/dL) 156 H 158 H (70-110) mg/dL Calcium (8.4-10.2) mg/dL Vitamin B12 3103.0 H (200.0-944.0) pg/mL 03/01/24 03/01/24 03/01/24 Range/Units 05:13 05:13 05:16 WBC 16.6 H (3.8-10.6) k/uL Neutrophils # 15.6 H (1.3-7.7) k/uL Lymphocytes # 0.6 L (1.0-4.8) k/uL ABG pH (7.35-7.45) ABG HCO3 (21-25) mmol/L ABG O2 Saturation (94-97) % Potassium 3.4 L (3.5-5.1) mmol/L Chloride 120 H (98-107) mmol/L Carbon Dioxide 19 L (22-30) mmol/L BUN 26 H (7-17) mg/dL Creatinine 1.61 H (0.52-1.04) mg/dL Glucose 154 H (74-99) mg/dL POC Glucose (mg/dL) 162 H (70-110) mg/dL Calcium 8.1 L (8.4-10.2) mg/dL Vitamin B12 (200.0-944.0) pg/mL 03/01/24 03/01/24 Range/Units 05:28 12:25 WBC (3.8-10.6) k/uL Neutrophils # (1.3-7.7) k/uL Lymphocytes # (1.0-4.8) k/uL ABG pH 7.33 L (7.35-7.45) ABG HCO3 19 L (21-25) mmol/L ABG O2 Saturation 98.0 H (94-97) % Potassium (3.5-5.1) mmol/L Chloride (98-107) mmol/L Carbon Dioxide (22-30) mmol/L BUN (7-17) mg/dL Creatinine (0.52-1.04) mg/dL Glucose (74-99) mg/dL POC Glucose (mg/dL) 127 H (70-110) mg/dL Calcium (8.4-10.2) mg/dL Vitamin B12 (200.0-944.0) pg/mL Microbiology - Last 24 Hours (Table) 02/29/24 04:45 Blood Culture - Preliminary Blood 02/28/24 20:52 Gram Stain - Preliminary Sputum Sputum Culture - Preliminary Assessment and Plan Assessment: Impression: Acute hypoxemic and hypercapnic respiratory failure, intubated to the mechanical ventilator Acute encephalopathy exact etiology is not clear, could be metabolic or could be 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 Acute COPD exacerbation Acute leukocytosis Acute on chronic kidney disease, most likely related to acute tubular necrosis related to hypotension on initial presentation Chronic obstructive pulmonary disease Chronic ongoing tobacco dependence History of hypertension History of hyperlipidemia History of hypothyroidism Chronic lumbar back pain, Lumbar MRI done 2022 showing spinal canal stenosis of L3-L5. Also a large central body disc herniation of L4-L5. Chronic pain, currently takes morphine 15 mg strength tablets 3 times a day. History of anxiety/depression Recommendation: Continue ventilatory support Continue sedation Continue nutritional support however since the patient an episode of vomiting earlier today, will hold tube feeding and orogastric tube was placed on low intermittent suction Continue GI and DVT prophylaxis Continue antibiotics and antiviral patient is receiving vancomycin, Rocephin, and acyclovir Continue bronchodilators for underlying COPD Continue IV Solu-Medrol, however we will cut down the dose to 60 mg IV push every 8 hours Continue Cleviprex for elevated blood pressure if needed Cultures of blood and sputum are pending Will continue to follow. During her mental status, patient is not ready for weaning or extubation at this point. Critically ill, critical care time is over 30-minute Time with Patient: Greater than 30
--- NOTE | 2024-03-01 14:14 | P.PN ---
Subjective Progress Note Date: 03/01/24 I am following up with the patient and her is at bedside. Her states that the patient has daily migraines and she is on Topamax 100 mg twice daily. He states that she follows up with Dr. Duckworth who is managing her pain and she has chronic low back pain and she has been on morphine for at least 1 year and he denies that the patient overdosed on morphine. He stated that patient was very sleepy and was on the toilet for prolonged period of time and after knocking on her door multiple times after a while she was standing by the sink and her leg with jerking and twitches wobbly walking. She refused to come to the hospital. stated that she kept on being sleepy and as a result cooper rubalcava brought her to the hospital. denies that the patient had any recent fever that she complained of or any new or worsening of headache. He denies any recent travels or any sick contacts. He states that she had a jerking of extremities in December 2023 and initially was thought was due to medication side effects. She smokes 1 pack a day. No official history of seizures. She continues to be intubated on the ventilator and per the nurse when the sedation is weaned off she becomes restless. She was stopped of IV Precedex and she is on IV propofol since she was restless. Objective - Vital Signs Vital signs: Vital Signs Temp 100.5 F H 03/01/24 12:30 Pulse 116 H 03/01/24 13:04 Resp 29 H 03/01/24 13:00 BP 133/77 03/01/24 10:00 Pulse Ox 99 03/01/24 13:00 FiO2 35 03/01/24 12:45 Intake & Output 02/29/24 03/01/24 03/01/24 18:59 06:59 18:59 Intake Total 3445.037 8998.659 3929.903 Output Total 815 667 615 Balance 2630.037 938.199 534.903 Weight 69.853 kg 59.9 kg Intake: IV 1083 1111 596 Acyclovir Sodium 700 mg 200 In Sodium Chloride 0.9% 100 ml @ 100 mls/hr IVPB Q8HR@0400,1200,2000 [facility] Rx#:[id number] Magnesium Sulfate-D5w Pmx 100 1 gm In Dextrose/Water 1 100ml.bag @ 100 mls/hr IVPB Q1H [facility] Rx#: [id number] Piperacillin-Tazobactam 3 75 .375 gm In Sodium Chloride 0.9% 100 ml @ 25 mls/hr IVPB Q12H [facility] Rx# :[id number] Pressure Bag 33 36 21 Sodium Chloride 0.9% 1, 825 825 525 000 ml @ 75 mls/hr IV . [id number] [facility] Rx#:[id number] cefTRIAXone 2 gm In 50 50 50 Sodium Chloride 0.9% 50 ml @ 100 mls/hr IVPB Q12HR [facility] Rx#:[id number] Intake, IV Titration 2333.037 224.199 293.903 Amount Acyclovir Sodium 700 mg 300 In Sodium Chloride 0.9% 100 ml @ 100 mls/hr IVPB Q8HR@0400,1200,2000 [facility] Rx#:[id number] Clevidipine Butyrate 25 1.467 mg In Empty Bag 1 bag @ 1 MG/HR 2 mls/hr IV .Q24H [facility] Rx#:[id number] Dexmedetomidine/0.9% NaCl 30.592 (Pmx) 400 mcg In Empty Bag 1 bag @ 0.2 MCG/KG/HR 3.493 mls/hr IV .Q24H [facility] Rx#:[id number] Norepinephrine 4 mg In 58.019 Sodium Chloride 0.9% 250 ml @ 0.03 MCG/KG/MIN 7. 984 mls/hr IV .Q24H [facility] Rx#:[id number] Sodium Chloride 0.9% 1, 2000 000 ml @ 999 mls/hr IV . Q1H1M [facility] Rx#:[id number] Vancomycin 1,250 mg In 250 Sodium Chloride 0.9% 250 ml @ 125 mls/hr IVPB ONCE [facility] Rx#:[id number] propofoL 1,000 mg In 2.445 166.180 42.436 Empty Bag 1 bag @ 15 MCG/ KG/MIN 6.287 mls/hr IV . [id number] [facility] Rx#:[id number] Oral 150 Tube Feeding 29 180 80 Other 90 30 Output: Urine 815 667 615 Other: Voiding Method Indwelling Catheter Indwelling Catheter ABP, PAP, CO, CI - Last Documented Arterial Blood Pressure 150/65 - Exam General: Lying in bed and does not appear in acute distress. HENT: Supple neck. Lung: Intubated on a ventilator. Neuro: Limited. Is on IV Propofol 50mcg/kg/min. Is comatose. Pupils are 1-2mm bilaterally. Primary gaze is midline. Decrease tone throughout uppers and lowers. No jerking of extremities. Tmax: 102.6F Initial presentation white blood cell is 11.8 and repeat it was 23.3 thousand-->16.6K Creatinine is 2.49. Initial serum glucose is 111. TSH is 0.133 Free T4 is 1.96. Ammonia level is less than 9. Vitamin B12: 3103. Sodium is 149, calcium is 9.8. AST ALT is within normal limits U/a is negative. UDS is positive for opiates but otherwise rest is not detected. CT of the head is reported as no acute bleed or mass effect. No significant abnormality. Patient reviewed the CT and I agree there is no acute or subacute stroke. CT angiography of the neck is reported as widely patent vertebral and carotid artery of the neck. 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 No large vessel intracranial arterial occlusion, significant stenosis or aneurysm changes seen. EEG: Is an abnormal routine EEG. The background slowing suggestive of moderate encephalopathy. There are sharply contoured activity over the right parietal region which can increase cortical irritability. No clear discharges or seizure on the EEG. The triphasic wave is likely due to toxic metabolic derangement. - Labs CBC & Chem 7: 03/01/24 05:13 03/01/24 05:13 Labs: Abnormal Lab Results - Last 24 Hours (Table) 02/29/24 02/29/24 03/01/24 Range/Units 04:45 17:25 00:21 WBC (3.8-10.6) k/uL Neutrophils # (1.3-7.7) k/uL Lymphocytes # (1.0-4.8) k/uL ABG pH (7.35-7.45) ABG HCO3 (21-25) mmol/L ABG O2 Saturation (94-97) % Potassium (3.5-5.1) mmol/L Chloride (98-107) mmol/L Carbon Dioxide (22-30) mmol/L BUN (7-17) mg/dL Creatinine (0.52-1.04) mg/dL Glucose (74-99) mg/dL POC Glucose (mg/dL) 156 H 158 H (70-110) mg/dL Calcium (8.4-10.2) mg/dL Vitamin B12 3103.0 H (200.0-944.0) pg/mL 03/01/24 03/01/24 03/01/24 Range/Units 05:13 05:13 05:16 WBC 16.6 H (3.8-10.6) k/uL Neutrophils # 15.6 H (1.3-7.7) k/uL Lymphocytes # 0.6 L (1.0-4.8) k/uL ABG pH (7.35-7.45) ABG HCO3 (21-25) mmol/L ABG O2 Saturation (94-97) % Potassium 3.4 L (3.5-5.1) mmol/L Chloride 120 H (98-107) mmol/L Carbon Dioxide 19 L (22-30) mmol/L BUN 26 H (7-17) mg/dL Creatinine 1.61 H (0.52-1.04) mg/dL Glucose 154 H (74-99) mg/dL POC Glucose (mg/dL) 162 H (70-110) mg/dL Calcium 8.1 L (8.4-10.2) mg/dL Vitamin B12 (200.0-944.0) pg/mL 03/01/24 03/01/24 Range/Units 05:28 12:25 WBC (3.8-10.6) k/uL Neutrophils # (1.3-7.7) k/uL Lymphocytes # (1.0-4.8) k/uL ABG pH 7.33 L (7.35-7.45) ABG HCO3 19 L (21-25) mmol/L ABG O2 Saturation 98.0 H (94-97) % Potassium (3.5-5.1) mmol/L Chloride (98-107) mmol/L Carbon Dioxide (22-30) mmol/L BUN (7-17) mg/dL Creatinine (0.52-1.04) mg/dL Glucose (74-99) mg/dL POC Glucose (mg/dL) 127 H (70-110) mg/dL Calcium (8.4-10.2) mg/dL Vitamin B12 (200.0-944.0) pg/mL Microbiology - Last 24 Hours (Table) 02/29/24 04:45 Blood Culture - Preliminary Blood 02/28/24 20:52 Gram Stain - Preliminary Sputum Sputum Culture - Preliminary Assessment and Plan Assessment: This is a 63-year-old woman with a history of chronic low back pain, on morphine who presented emergency department because of altered mental status. It seems that. There is some noise in the bathroom the day prior to present to the hospital and the patient was found standing on the sink shaky and confused. She also had some slurred speech speech. She was very lethargic and confused throughout the day prior to present to the hospital. She had elevated leukocytosis as well as fever. Acute encephalopathy with fever and leukocytosis of unknown etiology. On examination had leg jerks that was intermittent. Possible her leg jerking could be clinical seizures especially since in the past had episode of jerking of extremities in December 2023. EEG is moderate encephalopathy and had shraply contoured activity over the right parietal region but no clear discharges or s eizure on EEG. 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 This does not seem like a stroke or TIA. Respiratory distress and patient is intubated on the ventilator Episode of jerking of extremities in 12/2023 and per was felt medication side-effects (but unsure name of medication). I personally feel cannot rule out seizure. Chronic kidney insufficiency Chronic low back pain and the patient is on morphine Daily migraine on Topamax Chronic history of COPD Hypertension Hyperlipidemia Hypothyroidism Tobacco use Plan: I empirically started the patient on Keppra 500 mg twice a day. She is on Topamax 100mg bid for migraine and that also has antiseizure benefit. In the ED the patient was given Brilinta on 02/28/2024 for concern for stroke. Will avoid any Brilinta or anticoagulation for lumbar puncture. Will have to hold lumbar puncture for 5 days to pursue with lumbar puncture per anesthesiologist. Empirically started the patient on acyclovir, vancomycin, ceftriaxone for possible meningeal encephalitis which I feel is unlikely. ID is consulted. Patient is on aspirin 81 mg daily. Patient is on Lipitor 80 mg nightly. Will defer the rest of the medical management to primary and other specialist Plan discussed with patient's who is at bedside and ICU nurse. Time with Patient: Less than 30
[2024-03-01] MEDS: methylPREDNISolone SOD SUCCI 125 MG/2 ML VIAL IV SCH (16:34)
[2024-03-01] MEDS: ACYCLOVIR SODIUM 600 MG in SODIUM CHLORIDE 0.9% 100 ML IVPB SCH (16:54)
[2024-03-01 17:20] LABS: Magnesium 1.9 mg/dL (1.6-2.3); Potassium 3.5 mmol/L (3.5-5.1)
[2024-03-01 17:56] LABS: Glucose,Whole Blood 143 mg/dL (70-110)
[2024-03-01] MEDS: POTASSIUM CHLORIDE 10 MEQ in SODIUM CHLORIDE 0.9% 100 ML IVPB SCH (19:01)
[2024-03-01] MEDS: MAGNESIUM SULFATE-D5W PMX 1 GM in DEXTROSE/WATER 1 100ML.BAG IVPB ONE (20:45)
[2024-03-01] MEDS: MORPHINE SULFATE 4 MG/ML SYRINGE IV PRN (21:40)
[2024-03-01 23:50] LABS: Glucose,Whole Blood 124 mg/dL (70-110)
[2024-03-02] MEDS ORDERED: Potassium Replacement Protocol 1 EACH MISC MISCELLANE PRN (03:16)
[2024-03-02] MEDS: POTASSIUM CHLORIDE 10 MEQ in SODIUM CHLORIDE 0.9% 100 ML IVPB SCH (03:59)
[2024-03-02 05:18] LABS: ABG Base Excess -5.4 mmol/L; ABG HCO3 19 mmol/L (21-25); ABG Oxygen Saturation 99.2 % (94-97); ABG PCO2 30 mmHg (35-45); ABG PO2 128 mmHg (83-108); ABG TCO2 19 mmol/L (19-24); Allen Test Performed? Yes
[2024-03-02 06:03] LABS: Glucose,Whole Blood 119 mg/dL (70-110)
[2024-03-02 06:18] LABS: Basophils % (A) 0 %; Eosinophils % (A) 0 %; HCT 33.5 % (34.0-46.0); Lymphocytes # (A) 0.8 k/uL (1.0-4.8); Lymphocytes % (A) 6 %; MCH 31.8 pg (25.0-35.0); MCHC 32.7 g/dL (31.0-37.0); MCV 97.4 fL (80.0-100.0); Mean Platelet Volume 8.1; Monocytes # (A) 0.4 k/uL (0-1.0); Monocytes % (A) 3 %; Neutrophils # (A) 11.3 k/uL (1.3-7.7); Neutrophils % (A) 90 %; Platelet Count 215 k/uL (150-450); RBC 3.44 m/uL (3.80-5.40); RDW 13.4 % (11.5-15.5); WBC 12.5 k/uL (3.8-10.6)
[2024-03-02 06:51] LABS: African American GFR (CKD) 55 (>60 ml/min/1.73 sqM); Anion Gap 5 mmol/L; Blood Urea Nitrogen 24 mg/dL (7-17); Calcium 7.6 mg/dL (8.4-10.2); Carbon Dioxide 17 mmol/L (22-30); Chloride 121 mmol/L (98-107); Glucose 124 mg/dL (74-99); Non-African American GFR(CKD) 48 (>60 ml/min/1.73 sqM); Potassium 3.6 mmol/L (3.5-5.1); Sodium 143 mmol/L (137-145)
[2024-03-02 06:56] LABS: Vancomycin,Random 11.9 ug/mL
--- NOTE | 2024-03-02 07:55 | XR ---
EXAMINATION TYPE: XR chest 1V portable DATE OF EXAM: 03/02/2024 COMPARISON: 03/01/2024 HISTORY: SOB, Follow Up FINDINGS: Indwelling tubes and catheters are unchanged. Scattered infiltrates appear somewhat improved. Hyperinflation compatible COPD. Stable appearance of the cardio-mediastinal structures at this time. Pleural effusion unchanged. IMPRESSION: 1. Scattered infiltrates appear somewhat improved. Hyperinflation compatible COPD. [facility], , 03/02/2024 7:52 AM
[2024-03-02] MEDS: PANTOPRAZOLE 40 MG/10 ML VIAL IVP SCH (08:42)
--- NOTE | 2024-03-02 08:51 | P.PN ---
Subjective Progress Note Date: 03/01/24 Principal diagnosis: Reason for follow-up is fever Patient is a 63-year-old female past medical history significant for COPD chronic and ongoing tobacco use hypertension hyperlipidemia hypothyroidism chronic back pain and this patient was currently on p.o. morphine 3 times daily by her pain specialist patient has been brought into the hospital for evaluation of weakness confusion subsequently had worsening of her respiratory status requiring intubation and spiked a fever probably this consultation. On today's evaluation that is 03/01/2024, Patient did spike a low-grade fever of 102.6 F this morning, patient remains to be on the ventilator FiO2 is down to 35% no significant purulent secretions through the ET requiring pressor support podiatry has been reported. Patient white count is down to 16.6 creatinine is 1.61 cultures are currently pending chest x-ray this morning patient will eat left medial lung base Objective - Vital Signs Vital signs: Vital Signs Temp 102.6 F H 03/01/24 07:45 Pulse 101 H 03/01/24 10:00 Resp 22 03/01/24 10:00 BP 133/77 03/01/24 10:00 Pulse Ox 100 03/01/24 10:00 FiO2 35 03/01/24 09:30 Intake & Output 02/29/24 03/01/24 03/01/24 18:59 06:59 18:59 Intake Total 3445.037 1605.199 658.324 Output Total 815 667 340 Balance 2630.037 938.199 318.324 Weight 69.853 kg 59.9 kg Intake: IV 1083 1111 362 Acyclovir Sodium 700 mg 200 In Sodium Chloride 0.9% 100 ml @ 100 mls/hr IVPB Q8HR@0400,1200,2000 [facility] Rx#:[id number] Magnesium Sulfate-D5w Pmx 100 1 gm In Dextrose/Water 1 100ml.bag @ 100 mls/hr IVPB Q1H [facility] Rx#: [id number] Piperacillin-Tazobactam 3 75 .375 gm In Sodium Chloride 0.9% 100 ml @ 25 mls/hr IVPB Q12H [facility] Rx# :[id number] Pressure Bag 33 36 12 Sodium Chloride 0.9% 1, 825 825 300 000 ml @ 75 mls/hr IV . [id number] [facility] Rx#:[id number] cefTRIAXone 2 gm In 50 50 50 Sodium Chloride 0.9% 50 ml @ 100 mls/hr IVPB Q12HR [facility] Rx#:[id number] Intake, IV Titration 2333.037 224.199 36.324 Amount Acyclovir Sodium 700 mg 300 In Sodium Chloride 0.9% 100 ml @ 100 mls/hr IVPB Q8HR@0400,1200,2000 [facility] Rx#:[id number] Dexmedetomidine/0.9% NaCl 30.592 (Pmx) 400 mcg In Empty Bag 1 bag @ 0.2 MCG/KG/HR 3.493 mls/hr IV .Q24H [facility] Rx#:[id number] Norepinephrine 4 mg In 58.019 Sodium Chloride 0.9% 250 ml @ 0.03 MCG/KG/MIN 7. 984 mls/hr IV .Q24H [facility] Rx#:[id number] Sodium Chloride 0.9% 1, 2000 000 ml @ 999 mls/hr IV . Q1H1M [facility] Rx#:[id number] propofoL 1,000 mg In 2.445 166.180 36.324 Empty Bag 1 bag @ 15 MCG/ KG/MIN 6.287 mls/hr IV . [id number] [facility] Rx#:[id number] Oral 150 Tube Feeding 29 180 80 Other 90 30 Output: Urine 815 667 340 Other: Voiding Method Indwelling Catheter Indwelling Catheter ABP, PAP, CO, CI - Last Documented Arterial Blood Pressure 180/60 - Exam GENERAL DESCRIPTION: An elderly female intubated on the vent RESPIRATORY SYSTEM: Unlabored breathing , decreased breath sounds at bases HEART: S1 S2 regular rate and rhythm , ABDOMEN: Soft , no tenderness EXTREMITIES: No edema feet - Labs CBC & Chem 7: 03/02/24 05:00 03/02/24 05:00 Labs: Abnormal Lab Results - Last 24 Hours (Table) 02/29/24 02/29/24 02/29/24 Range/Units 04:45 11:31 11:40 WBC (3.8-10.6) k/uL Neutrophils # (1.3-7.7) k/uL Lymphocytes # (1.0-4.8) k/uL ABG pH 7.32 L (7.35-7.45) ABG HCO3 20 L (21-25) mmol/L ABG O2 Saturation 98.5 H (94-97) % Potassium (3.5-5.1) mmol/L Chloride (98-107) mmol/L Carbon Dioxide (22-30) mmol/L BUN (7-17) mg/dL Creatinine (0.52-1.04) mg/dL Glucose (74-99) mg/dL POC Glucose (mg/dL) 191 H (70-110) mg/dL Calcium (8.4-10.2) mg/dL Vitamin B12 3103.0 H (200.0-944.0) pg/mL 02/29/24 02/29/24 03/01/24 Range/Units 13:14 17:25 00:21 WBC (3.8-10.6) k/uL Neutrophils # (1.3-7.7) k/uL Lymphocytes # (1.0-4.8) k/uL ABG pH (7.35-7.45) ABG HCO3 (21-25) mmol/L ABG O2 Saturation (94-97) % Potassium (3.5-5.1) mmol/L Chloride (98-107) mmol/L Carbon Dioxide (22-30) mmol/L BUN (7-17) mg/dL Creatinine (0.52-1.04) mg/dL Glucose (74-99) mg/dL POC Glucose (mg/dL) 178 H 156 H 158 H (70-110) mg/dL Calcium (8.4-10.2) mg/dL Vitamin B12 (200.0-944.0) pg/mL 03/01/24 03/01/24 03/01/24 Range/Units 05:13 05:13 05:16 WBC 16.6 H (3.8-10.6) k/uL Neutrophils # 15.6 H (1.3-7.7) k/uL Lymphocytes # 0.6 L (1.0-4.8) k/uL ABG pH (7.35-7.45) ABG HCO3 (21-25) mmol/L ABG O2 Saturation (94-97) % Potassium 3.4 L (3.5-5.1) mmol/L Chloride 120 H (98-107) mmol/L Carbon Dioxide 19 L (22-30) mmol/L BUN 26 H (7-17) mg/dL Creatinine 1.61 H (0.52-1.04) mg/dL Glucose 154 H (74-99) mg/dL POC Glucose (mg/dL) 162 H (70-110) mg/dL Calcium 8.1 L (8.4-10.2) mg/dL Vitamin B12 (200.0-944.0) pg/mL 03/01/24 Range/Units 05:28 WBC (3.8-10.6) k/uL Neutrophils # (1.3-7.7) k/uL Lymphocytes # (1.0-4.8) k/uL ABG pH 7.33 L (7.35-7.45) ABG HCO3 19 L (21-25) mmol/L ABG O2 Saturation 98.0 H (94-97) % Potassium (3.5-5.1) mmol/L Chloride (98-107) mmol/L Carbon Dioxide (22-30) mmol/L BUN (7-17) mg/dL Creatinine (0.52-1.04) mg/dL Glucose (74-99) mg/dL POC Glucose (mg/dL) (70-110) mg/dL Calcium (8.4-10.2) mg/dL Vitamin B12 (200.0-944.0) pg/mL Microbiology - Last 24 Hours (Table) 02/28/24 20:52 Gram Stain - Preliminary Sputum Assessment and Plan (1) Sepsis Current Visit: Yes Status: Acute Code(s): A41.9 - SEPSIS, UNSPECIFIED ORGANISM SNOMED Code(s): 85527353 Plan: 1patient with sepsis in this patient who did have fever tachycardia elevated white count in this patient with significant mental status changes with concern for possible SCRIP CLERK infection meningitis versus encephalitis as currently no other obvious focus chest x-ray with no evidence of any consolidation her abdomen was soft on clinical examination urine was negative and evidence of any cellulitis or joint swelling 2we will wait for the LP to be completed 3patient white count is trending down culture is still pending, patient to continue with vancomycin Rocephin while waiting for the workup to be completed Dictation was produced using [employer] software. please excuse any grammatical, word or spelling errors. Time with Patient: Less than 30
[2024-03-02] MEDS: DEXMEDETOMIDINE/0.9% NACL(PMX) 400 MCG in EMPTY BAG 1 BAG IV SCH (09:46)
[2024-03-02] MEDS: VANCOMYCIN 1,250 MG in SODIUM CHLORIDE 0.9% 250 ML IVPB ONE (12:20)
--- NOTE | 2024-03-02 12:22 | P.PN ---
Subjective Progress Note Date: 03/02/24 Principal diagnosis: Acute hypoxic and hypercapnic respiratory failure requiring intubation mechanical ventilation with acute COPD exacerbation and sepsis. Patient is a 63-year-old female past medical history significant for COPD chronic and ongoing tobacco use hypertension hyperlipidemia hypothyroidism chronic back pain and this patient was currently on p.o. morphine 3 times daily by her pain specialist patient has been brought into the hospital yesterday for evaluation of weakness confusion apparently initially found yesterday morning by the in the bathroom standing at the sink shaky and confused and subsequently slept most of the day however as the patient was getting more lethargic and confused has been brought the patient to the ER for further e valuation there was initial concern for possible stroke and the patient was started on Brilinta initial CT was negative for any bleed or mass defect patient also received Narcan x 2 concerning for possible morphine opiate overdose subsequently patient did have episodes of vomiting worsening respiratory distress ended up getting intubated patient on presentation to the hospital was afebrile subsequently she spiked a fever of 102.1 degrees following hide at 4 AM and when the fever of 101.5 at 6:30 AM patient did have a white count of 11.8 on admission with left shift subsequent white count is up to 23.3 she did have elevated BUN and creatinine liver enzymes are normal procalcitonin was normal urine has been negative urine dressing was positive for opiates influenza RSV COVID testing was negative chest x-ray did not show any evidence of consolidation patient was initially treated with vancomycin and Zosyn subsequently antibiotic has been adjusted to vancomycin Rocephin and acyclovir concerning for possible DOG BREEDER infection and infectious was consulted for further management most information has been obtained from review the chart talking nursing staff as the patient is currently intubated on the vent no family at the bedside unfortunately LP could not be done as the patient has received Brilinta. Patient seen today on 03/01/2024, remains in the ICU, intubated and mechanically ventilated. Patient is on assist-control mode of mechanical ventilation, rate 24 tidal volume 400 FiO2 35% PEEP of 5 ABG showed a pO2 of 103 pCO2 37 pH of 7.33 patient spiked a temp as high as 102.6 yesterday, she remains on antibiotics in the form of vancomycin, Rocephin, she is also on acyclovir. Sheila ent is not requiring any pressors, her IV fluids at 75 cc/h. On propofol at 30 mcg/kg/min. Urine output is about 50 cc/h. Had an episode of vomiting earlier today in spite of having and orogastric tube, she may have developed a bit of aspiration, hence no more feeding and oral gastric tube is now on low intermittent suction. Blood pressure seems to be quite high today, patient seems to be agitated, restless, I believe the blood pressure will go down with higher dose of sedation/propofol chest x-ray showed patchy infiltrate left lung base, and COPD findings. WBC count is 16.6 hemoglobin is 12 sodium is 145 potassium 3.4 chloride 120, BUN is 26 creatinine 1.61, improved compared to admission. Sputum cultures and blood cultures are pending urology is considering lumbar puncture but it is not possible since the patient received Brilinta on admission Was seen today on 03/02/2024, remains in the ICU, intubated and mechanically ventilated. On assist-control rate 24 tidal volume 400 FiO2 35% and PEEP of 5 ABG showed a pO2 of 128 pCO2 30 pH of 7.40 hence FiO2 was cut down to 30%. Pat ient remains on acyclovir, and remains on antibiotics for presumptive DOG BREEDER infection. Remains on Cleviprex at 2 mg/h she is also on propofol at 20 mg/kg/min IV fluid is 0.9 normal saline at 75 cc/h. On a lower dose of propofol, patient was arousable, she was following simple instructions, hence I will likely transition the propofol to Precedex, and may give the patient a trial of weaning if possible and if her mentation seems to be quite appropriate. Chest x-ray showed scattered infiltrate, improved compared to admission chest x-ray. Patient may have aspirated on admission WBC count is 12.5 hemoglobin is 11 basic metabolic profile is normal. Renal profile showed a BUN of 24 creatinine 1.21, down from 2.49 on admission. Objective - Vital Signs Vital signs: Vital Signs Temp 99.0 F 03/02/24 08:00 Pulse 76 03/02/24 11:45 Resp 20 03/02/24 11:00 BP 133/77 03/01/24 10:00 Pulse Ox 98 03/02/24 11:00 FiO2 30 03/02/24 11:30 Intake & Output 03/01/24 03/02/24 03/02/24 18:59 06:59 18:59 Intake Total 3949.556 5174.536 646.517 Output Total 9246 217 6896 Balance 271.400 347.536 -398.483 Weight 62.7 kg Intake: IV 1064 952 565 Magnesium Sulfate-D5w Pmx 100 1 gm In Dextrose/Water 1 100ml.bag @ 100 mls/hr IVPB ONCE ONE Rx#: [id number] Potassium Chloride 10 meq 500 200 In Sodium Chloride 0.9% 100 ml @ 100 mls/hr IVPB Q1HR [facility] Rx#:[id number] Pressure Bag 39 27 15 Sodium Chloride 0.9% 1, 975 225 300 000 ml @ 75 mls/hr IV . [id number] [facility] Rx#:[id number] cefTRIAXone 2 gm In 50 100 50 Sodium Chloride 0.9% 50 ml @ 100 mls/hr IVPB Q12HR [facility] Rx#:[id number] Intake, IV Titration 512.400 255.536 81.517 Amount Acyclovir Sodium 600 mg 100 In Sodium Chloride 0.9% 100 ml @ 100 mls/hr IVPB Q12H [facility] Rx#:[id number] Clevidipine Butyrate 25 62.400 29.8 7.800 mg In Empty Bag 1 bag @ 1 MG/HR 2 mls/hr IV .Q24H [facility] Rx#:[id number] Dexmedetomidine/0.9% NaCl 8.335 (Pmx) 400 mcg In Empty Bag 1 bag @ 0.2 MCG/KG/HR 3.135 mls/hr IV .Q24H [facility] Rx#:[id number] Vancomycin 1,250 mg In 250 Sodium Chloride 0.9% 250 ml @ 125 mls/hr IVPB ONCE ONE Rx#:[id number] propofoL 1,000 mg In 100.000 225.736 65.382 Empty Bag 1 bag @ 15 MCG/ KG/MIN 6.287 mls/hr IV . [id number] [facility] Rx#:[id number] Oral 150 Tube Feeding 80 Other 30 60 Output: Gastric Drainage 600 Urine 1565 920 445 Other: Voiding Method Indwelling Catheter Indwelling Catheter ABP, PAP, CO, CI - Last Documented Arterial Blood Pressure 146/66 - Exam GENERAL DESCRIPTION: 63-year-old female intubated mechanically ventilated, in no distress HEENT: Shows Pallor , no scleral icterus. Oral mucous membrane is dry. Endotracheal tube and orogastric tube are intact NECK: Trachea central, no thyromegaly. LUNGS: Good breath sound bilaterally no crackles rhonchi or wheezes HEART: S1, S2, regular rate and rhythm. No loud murmur ABDOMEN: Soft, no tenderness , guarding or rigidity, no organomegaly EXTREMITIES: No edema of feet. SKIN: No rash, no masses palpable. NEUROLOGICAL: On the lower dose of propofol, patient seems to be appropriate, follows simple instructions like wiggling toes squeezing hands, but she tends to get drowsy easily hence I plan to discontinue propofol and awaken the patient.. Psychiatric: Could not fully assess - Labs CBC & Chem 7: 03/02/24 05:00 03/02/24 05:00 Labs: Abnormal Lab Results - Last 24 Hours (Table) 03/01/24 03/01/24 03/01/24 Range/Units 12:25 17:55 23:49 WBC (3.8-10.6) k/uL RBC (3.80-5.40) m/uL Hgb (11.4-16.0) gm/dL Hct (34.0-46.0) % Neutrophils # (1.3-7.7) k/uL Lymphocytes # (1.0-4.8) k/uL ABG pCO2 (35-45) mmHg ABG pO2 (83-108) mmHg ABG HCO3 (21-25) mmol/L ABG O2 Saturation (94-97) % Hemoglobin (11.4-16.0) gm/dL Potassium (3.5-5.1) mmol/L Chloride (98-107) mmol/L Carbon Dioxide (22-30) mmol/L BUN (7-17) mg/dL Creatinine (0.52-1.04) mg/dL Glucose (74-99) mg/dL POC Glucose (mg/dL) 127 H 143 H 124 H (70-110) mg/dL Calcium (8.4-10.2) mg/dL 03/02/24 03/02/24 03/02/24 Range/Units 02:30 05:00 05:00 WBC 12.5 H (3.8-10.6) k/uL RBC 3.44 L (3.80-5.40) m/uL Hgb 11.0 L (11.4-16.0) gm/dL Hct 33.5 L (34.0-46.0) % Neutrophils # 11.3 H (1.3-7.7) k/uL Lymphocytes # 0.8 L (1.0-4.8) k/uL ABG pCO2 (35-45) mmHg ABG pO2 (83-108) mmHg ABG HCO3 (21-25) mmol/L ABG O2 Saturation (94-97) % Hemoglobin (11.4-16.0) gm/dL Potassium 3.4 L (3.5-5.1) mmol/L Chloride 121 H (98-107) mmol/L Carbon Dioxide 17 L (22-30) mmol/L BUN 24 H (7-17) mg/dL Creatinine 1.21 H (0.52-1.04) mg/dL Glucose 124 H (74-99) mg/dL POC Glucose (mg/dL) (70-110) mg/dL Calcium 7.6 L (8.4-10.2) mg/dL 03/02/24 03/02/24 Range/Units 05:13 06:02 WBC (3.8-10.6) k/uL RBC (3.80-5.40) m/uL Hgb (11.4-16.0) gm/dL Hct (34.0-46.0) % Neutrophils # (1.3-7.7) k/uL Lymphocytes # (1.0-4.8) k/uL ABG pCO2 30 L (35-45) mmHg ABG pO2 128 H (83-108) mmHg ABG HCO3 19 L (21-25) mmol/L ABG O2 Saturation 99.2 H (94-97) % Hemoglobin 11.0 L (11.4-16.0) gm/dL Potassium (3.5-5.1) mmol/L Chloride (98-107) mmol/L Carbon Dioxide (22-30) mmol/L BUN (7-17) mg/dL Creatinine (0.52-1.04) mg/dL Glucose (74-99) mg/dL POC Glucose (mg/dL) 119 H (70-110) mg/dL Calcium (8.4-10.2) mg/dL Microbiology - Last 24 Hours (Table) 02/28/24 20:52 Gram Stain - Final Sputum Sputum Culture - Final 03/01/24 09:25 Gram Stain - Preliminary Sputum 02/29/24 04:45 Blood Culture - Preliminary Blood Assessment and Plan Assessment: Impression: Acute hypoxemic and hypercapnic respiratory failure, intubation mechanical ventilation Acute encephalopathy exact etiology is not clear, could be metabolic or could be related to DOG BREEDER infection Acute sepsis, primary source is presently unknown being investigated. Neurology seems to be quite concerned about possible DOG BREEDER infection/viral or bacterial encephalitis Acute COPD exacerbation Acute leukocytosis Acute on chronic kidney disease, most likely related to acute tubular necrosis related to hypotension on initial presentation, improving Chronic obstructive pulmonary disease Chronic ongoing tobacco dependence History of hypertension History of hyperlipidemia History of hypothyroidism Chronic lumbar back pain, Lumbar MRI done 2022 showing spinal canal stenosis of L3-L5. Also a large central body disc herniation of L4-L5. Chronic pain, currently takes morphine 15 mg strength tablets 3 times a day. History of anxiety/depression Recommendation: Continue ventilatory support however may consider a trial of weaning today. Change propofol to Precedex to assess for possible weaning trial today. Restart enteral feedings slowly if the patient does not get extubated today. Continue GI and DVT prophylaxis Continue antibiotics and antiviral patient is receiving vancomycin, Rocephin, and acyclovir Continue bronchodilators for underlying COPD Cut down on Solu-Medrol to 60 mg IV push every 12 hours Continue Cleviprex for elevated blood pressure Cultures of blood and sputum are negative, nondiagnostic Will continue to follow. Critically ill, critical care time is over 30-minute Time with Patient: Greater than 30
[2024-03-02 12:33] LABS: ABG HCO3 18 mmol/L (21-25); ABG Oxygen Saturation 98.6 % (94-97); ABG PCO2 30 mmHg (35-45); ABG PH 7.39 (7.35-7.45); ABG PO2 112 mmHg (83-108); ABG TCO2 19 mmol/L (19-24); Allen Test Performed? Yes
[2024-03-02 13:34] LABS: Glucose,Whole Blood 134 mg/dL (70-110)
--- NOTE | 2024-03-02 13:43 | P.PN ---
Subjective Progress Note Date: 03/01/24 H&P Date: 02/29/24 Janice Mejia is a 63-year-old white female with past medical history significant for COPD, chronic ongoing tobacco dependence, hypertension, hyperlipidemia, hypothyroidism, and chronic lower back pain maintained on PO morphine TID. She presented to the emergency department yesterday afternoon altered and obtunded. Pt intubated and sedated and history obtained via chart review. Patient was found standing at the sink in her bathroom yesterday, shaky, and confused. She may have had some slurred speech. Noted to be progressively more lethargic and confused throughout the day. On presentation to the emergency department, code stroke was initiated. No fibrinolytics were given, as the risk were felt to outweigh the benefits. Patient was started on Brilinta twice daily. Neurologist was consulted. While being worked up, patient became unresponsive. There was concern for possible morphine overdose. A dose of Narcan x 2 were given. Subsequently, patient had episode of nausea and vomiting. ABG was consistent with severe hypercapnic respiratory failure. ABG done on 100% FiO2; PaO2 greater than 420, pCO2 52, pH of 7.18. Patient was intubated by the ER provider for airway protection. Brain CT without contrast did not show any acute bleed or mass effect. Pt currently in the ICU sedated on propofol at 25 mcg/kg/min. Current ventilator settings respiratory rate 20, tidal volume 360, FiO2 50%, PEEP of 5. Peak pressures are 22. Postintubation chest x-ray shows endotracheal tube and orogastric tube in appropriate positions. WBC count 11.8, hemoglobin 14.1, hematocrit 44.6, platelets 256. Sodium 141, potassium 4.5, chloride 110, serum bicarb 21, BUN 27, creatinine 2.49, glucose 111. Lactic 2. Troponin less than 0.012. EKG: Sinus rhythm, rate 76 bpm, no obvious acute ischemic changes. Urine toxicology screen positive for opiates. Serum alcohol less than 10. Urinalysis unremarkable for infection. Normal saline currently infusing at 75 mg/h. 03/01/2025 vent dependent, FiO2 35%/+5 of PEEP. Sedated on diprovan. no pressors. Tmax 102.6, WBC decreased to 16.6. Sputum and blood cultures pending. maintained on vancomycin, Rocephin and Aciclovir. BUN 26, creatinine 1.61. hypertensive. Chest x-ray reported patchy infiltrate left medial lung base. COPD with pulmonary vascular congestion. EEG reported abnormal routine EEG, ba ckground slowing suggestive of moderate encephalopathy, sharply controlled activity over the right parietal region which can increase cortical irritability. No clear discharges or seizure on EEG. Triphasic wave likely due to toxic metabolite derangement. Objective - Vital Signs Vital signs: Vital Signs Temp 100.5 F H 03/01/24 12:30 Pulse 95 03/01/24 15:30 Resp 25 H 03/01/24 15:30 BP 133/77 03/01/24 10:00 Pulse Ox 99 03/01/24 15:30 FiO2 35 03/01/24 12:45 Intake & Output 02/29/24 03/01/24 03/01/24 18:59 06:59 18:59 Intake Total 3445.037 6981.044 4616.703 Output Total 815 667 790 Balance 2630.037 938.199 466.703 Weight 69.853 kg 59.9 kg Intake: IV 1083 1111 674 Acyclovir Sodium 700 mg 200 In Sodium Chloride 0.9% 100 ml @ 100 mls/hr IVPB Q8HR@0400,1200,2000 [facility] Rx#:[id number] Magnesium Sulfate-D5w Pmx 100 1 gm In Dextrose/Water 1 100ml.bag @ 100 mls/hr IVPB Q1H [facility] Rx#: [id number] Piperacillin-Tazobactam 3 75 .375 gm In Sodium Chloride 0.9% 100 ml @ 25 mls/hr IVPB Q12H [facility] Rx# :[id number] Pressure Bag 33 36 24 Sodium Chloride 0.9% 1, 825 825 600 000 ml @ 75 mls/hr IV . [id number] [facility] Rx#:[id number] cefTRIAXone 2 gm In 50 50 50 Sodium Chloride 0.9% 50 ml @ 100 mls/hr IVPB Q12HR [facility] Rx#:[id number] Intake, IV Titration 2333.037 224.199 322.703 Amount Acyclovir Sodium 700 mg 300 In Sodium Chloride 0.9% 100 ml @ 100 mls/hr IVPB Q8HR@0400,1200,2000 [facility] Rx#:[id number] Clevidipine Butyrate 25 30.267 mg In Empty Bag 1 bag @ 1 MG/HR 2 mls/hr IV .Q24H [facility] Rx#:[id number] Dexmedetomidine/0.9% NaCl 30.592 (Pmx) 400 mcg In Empty Bag 1 bag @ 0.2 MCG/KG/HR 3.493 mls/hr IV .Q24H [facility] Rx#:[id number] Norepinephrine 4 mg In 58.019 Sodium Chloride 0.9% 250 ml @ 0.03 MCG/KG/MIN 7. 984 mls/hr IV .Q24H [facility] Rx#:[id number] Sodium Chloride 0.9% 1, 2000 000 ml @ 999 mls/hr IV . Q1H1M [facility] Rx#:[id number] Vancomycin 1,250 mg In 250 Sodium Chloride 0.9% 250 ml @ 125 mls/hr IVPB ONCE ONE Rx#:[id number] propofoL 1,000 mg In 2.445 166.180 42.436 Empty Bag 1 bag @ 15 MCG/ KG/MIN 6.287 mls/hr IV . [id number] ON LICENSE OF [facility] Rx#:[id number] Oral 150 Tube Feeding 29 180 80 Other 90 30 Output: Urine 815 667 790 Other: Voiding Method Indwelling Catheter Indwelling Catheter ABP, PAP, CO, CI - Last Documented Arterial Blood Pressure 132/60 - Exam Gen: intubated and sedated HEENT: ETT present Neck: Supple CV: RRR, no murmur, no edema Lungs: Unlabored, equal air entry, diminished bases Abd: soft, nontender Neuro: sedated Skin: warm and dry - Labs CBC & Chem 7: 03/02/24 05:00 03/02/24 05:00 Labs: Abnormal Lab Results - Last 24 Hours (Table) 02/29/24 02/29/24 03/01/24 Range/Units 04:45 17:25 00:21 WBC (3.8-10.6) k/uL Neutrophils # (1.3-7.7) k/uL Lymphocytes # (1.0-4.8) k/uL ABG pH (7.35-7.45) ABG HCO3 (21-25) mmol/L ABG O2 Saturation (94-97) % Potassium (3.5-5.1) mmol/L Chloride (98-107) mmol/L Carbon Dioxide (22-30) mmol/L BUN (7-17) mg/dL Creatinine (0.52-1.04) mg/dL Glucose (74-99) mg/dL POC Glucose (mg/dL) 156 H 158 H (70-110) mg/dL Calcium (8.4-10.2) mg/dL Vitamin B12 3103.0 H (200.0-944.0) pg/mL 03/01/24 03/01/24 03/01/24 Range/Units 05:13 05:13 05:16 WBC 16.6 H (3.8-10.6) k/uL Neutrophils # 15.6 H (1.3-7.7) k/uL Lymphocytes # 0.6 L (1.0-4.8) k/uL ABG pH (7.35-7.45) ABG HCO3 (21-25) mmol/L ABG O2 Saturation (94-97) % Potassium 3.4 L (3.5-5.1) mmol/L Chloride 120 H (98-107) mmol/L Carbon Dioxide 19 L (22-30) mmol/L BUN 26 H (7-17) mg/dL Creatinine 1.61 H (0.52-1.04) mg/dL Glucose 154 H (74-99) mg/dL POC Glucose (mg/dL) 162 H (70-110) mg/dL Calcium 8.1 L (8.4-10.2) mg/dL Vitamin B12 (200.0-944.0) pg/mL 03/01/24 03/01/24 Range/Units 05:28 12:25 WBC (3.8-10.6) k/uL Neutrophils # (1.3-7.7) k/uL Lymphocytes # (1.0-4.8) k/uL ABG pH 7.33 L (7.35-7.45) ABG HCO3 19 L (21-25) mmol/L ABG O2 Saturation 98.0 H (94-97) % Potassium (3.5-5.1) mmol/L Chloride (98-107) mmol/L Carbon Dioxide (22-30) mmol/L BUN (7-17) mg/dL Creatinine (0.52-1.04) mg/dL Glucose (74-99) mg/dL POC Glucose (mg/dL) 127 H (70-110) mg/dL Calcium (8.4-10.2) mg/dL Vitamin B12 (200.0-944.0) pg/mL Microbiology - Last 24 Hours (Table) 02/29/24 04:45 Blood Culture - Preliminary Blood 02/28/24 20:52 Gram Stain - Preliminary Sputum Sputum Culture - Preliminary Assessment and Plan Assessment: Acute sepsis, etiology unclear Acute respiratory failure with hypoxia and hypercapnia, intubated Acute COPD with exacerbation Acute toxic and metabolic encephalopathy Leukocytosis Opiate dependance with overdose GARY with ATN CKD stage 3a Chronic pain follows with pain specialist Dr. Duckworth, on morphine. Plan: Continue on current medication regimen ,monitoring and symptomatic treatment. ICU management as per crayon sawyer. No vent weaning today, patient hypertensive, agitated, not following commands. antibiotics as per infectious disease. Neurology following. The impression and plan of care has been dictated as directed. : I performed a history and examination of this patient, discussed the same with the dictator. I agree with the dictator's note ,documented as a scribe. Any additional findings or plans will be noted.
[2024-03-02] MEDS: methylPREDNISolone SOD SUCCI 40 MG/ML 1 ML VIAL IV SCH (13:45)
--- NOTE | 2024-03-02 13:53 | P.PN ---
Subjective Progress Note Date: 03/02/24 H&P Date: 02/29/24 Janice Mejia is a 63-year-old white female with past medical history significant for COPD, chronic ongoing tobacco dependence, hypertension, hyperlipidemia, hypothyroidism, and chronic lower back pain maintained on PO morphine TID. She presented to the emergency department yesterday afternoon altered and obtunded. Pt intubated and sedated and history obtained via chart review. Patient was found standing at the sink in her bathroom yesterday, shaky, and confused. She may have had some slurred speech. Noted to be progressively more lethargic and confused throughout the day. On presentation to the emergency department, code stroke was initiated. No fibrinolytics were given, as the risk were felt to outweigh the benefits. Patient was started on Brilinta twice daily. Neurologist was consulted. While being worked up, patient became unresponsive. There was concern for possible morphine overdose. A dose of Narcan x 2 were given. Subsequently, patient had episode of nausea and vomiting. ABG was consistent with severe hypercapnic respiratory failure. ABG done on 100% FiO2; PaO2 greater than 420, pCO2 52, pH of 7.18. Patient was intubated by the ER provider for airway protection. Brain CT without contrast did not show any acute bleed or mass effect. Pt currently in the ICU sedated on propofol at 25 mcg/kg/min. Current ventilator settings respiratory rate 20, tidal volume 360, FiO2 50%, PEEP of 5. Peak pressures are 22. Postintubation chest x-ray shows endotracheal tube and orogastric tube in appropriate positions. WBC count 11.8, hemoglobin 14.1, hematocrit 44.6, platelets 256. Sodium 141, potassium 4.5, chloride 110, serum bicarb 21, BUN 27, creatinine 2.49, glucose 111. Lactic 2. Troponin less than 0.012. EKG: Sinus rhythm, rate 76 bpm, no obvious acute ischemic changes. Urine toxicology screen positive for opiates. Serum alcohol less than 10. Urinalysis unremarkable for infection. Normal saline currently infusing at 75 mg/h. 03/01/2024 vent dependent, FiO2 35%/+5 of PEEP. Sedated on diprovan. no pressors. Tmax 102.6, WBC decreased to 16.6. Sputum and blood cultures pending. maintained on vancomycin, Rocephin and Aciclovir. BUN 26, creatinine 1.61. hypertensive. Chest x-ray reported patchy infiltrate left medial lung base. COPD with pulmonary vascular congestion. EEG reported abnormal routine EEG, ba ckground slowing suggestive of moderate encephalopathy, sharply controlled activity over the right parietal region which can increase cortical irritability. No clear discharges or seizure on EEG. Triphasic wave likely due to toxic metabolite derangement. 03/02/2024 FiO2 30%/+5 of PEEP. Currently maintained on diprovan and Precedex, following simple commands, alert. Weaning trials pending Chest x-ray reporting scattered infiltrates appear somewhat improved, hyperinflation compatible COPD.Continues on acyclovir, empiric antibiotics for possible FUNCTIONAL TESTER TYPEWRITERS infection. Afebrile, Tmax 101.1, WBC decreased to 12.5. BUN 24, creatinine 1.21. Objective - Vital Signs Vital signs: Vital Signs Temp 99.0 F 03/02/24 08:00 Pulse 72 03/02/24 12:15 Resp 21 03/02/24 12:15 BP 133/77 03/01/24 10:00 Pulse Ox 98 03/02/24 12:44 FiO2 30 03/02/24 11:30 Intake & Output 03/01/24 03/02/24 03/02/24 18:59 06:59 18:59 Intake Total 8046.078 5852.536 652.517 Output Total 7191 432 1282 Balance 271.400 347.536 -532.483 Weight 62.7 kg Intake: IV 1064 952 571 Magnesium Sulfate-D5w Pmx 100 1 gm In Dextrose/Water 1 100ml.bag @ 100 mls/hr IVPB ONCE ONE Rx#: [id number] Potassium Chloride 10 meq 500 200 In Sodium Chloride 0.9% 100 ml @ 100 mls/hr IVPB Q1HR [facility] Rx#:[id number] Pressure Bag 39 27 21 Sodium Chloride 0.9% 1, 975 225 300 000 ml @ 75 mls/hr IV . [id number] [facility] Rx#:[id number] cefTRIAXone 2 gm In 50 100 50 Sodium Chloride 0.9% 50 ml @ 100 mls/hr IVPB Q12HR [facility] Rx#:[id number] Intake, IV Titration 512.400 255.536 81.517 Amount Acyclovir Sodium 600 mg 100 In Sodium Chloride 0.9% 100 ml @ 100 mls/hr IVPB Q12H [facility] Rx#:[id number] Clevidipine Butyrate 25 62.400 29.8 7.800 mg In Empty Bag 1 bag @ 1 MG/HR 2 mls/hr IV .Q24H [facility] Rx#:[id number] Dexmedetomidine/0.9% NaCl 8.335 (Pmx) 400 mcg In Empty Bag 1 bag @ 0.2 MCG/KG/HR 3.135 mls/hr IV .Q24H [facility] Rx#:[id number] Vancomycin 1,250 mg In 250 Sodium Chloride 0.9% 250 ml @ 125 mls/hr IVPB ONCE ONE Rx#:[id number] propofoL 1,000 mg In 100.000 225.736 65.382 Empty Bag 1 bag @ 15 MCG/ KG/MIN 6.287 mls/hr IV . [id number] [facility] Rx#:[id number] Oral 150 Tube Feeding 80 Other 30 60 Output: Gastric Drainage 600 Urine 1565 920 585 Other: Voiding Method Indwelling Catheter Indwelling Catheter ABP, PAP, CO, CI - Last Documented Arterial Blood Pressure 148/67 - Exam Gen: intubated, lightly sedated HEENT: ETT present Neck: Supple CV: RRR, no murmur, no edema Lungs: Unlabored, equal air entry, diminished bases Abd: soft, nontender Neuro: Lightly sedated, following simple commands Skin: warm and dry - Labs CBC & Chem 7: 03/02/24 05:00 03/02/24 05:00 Labs: Abnormal Lab Results - Last 24 Hours (Table) 03/01/24 03/01/24 03/02/24 Range/Units 17:55 23:49 02:30 WBC (3.8-10.6) k/uL RBC (3.80-5.40) m/uL Hgb (11.4-16.0) gm/dL Hct (34.0-46.0) % Neutrophils # (1.3-7.7) k/uL Lymphocytes # (1.0-4.8) k/uL ABG pCO2 (35-45) mmHg ABG pO2 (83-108) mmHg ABG HCO3 (21-25) mmol/L ABG O2 Saturation (94-97) % Hemoglobin (11.4-16.0) gm/dL Potassium 3.4 L (3.5-5.1) mmol/L Chloride (98-107) mmol/L Carbon Dioxide (22-30) mmol/L BUN (7-17) mg/dL Creatinine (0.52-1.04) mg/dL Glucose (74-99) mg/dL POC Glucose (mg/dL) 143 H 124 H (70-110) mg/dL Calcium (8.4-10.2) mg/dL 03/02/24 03/02/24 03/02/24 Range/Units 05:00 05:00 05:13 WBC 12.5 H (3.8-10.6) k/uL RBC 3.44 L (3.80-5.40) m/uL Hgb 11.0 L (11.4-16.0) gm/dL Hct 33.5 L (34.0-46.0) % Neutrophils # 11.3 H (1.3-7.7) k/uL Lymphocytes # 0.8 L (1.0-4.8) k/uL ABG pCO2 30 L (35-45) mmHg ABG pO2 128 H (83-108) mmHg ABG HCO3 19 L (21-25) mmol/L ABG O2 Saturation 99.2 H (94-97) % Hemoglobin 11.0 L (11.4-16.0) gm/dL Potassium (3.5-5.1) mmol/L Chloride 121 H (98-107) mmol/L Carbon Dioxide 17 L (22-30) mmol/L BUN 24 H (7-17) mg/dL Creatinine 1.21 H (0.52-1.04) mg/dL Glucose 124 H (74-99) mg/dL POC Glucose (mg/dL) (70-110) mg/dL Calcium 7.6 L (8.4-10.2) mg/dL 03/02/24 03/02/24 03/02/24 Range/Units 06:02 12:26 13:32 WBC (3.8-10.6) k/uL RBC (3.80-5.40) m/uL Hgb (11.4-16.0) gm/dL Hct (34.0-46.0) % Neutrophils # (1.3-7.7) k/uL Lymphocytes # (1.0-4.8) k/uL ABG pCO2 30 L (35-45) mmHg ABG pO2 112 H (83-108) mmHg ABG HCO3 18 L (21-25) mmol/L ABG O2 Saturation 98.6 H (94-97) % Hemoglobin 11.3 L (11.4-16.0) gm/dL Potassium (3.5-5.1) mmol/L Chloride (98-107) mmol/L Carbon Dioxide (22-30) mmol/L BUN (7-17) mg/dL Creatinine (0.52-1.04) mg/dL Glucose (74-99) mg/dL POC Glucose (mg/dL) 119 H 134 H (70-110) mg/dL Calcium (8.4-10.2) mg/dL Microbiology - Last 24 Hours (Table) 02/29/24 04:45 Blood Culture - Preliminary Blood 03/01/24 09:25 Gram Stain - Preliminary Sputum Sputum Culture - Preliminary 02/28/24 20:52 Gram Stain - Final Sputum Sputum Culture - Final Assessment and Plan Assessment: Acute sepsis, etiology unclear Acute respiratory failure with hypoxia and hypercapnia, intubated Acute COPD with exacerbation Acute toxic and metabolic encephalopathy Leukocytosis Opiate dependance with overdose GARY with ATN CKD stage 3a Chronic pain follows with pain specialist Dr. Duckworth, on morphine. Plan: Continue on current medication regimen ,monitoring and symptomatic treatment. Vent weaning trials pending. ICU management as per women's health care nurse practitioner. antibiotics as per infectious disease. Neurology following. The impression and plan of care has been dictated as directed. : I performed a history and examination of this patient, discussed the same with the dictator. I agree with the dictator's note ,documented as a scribe. Any additional findings or plans will be noted.
--- NOTE | 2024-03-02 14:30 | P.PN ---
Subjective Progress Note Date: 03/02/24 I am following-up with patient and per the nurse he mentation is improving. She is being likely extubated today. Objective - Vital Signs Vital signs: Vital Signs Temp 99.0 F 03/02/24 08:00 Pulse 78 03/02/24 14:00 Resp 36 H 03/02/24 14:00 BP 133/77 03/01/24 10:00 Pulse Ox 98 03/02/24 14:00 FiO2 35 03/02/24 12:00 Intake & Output 03/01/24 03/02/24 03/02/24 18:59 06:59 18:59 Intake Total 3645.474 6416.536 656.017 Output Total 9569 327 0838 Balance 271.400 347.536 -618.983 Weight 62.7 kg Intake: IV 1064 952 574 Magnesium Sulfate-D5w Pmx 100 1 gm In Dextrose/Water 1 100ml.bag @ 100 mls/hr IVPB ONCE ONE Rx#: [id number] Potassium Chloride 10 meq 500 200 In Sodium Chloride 0.9% 100 ml @ 100 mls/hr IVPB Q1HR [facility] Rx#:[id number] Pressure Bag 39 27 24 Sodium Chloride 0.9% 1, 975 225 300 000 ml @ 75 mls/hr IV . [id number] [facility] Rx#:[id number] cefTRIAXone 2 gm In 50 100 50 Sodium Chloride 0.9% 50 ml @ 100 mls/hr IVPB Q12HR [facility] Rx#:[id number] Intake, IV Titration 512.400 255.536 82.017 Amount Acyclovir Sodium 600 mg 100 In Sodium Chloride 0.9% 100 ml @ 100 mls/hr IVPB Q12H [facility] Rx#:[id number] Clevidipine Butyrate 25 62.400 29.8 8.300 mg In Empty Bag 1 bag @ 1 MG/HR 2 mls/hr IV .Q24H [facility] Rx#:[id number] Dexmedetomidine/0.9% NaCl 8.335 (Pmx) 400 mcg In Empty Bag 1 bag @ 0.2 MCG/KG/HR 3.135 mls/hr IV .Q24H [facility] Rx#:[id number] Vancomycin 1,250 mg In 250 Sodium Chloride 0.9% 250 ml @ 125 mls/hr IVPB ONCE ONE Rx#:[id number] propofoL 1,000 mg In 100.000 225.736 65.382 Empty Bag 1 bag @ 15 MCG/ KG/MIN 6.287 mls/hr IV . [id number] [facility] Rx#:[id number] Oral 150 Tube Feeding 80 Other 30 60 Output: Gastric Drainage 600 Urine 1565 920 675 Other: Voiding Method Indwelling Catheter Indwelling Catheter # Bowel Movements 1 ABP, PAP, CO, CI - Last Documented Arterial Blood Pressure 133/51 - Exam General: Lying in bed and not in acute distress. HENT: Supple neck. Lung: Intubated on a ventilator. Neuro: Somewhat limited. Is mildly drowsy but is awakeable to voice. Is following simple commands. Is able to move bilateral hands and ankles antigravity. Tmax: 101.1F in last 24 hours. Initial presentation white blood cell is 11.8 and repeat it was 23.3 thousand-->16.6K Creatinine is 2.49. Initial serum glucose is 111. TSH is 0.133 Free T4 is 1.96. Ammonia level is less than 9. Vitamin B12: 3103. Sodium is 149, calcium is 9.8. AST ALT is within normal limits U/a is negative. UDS is positive for opiates but otherwise rest is not detected. CT of the head is reported as no acute bleed or mass effect. No significant abnormality. Patient reviewed the CT and I agree there is no acute or subacute stroke. CT angiography of the neck is reported as widely patent vertebral and carotid artery of the neck. 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 No large vessel intracranial arterial occlusion, significant stenosis or aneurysm changes seen. EEG: Is an abnormal routine EEG. The background slowing suggestive of moderate encephalopathy. There are sharply contoured activity over the right parietal region which can increase cortical irritability. No clear discharges or seizure on the EEG. The triphasic wave is likely due to toxic metabolic derangement. - Labs CBC & Chem 7: 03/02/24 05:00 03/02/24 05:00 Labs: Abnormal Lab Results - Last 24 Hours (Table) 03/01/24 03/01/24 03/02/24 Range/Units 17:55 23:49 02:30 WBC (3.8-10.6) k/uL RBC (3.80-5.40) m/uL Hgb (11.4-16.0) gm/dL Hct (34.0-46.0) % Neutrophils # (1.3-7.7) k/uL Lymphocytes # (1.0-4.8) k/uL ABG pCO2 (35-45) mmHg ABG pO2 (83-108) mmHg ABG HCO3 (21-25) mmol/L ABG O2 Saturation (94-97) % Hemoglobin (11.4-16.0) gm/dL Potassium 3.4 L (3.5-5.1) mmol/L Chloride (98-107) mmol/L Carbon Dioxide (22-30) mmol/L BUN (7-17) mg/dL Creatinine (0.52-1.04) mg/dL Glucose (74-99) mg/dL POC Glucose (mg/dL) 143 H 124 H (70-110) mg/dL Calcium (8.4-10.2) mg/dL 03/02/24 03/02/24 03/02/24 Range/Units 05:00 05:00 05:13 WBC 12.5 H (3.8-10.6) k/uL RBC 3.44 L (3.80-5.40) m/uL Hgb 11.0 L (11.4-16.0) gm/dL Hct 33.5 L (34.0-46.0) % Neutrophils # 11.3 H (1.3-7.7) k/uL Lymphocytes # 0.8 L (1.0-4.8) k/uL ABG pCO2 30 L (35-45) mmHg ABG pO2 128 H (83-108) mmHg ABG HCO3 19 L (21-25) mmol/L ABG O2 Saturation 99.2 H (94-97) % Hemoglobin 11.0 L (11.4-16.0) gm/dL Potassium (3.5-5.1) mmol/L Chloride 121 H (98-107) mmol/L Carbon Dioxide 17 L (22-30) mmol/L BUN 24 H (7-17) mg/dL Creatinine 1.21 H (0.52-1.04) mg/dL Glucose 124 H (74-99) mg/dL POC Glucose (mg/dL) (70-110) mg/dL Calcium 7.6 L (8.4-10.2) mg/dL 10/24/24 10/24/24 10/24/24 Range/Units 06:02 12:26 13:32 WBC (3.8-10.6) k/uL RBC (3.80-5.40) m/uL Hgb (11.4-16.0) gm/dL Hct (34.0-46.0) % Neutrophils # (1.3-7.7) k/uL Lymphocytes # (1.0-4.8) k/uL ABG pCO2 30 L (35-45) mmHg ABG pO2 112 H (83-108) mmHg ABG HCO3 18 L (21-25) mmol/L ABG O2 Saturation 98.6 H (94-97) % Hemoglobin 11.3 L (11.4-16.0) gm/dL Potassium (3.5-5.1) mmol/L Chloride (98-107) mmol/L Carbon Dioxide (22-30) mmol/L BUN (7-17) mg/dL Creatinine (0.52-1.04) mg/dL Glucose (74-99) mg/dL POC Glucose (mg/dL) 119 H 134 H (70-110) mg/dL Calcium (8.4-10.2) mg/dL Microbiology - Last 24 Hours (Table) 02/29/24 04:45 Blood Culture - Preliminary Blood 03/01/24 09:25 Gram Stain - Preliminary Sputum Sputum Culture - Preliminary 02/28/24 20:52 Gram Stain - Final Sputum Sputum Culture - Final Assessment and Plan Assessment: This is a 63-year-old woman with a history of chronic low back pain, on morphine who presented emergency department because of altered mental status. It seems that. There is some noise in the bathroom the day prior to present to the hospital and the patient was found standing on the sink shaky and confused. She also had some slurred speech speech. She was very lethargic and confused throughout the day prior to present to the hospital. She had elevated leukocytosis as well as fever. Acute encephalopathy with fever and leukocytosis of unknown etiology. On examination had leg jerks that was intermittent. Possible her leg jerking could be clinical seizures especially since in the past had episode of jerking of extremities in December 2023. EEG is moderate encephalopathy and had shraply contoured activity over the right parietal region but no clear discharges or seizure on EEG. 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 This does not seem like a stroke or TIA--mentation is improving Respiratory distress and patient is intubated on the ventilator Episode of jerking of extremities in 12/2023 and per was felt medication side-effects (but unsure name of medication). I personally feel cannot rule out seizure. Chronic kidney insufficiency Chronic low back pain and the patient is on morphine Daily migraine on Topamax Chronic history of COPD Hypertension Hyperlipidemia Hypothyroidism Tobacco use Plan: Patient will likely be extubated today but mentation is improving. I empirically started the patient on Keppra 500 mg twice a day. She is on To pamax 100mg bid for migraine and that also has antiseizure benefit. In the ED the patient was given Brilinta on 02/28/2024 for concern for stroke. Will avoid any Brilinta or anticoagulation for lumbar puncture. Will have to hold lumbar puncture for 5 days to pursue with lumbar puncture per anesthe siologist. Empirically started the patient on acyclovir, vancomycin, ceftriaxone for possible meningeal encephalitis which I feel is unlikely. ID is consulted. Patient is on aspirin 81 mg daily. Patient is on Lipitor 80 mg nightly. Will defer the rest of the medical management to primary and other specialist Plan discussed with patient's ICU nurse. Time with Patient: Less than 30
[2024-03-02 16:44] LABS: Glucose,Whole Blood 99 mg/dL (70-110)
[2024-03-02] MEDS ORDERED: LORazepam 2 MG/ML INJ IV PRN (17:40)
[2024-03-02 20:23] LABS: Glucose,Whole Blood 92 mg/dL (70-110)
[2024-03-02] MEDS: LACTOBACILLUS ACIDOPHILUS/PECT 1 EACH CAPSULE PO SCH (20:25)
[2024-03-02] MEDS: POTASSIUM CHLORIDE ER 20 MEQ TAB.ER PO SCH (20:25)
[2024-03-02] MEDS: INSULIN ASPART (NovoLOG) 100 UNIT/ML VIAL SQ SCH (20:28)
[2024-03-03 03:17] LABS: African American GFR (CKD) 61 (>60 ml/min/1.73 sqM); Non-African American GFR(CKD) 53 (>60 ml/min/1.73 sqM)
[2024-03-03 03:56] LABS: Basophils % (A) 0 %; Eosinophils % (A) 0 %; HCT 33.8 % (34.0-46.0); HGB 10.4 gm/dL (11.4-16.0); Hypochromasia Moderate; Lymphocytes # (A) 1.2 k/uL (1.0-4.8); Lymphocytes % (A) 8 %; MCH 30.8 pg (25.0-35.0); MCHC 30.9 g/dL (31.0-37.0); MCV 99.9 fL (80.0-100.0); Mean Platelet Volume 7.7; Monocytes # (A) 0.5 k/uL (0-1.0); Monocytes % (A) 3 %; Neutrophils # (A) 12.7 k/uL (1.3-7.7); Neutrophils % (A) 88 %; Platelet Count 193 k/uL (150-450); RBC 3.39 m/uL (3.80-5.40); RDW 12.9 % (11.5-15.5); WBC 14.5 k/uL (3.8-10.6)
[2024-03-03 04:02] LABS: African American GFR (CKD) 55 (>60 ml/min/1.73 sqM); Anion Gap 5 mmol/L; Blood Urea Nitrogen 26 mg/dL (7-17); Calcium 7.8 mg/dL (8.4-10.2); Carbon Dioxide 18 mmol/L (22-30); Chloride 123 mmol/L (98-107); Glucose 98 mg/dL (74-99); Non-African American GFR(CKD) 48 (>60 ml/min/1.73 sqM); Potassium 3.9 mmol/L (3.5-5.1); Sodium 146 mmol/L (137-145)
[2024-03-03] MEDS ORDERED: Potassium Replacement Protocol 1 EACH MISC MISCELLANE PRN (04:22)
[2024-03-03 04:39] LABS: HSV I IgG Interp Positive (Negative); HSV II IgG Interp Negative (Negative)
[2024-03-03 05:38] LABS: Glucose,Whole Blood 79 mg/dL (70-110)
[2024-03-03] MEDS: POTASSIUM CHLORIDE ER 20 MEQ TAB.ER PO SCH (06:14)
[2024-03-03] MEDS: IPRATROPIUM-ALBUTEROL 3 ML NEB INHALATION SCH (09:25)
--- NOTE | 2024-03-03 09:27 | XR ---
EXAMINATION TYPE: XR chest 1V portable DATE OF EXAM: 03/03/2024 HISTORY: Shortness of breath. COMPARISON: 03/02/2024 TECHNIQUE: Single view of the chest is submitted. FINDINGS: Demonstrated are scattered senescent parenchymal change. Endotracheal and NG tubes have been removed . Perihilar infiltrates persist although may be slightly improved. The heart is stable. Hilar and mediastinal structures are within normal limits. Degenerative changes are seen of the dorsal spine. IMPRESSION: 1. Perihilar infiltrates persist although may be slightly improved. [facility], , 03/03/2024 8:04 AM
[2024-03-03] MEDS: VANCOMYCIN 1,250 MG in SODIUM CHLORIDE 0.9% 250 ML IVPB SCH (09:49)
[2024-03-03 11:41] VITALS: BMI 24.4
[2024-03-03 12:21] LABS: Glucose,Whole Blood 100 mg/dL (70-110)
--- NOTE | 2024-03-03 12:35 | P.PN ---
Subjective Progress Note Date: 03/03/24 Patient seen at bedside and she was extubated. According to the nurse she is drastically better today compared to yesterday. Patient states she had a headache that is 5 out of 10 that is also cephalic. Denies any nausea vomiting, focal weakness, visual disturbance or speech difficulty. She denies any history of seizures in the past. She stated that she passed out when she over drank alcohol. Upon tell her if she had any further episodes as per she stated that she might have 1 episode that was not related to alcohol in the past. Objective - Vital Signs Vital signs: Vital Signs Temp 97.7 F 03/03/24 08:00 Pulse 64 03/03/24 11:00 Resp 22 03/03/24 11:00 BP 136/78 03/03/24 11:00 Pulse Ox 95 03/03/24 11:00 FiO2 35 03/02/24 12:00 Intake & Output 03/02/24 03/03/24 03/03/24 18:59 06:59 18:59 Intake Total 953.203 5961 120 Output Total 1700 975 450 Balance -773.783 774 -330 Weight 64.6 kg 64.6 kg Intake: IV 736 899 Potassium Chloride 10 meq 200 In Sodium Chloride 0.9% 100 ml @ 100 mls/hr IVPB Q1HR [facility] Rx#:[id number] Pressure Bag 36 24 Sodium Chloride 0.9% 1, 450 825 000 ml @ 75 mls/hr IV . [id number] [facility] Rx#:[id number] cefTRIAXone 2 gm In 50 50 Sodium Chloride 0.9% 50 ml @ 100 mls/hr IVPB Q12HR [facility] Rx#:[id number] Intake, IV Titration 190.217 100 Amount Acyclovir Sodium 600 mg 100 100 In Sodium Chloride 0.9% 100 ml @ 100 mls/hr IVPB Q12H [facility] Rx#:[id number] Clevidipine Butyrate 25 16.500 mg In Empty Bag 1 bag @ 1 MG/HR 2 mls/hr IV .Q24H [facility] Rx#:[id number] Dexmedetomidine/0.9% NaCl 8.335 (Pmx) 400 mcg In Empty Bag 1 bag @ 0.2 MCG/KG/HR 3.135 mls/hr IV .Q24H [facility] Rx#:[id number] propofoL 1,000 mg In 65.382 Empty Bag 1 bag @ 15 MCG/ KG/MIN 6.287 mls/hr IV . [id number] [facility] Rx#:[id number] Oral 750 120 Output: Gastric Drainage 600 Urine 1100 975 450 Other: Voiding Method Indwelling Catheter Indwelling Catheter Indwelling Catheter # Voids 0 # Bowel Movements 1 0 0 ABP, PAP, CO, CI - Last Documented Arterial Blood Pressure 154/62 - Exam General:Sitting up in a recliner chair and not in acute distress. HENT: Supple neck. Neuro: Patient the patient is drastically better today. She is awake, alert oriented to self place and time. Is following simple commands. No aphasia no neglect. Pupils are round equal reactive to light. Visual enamorado are full to confrontation. Extraocular movements intact no nystagmus. No facial weakness. No dysarthria Motor is the strength is 5 out of 5 throughout. Tmax: 101.1F in last 24 hours. Initial presentation white blood cell is 11.8 and repeat it was 23.3 thousand-->16.6K-->14.5K Creatinine is 2.49. Initial serum glucose is 111. TSH is 0.133 Free T4 is 1.96. Ammonia level is less than 9. Vitamin B12: 3103. Sodium is 149, calcium is 9.8. AST ALT is within normal limits U/a is negative. UDS is positive for opiates but otherwise rest is not detected. CT of the head is reported as no acute bleed or mass effect. No significant a bnormality. Patient reviewed the CT and I agree there is no acute or subacute stroke. CT angiography of the neck is reported as widely patent vertebral and carotid artery of the neck. CT angiography of the head is reported as anatomic variation with persistent origin left TRAINING LEAD. No large vessel intracranial arterial occlusion, significant stenosis or aneurysm changes seen. EEG: Is an abnormal routine EEG. The background slowing suggestive of moderate encephalopathy. There are sharply contoured activity over the right parietal region which can increase cortical irritability. No clear discharges or seizure on the EEG. The triphasic wave is likely due to toxic metabolic derangement. - Labs CBC & Chem 7: 03/03/24 02:50 03/03/24 02:50 Labs: Abnormal Lab Results - Last 24 Hours (Table) 03/02/24 03/02/24 03/02/24 Range/Units 12:26 13:32 17:48 WBC (3.8-10.6) k/uL RBC (3.80-5.40) m/uL Hgb (11.4-16.0) gm/dL Hct (34.0-46.0) % MCHC (31.0-37.0) g/dL Neutrophils # (1.3-7.7) k/uL ABG pCO2 30 L (35-45) mmHg ABG pO2 112 H (83-108) mmHg ABG HCO3 18 L (21-25) mmol/L ABG O2 Saturation 98.6 H (94-97) % Hemoglobin 11.3 L (11.4-16.0) gm/dL Sodium (137-145) mmol/L Chloride (98-107) mmol/L Carbon Dioxide (22-30) mmol/L BUN (7-17) mg/dL Creatinine (0.52-1.04) mg/dL POC Glucose (mg/dL) 134 H (70-110) mg/dL Calcium (8.4-10.2) mg/dL 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) 03/03/24 03/03/24 03/03/24 Range/Units 02:50 02:50 02:50 WBC 14.5 H (3.8-10.6) k/uL RBC 3.39 L (3.80-5.40) m/uL Hgb 10.4 L (11.4-16.0) gm/dL Hct 33.8 L (34.0-46.0) % MCHC 30.9 L (31.0-37.0) g/dL Neutrophils # 12.7 H (1.3-7.7) k/uL ABG pCO2 (35-45) mmHg ABG pO2 (83-108) mmHg ABG HCO3 (21-25) mmol/L ABG O2 Saturation (94-97) % Hemoglobin (11.4-16.0) gm/dL Sodium 146 H (137-145) mmol/L Chloride 123 H (98-107) mmol/L Carbon Dioxide 18 L (22-30) mmol/L BUN 26 H (7-17) mg/dL Creatinine 1.11 H 1.21 H (0.52-1.04) mg/dL POC Glucose (mg/dL) (70-110) mg/dL Calcium 7.8 L (8.4-10.2) mg/dL HSV I IgG Interpret (Negative) Microbiology - Last 24 Hours (Table) 03/01/24 09:25 Gram Stain - Final Sputum Sputum Culture - Final 03/01/24 10:04 Blood Culture - Preliminary Blood 02/29/24 04:45 Blood Culture - Preliminary Blood 02/28/24 20:52 Gram Stain - Final Sputum Sputum Culture - Final Assessment and Plan Assessment: This is a 63-year-old woman with a history of chronic low back pain, on morphine who presented emergency department because of altered mental status. It seems that. There is some noise in the bathroom the day prior to present to the hospital and the patient was found standing on the sink shaky and confused. She also had some slurred speech speech. She was very lethargic and confused throughout the day prior to present to the hospital. She had elevated leukocytosis as well as fever. Acute encephalopathy with fever and leukocytosis of unknown etiology. On examination had leg jerks that was intermittent. Possible her leg jerking could be clinical seizures especially since in the past had episode of jerking of extremities in December 2023. EEG is moderate encephalopathy and had sharply contoured activity over the right parietal region but no clear discharges or seizure on EEG. 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 This does not seem like a stroke or TIA--mentation is improved. Episode of jerking of extremities in 12/2023 and per was felt medication side-effects (but unsure name of medication). I personally feel cannot rule out seizure. Chronic kidney insufficiency Chronic low back pain and the patient is on morphine Daily migraine on Topamax Chronic history of COPD Hypertension Hyperlipidemia Hypothyroidism Tobacco use Plan: Ordered MRI Brain. I empirically started the patient on Keppra 500 mg twice a day. She is on Topamax 100mg bid for migraine and that also has antiseizure benefit. In the ED the patient was given Brilinta on 02/28/2024 for concern for stroke. Will avoid any Brilinta or anticoagulation for lumbar puncture. Will have to hold lumbar puncture for 5 days to pursue with lumbar puncture per anesthesiologist and can consider lumbar puncture tomorrow (03/04/2024). Empirically started the patient on acyclovir, vancomycin, ceftriaxone for possible meningeal encephalitis which I feel is unlikely. ID is consulted. Patient is on aspirin 81 mg daily. Patient is on Lipitor 80 mg nightly. Will defer the rest of the medical management to primary and other specialist Plan discussed with patient and ICU nurse. Dr. Pham will resume neurology service tomorrow A.M. Time with Patient: Less than 30
--- NOTE | 2024-03-03 13:31 | P.PN ---
Subjective Progress Note Date: 03/03/24 Principal diagnosis: Acute hypoxic and hypercapnic respiratory failure requiring intubation mechanical ventilation with acute COPD exacerbation and sepsis. Patient is a 63-year-old female past medical history significant for COPD chronic and ongoing tobacco use hypertension hyperlipidemia hypothyroidism chronic back pain and this patient was currently on p.o. morphine 3 times daily by her pain specialist patient has been brought into the hospital yesterday for evaluation of weakness confusion apparently initially found yesterday morning by the in the bathroom standing at the sink shaky and confused and subsequently slept most of the day however as the patient was getting more lethargic and confused has been brought the patient to the ER for further e valuation there was initial concern for possible stroke and the patient was started on Brilinta initial CT was negative for any bleed or mass defect patient also received Narcan x 2 concerning for possible morphine opiate overdose subsequently patient did have episodes of vomiting worsening respiratory distress ended up getting intubated patient on presentation to the hospital was afebrile subsequently she spiked a fever of 102.1 degrees following hide at 4 AM and when the fever of 101.5 at 6:30 AM patient did have a white count of 11.8 on admission with left shift subsequent white count is up to 23.3 she did have elevated BUN and creatinine liver enzymes are normal procalcitonin was normal urine has been negative urine dressing was positive for opiates influenza RSV COVID testing was negative chest x-ray did not show any evidence of consolidation patient was initially treated with vancomycin and Zosyn subsequently antibiotic has been adjusted to vancomycin Rocephin and acyclovir concerning for possible [employer] infection and infectious was consulted for further management most information has been obtained from review the chart talking nursing staff as the patient is currently intubated on the vent no family at the bedside unfortunately LP could not be done as the patient has received Brilinta. Patient seen today on 03/01/2024, remains in the ICU, intubated and mechanically ventilated. Patient is on assist-control mode of mechanical ventilation, rate 24 tidal volume 400 FiO2 35% PEEP of 5 ABG showed a pO2 of 103 pCO2 37 pH of 7.33 patient spiked a temp as high as 102.6 yesterday, she remains on antibiotics in the form of vancomycin, Rocephin, she is also on acyclovir. Sheila ent is not requiring any pressors, her IV fluids at 75 cc/h. On propofol at 30 mcg/kg/min. Urine output is about 50 cc/h. Had an episode of vomiting earlier today in spite of having and orogastric tube, she may have developed a bit of aspiration, hence no more feeding and oral gastric tube is now on low intermittent suction. Blood pressure seems to be quite high today, patient seems to be agitated, restless, I believe the blood pressure will go down with higher dose of sedation/propofol chest x-ray showed patchy infiltrate left lung base, and COPD findings. WBC count is 16.6 hemoglobin is 12 sodium is 145 potassium 3.4 chloride 120, BUN is 26 creatinine 1.61, improved compared to admission. Sputum cultures and blood cultures are pending urology is considering lumbar puncture but it is not possible since the patient received Brilinta on admission Was seen today on 03/02/2024, remains in the ICU, intubated and mechanically ventilated. On assist-control rate 24 tidal volume 400 FiO2 35% and PEEP of 5 ABG showed a pO2 of 128 pCO2 30 pH of 7.40 hence FiO2 was cut down to 30%. Pat ient remains on acyclovir, and remains on antibiotics for presumptive [employer] infection. Remains on Cleviprex at 2 mg/h she is also on propofol at 20 mg/kg/min IV fluid is 0.9 normal saline at 75 cc/h. On a lower dose of propofol, patient was arousable, she was following simple instructions, hence I will likely transition the propofol to Precedex, and may give the patient a trial of weaning if possible and if her mentation seems to be quite appropriate. Chest x-ray showed scattered infiltrate, improved compared to admission chest x-ray. Patient may have aspirated on admission WBC count is 12.5 hemoglobin is 11 basic metabolic profile is normal. Renal profile showed a BUN of 24 creatinine 1.21, down from 2.49 on admission. Patient was seen today/, patient was extubated yesterday, tolerated the extubation well, does not seem to be in any distress, patient is doing great. Patient seems to be back to her baseline as far as her mental status, now she is asking to be discharged home. Her cultures have all been negative including blood cultures her procalcitonin level is 0.18 remains on antibiotics and antiviral treatment for questionable CSF infection. Although the patient did not receive any lumbar puncture. Patient is known to have a [id number] smoking history she does have underlying COPD but does not seem to be symptomatic today. I plan to transfer the patient out of the ICU today and hopefully discharge home in the next couple of days. WBC count is 14.5 hemoglob in 10.4 electrolytes are normal BUN is 26 creatinine 1.2 Objective - Vital Signs Vital signs: Vital Signs Temp 97.7 F 03/03/24 08:00 Pulse 64 03/03/24 12:42 Resp 22 03/03/24 11:00 BP 136/78 03/03/24 11:00 Pulse Ox 95 03/03/24 11:00 FiO2 35 03/02/24 12:00 Intake & Output 03/02/24 03/03/24 03/03/24 18:59 06:59 18:59 Intake Total 861.873 4024 120 Output Total 1700 975 450 Balance -773.783 774 -330 Weight 64.6 kg 64.6 kg Intake: IV 736 899 Potassium Chloride 10 meq 200 In Sodium Chloride 0.9% 100 ml @ 100 mls/hr IVPB Q1HR [facility] Rx#:[id number] Pressure Bag 36 24 Sodium Chloride 0.9% 1, 450 825 000 ml @ 75 mls/hr IV . [id number] [facility] Rx#:[id number] cefTRIAXone 2 gm In 50 50 Sodium Chloride 0.9% 50 ml @ 100 mls/hr IVPB Q12HR [facility] Rx#:[id number] Intake, IV Titration 190.217 100 Amount Acyclovir Sodium 600 mg 100 100 In Sodium Chloride 0.9% 100 ml @ 100 mls/hr IVPB Q12H [facility] Rx#:[id number] Clevidipine Butyrate 25 16.500 mg In Empty Bag 1 bag @ 1 MG/HR 2 mls/hr IV .Q24H [facility] Rx#:[id number] Dexmedetomidine/0.9% NaCl 8.335 (Pmx) 400 mcg In Empty Bag 1 bag @ 0.2 MCG/KG/HR 3.135 mls/hr IV .Q24H [facility] Rx#:[id number] propofoL 1,000 mg In 65.382 Empty Bag 1 bag @ 15 MCG/ KG/MIN 6.287 mls/hr IV . [id number] [facility] Rx#:[id number] Oral 750 120 Output: Gastric Drainage 600 Urine 1100 975 450 Other: Voiding Method Indwelling Catheter Indwelling Catheter Indwelling Catheter # Voids 0 # Bowel Movements 1 0 0 ABP, PAP, CO, CI - Last Documented Arterial Blood Pressure 154/62 - Exam GENERAL DESCRIPTION: 63-year-old female on room air not in distress HEENT: Shows Pallor , no scleral icterus. Moist mucous membranes NECK: Trachea central, no thyromegaly. LUNGS: Good breath sound bilaterally no crackles rhonchi or wheezes HEART: S1, S2, regular rate and rhythm. No loud murmur ABDOMEN: Soft, no tenderness , guarding or rigidity, no organomegaly EXTREMITIES: No edema of feet. SKIN: No rash, no masses palpable. NEUROLOGICAL: Alert and oriented x 3 no gross focal deficit Psychiatric: Anxious mood normal affect normal mental status examination - Labs CBC & Chem 7: 03/03/24 02:50 03/03/24 02:50 Labs: Abnormal Lab Results - Last 24 Hours (Table) 03/02/24 03/02/24 03/03/24 Range/Units 13:32 17:48 02:50 WBC (3.8-10.6) k/uL RBC (3.80-5.40) m/uL Hgb (11.4-16.0) gm/dL Hct (34.0-46.0) % MCHC (31.0-37.0) g/dL Neutrophils # (1.3-7.7) k/uL Sodium (137-145) mmol/L Chloride (98-107) mmol/L Carbon Dioxide (22-30) mmol/L BUN (7-17) mg/dL Creatinine 1.11 H (0.52-1.04) mg/dL POC Glucose (mg/dL) 134 H (70-110) mg/dL Calcium (8.4-10.2) mg/dL 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) 03/03/24 03/03/24 Range/Units 02:50 02:50 WBC 14.5 H (3.8-10.6) k/uL RBC 3.39 L (3.80-5.40) m/uL Hgb 10.4 L (11.4-16.0) gm/dL Hct 33.8 L (34.0-46.0) % MCHC 30.9 L (31.0-37.0) g/dL Neutrophils # 12.7 H (1.3-7.7) k/uL Sodium 146 H (137-145) mmol/L Chloride 123 H (98-107) mmol/L Carbon Dioxide 18 L (22-30) mmol/L BUN 26 H (7-17) mg/dL Creatinine 1.21 H (0.52-1.04) mg/dL POC Glucose (mg/dL) (70-110) mg/dL Calcium 7.8 L (8.4-10.2) mg/dL HSV I IgG Interpret (Negative) Microbiology - Last 24 Hours (Table) 02/29/24 04:45 Blood Culture - Preliminary Blood 03/01/24 09:25 Gram Stain - Final Sputum Sputum Culture - Final 03/01/24 10:04 Blood Culture - Preliminary Blood Assessment and Plan Assessment: Impression: Acute hypoxemic and hypercapnic respiratory failure, requiring intubation and mechanical ventilation, extubated on 03/02/2024 and tolerated extubation well for the last 24 hours Acute encephalopathy exact etiology is not clear, could be metabolic or could be related to [employer] infection, resolved today Acute sepsis, source not clear be [employer] related Acute COPD exacerbation Acute leukocytosis Acute on chronic kidney disease, most likely related to acute tubular necrosis related to hypotension on initial presentation, improving Chronic obstructive pulmonary disease Chronic ongoing tobacco dependence History of hypertension History of hyperlipidemia History of hypothyroidism Chronic lumbar back pain, Lumbar MRI done 2022 showing spinal canal stenosis of L3-L5. Also a large central body disc herniation of L4-L5. Chronic pain, currently takes morphine 15 mg strength tablets 3 times a day. History of anxiety/depression Recommendation: Transfer patient to regular medical floor today Continue antibiotics and acyclovir if recommended to continue by infectious disease and neurology on the case Continue GI and DVT prophylaxis Continue bronchodilators for underlying COPD Transition Solu-Medrol to Medrol Dosepak Will continue to follow Time with Patient: Less than 30
--- NOTE | 2024-03-03 15:35 | P.PN ---
Subjective Progress Note Date: 03/02/24 Principal diagnosis: Reason for follow-up is fever Patient is a 63-year-old female past medical history significant for COPD chronic and ongoing tobacco use hypertension hyperlipidemia hypothyroidism chronic back pain and this patient was currently on p.o. morphine 3 times daily by her pain specialist patient has been brought into the hospital for evaluation of weakness confusion subsequently had worsening of her respiratory status requiring intubation and spiked a fever probably this consultation. On today's evaluation that is 03/02/2024,the patient did have resolution of her fever last temperature was 101.18 5 PM yesterday evening no fever this morning patient remains to be intubated on the vent patient is hemodynamically stable no significant purulent secretion through the ET or any other changes reported by the nursing staff. Patient white count is down to 12.5 creatinine is 1.21 Vanco random slightly low at 11.9 HSV 1 IgG positive serology Objective - Vital Signs Vital signs: Vital Signs Temp 99.0 F 03/02/24 08:00 Pulse 79 03/02/24 08:00 Resp 25 H 03/02/24 08:00 BP 133/77 03/01/24 10:00 Pulse Ox 100 03/02/24 08:00 FiO2 35 03/02/24 04:18 Intake & Output 03/01/24 03/02/24 03/02/24 18:59 06:59 18:59 Intake Total 8234.901 7162.536 302.103 Output Total 1565 920 790 Balance 271.400 347.536 -487.897 Weight 62.7 kg Intake: IV 1064 952 256 Magnesium Sulfate-D5w Pmx 100 1 gm In Dextrose/Water 1 100ml.bag @ 100 mls/hr IVPB ONCE ONE Rx#: [id number] Potassium Chloride 10 meq 500 100 In Sodium Chloride 0.9% 100 ml @ 100 mls/hr IVPB Q1HR [facility] Rx#:[id number] Pressure Bag 39 27 6 Sodium Chloride 0.9% 1, 975 225 150 000 ml @ 75 mls/hr IV . [id number] [facility] Rx#:[id number] cefTRIAXone 2 gm In 50 100 Sodium Chloride 0.9% 50 ml @ 100 mls/hr IVPB Q12HR [facility] Rx#:[id number] Intake, IV Titration 512.400 255.536 46.103 Amount Acyclovir Sodium 600 mg 100 In Sodium Chloride 0.9% 100 ml @ 100 mls/hr IVPB Q12H [facility] Rx#:[id number] Clevidipine Butyrate 25 62.400 29.8 0 mg In Empty Bag 1 bag @ 1 MG/HR 2 mls/hr IV .Q24H [facility] Rx#:[id number] Vancomycin 1,250 mg In 250 Sodium Chloride 0.9% 250 ml @ 125 mls/hr IVPB ONCE ONE Rx#:[id number] propofoL 1,000 mg In 100.000 225.736 46.103 Empty Bag 1 bag @ 15 MCG/ KG/MIN 6.287 mls/hr IV . [id number] [facility] Rx#:[id number] Oral 150 Tube Feeding 80 Other 30 60 Output: Gastric Drainage 600 Urine 1565 920 190 Other: Voiding Method Indwelling Catheter Indwelling Catheter ABP, PAP, CO, CI - Last Documented Arterial Blood Pressure 163/77 - Exam GENERAL DESCRIPTION: An elderly female intubated on the vent RESPIRATORY SYSTEM: Unlabored breathing , decreased breath sounds at bases HEART: S1 S2 regular rate and rhythm , ABDOMEN: Soft , no tenderness EXTREMITIES: No edema feet - Labs CBC & Chem 7: 03/03/24 02:50 03/03/24 02:50 Labs: Abnormal Lab Results - Last 24 Hours (Table) 03/01/24 03/01/24 03/01/24 Range/Units 12:25 17:55 23:49 WBC (3.8-10.6) k/uL RBC (3.80-5.40) m/uL Hgb (11.4-16.0) gm/dL Hct (34.0-46.0) % Neutrophils # (1.3-7.7) k/uL Lymphocytes # (1.0-4.8) k/uL ABG pCO2 (35-45) mmHg ABG pO2 (83-108) mmHg ABG HCO3 (21-25) mmol/L ABG O2 Saturation (94-97) % Hemoglobin (11.4-16.0) gm/dL Potassium (3.5-5.1) mmol/L Chloride (98-107) mmol/L Carbon Dioxide (22-30) mmol/L BUN (7-17) mg/dL Creatinine (0.52-1.04) mg/dL Glucose (74-99) mg/dL POC Glucose (mg/dL) 127 H 143 H 124 H (70-110) mg/dL Calcium (8.4-10.2) mg/dL 03/02/24 03/02/24 03/02/24 Range/Units 02:30 05:00 05:00 WBC 12.5 H (3.8-10.6) k/uL RBC 3.44 L (3.80-5.40) m/uL Hgb 11.0 L (11.4-16.0) gm/dL Hct 33.5 L (34.0-46.0) % Neutrophils # 11.3 H (1.3-7.7) k/uL Lymphocytes # 0.8 L (1.0-4.8) k/uL ABG pCO2 (35-45) mmHg ABG pO2 (83-108) mmHg ABG HCO3 (21-25) mmol/L ABG O2 Saturation (94-97) % Hemoglobin (11.4-16.0) gm/dL Potassium 3.4 L (3.5-5.1) mmol/L Chloride 121 H (98-107) mmol/L Carbon Dioxide 17 L (22-30) mmol/L BUN 24 H (7-17) mg/dL Creatinine 1.21 H (0.52-1.04) mg/dL Glucose 124 H (74-99) mg/dL POC Glucose (mg/dL) (70-110) mg/dL Calcium 7.6 L (8.4-10.2) mg/dL 03/02/24 03/02/24 Range/Units 05:13 06:02 WBC (3.8-10.6) k/uL RBC (3.80-5.40) m/uL Hgb (11.4-16.0) gm/dL Hct (34.0-46.0) % Neutrophils # (1.3-7.7) k/uL Lymphocytes # (1.0-4.8) k/uL ABG pCO2 30 L (35-45) mmHg ABG pO2 128 H (83-108) mmHg ABG HCO3 19 L (21-25) mmol/L ABG O2 Saturation 99.2 H (94-97) % Hemoglobin 11.0 L (11.4-16.0) gm/dL Potassium (3.5-5.1) mmol/L Chloride (98-107) mmol/L Carbon Dioxide (22-30) mmol/L BUN (7-17) mg/dL Creatinine (0.52-1.04) mg/dL Glucose (74-99) mg/dL POC Glucose (mg/dL) 119 H (70-110) mg/dL Calcium (8.4-10.2) mg/dL Microbiology - Last 24 Hours (Table) 03/01/24 09:25 Gram Stain - Preliminary Sputum 02/29/24 04:45 Blood Culture - Preliminary Blood 02/28/24 20:52 Gram Stain - Preliminary Sputum Sputum Culture - Preliminary Assessment and Plan (1) Sepsis Current Visit: Yes Status: Acute Code(s): A41.9 - SEPSIS, UNSPECIFIED ORGANISM SNOMED Code(s): 01041161 Plan: 1patient with sepsis in this patient who did have fever tachycardia elevated white count in this patient with significant mental status changes with concern for possible [employer] infection meningitis versus encephalitis as currently no other obvious focus chest x-ray with no evidence of any consolidation her abdomen was soft on clinical examination urine was negative and evidence of any cellulitis or joint swelling 2we will wait for the LP to be completed 3patient did have resolution of her fever and white count is trending down culture is still pending, patient to continue with vancomycin Rocephin while waiting for the workup to be completed Dictation was produced using [employer] dictation software. please excuse any grammatical, word or spelling errors. Time with Patient: Less than 30
--- NOTE | 2024-03-03 15:35 | P.PN ---
Subjective Progress Note Date: 03/03/24 Principal diagnosis: Reason for follow-up is fever Patient is a 63-year-old female past medical history significant for COPD chronic and ongoing tobacco use hypertension hyperlipidemia hypothyroidism chronic back pain and this patient was currently on p.o. morphine 3 times daily by her pain specialist patient has been brought into the hospital for evaluation of weakness confusion subsequently had worsening of her respiratory status requiring intubation and spiked a fever probably this consultation. On today's evaluation that is 03/03/2024,the patient remains to be afebrile, patient has been extubated and is currently breathing comfortably on room air P denies having any chest pain she did have mild cough not bring up any sputum did have some headache but no other symptoms no nausea vomiting or diarrhea. Patient white count slightly up to 14.5, creatinine is 1.21 blood sputum culture has been negative Objective - Vital Signs Vital signs: Vital Signs Temp 97.7 F 03/03/24 08:00 Pulse 64 03/03/24 11:00 Resp 22 03/03/24 11:00 BP 136/78 03/03/24 11:00 Pulse Ox 95 03/03/24 11:00 FiO2 35 03/02/24 12:00 Intake & Output 03/02/24 03/03/24 03/03/24 18:59 06:59 18:59 Intake Total 417.417 6776 120 Output Total 1700 975 450 Balance -773.783 774 -330 Weight 64.6 kg Intake: IV 736 899 Potassium Chloride 10 meq 200 In Sodium Chloride 0.9% 100 ml @ 100 mls/hr IVPB Q1HR [facility] Rx#:[id number] Pressure Bag 36 24 Sodium Chloride 0.9% 1, 450 825 000 ml @ 75 mls/hr IV . [id number] [facility] Rx#:[id number] cefTRIAXone 2 gm In 50 50 Sodium Chloride 0.9% 50 ml @ 100 mls/hr IVPB Q12HR [facility] Rx#:[id number] Intake, IV Titration 190.217 100 Amount Acyclovir Sodium 600 mg 100 100 In Sodium Chloride 0.9% 100 ml @ 100 mls/hr IVPB Q12H [facility] Rx#:[id number] Clevidipine Butyrate 25 16.500 mg In Empty Bag 1 bag @ 1 MG/HR 2 mls/hr IV .Q24H [facility] Rx#:[id number] Dexmedetomidine/0.9% NaCl 8.335 (Pmx) 400 mcg In Empty Bag 1 bag @ 0.2 MCG/KG/HR 3.135 mls/hr IV .Q24H [facility] Rx#:[id number] propofoL 1,000 mg In 65.382 Empty Bag 1 bag @ 15 MCG/ KG/MIN 6.287 mls/hr IV . [id number] [facility] Rx#:[id number] Oral 750 120 Output: Gastric Drainage 600 Urine 1100 975 450 Other: Voiding Method Indwelling Catheter Indwelling Catheter Indwelling Catheter # Voids 0 # Bowel Movements 1 0 0 ABP, PAP, CO, CI - Last Documented Arterial Blood Pressure 154/62 - Exam GENERAL DESCRIPTION: An elderly female up in the chair in no distress RESPIRATORY SYSTEM: Unlabored breathing , decreased breath sounds at bases HEART: S1 S2 regular rate and rhythm , ABDOMEN: Soft , no tenderness EXTREMITIES: No edema feet - Labs CBC & Chem 7: 03/03/24 02:50 03/03/24 02:50 Labs: Abnormal Lab Results - Last 24 Hours (Table) 03/02/24 03/02/24 03/02/24 Range/Units 12:26 13:32 17:48 WBC (3.8-10.6) k/uL RBC (3.80-5.40) m/uL Hgb (11.4-16.0) gm/dL Hct (34.0-46.0) % MCHC (31.0-37.0) g/dL Neutrophils # (1.3-7.7) k/uL ABG pCO2 30 L (35-45) mmHg ABG pO2 112 H (83-108) mmHg ABG HCO3 18 L (21-25) mmol/L ABG O2 Saturation 98.6 H (94-97) % Hemoglobin 11.3 L (11.4-16.0) gm/dL Sodium (137-145) mmol/L Chloride (98-107) mmol/L Carbon Dioxide (22-30) mmol/L BUN (7-17) mg/dL Creatinine (0.52-1.04) mg/dL POC Glucose (mg/dL) 134 H (70-110) mg/dL Calcium (8.4-10.2) mg/dL 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) 10/03/03/24 03/03/24 Range/Units 02:50 02:50 02:50 WBC 14.5 H (3.8-10.6) k/uL RBC 3.39 L (3.80-5.40) m/uL Hgb 10.4 L (11.4-16.0) gm/dL Hct 33.8 L (34.0-46.0) % MCHC 30.9 L (31.0-37.0) g/dL Neutrophils # 12.7 H (1.3-7.7) k/uL ABG pCO2 (35-45) mmHg ABG pO2 (83-108) mmHg ABG HCO3 (21-25) mmol/L ABG O2 Saturation (94-97) % Hemoglobin (11.4-16.0) gm/dL Sodium 146 H (137-145) mmol/L Chloride 123 H (98-107) mmol/L Carbon Dioxide 18 L (22-30) mmol/L BUN 26 H (7-17) mg/dL Creatinine 1.11 H 1.21 H (0.52-1.04) mg/dL POC Glucose (mg/dL) (70-110) mg/dL Calcium 7.8 L (8.4-10.2) mg/dL HSV I IgG Interpret (Negative) Microbiology - Last 24 Hours (Table) 03/01/24 09:25 Gram Stain - Final Sputum Sputum Culture - Final 03/01/24 10:04 Blood Culture - Preliminary Blood 02/29/24 04:45 Blood Culture - Preliminary Blood 02/28/24 20:52 Gram Stain - Final Sputum Sputum Culture - Final Assessment and Plan (1) Sepsis Current Visit: Yes Status: Acute Code(s): A41.9 - SEPSIS, UNSPECIFIED ORGANISM SNOMED Code(s): 18229084 Plan: 1patient with sepsis in this patient who did have fever tachycardia elevated white count in this patient with significant mental status changes with concern for possible [employer] infection meningitis versus encephalitis as currently no other obvious focus chest x-ray with no evidence of any consolidation her abdomen was soft on clinical examination urine was negative and evidence of any cellulitis or joint swelling 2patient 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 please excuse any grammatical, word or spelling errors. Time with Patient: Less than 30
--- NOTE | 2024-03-03 16:48 | MR ---
EXAMINATION TYPE: MR brain wo con DATE OF EXAM: 03/03/2024 4:33 PM COMPARISON: CT brain 02/28/2024, 12/25/2022, CTA head and neck 02/28/2024, MR brain 10/31/2022. CLINICAL INDICATION:Female, 63 years old with history of altered mental status; [facility], TECHNIQUE: Multi planar, multi sequence imaging was performed through the brain. No gadolinium was gi tony. FINDINGS: Motion degraded exam. The mendosa-white junctions, ventricular system, and cisterns appear unremarkable. Age-appropriate cereb ral volume. Mild similar periventricular white matter ischemic demyelination. Midline structures riddhi w no abnormality. Diffusion-weighted imaging shows no evidence of restricted diffusion. The susceptib ility weighted images do not reveal any evidence for micro-hemorrhage. The bone marrow signal is within normal limits. The globes are unremarkable. Mild mucosal thickening of the ethmoid sinuses and left sphenoid sinus. T2 signal identified within the bilateral mastoid air cells. IMPRESSION: 1. No evidence of intracranial mass or acute/subacute infarct. 2. Similar age-related atrophy and chronic small vessel ischemic change. 3. Small bilateral mastoid effusions. 4. Mild paranasal sinus disease. [facility], , 03/03/2024 4:46 PM
[2024-03-03] MEDS: methylPREDNISolone 4 MG TAB TAPER PO SCH (16:58)
[2024-03-03] MEDS: INSULIN ASPART (NovoLOG) 100 UNIT/ML VIAL SQ SCH ×2 (17:16→17:17)
[2024-03-03 17:37] LABS: Glucose,Whole Blood 106 mg/dL (70-110)
--- NOTE | 2024-03-03 18:22 | P.PN ---
Subjective Progress Note Date: 03/03/24 H&P Date: 02/29/24 Janice Mejia is a 63-year-old white female with past medical history significant for COPD, chronic ongoing tobacco dependence, hypertension, hyperlipidemia, hypothyroidism, and chronic lower back pain maintained on PO morphine TID. She presented to the emergency department yesterday afternoon altered and obtunded. Pt intubated and sedated and history obtained via chart review. Patient was found standing at the sink in her bathroom yesterday, shaky, and confused. She may have had some slurred speech. Noted to be progressively more lethargic and confused throughout the day. On presentation to the emergency department, code stroke was initiated. No fibrinolytics were given, as the risk were felt to outweigh the benefits. Patient was started on Brilinta twice daily. Neurologist was consulted. While being worked up, patient became unresponsive. There was concern for possible morphine overdose. A dose of Narcan x 2 were given. Subsequently, patient had episode of nausea and vomiting. ABG was consistent with severe hypercapnic respiratory failure. ABG done on 100% FiO2; PaO2 greater than 420, pCO2 52, pH of 7.18. Patient was intubated by the ER provider for airway protection. Brain CT without contrast did not show any acute bleed or mass effect. Pt currently in the ICU sedated on propofol at 25 mcg/kg/min. Current ventilator settings respiratory rate 20, tidal volume 360, FiO2 50%, PEEP of 5. Peak pressures are 22. Postintubation chest x-ray shows endotracheal tube and orogastric tube in appropriate positions. WBC count 11.8, hemoglobin 14.1, hematocrit 44.6, platelets 256. Sodium 141, potassium 4.5, chloride 110, serum bicarb 21, BUN 27, creatinine 2.49, glucose 111. Lactic 2. Troponin less than 0.012. EKG: Sinus rhythm, rate 76 bpm, no obvious acute ischemic changes. Urine toxicology screen positive for opiates. Serum alcohol less than 10. Urinalysis unremarkable for infection. Normal saline currently infusing at 75 mg/h. 03/01/2024 vent dependent, FiO2 35%/+5 of PEEP. Sedated on diprovan. no pressors. Tmax 102.6, WBC decreased to 16.6. Sputum and blood cultures pending. maintained on vancomycin, Rocephin and Aciclovir. BUN 26, creatinine 1.61. hypertensive. Chest x-ray reported patchy infiltrate left medial lung base. COPD with pulmonary vascular congestion. EEG reported abnormal routine EEG, ba ckground slowing suggestive of moderate encephalopathy, sharply controlled activity over the right parietal region which can increase cortical irritability. No clear discharges or seizure on EEG. Triphasic wave likely due to toxic metabolite derangement. 03/02/2024 FiO2 30%/+5 of PEEP. Currently maintained on diprovan and Precedex, following simple commands, alert. 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 Afebrile, Tmax 101.1, WBC decreased to 12.5. BUN 24, creatinine 1.21. 03/03/24 extubated yesterday,tolerating well. maintaining O2 Sats in the 90's on RA. Maintained on antibiotics. Preliminary blood cultures reporting no growth after 48hours.Sputum culture reported normal respiratory elba.Procalcitonin 0.18. Afebrile,WBC 14.5. Hgb. 10.4, platelets 193. Sodium 146,potassium 3.9. Bicarb 18.Bun 26, creatinine 1.21.Denies chest pain, palpitations or shortness of breath. Objective - Vital Signs Vital signs: Vital Signs Temp 98.3 F 03/03/24 12:00 Pulse 68 03/03/24 15:22 Resp 19 03/03/24 12:00 BP 127/67 03/03/24 14:00 Pulse Ox 97 03/03/24 12:00 FiO2 35 03/02/24 12:00 Intake & Output 03/02/24 03/03/24 03/03/24 18:59 06:59 18:59 Intake Total 819.811 3541 470 Output Total 1700 975 450 Balance -773.783 774 20 Weight 64.6 kg 64.6 kg Intake: IV 736 899 100 Potassium Chloride 10 meq 200 In Sodium Chloride 0.9% 100 ml @ 100 mls/hr IVPB Q1HR [facility] Rx#:[id number] Pressure Bag 36 24 Sodium Chloride 0.9% 1, 450 825 000 ml @ 75 mls/hr IV . [id number] [facility] Rx#:[id number] cefTRIAXone 2 gm In 50 50 100 Sodium Chloride 0.9% 50 ml @ 100 mls/hr IVPB Q12HR [facility] Rx#:[id number] Intake, IV Titration 190.217 100 250 Amount Acyclovir Sodium 600 mg 100 100 In Sodium Chloride 0.9% 100 ml @ 100 mls/hr IVPB Q12H [facility] Rx#:[id number] Clevidipine Butyrate 25 16.500 mg In Empty Bag 1 bag @ 1 MG/HR 2 mls/hr IV .Q24H [facility] Rx#:[id number] Dexmedetomidine/0.9% NaCl 8.335 (Pmx) 400 mcg In Empty Bag 1 bag @ 0.2 MCG/KG/HR 3.135 mls/hr IV .Q24H [facility] Rx#:[id number] Vancomycin 1,250 mg In 250 Sodium Chloride 0.9% 250 ml @ 125 mls/hr IVPB Q24H [facility] Rx#:[id number] propofoL 1,000 mg In 65.382 Empty Bag 1 bag @ 15 MCG/ KG/MIN 6.287 mls/hr IV . [id number] [facility] Rx#:[id number] Oral 750 120 Output: Gastric Drainage 600 Urine 1100 975 450 Other: Voiding Method Indwelling Catheter Indwelling Catheter Indwelling Catheter # Voids 0 # Bowel Movements 1 0 0 ABP, PAP, CO, CI - Last Documented Arterial Blood Pressure 154/62 - Exam Gen: Alert and oriented X 3, sitting up in a chair, NAD, Impulsive HEENT: Normacephalic, atraumatic, PEARRL,MMM. Neck: Supple CV: RRR, no murmur, no edema Lungs: Unlabored, equal air entry, diminished bases Abd: soft, nontender Neuro: CN II-XII grossly intact Skin: warm and dry - Labs CBC & Chem 7: 03/03/24 02:50 03/03/24 02:50 Labs: Abnormal Lab Results - Last 24 Hours (Table) 03/02/24 03/03/24 03/03/24 Range/Units 17:48 02:50 02:50 WBC 14.5 H (3.8-10.6) k/uL RBC 3.39 L (3.80-5.40) m/uL Hgb 10.4 L (11.4-16.0) gm/dL Hct 33.8 L (34.0-46.0) % MCHC 30.9 L (31.0-37.0) g/dL Neutrophils # 12.7 H (1.3-7.7) k/uL Sodium (137-145) mmol/L Chloride (98-107) mmol/L Carbon Dioxide (22-30) mmol/L BUN (7-17) mg/dL Creatinine 1.11 H (0.52-1.04) mg/dL Calcium (8.4-10.2) mg/dL 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) 03/03/24 Range/Units 02:50 WBC (3.8-10.6) k/uL RBC (3.80-5.40) m/uL Hgb (11.4-16.0) gm/dL Hct (34.0-46.0) % MCHC (31.0-37.0) g/dL Neutrophils # (1.3-7.7) k/uL Sodium 146 H (137-145) mmol/L Chloride 123 H (98-107) mmol/L Carbon Dioxide 18 L (22-30) mmol/L BUN 26 H (7-17) mg/dL Creatinine 1.21 H (0.52-1.04) mg/dL Calcium 7.8 L (8.4-10.2) mg/dL HSV I IgG Interpret (Negative) Microbiology - Last 24 Hours (Table) 03/01/24 10:04 Blood Culture - Preliminary Blood 02/29/24 04:45 Blood Culture - Preliminary Blood 03/01/24 09:25 Gram Stain - Final Sputum Sputum Culture - Final Assessment and Plan Assessment: Acute sepsis, etiology unclear Acute respiratory failure with hypoxia and hypercapnia,s/p intubation Acute COPD with exacerbation Acute toxic and metabolic encephalopathy, etiology unclear, resolved Leukocytosis Opiate dependance with overdose GARY with ATN CKD stage 3a Chronic pain follows with pain specialist Dr. Dcukworth, on morphine. Anxiety Plan: Continue on current medication regimen ,monitoring and symptomatic treatment. Antibiotics as per infectious disease.Increase ambulation.Agressive pulmonary toileting, maintaining nebulized bronchodilators,steroids. PT/OT. Increase ambulation.Transfer out of ICU today. Discharge planning possibly in the next 24 hours. The impression and plan of care has been dictated as directed. : I performed a history and examination of this patient, discussed the same with the dictator. I agree with the dictator's note ,documented as a scribe. Any additional findings or plans will be noted.
[2024-03-03 20:36] LABS: Glucose,Whole Blood 116 mg/dL (70-110)
[2024-03-03] MEDS: ALPRAZolam 0.25 MG TAB PO PRN (20:37)
[2024-03-04 04:11] LABS: African American GFR (CKD) 82 (>60 ml/min/1.73 sqM); Non-African American GFR(CKD) 71 (>60 ml/min/1.73 sqM)
[2024-03-04 06:10] LABS: Glucose,Whole Blood 83 mg/dL (70-110)
[2024-03-04] MEDS ORDERED: BUTALB/APAP/CAFF 50-325-40MG TAB PO PRN (06:34)
[2024-03-04 11:30] LABS: Glucose,Whole Blood 118 mg/dL (70-110)
--- NOTE | 2024-03-04 12:21 | P.PN ---
Subjective Progress Note Date: 03/04/24 Patient is a 63-year-old female past medical history significant for COPD chronic and ongoing tobacco use hypertension hyperlipidemia hypothyroidism chronic back pain and this patient was currently on p.o. morphine 3 times daily by her pain specialist patient has been brought into the hospital yesterday for evaluation of weakness confusion apparently initially found yesterday morning by the in the bathroom standing at the sink shaky and confused and subsequently slept most of the day however as the patient was getting more lethargic and confused has been brought the patient to the ER for further evaluation there was initial concern for possible stroke and the patient was started on Brilinta initial CT was negative for any bleed or mass defect patient also received Narcan x 2 concerning for possible morphine opiate overdose subsequently patient did have episodes of vomiting worsening respiratory distress ended up getting intubated patient on presentation to the hospital was afebrile subsequently she spiked a fever of 102.1 degrees following hide at 4 AM and when the fever of 101.5 at 6:30 AM patient did have a white count of 11.8 on admission with left shift subsequent white count is up to 23.3 she did have elevated BUN and creatinine liver enzymes are normal procalcitonin was normal urine has been negative urine dressing was positive for opiates influenza RSV COVID testing was negative chest x-ray did not show any evidence of consolidation patient was initially treated with vancomycin and Zosyn subsequently antibiotic has been adjusted to vancomycin Rocephin and acyclovir concerning for possible SECURITY CLERK infection and infectious was consulted for further management most information has been obtained from review the chart talking nursing staff as the patient is currently intubated on the vent no family at the bedside unfortunately LP could not be done as the patient has received Brilinta. Patient seen today on 03/01/2024, remains in the ICU, intubated and mechanically ventilated. Patient is on assist-control mode of mechanical ventilation, rate 24 tidal volume 400 FiO2 35% PEEP of 5 ABG showed a pO2 of 103 pCO2 37 pH of 7.33 patient spiked a temp as high as 102.6 yesterday, she remains on antibiotics in the form of vancomycin, Rocephin, she is also on acyclovir. Patient is not requiring any pressors, her IV fluids at 75 cc/h. On propofol at 30 mcg/kg/min. Urine output is about 50 cc/h. Had an episode of vomiting earlier today in spite of having and orogastric tube, she may have developed a bit of aspiration, hence no more feeding and oral gastric tube is now on low intermittent suction. Blood pressure seems to be quite high today, patient seems to be agitated, restless, I believe the blood pressure will go down with higher dose of sedation/propofol chest x-ray showed patchy infiltrate left lung base, and COPD findings. WBC count is 16.6 hemoglobin is 12 sodium is 145 potassium 3.4 chloride 120, BUN is 26 creatinine 1.61, improved compared to admission. Sputum cultures and blood cultures are pending urology is considering lumbar puncture but it is not possible since the patient received Brilinta on admission Was seen today on 03/02/2024, remains in the ICU, intubated and mechanically ventilated. On assist-control rate 24 tidal volume 400 FiO2 35% and PEEP of 5 ABG showed a pO2 of 128 pCO2 30 pH of 7.40 hence FiO2 was cut down to 30%. Patient remains on acyclovir, and remains on antibiotics for presumptive SECURITY CLERK infection. Remains on Cleviprex at 2 mg/h she is also on propofol at 20 mg/kg/min IV fluid is 0.9 normal saline at 75 cc/h. On a lower dose of propofol, patient was arousable, she was following simple instructions, hence I will likely transition the propofol to Precedex, and may give the patient a trial of weaning if possible and if her mentation seems to be quite appropriate. Chest x-ray showed scattered infiltrate, improved compared to admission chest x-ray. Patient may have aspirated on admission WBC count is 12.5 hemoglobin is 11 basic metabolic profile is normal. Renal profile showed a BUN of 24 creatinine 1.21, down from 2.49 on admission. Patient was seen today/, patient was extubated yesterday, tolerated the extubation well, does not seem to be in any distress, patient is doing great. Patient seems to be back to her baseline as far as her mental status, now she is asking to be discharged home. Her cultures have all been negative including blood cultures her procalcitonin level is 0.18 remains on antibiotics and antiviral treatment for questionable CSF infection. Although the patient did not receive any lumbar puncture. Patient is known to have a [id number] smoking history she does have underlying COPD but does not seem to be symptomatic today. I plan to transfer the patient out of the ICU today and hopefully discharge home in the next couple of days. WBC count is 14.5 hemoglobin 10.4 electrolytes are normal BUN is 26 creatinine 1.2 The patient is seen today March 04, 2024 in follow-up on the regular medical floor. She was transferred out of the intensive care unit yesterday. She is sitting up in a chair at the bedside. Awake and alert in no acute distress. Alert and oriented x 3. Maintaining O2 saturations in the 90s on room air. MRI of the brain revealed no evidence of intracranial mass or acute/subacute infarct. There is small bilateral mastoid effusions. Mild para nasal sinus disease. She is continued on acyclovir, ceftriaxone. Continued on bronchodilators, Medrol Dosepak. Glucose 118. Creatinine 0.87. GFR 71. Objective - Vital Signs Vital signs: Vital Signs Temp 98.4 F 03/04/24 07:13 Pulse 68 03/04/24 12:13 Resp 18 03/04/24 07:13 BP 153/74 03/04/24 07:13 Pulse Ox 97 03/04/24 07:13 FiO2 35 03/02/24 12:00 Intake & Output 03/03/24 03/04/24 03/04/24 18:59 06:59 18:59 Intake Total 470 Output Total 450 Balance 20 Weight 64.6 kg 62.5 kg Intake: IV 100 cefTRIAXone 2 gm In 100 Sodium Chloride 0.9% 50 ml @ 100 mls/hr IVPB Q12HR [facility] Rx#:[id number] Intake, IV Titration 250 Amount Vancomycin 1,250 mg In 250 Sodium Chloride 0.9% 250 ml @ 125 mls/hr IVPB Q24H [facility] Rx#:[id number] Oral 120 Output: Urine 450 Other: Voiding Method Indwelling Catheter Toilet # Voids 1 3 # Bowel Movements 0 1 ABP, PAP, CO, CI - Last Documented Arterial Blood Pressure 154/62 - Exam GENERAL EXAM: Alert, oriented 63-year-old female, up in a chair, on room air, comfortable in no apparent distress. HEAD: Normocephalic. EYES: Normal reaction of pupils, equal size. NOSE: Clear with pink turbinates. THROAT: No erythema or exudates. NECK: No masses, no JVD. CHEST: No chest wall deformity. LUNGS: Equal air entry with no crackles, wheeze, rhonchi or dullness. CVS: S1 and S2 normal with no audible murmur, regular rhythm. ABDOMEN: No hepatosplenomegaly, normal bowel sounds, no guarding or rigidity. SPINE: No scoliosis or deformity SKIN: No rashes CENTRAL NERVOUS SYSTEM: No focal deficits, tone is normal in all 4 extremities. EXTREMITIES: There is no peripheral edema. No clubbing, no cyanosis. Peripheral pulses are intact. - Labs CBC & Chem 7: 03/03/24 02:50 03/04/24 03:41 Labs: Abnormal Lab Results - Last 24 Hours (Table) 03/03/24 03/04/24 Range/Units 19:49 11:29 POC Glucose (mg/dL) 116 H 118 H (70-110) mg/dL Microbiology - Last 24 Hours (Table) 03/01/24 10:04 Blood Culture - Preliminary Blood 02/29/24 04:45 Blood Culture - Preliminary Blood 03/01/24 09:25 Gram Stain - Final Sputum Sputum Culture - Final Assessment and Plan Assessment: Acute hypoxemic and hypercapnic respiratory failure, requiring intubation and mechanical ventilation, extubated on 03/02/2024 and tolerated extubation well for the last 24 hours Acute encephalopathy exact etiology is not clear, could be metabolic or could be related to SECURITY CLERK infection, resolved today Acute sepsis, source not clear be SECURITY CLERK related Acute COPD exacerbation Acute leukocytosis Acute on chronic kidney disease, most likely related to acute tubular necrosis related to hypotension on initial presentation, improving Chronic obstructive pulmonary disease Chronic ongoing tobacco dependence History of hypertension History of hyperlipidemia History of hypothyroidism Chronic lumbar back pain, Lumbar MRI done 2022 showing spinal canal stenosis of L3-L5. Also a large central body disc herniation of L4-L5. Chronic pain, currently takes morphine 15 mg strength tablets 3 times a day. History of anxiety/depression Plan: The patient was seen and evaluated MRI of the brain, labs and medications reviewed Stable and on room air Anxious to go home Cleared from the pulmonary/critical care standpoint Needs clearance from ID service and neurology first I have personally seen and examined the patient, performed the documentation and the assessment and plan as written. Number of minutes spent on the visit: 10 Dictation was produced using [employer] dictation software. Please excuse any grammatical, word or spelling errors.
--- NOTE | 2024-03-04 14:23 | P.PN ---
Subjective Progress Note Date: 03/04/24 Principal diagnosis: Reason for follow-up is fever Patient is a 63-year-old female past medical history significant for COPD chronic and ongoing tobacco use hypertension hyperlipidemia hypothyroidism chronic back pain and this patient was currently on p.o. morphine 3 times daily by her pain specialist patient has been brought into the hospital for evaluation of weakness confusion subsequently had worsening of her respiratory status requiring intubation and spiked a fever probably this consultation. On today's evaluation that is 03/04/2024, the patient continues to be afebrile, the patient is on room air and breathing comfortably, the Pt denies having any chest pain or cough, the patient denies having any abdominal pain no vomiting or any diarrhea, patient mention she has been feeling better and has been patient to go home. Patient did have creatinine 0.87 colitis blood culture has been negative Objective - Vital Signs Vital signs: Vital Signs Temp 98.4 F 03/04/24 07:13 Pulse 68 03/04/24 12:13 Resp 18 03/04/24 07:13 BP 153/74 03/04/24 07:13 Pulse Ox 97 03/04/24 07:13 FiO2 35 03/02/24 12:00 Intake & Output 03/03/24 03/04/24 03/04/24 18:59 06:59 18:59 Intake Total 470 Output Total 450 Balance 20 Weight 64.6 kg 62.5 kg Intake: IV 100 cefTRIAXone 2 gm In 100 Sodium Chloride 0.9% 50 ml @ 100 mls/hr IVPB Q12HR [facility] Rx#:[id number] Intake, IV Titration 250 Amount Vancomycin 1,250 mg In 250 Sodium Chloride 0.9% 250 ml @ 125 mls/hr IVPB Q24H [facility] Rx#:[id number] Oral 120 Output: Urine 450 Other: Voiding Method Indwelling Catheter Toilet # Voids 1 3 # Bowel Movements 0 1 ABP, PAP, CO, CI - Last Documented Arterial Blood Pressure 154/62 - Exam GENERAL DESCRIPTION: An elderly female up in the chair in no distress RESPIRATORY SYSTEM: Unlabored breathing , decreased breath sounds at bases HEART: S1 S2 regular rate and rhythm , ABDOMEN: Soft , no tenderness EXTREMITIES: No edema feet - Labs CBC & Chem 7: 03/03/24 02:50 03/04/24 03:41 Labs: Abnormal Lab Results - Last 24 Hours (Table) 03/03/24 03/04/24 Range/Units 19:49 11:29 POC Glucose (mg/dL) 116 H 118 H (70-110) mg/dL Microbiology - Last 24 Hours (Table) 03/01/24 10:04 Blood Culture - Preliminary Blood 02/29/24 04:45 Blood Culture - Preliminary Blood 03/01/24 09:25 Gram Stain - Final Sputum Sputum Culture - Final Assessment and Plan (1) Sepsis Current Visit: Yes Status: Acute Code(s): A41.9 - SEPSIS, UNSPECIFIED ORGANISM SNOMED Code(s): 84723461 Plan: 1patient with sepsis in this patient who did have fever tachycardia elevated white count in this patient with significant mental status changes with concern for possible COMB WINDER infection meningitis versus encephalitis as currently no other obvious focus chest x-ray with no evidence of any consolidation her abdomen was soft on clinical examination urine was negative and evidence of any cellulitis or joint swelling 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 please excuse any grammatical, word or spelling errors. Time with Patient: Less than 30
[2024-03-04 14:36] VITALS: BP 145/70; RESP 20; TEMP 98.7
[2024-03-04 16:27] VITALS: PULSE 72
[2024-03-04 17:12] LABS: Glucose,Whole Blood 101 mg/dL (70-110)
--- NOTE | 2024-03-05 08:11 | P.PN ---
Subjective Progress Note Date: 03/04/24 This is a telemedicine neurology follow-up performed today on 03/04/2024,in coordination with Terrie Barcenas. Patient was initially seen by Dr. Alexx Cole. Please refer to his note for details. Patient is a 63-year-old female with altered mental status, with fever and leukocytosis. EEG as reviewed by Dr. Cole revealed sharply contoured waves of the right parietal region. Dr. Cole started patient on Keppra 500 mg twice a day. Patient is also on acyclovir, ceftriaxone, vancomycin. Patient states that she always has history of headaches, which is not unusual for her. She has headaches since age 15. She denies any worsening of headaches. Dr. Cole has suggested LP, but patient's mentation is normal, the headache is at baseline, therefore she declined LP. Patient currently on acyclovir and ceftriaxone. Patient wants to go home. Patient states she feels unsteady while walking. She has been using a walker, as she has not quite full balance, and feels could fall. Patient has been afebrile since 03/01/2024. Initial presentation white blood cell is 11.8 and repeat it was 23.3 thousand-->16.6K-->14.5K Creatinine is 2.49. Initial serum glucose is 111. TSH is 0.133 Free T4 is 1.96. Ammonia level is less than 9. Vitamin B12: 3103. Sodium is 149, calcium is 9.8. AST ALT is within normal limits U/a is negative. UDS is positive for opiates but otherwise rest is not detected. CT of the head is reported as no acute bleed or mass effect. No significant abnormality. Patient reviewed the CT and I agree there is no acute or subacute stroke. CT angiography of the neck is reported as widely patent vertebral and carotid artery of the neck. 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 No large vessel intracranial arterial occlusion, significant stenosis or aneurysm changes seen. EEG: Is an abnormal routine EEG. The background slowing suggestive of moderate encephalopathy. There are sharply contoured activity over the right parietal region which can increase cortical irritability. No clear discharges or seizure on the EEG. The triphasic wave is likely due to toxic metabolic derangement. Objective - Vital Signs Vital signs: Vital Signs Temp 98.7 F 03/04/24 14:06 Pulse 57 L 03/04/24 14:06 Resp 20 03/04/24 14:06 BP 145/70 03/04/24 14:06 Pulse Ox 97 03/04/24 14:06 FiO2 35 03/02/24 12:00 Intake & Output 03/03/24 03/04/24 03/04/24 18:59 06:59 18:59 Intake Total 470 Output Total 450 Balance 20 Weight 64.6 kg 62.5 kg Intake: IV 100 cefTRIAXone 2 gm In 100 Sodium Chloride 0.9% 50 ml @ 100 mls/hr IVPB Q12HR AMISH Rx#:[id number] Intake, IV Titration 250 Amount Vancomycin 1,250 mg In 250 Sodium Chloride 0.9% 250 ml @ 125 mls/hr IVPB Q24H AMISH Rx#:[id number] Oral 120 Output: Urine 450 Other: Voiding Method Indwelling Catheter Toilet # Voids 1 3 # Bowel Movements 0 1 ABP, PAP, CO, CI - Last Documented Arterial Blood Pressure 154/62 - Exam Patient is a late middle aged female, sitting in the recliner, in no acute distress. Patient is alert and awake. Patient knows of 4 date of 03/04/2024 and that she is in [facility] in [place]. She knows name of the current president Mr. Saleh. Cranial nerves are normal. Patient's muscle strength is normal in the upper extremities distally and proximally. In the lower limbs her hip flexion is about 4 bilaterally, plantar flexion and ankle dorsiflexion are 5 bilaterally. Reflexes are 1+ in the upper limbs, trace at the knees. Sensory to touch is equal. No ataxia. - Labs CBC & Chem 7: 03/03/24 02:50 03/04/24 03:41 Labs: Abnormal Lab Results - Last 24 Hours (Table) 03/03/24 03/04/24 Range/Units 19:49 11:29 POC Glucose (mg/dL) 116 H 118 H (70-110) mg/dL Microbiology - Last 24 Hours (Table) 03/01/24 10:04 Blood Culture - Preliminary Blood 02/29/24 04:45 Blood Culture - Preliminary Blood Assessment and Plan Assessment: This is a 63-year-old woman with a history of chronic low back pain, on morphine who presented emergency department because of altered mental status. It seems that there was some noise in the bathroom the day prior to present to the hospital and the patient was found standing on the sink shaky and confused. She also had some slurred speech speech. She was very lethargic and confused throughout the day prior to present to the hospital. She had elevated leukocytosis as well as fever. Acute encephalopathy with fever and leukocytosis of unknown etiology. On examination had leg jerks that was intermittent. Possible her leg jerking could be clinical seizures especially since in the past had episode of jerking of extremities in December 2023. EEG is moderate encephalopathy and had sharply contoured activity over the right parietal region but no clear discharges or seizure on EEG. 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 This does not seem like a stroke or TIA--mentation is improved. Episode of jerking of extremities in 12/2023 and per was felt medication side-effects (but unsure name of medication). Dr. Cole was concerned about possible seizure. Chronic kidney insufficiency Chronic low back pain and the patient is on morphine Daily migraine on Topamax Chronic history of COPD Hypertension Hyperlipidemia Hypothyroidism Tobacco use Plan: MRI Brain without contrast performed 03/03/2024 revealed no evidence of intrac ranial mass or acute/subacute infarct. Similar age-related atrophy and chronic small vessel ischemic change. Small bilateral mastoid effusions. Mild paranasal sinus disease. I personally reviewed MRI, agree with the findings. No acute ischemia. Patient was started on Keppra 500 mg twice a day, by Dr. Cole. She is on Topamax 100mg bid for migraine and that also has antiseizure benefit. In the ED the patient was given Brilinta on 02/28/2024 for concern for stroke. Will have to hold lumbar puncture for 5 days to pursue with lumbar puncture per anesthesiologist and can consider lumbar puncture today (03/04/2024). Patient completely declined lumbar puncture. Patient has been empirically started on acyclovir, vancomycin, ceftriaxone for possible meningo-encephalitis. ID is consulted. They also recommended lumbar puncture, as no obvious source of fever is identified. 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 Patient is on aspirin 81 mg daily. Patient is on Lipitor 80 mg nightly. Patient will be continued on acyclovir and ceftriaxone for now. I will discuss with infectious disease about lumbar puncture, and the course of antibiotics. Will defer the rest of the medical management to primary and other specialist. Neurology will continue to follow.
--- NOTE | 2024-03-12 17:56 | P.DS ---
Providers Date of admission: 02/28/24 18:18 Expected date of discharge: 03/04/24 Attending physician: Victor M Man MD Consults: 02/28/24 18:14 Consult Physician Routine Consulting Provider: Phu Cole Consult Reason/Comments: Possible CVA Do you want consulting provider notified?: Yes, Notify in am Consult Physician Stat Consulting Provider: Nico Zuluaga Consult Reason/Comments: Critical Care, COPD Do you want consulting provider notified?: Already Contacted 02/29/24 00:53 Consult Physician Urgent Consulting Provider: Alexx Cole Consult Reason/Comments: AMS Do you want consulting provider notified?: Yes 02/29/24 10:49 Consult to Anesthesia Routine Consulting Provider: Anesthesia,Services Consult Reason/Comments: lumbar puncture 02/29/24 11:31 Consult Physician Routine Consulting Provider: Deep Sánchez Consult Reason/Comments: MS changes; elevated WBC Do you want consulting provider notified?: Yes Primary care physician: Victor M Man MD Hospital Course: Janice Mejia is a 63-year-old white female with past medical history significant for COPD, chronic ongoing tobacco dependence, hypertension, hyperlipidemia, hypothyroidism, and chronic lower back pain maintained on PO morphine TID. She presented to the emergency department yesterday afternoon altered and obtunded. Pt intubated and sedated and history obtained via chart review. Patient was found standing at the sink in her bathroom yesterday, shaky, and confused. She may have had some slurred speech. Noted to be progressively more lethargic and confused throughout the day. On presentation to the emergency department, code stroke was initiated. No fibrinolytics were given, as the risk were felt to outweigh the benefits. Patient was started on Brilinta twice daily. Neurologist was consulted. While being worked up, patient became unresponsive. There was concern for possible morphine overdose. A dose of Narcan x 2 were given. Subsequently, patient had episode of nausea and vomiting. ABG was consistent with severe hypercapnic respiratory failure. ABG done on 100% FiO2; PaO2 greater than 420, pCO2 52, pH of 7.18. Patient was intubated by the ER provider for airway protection. Brain CT without contrast did not show any acute bleed or mass effect. Pt currently in the ICU sedated on propofol at 25 mcg/kg/min. Current ventilator settings respiratory rate 20, tid al volume 360, FiO2 50%, PEEP of 5. Peak pressures are 22. Postintubation chest x-ray shows endotracheal tube and orogastric tube in appropriate positions. WBC count 11.8, hemoglobin 14.1, hematocrit 44.6, platelets 256. Sodium 141, potassium 4.5, chloride 110, serum bicarb 21, BUN 27, creatinine 2.49, glucose 111. Lactic 2. Troponin less than 0.012. EKG: Sinus rhythm, rate 76 bpm, no obvious acute ischemic changes. Urine toxicology screen positive for opiates. Serum alcohol less than 10. Urinalysis unremarkable for infection. Normal saline currently infusing at 75 mg/h. 03/01/2024 vent dependent, FiO2 35%/+5 of PEEP. Sedated on diprovan. no pressors. Tmax 102.6, WBC decreased to 16.6. Sputum and blood cultures pending. maintained on vancomycin, Rocephin and Aciclovir. BUN 26, creatinine 1.61. hypertensive. Chest x-ray reported patchy infiltrate left medial lung base. COPD with pulmonary vascular congestion. EEG reported abnormal routine EEG, background slowing suggestive of moderate encephalopathy, sharply controlled activity over the right parietal region which can increase cortical irritability. No clear discharges or seizure on EEG. Triphasic wave likely due to toxic metabolite derangement. 03/02/2024 FiO2 30%/+5 of PEEP. Currently maintained on diprovan and Precedex, following simple commands, alert. 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 Afebrile, Tmax 101.1, WBC decreased to 12.5. BUN 24, creatinine 1.21. 03/03/24 extubated yesterday,tolerating well. maintaining O2 Sats in the 90's on RA. Maintained on antibiotics. Preliminary blood cultures reporting no growth after 48hours.Sputum culture reported normal respiratory elba.Procalcitonin 0.18. Afebrile,WBC 14.5. Hgb. 10.4, platelets 193. Sodium 146,potassium 3.9. Bicarb 18.Bun 26, creatinine 1.21.Denies chest pain, palpitations or shortness of breath. 03/04/2024. Pt signed out AMA. Patient Condition at Discharge: Stable Plan - Discharge Summary Discharge Rx Participant: Yes New Discharge Prescriptions: No Action busPIRone HCL 10 mg PO QID Gabapentin [Neurontin] 100 mg PO TID cilostazoL [Pletal] 100 mg PO BID Topiramate [Topamax] 100 mg PO BID Levothyroxine Sodium [Synthroid] 25 mcg PO DAILY Aspirin [Adult Low Dose Aspirin EC] 81 mg PO DAILY Morphine Sulfate 15 mg PO TID PRN PRN Reason: Pain Cetirizine HCl 10 mg PO DAILY QUEtiapine [SEROquel] 50 mg PO HS Promethazine HCl 12.5 mg PO BID PRN PRN Reason: Nausea Furosemide [Lasix] 20 mg PO DAILY Atorvastatin Calcium [Lipitor] 80 mg PO W/SUPPER Cholecalciferol (Vitamin D3) [Vitamin D3 (1250 Mcg = 50,000 Iu)] 1,250 mcg PO Q7D Donepezil [Aricept] 5 mg PO DAILY Montelukast [Singulair] 10 mg PO HS Potassium Chloride [Klor-Con M20] 20 meq PO DAILY Umeclidinium Brm/Vilanterol Tr [Anoro Ellipta 62.5-25 Mcg INH] 1 puff INHALATION RT-DAILY Albuterol Nebulized [Ventolin Nebulized] 2.5 mg INHALATION RT-TID Diclofenac Potassium [Cataflam] 50 mg PO DAILY hydrOXYzine pamoate [Vistaril] 25 mg PO QID Venlafaxine HCl [Effexor XR] 150 mg PO DAILY Alendronate Sodium [Fosamax] 70 mg PO Q7D Cholestyramine (with Sugar) [Cholestyramine Packet] 4 gm PO Q12H PRN PRN Reason: Gi Upset Discharge Medication List Aspirin [Adult Low Dose Aspirin EC] 81 mg PO DAILY 09/15/19 [History] Gabapentin [Neurontin] 100 mg PO TID 09/15/19 [History] Levothyroxine Sodium [Synthroid] 25 mcg PO DAILY 09/15/19 [History] Topiramate [Topamax] 100 mg PO BID 09/15/19 [History] busPIRone HCL 10 mg PO QID 09/15/19 [History] cilostazoL [Pletal] 100 mg PO BID 09/15/19 [History] Furosemide [Lasix] 20 mg PO DAILY 12/12/21 [History] Morphine Sulfate 15 mg PO TID PRN 12/12/21 [History] Atorvastatin Calcium [Lipitor] 80 mg PO W/SUPPER 10/30/22 [History] Cholecalciferol (Vitamin D3) [Vitamin D3 (1250 Mcg = 50,000 Iu)] 1,250 mcg PO Q7D 10/30/22 [History] Donepezil [Aricept] 5 mg PO DAILY 10/30/22 [History] Montelukast [Singulair] 10 mg PO HS 10/30/22 [History] Potassium Chloride [Klor-Con M20] 20 meq PO DAILY 10/30/22 [History] Umeclidinium Brm/Vilanterol Tr [Anoro Ellipta 62.5-25 Mcg INH] 1 puff INHALATION RT-DAILY 10/30/22 [History] Cetirizine HCl 10 mg PO DAILY 12/22/22 [History] Albuterol Nebulized [Ventolin Nebulized] 2.5 mg INHALATION RT-TID 02/28/24 [History] Alendronate Sodium [Fosamax] 70 mg PO Q7D 02/28/24 [History] Cholestyramine (with Sugar) [Cholestyramine Packet] 4 gm PO Q12H PRN 02/28/24 [History] Diclofenac Potassium [Cataflam] 50 mg PO DAILY 02/28/24 [History] Promethazine HCl 12.5 mg PO BID PRN 02/28/24 [History] QUEtiapine [SEROquel] 50 mg PO HS 02/28/24 [History] Venlafaxine HCl [Effexor XR] 150 mg PO DAILY 02/28/24 [History] hydrOXYzine pamoate [Vistaril] 25 mg PO QID 02/28/24 [History] Follow up Appointment(s)/Referral(s): Victor M Man MD [Primary Care Provider] - 1-2 days Discharge Disposition: LEFT AGAINST MEDICAL ADVICE
== END 2024-03-04 18:57 | disposition left against medical advice (07) | DRG 871 ==
LOC: EC 15:04 → 2SICU 18:18 → 4SSUR 03-03 18:02
PROVIDERS: ADMIT Family Medicine; ATTEND Family Medicine
PROC: 5A1945Z Respiratory Ventilation, 24-96 Consecutive Hours (ICD-10-PCS; principal; 2024-02-28)
PROC: 0BH17EZ Insertion of Endotracheal Airway into Trachea, Via Natural or Artificial Opening (ICD-10-PCS; 2024-02-28)
PROC: 03HY32Z Insertion of Monitoring Device into Upper Artery, Percutaneous Approach (ICD-10-PCS; 2024-02-29)
PROC: 4A133B1 Monitoring of Arterial Pressure, Peripheral, Percutaneous Approach (ICD-10-PCS; 2024-02-29)
PROC: 4A133J1 Monitoring of Arterial Pulse, Peripheral, Percutaneous Approach (ICD-10-PCS; 2024-02-29)
PROC: 3E033XZ Introduction of Vasopressor into Peripheral Vein, Percutaneous Approach (ICD-10-PCS; 2024-02-29)
DX: A41.9 Sepsis, unspecified organism (principal); G92.8 Other toxic encephalopathy; J69.0 Pneumonitis due to inhalation of food and vomit; J96.01 Acute respiratory failure with hypoxia; J96.02 Acute respiratory failure with hypercapnia; N17.0 Acute kidney failure with tubular necrosis; J44.1 Chronic obstructive pulmonary disease with (acute) exacerbation; G96.9 Disorder of central nervous system, unspecified; E03.9 Hypothyroidism, unspecified; E78.5 Hyperlipidemia, unspecified; F17.210 Nicotine dependence, cigarettes, uncomplicated; F32.A Depression, unspecified; F41.9 Anxiety disorder, unspecified; G43.909 Migraine, unspecified, not intractable, without status migrainosus; G89.29 Other chronic pain; I12.9 Hypertensive chronic kidney disease with stage 1 through stage 4 chronic kidney disease, or unspecified chronic kidney disease; M48.061 Spinal stenosis, lumbar region without neurogenic claudication; M51.26 Other intervertebral disc displacement, lumbar region; N18.31 Chronic kidney disease, stage 3a; I95.9 Hypotension, unspecified; T40.2X1A Poisoning by other opioids, accidental (unintentional), initial encounter; Z79.890 Hormone replacement therapy; Z79.02 Long term (current) use of antithrombotics/antiplatelets; Z79.82 Long term (current) use of aspirin; Z79.83 Long term (current) use of bisphosphonates; Z79.899 Other long term (current) drug therapy; Z90.711 Acquired absence of uterus with remaining cervical stump; Z88.3 Allergy status to other anti-infective agents; Z88.5 Allergy status to narcotic agent
CPT/HCPCS: 36415; 36600; 51702; 70450; 70496; 70498; 70551; 71045; 80048; 80053; 80143; 80202; 80306; 80320; 81003; 82140; 82271; 82565; 82607; 82805; 83605; 83735; 84132; 84145; 84439; 84443; 84484; 85025; 85610; 85730; 86695; 86696; 87040; 87070; 87205; 87636; 93005; 94002; 94003; 94640; 95819; 96361; 96374; 96375; 99291; 99292

== ENCOUNTER → 2024-08-15 | Outpatient (CLI) | payer MEDICARE ==
--- NOTE | 2024-08-15 13:48 | MM ---
Reason for Exam: Screening (asymptomatic). Last mammogram was performed 1 year(s) and 3 month(s) ago. Patient History: Menarche at age 11. First Full-Term at age 17. Postmenopausal. Estrogen for 6 months. Hormonal Contraceptives, from age 14 until age 20. 04/14/2002, Benign Stereotactic Core Biopsy on the left side. Risk Values: Denisse 5 year model risk: 1.4%. NCI Lifetime model risk: 5.6%. Prior Study Comparison: 05/26/2023 Bilateral MG 3D screening mammo w/cad, [facility]. 06/02/2023 Left MG 3D work up w/cad LT, [facility]. 12/03/2023 Left MG 3D diag mammo w/cad LT, [facility]. Tissue Density: There are scattered areas of fibroglandular density. Findings: Analyzed By CAD. There is no suspicious group of microcalcifications or new suspicious mass in either breast. Overall Assessment: Negative, BI-RAD 1 Management: Screening Mammogram of both breasts in 1 year. Patient should continue monthly self-breast exams. A clinical breast exam by your physician is recommended on an annual basis. This exam should not preclude additional follow-up of suspicious palpable abnormalities. Note on Denisse scores and lifetime risk: 1. A Denisse score greater than 3% is considered moderate risk. If this is the case, consider specialist referral to assess eligibility for a risk reducing agent. 2. If overall lifetime risk for the development of breast cancer is 20% or higher, the patient may qualify for future screening with alternating mammogram and breast MRI. [facility], , 08/15/2024 1:46 PM. Electronically signed and approved by: Courtney Sofia M.D. Radiologist
--- NOTE | 2024-08-16 18:28 | CT ---
EXAMINATION TYPE: CT chest wo con DATE OF EXAM: 08/15/2024 9:58 AM COMPARISON: None. CLINICAL INDICATION: Female, 63 years old with history of R91.1 Nodule F17.210 Smoker, LUNG NODULE TECHNIQUE: Axial images were obtained at 5 mm thick sections. Reconstructed images are reviewed on [employer] computer in the coronal plane. Contrast used: mL of , (none if empty) Oral contrast used: (none if empty) CT DLP: 136.4 mGycm, Automated exposure control for dose reduction was used. FINDINGS: Portion of the thyroid visualized is normal. There is some thickening along the lateral right upper lung field measuring 2.2 x 0.9 cm. Series 4 im age 13. This appears stable from comparison. Some scarring appears to be at the lung apices, present previously. There is a 0.6 cm nodule in the left costophrenic angle sulcus, series 4 image 45. This appears to be en present previously but may be thicker than the prior exam. This could be projectional. No enlarged mediastinal or hilar adenopathy is evident. The ascending aorta diameter at the level o f the main pulmonary artery is 3.4 cm. The main pulmonary artery diameter at the bifurcation is 2.9 cm. No significant coronary artery calcifications. Limited CT sections are obtained through the upper abdomen. Abdomen is essentially unremarkable. IMPRESSION: 1. Bilateral apical scarring, some right lateral upper lung field thickening and a small nodule in th e left costophrenic angle appears to be present previously. [facility], , 08/16/2024 6:26 PM
== END | disposition home or self-care (01) ==
LOC: RADMAMWWP 09:10
PROVIDERS: ATTEND Family Medicine
DX: Z12.31 Encounter for screening mammogram for malignant neoplasm of breast (principal); R92.323 Mammographic fibroglandular density, bilateral breasts; J98.4 Other disorders of lung; R91.1 Solitary pulmonary nodule; Z92.0 Personal history of contraception; Z78.0 Asymptomatic menopausal state
CPT/HCPCS: 71250; 77063; 77067